=== PATIENT | male | born 1940 | race Caucasian/White ===

== ENCOUNTER → 2017-09-16 16:06 | Outpatient (CLI) | payer MEDICARE, OTHER, SELFPAY ==
[2017-09-16 18:11] LABS: PSA,Total- Diagnostic 0.43 ng/mL (0.0-4.0)
== END ==
PROVIDERS: Visit Provider Urology
DX: C61 Malignant neoplasm of prostate (principal)
CPT/HCPCS: 36415; 84153

== ENCOUNTER 2018-05-06 08:37 | Inpatient (IN) | payer MEDICARE, OTHER, SELFPAY ==
[2018-04-24 11:23] VITALS: BP 134/81; PULSE 70; RESP 18; TEMP 36.6; O2SAT 96; BMI 31.2
--- NOTE | 2018-04-24 14:43 | PCM.HP.BLA ---
History and Physical DATE OF SURGERY: 05/06/2018 SCHEDULED PROCEDURE: left total knee arthroplasty HISTORY OF PRESENT ILLNESS: This is a 77-year-old male whose been having ongoing pain in bilateral knees for approximately 1-2 years. Patient states the left knee is greater than the right. Pain can reach as high as a 10/10. Pain is intermittent, aching, and sore. It is increased going up and down stairs. He is having pain over the medial joint line bilaterally. Patient states this has been affecting his ability to golf due to the pain. He has difficult times daily living including shopping. Patient has tripped/stumbled secondary to his knee pain. He feels unsafe climbing ladders. Patient has tried conservative measures consisting of rest, heat, elevation with minimal relief. He has had previous corticosteroid injections every 3 months for proximally for years with Dr. Kong. His last injection only lasted 4-6 weeks. Patient has been using [id number] Tylenol and Aleve with minimal relief. He has been through home exercise plan with minimal relief. Patient has had a previous left knee arthroscopy in 2003. Patient currently denies any chest pain, shortness of breath, fevers chills, recent infections. Patient has medical history pertinent for hypertension, atrial fibrillation, previous stroke in 1997, and prostate cancer. We are obtaining surgical clearance from patient's primary care physician Dr. Godwin. Patient is currently taking our request and we will follow recommendations from prescribing physician with stopping prior to surgery. After failing conservative measures and discussing treatment options with Dr. John Echevarria, the patient does wish to proceed with a left total knee arthroplasty. REVIEW OF SYSTEMS: ROS: Const: Denies change in appetite, fever and weight change. CV: Reports irregular heartbeat, but denies chest pain and heart murmur. Resp: Denies cough, pneumonia, shortness of breath, tuberculosis and wheezing. GI: Denies constipation, diarrhea, heartburn, nausea, rectal itching, bloody stools and vomiting. : Denies incontinence. Musculo: Denies leg swelling, pain, trouble walking and weakness. Skin: Denies Raynaud's, history of shingles and tattoo. Neuro: Denies ambulatory dysfunction, dizziness, numbness/tingling and tremor. Psych: Denies anxiety, insomnia and stress. Alex/Lymph: Reports bleeding/bruising tendency, but denies anemia and past transfusion. Reviewed, no changes. PAST MEDICAL HISTORY: Advance Care Plan: Other Directive, POA Effective Date: 01/26/2018 PMH: Medical Problems: Arthritis, High Blood Pressure, Hypercholesterolemia, A-Fib Stroke - 1997 Prostate cancer - cleared thru [facility] Accidents: Sports Related Injury - (01/1958) BROKEN LEG AND ANKLE Surgical Hx: Knee Arthroscopy Lt - (2003) ELIZONDO Bleeding Ulcer Fixed Anesthesia Complications: None Assistive Devices: Dentures Reviewed and updated. SOCIAL HISTORY: SH: Marital: .Occupation: Retired.Work Status: Retired.Hand Dominance: Right-handed. Personal Habits: Cigarette Use: Never Smoked Cigarettes.Smokeless Tobacco: Never Used Smokeless Tobacco.Alcohol: Occasionally.Drug Use: Denies Use.Enjoy Exercising: Exercises 1-3 X/Week. Reviewed, no changes. VITALS: Ht: 68 Wt: 209lb Wt k.802 BMI: 31.8 BP: 110/70 Pulse: 68 Resp: 16 T: 96.6 T: 35.9C ALLERGIES: No Known Drug Allergy MEDICATIONS: Potassium Chloride 10 Meq/50ML daily, Digoxin 125 mcg 1po qday, Metoprolol Succinate ER 200 mg 1po qday, Eliquis 5 mg 1po bid, Vitamin D 2000 Unit 1 by mouth every day, Omeprazole 20 mg 1 by mouth every day, Simvastatin 20 mg 1 by mouth every day, Hydrochlorothiazide 25 mg 1 by mouth every day, Quinapril HCL 40 mg 1 by mouth every day, Amlodipine Besylate 10 mg 1 by mouth every day PRE-OP EXAM: General appearance:NORMAL Other: Eyes: Conjunctivae and lids: NORMAL Pupils: ERR Ears, Nose, Mouth, and Throat: NORMAL Other: Inspection of lips, teeth and gums: NORMAL Other: Neck: Examination of neck: no masses noted. Respiratory: Assessment of respiratory effort: NORMAL Other: Auscultation of lungs: clear to auscultation no wheezes, rhonchi or rales. Cardiovascular: Auscultation of heart: irregular rhythm consistent with Atrial fibrillation Exam of carotid arteries: NORMAL Other: Gastrointestinal: Exam of abdomen: soft, nontender, nondistended bowel sounds present. PHYSICAL EXAMINATION: On exam patient does walk with an antalgic gait. Left knee is cool to touch without erythema. Patient does have effusion. There is varus alignment. Range of motion bilateral knee 0 of extension to 130 flexion. Left knee is stable to varus and valgus stress test. He has tenderness to palpation along the medial joint line. Sensation intact to light touch. Neurovascularly intact. IMAGING STUDIES: X-rays were obtained at [facility] with the left knee showing varus alignment with medial joint space narrowing, subchondral sclerosis, and osteophyte formation consistent with severe osteoarthritis. IMPRESSION: 1. Severe left knee osteoarthritis 2. Severe right knee osteoarthritis 3. Atrial fibrillation currently on helical S 4. Hypertension 5. Stroke in 1997 6. Hypercholesterolemia 7. Prostate cancer PLAN: Dr. John Echevarria did discuss and review with the patient all treatment options including surgical versus nonsurgical options. Patient does wish to proceed with the above-stated procedure. Potential risks, benefits, and complications of the procedure were discussed in detail including but not limited to , infection, nerve and blood vessel damage, persistent pain, numbness, tingling, paresthesias, blood clot, pulmonary embolism, and requirement for possible further surgery. The patient expressed full understanding and has no further questions for the doctor. Patient does agree to proceed with the above-stated procedure and has signed the surgery consent form. This dictation was created using voice recognition software. Phonetic and/or grammatical errors may exist.. ___ I have re-examined the patient. There are no clinical changes since date of exam. ___ See progress notes for changes. ___ Dictated on admission Date: Time: Signature:
[2018-04-24 14:48] LABS: Absolute Lymphocyte Count 1.41 X10^3/ul (0.83-4.51); Absolute Neutrophil Count 4.3 X10^3/uL (2.0-7.7); Basophil# 0.04 X10^3/uL; Basophil% 0.6 % (0-1); Eosinophil# 0.21 X10^3/uL; Eosinophils% 3.2 % (0-5); Lymphocyte # 1.41 X10^3/ul (4.0); Lymphocyte % 21.4 % (19-41); Mean Corp Hgb Conc 32.6 g/gl (32-36); Mean Corpuscular Hgb 28.6 pg (27.0-32.0); Mean Corpuscular Volume 87.8 fL (80-94); Mean Platelet Vol. 12.4 fl (6.2-12.0); Monocyte# 0.62 X10^3/uL; Monocyte% 9.4 % (0-10); Neutrophil % 65.1 % (47-70); Platelet Count 170 K/mm3 (150-450); RBC Distribution Width CV 14.2 % (11.6-14.6); RBC Distribution Width SD 46.2 fl (35.1-43.9); Red Blood Count 5.24 M/mm3 (4.6-6.2); White Blood Count 6.6 K/mm3 (4.4-11.0)
[2018-04-24 14:57] LABS: POSITIVE COUNT NO; POSITIVE DIFFERENTIAL NO; POSITIVE MORPHOLOGY NO
[2018-04-24 15:09] LABS: Anion Gap 10 (5-15); BUN 22 mg/dL (7-18); BUN/Creat Ratio 14.9 RATIO (10-20); Calcium,Total 9.2 mg/dL (8.5-10.1); Chloride 104 mmol/L (98-107); Creatinine, Serum 1.48 mg/dL (0.70-1.30); EST Glomerular Filtration Rate 49 mL/min (>60); Est Glom Filt Rate - Afr Amer 59 mL/min (>60); Estimated Creatinine Clearance 42.46 ml/min; Glucose 80 mg/dL (74-106); Potassium 3.2 mmol/L (3.5-5.1); Sodium Level 143 mmol/L (136-145)
[2018-04-24 18:49] LABS: M R Staph aureus DNA By PCR Negative (Negative); Probe Check PASS; Specimen Processing Control PASS
[2018-05-04 13:40] LABS: Albumin, Serum 4.2 g/dL (3.2-5.0)
--- NOTE | 2018-05-04 14:01 | CASEMGMT ---
Attempted to contact patient on cell phone, no answer. Voicemail left. Carmita Navarrete LPN Clinical Support
--- NOTE | 2018-05-05 09:24 | CASEMGMT ---
Patient had returned phone call, called patient back and spoke with him regarding discharge needs after upcoming surgery. Patient plans to return home, son and daughter will assist at home. Patient originally planned for outpatient PT at [facility] but won't be able to drive and won't have assistance with transportation. Patient would prefer outpatient PT be set up at [facility] and would appreciate transportation assistance from [facility]. Patient has a wheeled walker, has a grabber, has high toilets, has a grab bar in the shower. Patient resides in a mobile home, bed/bath are on 1st level. There are 7 steps total to get into home. Informed patient that RN-CM will see patient after surgery. Carmita Navarrete LPN Clinical Support
[2018-05-06] VITALS (15 sets, daily range): BP systolic 89–142; BP diastolic 49–89; PULSE 68–95; RESP 14–18; TEMP 36.3–36.7; O2SAT 95–100; BMI 31.2; BMI 31.3
[2018-05-06] MEDS: Acetaminophen 500 MG Tablet 1000 MG PO ×3 (09:06→21:19)
[2018-05-06] MEDS: Cefazolin 2 GM in 0.9% Normal Saline 100 ML IV (10:11)
--- NOTE | 2018-05-06 11:23 | OP.PCM_ITS ---
Report of Operation Date of Procedure: 05/06/18 Pre-Operative Diagnosis: Left knee primary osteoarthritis Post-Operative Diagnosis: Left knee primary osteoarthritis Surgery/Procedure Performed:: Left total knee replacement Description of Surgical Findings:: Stable knee with good patella tracking board of directors: Nilsa Longoria board of directors: Tayler Boone Type of Anesthesia:: Spinal Anesthesiologist: Jignesh Coronado Special Medications: 2 g Ancef, 1 g TXA at incision, 1 g TXA closure, 10 mg Decadron, joint cocktail (5 mg Duramorph, 30 mL of 0.5% Ropivicaine, 1000 units of epinephrine, 30 mg of Toradol) Specimen's removed: Bony cuts Estimated Blood Loss (mL): 25 Fluids Replaced: 900 mL crystalloid Description of Procedure: Implants used: 1. Dipti size 6 press-fit triathlon cruciate retaining distal femoral comp onent 2. Simpson size 7 press-fit tibial baseplate 3. Dipti X3 9 mm CS polyethylene 4. Simpson X3 38 mm asymmetric patella Brief history operative indications: 77-year-old m with history of left knee osteoarthritis with radiographic findings with loss of joint space, osteophyte formation and subchondral sclerosis. Failed conservative measures as mentioned in the H&P. Discussion of total knee arthroplasty as well as risk and benefits were discussed the patient including but not limited to blood loss, DVTs, PEs, neurovascular damage, general risk of anesthesia including loss of life, and stiffness or instability were discussed with patient. Patient demonstrated understanding and was able to sign informed consent. Procedure: On the date of procedure patient's left lower extremity was marked in the preoperative area. The patient was then taken back to the operating room where the patient was placed on the table in the supine position. All bony prominences were identified a well-padded. Anesthesia assumed control of the C-spine and airway and remained controlled throughout the remainder of the procedure. A tourniquet was placed on the left upper thigh and the leg was prepped in a sterile fashion. The surgeon then scrubbed at this time .Upon reentering the room left lower extremity was draped in a standard orthopedic fashion. A timeout was then called and everyone agreed upon the side, the site, the procedure to be performed, patient's identity and antibiotics given. Esmarch bandage was used to exsanguinate the extremity and the tourniquet was placed up to 250 mmHg with the knee in flexion. A midline skin incision was made and sharp dissection was taken down through skin subcutaneous tissue and fat. The standard medial parapatellar incision was made and the patella was subluxed laterally. The standard deep MCL release was done and the fat pad was resected. Next our attention was directed to the femur. Navigation pins were placed, navigation was registered. The distal femoral cutting block was pinned into place and 9 mm of distal femur resection was completed. The distal femoral cut was verified with navigation. The knee was then placed in deep flexion in the standard [email or web address] sizing guide was used to place the femoral component in 3? external rotation based on the posterior condyles. A size 6 4-in-1 cutting block was selected and pinned into place. The anterior cut was then made and checked for notching. The subsequent anterior chamfer cuts, posterior condylar cuts and posterior chamfer cuts were made while ensuring the MCL and LCL were protected. Our attention was then turned to the tibia where the B[place]e tibial cutting guide was used to make the appropriate tibial cut 90 degrees from the mechanical axis. Navigation was then used to verify the cut. A size 7 tibial base plate was selected. the knee was flexed to 90 degrees and the soft tissues and posterior osteophytes were removed from the joint. 40 cc of the periarticular injection was injected into the posterior medial corner of the joint. The appropriate trials were then placed on the femur and tibia. A trial polyethylene was trialed to ensure proper balancing and stability of the knee. Patella tracking, was then verified and corrected appropriately as needed. The appropriate tibial internal rotation was then marked with a bovie. Our attention was then directed to the patella. The patella was everted and a flat resection was made. The lug holes were drilled and the patella trial was placed. Patellar tracking was checked and deemed appropriate. Once we were happy lug holes were drilled for the femur and trial components were removed. Cement was mixed at this time and the tourniquet was let down the tibia was subluxed and pinned into place and the keel was punched and the canal was reamed. Final components were verified and opened, and cement was mixed in a vacuum. Simpson Simplex cement was used. The wound was copiously irrigated with normal saline. When the cement was ready the press-fit components were impacted into place starting with the tibia, femur and finally the patella cemented into place. The trial poly component was placed and the knee was placed in full extension. All excess cement was removed in the process. Once the cement had cured the tracking, alignment and balance were verified and a size 9 mm polyethylene component was placed. Once the final components were placed the wound was copiously irrigated with normal saline solution and the periarticular injection was given. The wound was closed in a layer peck fashion using #1 vicryl interrupted sutures for the arthrotomy, 2-0 interrupted Vicryl suture for the subcuticular layer and baljinder for final skin closure. A sterile compressive dressing was then placed. The patient was then awakened from anesthesia, transferred to the [facility] and transferred to the PACU for recovery. Post op plan DVT ppx: Patient will restart his Eliquis tomorrow, thigh high compression stockings Follow up: in office in 2 weeks for wound check PT: to start POD #0 at hospital, outpatient PT should be arranged. Grafts/Implants Used: Dipti triathlon press-fit cruciate retaining total knee - Complications None - Admit VTE Documentation VTE Present on Admission: No VTE Mechan Device Prophylaxis: SCD's, Thigh High GREGORY Hose VTE Pharm Prophylaxis ordered?: Yes
[2018-05-06] MEDS: Scopolamine 1mg/72hr Patch 1 PATCH TD (12:02)
--- NOTE | 2018-05-06 12:10 | RAD_ITS ---
STUDY: X-RAY - LEFT KNEE REASON FOR EXAM: Male, 77 years old. Total knee replacement. TECHNIQUE: 2 view(s) of the knee. COMPARISON: Comparison is made with prior study dated May 21, 2017. FINDINGS: Normal visualized distal femur. Normal visualized proximal tibia and fibula. Normal proximal tibiofibular articulation. The patient is status post total knee replacement. There is good alignment. Postoperative soft tissue changes. RAD/Knee 1 or 2 Views IMPRESSION: Status post total knee replacement. There is good alignment. Postoperative soft tissue changes. Electronically Signed: Magdi Pham MD at 14:34 EST Tel [phone], Service support ,
--- NOTE | 2018-05-06 14:08 | PCM.CONS.GEN ---
Reason for Consult Date of Consultation: 05/06/18 Reason for Consultation: Consult requested by Dr. Echevarria for postoperative medical management History of Present Illness: The patient is a 77 year old M who underwent a left total knee replacement today by Dr. Echevarria. Postoperatively, patient had some nausea in the PACU but is otherwise feeling fine at this time. Denies any pain in his left leg at this time. [] Past Medical History Medical History: Medical History (Last Updated 05/06/18 @ 14:10 by Gerber Williamson DO) Afib I48.91 CVA (cerebral vascular accident) I63.9 Hyperlipidemia E78.5 PUD (peptic ulcer disease) K27.9 Prostate cancer C61 TIA (transient ischemic attack) G45.9 Hypertension I10 Allergies No Known Allergies Allergy (Verified 05/21/17 08:26) Home Medications: Ambulatory Orders Medication Instructions Recorded Amlodipine [Norvasc] 10 mg PO DAILY 11/21/16 Apixaban [Eliquis] 5 mg PO BID 11/21/16 Digoxin [Lanoxin] 125 mcg PO DAILY 11/21/16 Hydrochlorothiazide [Hctz] 25 mg PO DAILY 11/21/16 Metoprolol Tartrate [Lopressor] 200 mg PO DAILY 11/21/16 Omeprazole 20 mg PO DAILY 11/21/16 Quinapril HCl 40 mg PO DAILY 11/21/16 Simvastatin 20 mg PO DAILY 11/21/16 Cholecalciferol (Vitamin D3) 2,000 unit PO DAILY 04/24/18 [Vitamin D3] Potassium Chloride 10 meq PO DAILY 04/24/18 Surgical History: Surgical History (Last Reviewed 05/06/18 @ 14:10 by Gebrer Williamson DO) S/P left knee arthroscopy Z98.890 Smoking Status: Never smoker Tobacco Use: Non-smoker Alcohol: None Drugs: None - *Family History Maternal Family History: Family History (Last Updated 05/06/18 @ 14:11 by Gerber Williamson DO) Mother Brain aneurysm Other Angina of effort Review of Systems Constitutional: Denies: Anorexia, Chills, Fever, Night Sweats Eyes: Denies: Blurred vision, Double vision HEENT: Denies: Head Aches, Sinus Congestion, Sinus Drainage Cardiovascular: Denies: Chest Pain, Palpitations Respiratory: Denies: Cough, Shortness of breath at rest, Sputum production Gastrointestinal: Denies: Abdominal Pain, Nausea, Vomiting Genitourinary: Denies: Dysuria Musculoskeletal: Denies: Joint Pain, Joint Tenderness Skin: Denies: Rash, Wounds Neurological: Denies: Numbness, Tingling, Focal weakness Psychiatric: Denies: Anxiety, Depression Hematologic/ Lymphatic: Reports: Easy Bleeding - due to PUD (in 1985 and 2003). Denies: Hx of blood clot Comment: A 10 point review of systems were negative except as mentioned in the history of present illness and the other review of systems. - Physical Exam General: Alert, Cooperative, No apparent distress HEENT: Atraumatic, Normocephalic Oral: Moist Mucosa, No Gingival or Mucosal Lesions/ Ulcerations Neck: No Nodes, Thyroid Normal Size and Texture Lungs: Clear to auscultation, Normal air movement, No rhonchi, No wheeze Cardiovascular: Regular rate, Regular Rhythm, Normal S1, Normal S2, No murmurs Abdomen: Bowel Sounds Present, Soft, Non Tender, Non-Distended, No Hepato-splenomegaly Extremities: No edema, No Calf Tenderness Skin: No rashes, No breakdown Psych/Mental Status: Normal Affect Vital Signs Temp Pulse Resp BP Pulse Ox 36.5 C L 95 16 115/67 98 05/06/18 13:29 05/06/18 13:29 05/06/18 13:29 05/06/18 13:29 05/06/18 13:29 Oxygen Delivery Method Room Air Weight: 95.9 kg Body Mass Index (BMI) 31.3 Intake and Output for Last 24 Hours 05/04/18 05/05/18 05/06/18 23:59 23:59 23:59 Intake Total 1700 / 1700 Balance 1700 / 1700 Assessment/Plan 1. Atrial fibrillation Chronic To new anticoagulation with Eliquis, continue digoxin and metoprolol succinate Follow-up with cardiology outpatient 2. HTN Stable continue with amlodipine, HCTZ and lisinopril 3. Remote history of peptic ulcer disease Continue with PPI 4. Status post left knee replacement Management per orthopedics 5. DVT prophylaxis: Patient is already anticoagulated with Eliquis. Ink for the consult. The hospital service will continue to follow along during this patient's hospitalization. Code Visit Inpatient E&M: 46985 Init Hosp L2
[2018-05-06] MEDS: Lactated Ringers 1,000 ML 75 ML IV (14:22)
[2018-05-06] MEDS: Digoxin 125 MCG Tablet PO (14:31)
[2018-05-06] MEDS: Morphine 2 MG/ML Syringe IV (17:10)
[2018-05-06] MEDS: Cefazolin 1 GM/50 ML BAG IV (19:06)
[2018-05-06] MEDS: oxyCODONE 5 MG Tablet PO ×2 (19:06→23:14)
[2018-05-06] MEDS: Atorvastatin Calcium 10 MG Tablet PO (21:19)
[2018-05-06] MEDS: Senna/Docusate Sodium 1 Tablet 2 TABLET PO (21:19)
[2018-05-06] MEDS: Meloxicam 7.5 MG Tablet PO (21:19)
[2018-05-06] MEDS: Metoprolol(XL)Succ 200 MG Tablet PO (22:42)
[2018-05-07] MEDS: Cefazolin 1 GM/50 ML BAG IV (02:05)
[2018-05-07 02:07] VITALS: BP 128/59; PULSE 85; RESP 18; TEMP 36.9; O2SAT 96
[2018-05-07] MEDS: oxyCODONE 5 MG Tablet PO ×2 (03:35→15:54)
[2018-05-07 05:32] LABS: Hematocrit 39.1 % (40-54); Hemoglobin 12.4 g/dl (13.0-16.5); Mean Corp Hgb Conc 31.7 g/gl (32-36); Mean Corpuscular Hgb 28.6 pg (27.0-32.0); Mean Corpuscular Volume 90.3 fL (80-94); Mean Platelet Vol. 11.5 fl (6.2-12.0); Platelet Count 145 K/mm3 (150-450); RBC Distribution Width CV 14.2 % (11.6-14.6); Red Blood Count 4.33 M/mm3 (4.6-6.2); White Blood Count 9.4 K/mm3 (4.4-11.0)
[2018-05-07 05:53] LABS: Scan Indicated on CBC? Y/N NO
[2018-05-07 05:56] LABS: Anion Gap 9 (5-15); BUN 18 mg/dL (7-18); BUN/Creat Ratio 12.7 RATIO (10-20); Calcium,Total 8.2 mg/dL (8.5-10.1); Chloride 106 mmol/L (98-107); Creatinine, Serum 1.42 mg/dL (0.70-1.30); EST Glomerular Filtration Rate 51 mL/min (>60); Est Glom Filt Rate - Afr Amer 62 mL/min (>60); Estimated Creatinine Clearance 42.82 ml/min; Glucose 138 mg/dL (74-106); Potassium 3.8 mmol/L (3.5-5.1); Sodium Level 140 mmol/L (136-145)
[2018-05-07] MEDS: Acetaminophen 500 MG Tablet 1000 MG PO ×3 (06:14→21:42)
[2018-05-07 08:18] VITALS: BP 105/64; PULSE 83; RESP 18; TEMP 36.8; O2SAT 96
[2018-05-07] MEDS: Meloxicam 7.5 MG Tablet PO ×2 (08:26→21:43)
[2018-05-07] MEDS: Famotidine 20 MG Tablet PO (08:27)
[2018-05-07] MEDS: APIXABAN 5 MG TABLET PO ×2 (08:27→21:43)
[2018-05-07 08:28] VITALS: PULSE 83
[2018-05-07] MEDS: Digoxin 125 MCG Tablet PO (08:28)
[2018-05-07] MEDS: Pantoprazole Sodium 20 MG Tablet PO (08:28)
--- NOTE | 2018-05-07 09:30 | PN.ORTHO_ITS ---
Subjective: The patient was sitting in bedside chair upon examination. Patient denies any chest pain, shortness of breath, dizziness, lightheadedness, nausea or vomiting, or calf pain. Pain is controlled on medications. No adverse overnight events. Patient does report pain in his left knee primarily when he is up walking.. Objective: Vital signs stable and afebrile. Patient is able to plantarflex and dorsiflex actively. Sensation is intact to light touch to saphenous, sural, superficial and deep peroneal, and tibial distribution. Dressing is clean dry and intact. Negative Homans bilaterally, negative signs and symptoms of DVT. - Physical Exam General: Alert, Oriented x3, Cooperative, No apparent distress Vital Signs Temp Pulse Resp BP Pulse Ox 98.2 F 83 18 105/64 96 05/07/18 08:18 05/07/18 08:28 05/07/18 08:18 05/07/18 08:18 05/07/18 08:18 Oxygen Delivery Method Room Air Weight: 95.9 kg Body Mass Index (BMI) 31.3 Intake and Output for Last 24 Hours 05/05/18 05/06/18 05/07/18 23:59 23:59 23:59 Intake Total 2851 / 2851 1077 / 1077 Output Total 1025 / 1025 Balance 2851 / 2851 52 / 52 Laboratory Tests Past 24 Hrs 05/07/18 05/07/18 05:02 05:02 WBC 9.4 RBC 4.33 L Hgb 12.4 L Hct 39.1 L MCV 90.3 MCH 28.6 MCHC 31.7 L RDW 14.2 RDW Differential 47.0 H Plt Count 145 L MPV 11.5 Sodium 140 Potassium 3.8 Chloride 106 Carbon Dioxide 25.0 Anion Gap 9 BUN 18 Creatinine 1.42 H Estim Creat Clear Calc 42.82 Est GFR (MDRD) Af Amer 62 Est GFR (MDRD) Non-Af 51 L BUN/Creatinine Ratio 12.7 Glucose 138 H Calcium 8.2 L Medical Necessity - Tobacco Use Smoking Status: Never smoker Tobacco Use: Non-smoker Assessment/Plan 1. S/P left total knee arthroplasty POD #1 2. Continue Pain Medications: Tylenol and OxyIR 3. DVT Prophylaxis: Patient has been placed back on his Eliquis: Patient treate d for atrial fibrillation 4. PT/OT: Weightbearing as tolerated 5. H & H: 12.4/31.9, asymptomatic 6. Encouraged Incentive Spirometry 7. Continue postoperative medical management per medicine 8. Disposition: Plan will be for discharge home tomorrow if patient tolerates physical therapy and pain is controlled.
--- NOTE | 2018-05-07 10:45 | CASEMGMT ---
COURTNEY TUBBS Face to Face with patient for initial transition planning/care coordination assessment. COURTNEY TUBBS introduced self and role at [facility]. Patient lying in bed, alert and oriented. Patient willing to participate in assessment and is able to answer all questions appropriately. Care providers, pharmacy, and demographics verified. Patient wishes to discharge home and would like outpatient therapy changed from [facility] to [facility] to utilize the hospital van. COURTNEY TUBBS will call [facility] to schedule outpatient therapy. Patient states he has a walker, qualitative field project manager, and raised toilets at home. Patient's daughter to provide transportation to initial [place] appointment. Patient states he has no further needs or concerns at this time. CM to follow for discharge planning needs that may arise. Disposition Plan: Patient to discharge home with outpatient therapy, family support, and follow-up plans in place. Alethea SOTO, RN, CM
--- NOTE | 2018-05-07 11:09 | PN_ITS ---
Subjective: Chief complaint: Follow-up after consultation for postoperative medical management. Patient seen and examined. No acute events overnight. Left knee pain is 2 out of 10 severity at rest and goes up to 7 out of 10 severity with ambulation. Denies any other complaints. His vital signs are stable. - Physical Exam General: Alert, Oriented x3, Cooperative, No apparent distress HEENT: Atraumatic, PERRLA, EOMI, Normocephalic Oral: Moist Mucosa, No Gingival or Mucosal Lesions/ Ulcerations Neck: Supple, No JVD, Negative Carotid Bruits, Trachea Midline, Thyroid Normal Size and Texture Lungs: Clear to auscultation, No rhonchi, No wheeze, No rales, Diminished Cardiovascular: Normal S1, Normal S2, No murmurs, PMI Normal, Irregular Rate Abdomen: Bowel Sounds Present, Soft, Non Tender, Non-Distended, No Hepato- splenomegaly Extremities: No clubbing, No cyanosis, No edema Skin: No rashes, No breakdown Lymphatic: No Cervical, Supraclavicular, or Inguinal Adenopathy Neurological: Cranial nerves II-XII grossly intact, Motor Exam 5/5 strength throughout Psych/Mental Status: Normal Affect, Appropriate, Alert and oriented to time, place, person, mood and affect Vital Signs Temp Pulse Resp BP Pulse Ox 98.2 F 83 18 105/64 96 05/07/18 08:18 05/07/18 08:28 05/07/18 08:18 05/07/18 08:18 05/07/18 08:18 Oxygen Delivery Method Room Air Weight: 211 lb 6.773 oz Body Mass Index (BMI) 31.3 Intake and Output for Last 24 Hours 05/05/18 05/06/18 05/07/18 23:59 23:59 23:59 Intake Total 2851 / 2851 1437 / 1437 Output Total 1025 / 1025 Balance 2851 / 2851 412 / 412 Laboratory Tests Past 24 Hrs 05/07/18 05/07/18 05:02 05:02 WBC 9.4 RBC 4.33 L Hgb 12.4 L Hct 39.1 L MCV 90.3 MCH 28.6 MCHC 31.7 L RDW 14.2 RDW Differential 47.0 H Plt Count 145 L MPV 11.5 Sodium 140 Potassium 3.8 Chloride 106 Carbon Dioxide 25.0 Anion Gap 9 BUN 18 Creatinine 1.42 H Estim Creat Clear Calc 42.82 Est GFR (MDRD) Af Amer 62 Est GFR (MDRD) Non-Af 51 L BUN/Creatinine Ratio 12.7 Glucose 138 H Calcium 8.2 L Medical Necessity - Tobacco Use Smoking Status: Never smoker Tobacco Use: Non-smoker Assessment/Plan This is a 77 years old male patient admitted for elective left total knee replacement for left knee osteoarthritis and I am seeing this patient in consultation for postoperative medical management. #1 status post left total knee replacement: This was done for left knee osteoarthritis, postoperative day 1. Patient is on morphine and OxyIR as needed for pain. Pain is manageable at this time. His vital signs are stable. Routine blood work reviewed. Orthopedic surgery is managing. #2 chronic atrial fibrillation: Rate is controlled, blood pressure stable, continue digoxin and metoprolol for rate control, continue Eliquis for anticoagulation. #3 hypertension: Blood pressure stable, continue Norvasc, HCTZ and lisinopril. #4 hyperlipidemia: Continue statins. #5 stage III chronic kidney disease: Baseline creatinine is around 1.4-1.5 mg/dL. Today's creatinine is 1.42, stable. #6 history of peptic ulcer disease: Continue Protonix. #7 DVT prophylaxis: Continue Eliquis. This note was generated with [employer] dictation software. It may contain incorrect words, spelling, and punctuation that were not noted in checking the note before signing. Code Visit Inpatient E&M: 09544 Subs Hosp L2
[2018-05-07 14:05] VITALS: BP 110/78; PULSE 69; RESP 18; TEMP 36.8; O2SAT 97
--- NOTE | 2018-05-07 14:38 | CASEMGMT ---
COURTNEY TUBBS called [facility] to setup therapy. Therapy scheduled with Jamie at [facility] for Friday05/12/18 at 0900. COURTNEY TUBBS request therapy order from [facility] be sent to [facility]. COURTNEY TUBBS updated patient.
[2018-05-07 20:07] VITALS: BP 138/74; PULSE 71; RESP 18; TEMP 36.8; O2SAT 96
[2018-05-07 21:42] VITALS: BP 138/74; PULSE 71
[2018-05-07] MEDS: Atorvastatin Calcium 10 MG Tablet PO (21:42)
[2018-05-07] MEDS: Senna/Docusate Sodium 1 Tablet 2 TABLET PO (21:42)
[2018-05-07] MEDS: Metoprolol(XL)Succ 200 MG Tablet PO (21:42)
[2018-05-08] MEDS: oxyCODONE 5 MG Tablet PO ×2 (02:05→08:32)
[2018-05-08 02:09] VITALS: BP 126/68; PULSE 70; RESP 18; TEMP 36.9; O2SAT 95
[2018-05-08] MEDS: Acetaminophen 500 MG Tablet 1000 MG PO (05:27)
[2018-05-08 06:27] LABS: Hematocrit 37.8 % (40-54); Hemoglobin 12.3 g/dl (13.0-16.5); Mean Corp Hgb Conc 32.5 g/gl (32-36); Mean Corpuscular Hgb 29.3 pg (27.0-32.0); Platelet Count 131 K/mm3 (150-450); RBC Distribution Width CV 14.2 % (11.6-14.6); RBC Distribution Width SD 45.6 fl (35.1-43.9); White Blood Count 8.2 K/mm3 (4.4-11.0)
[2018-05-08 06:32] LABS: Scan Indicated on CBC? Y/N NO
--- NOTE | 2018-05-08 06:58 | PN.ORTHO_ITS ---
Subjective: The patient was sitting in bedside chair upon examination. Patient denies any chest pain, shortness of breath, dizziness, lightheadedness, nausea or vomiting, or calf pain. Pain is controlled on medications. No adverse overnight events. Patient does report pain in his left knee primarily when he is up and walking. Pain has been controlled on medications. Objective: Vital signs stable and afebrile. Patient is able to plantarflex and dorsiflex actively. Sensation is intact to light touch to saphenous, sural, superficial and deep peroneal, and tibial distribution. Dressing is clean dry and intact with one small drop of drainage middle one third Negative Homans bilaterally, negative signs and symptoms of DVT. - Physical Exam General: Alert, Oriented x3, Cooperative, No apparent distress Vital Signs Temp Pulse Resp BP Pulse Ox 98.4 F 70 18 126/68 H 95 05/08/18 02:09 05/08/18 02:09 05/08/18 02:09 05/08/18 02:09 05/08/18 02:09 Oxygen Delivery Method Room Air Weight: 95.9 kg Body Mass Index (BMI) 31.3 Intake and Output for Last 24 Hours 05/06/18 05/07/18 05/08/18 23:59 23:59 23:59 Intake Total 2851 / 2851 7 / 2036 Output Total 1025 / 1025 500 / 500 Balance 2851 / 2851 1012 / 1012 -500 / -500 Laboratory Tests Past 24 Hrs 05/08/18 05:30 WBC 8.2 RBC 4.20 L Hgb 12.3 L Hct 37.8 L MCV 90.0 MCH 29.3 MCHC 32.5 RDW 14.2 RDW Differential 45.6 H Plt Count 131 L MPV 12.0 Medical Necessity - Tobacco Use Smoking Status: Never smoker Tobacco Use: Non-smoker Assessment/Plan 1. S/P left total knee arthroplasty POD #2 2. Continue Pain Medications: Tylenol and OxyIR 3. DVT Prophylaxis: Patient has been placed back on his Eliquis: Patient treated for atrial fibrillation 4. PT/OT: Weightbearing as tolerated 5. H & H: 12.3/37.8, asymptomatic 6. Encouraged Incentive Spirometry 7. Continue postoperative medical management per medicine 8. Disposition: Orthopedically stable, plan will be for discharge home today after physical therapy. Patient will follow-up per postop instructions. Prescriptions will be E scribed to [facility].
--- NOTE | 2018-05-08 07:02 | PCM.DC.TKR ---
Discharge Diet: No Restrictions Discharge Activity: May Not Drive May shower in (days): 1 - Turned dressing away from water Ice area for (Minutes): 20 - every hour while awake. Weight Bearing Status: Weight bearing as tolerated Elevate: Operative Extremity Additional Activity Instructions:: Wear elastic stockings for 2 weeks after your surgery. Call your doctor if your incision/area has: Continuous Slow Oozing, Sudden Increased Bleeding, Increased Pain/ Swelling, Increased Redness, Foul Smelling Discharge Call your doctor if you observe: Fever of 101 or Higher, Coldness, Increased Pain, Numbness or Tingling, Change in Color, Calf discomfort, Uncontrolled pain Remove Dressing in (days):: 3 - Okay to remove dressing on May 11, 2018 Additional Instructions: Follow [facility] postop instructions Allergies/Adverse Reactions: Allergies No Known Allergies Allergy (Verified 05/21/17 08:26) Medications to take at Discharge Amlodipine [Norvasc] 10 mg PO DAILY 11/21/16 Apixaban [Eliquis] 5 mg PO BID 11/21/16 Digoxin [Lanoxin] 125 mcg PO DAILY 11/21/16 Hydrochlorothiazide [Hctz] 25 mg PO DAILY 11/21/16 Metoprolol Tartrate [Lopressor] 200 mg PO DAILY 11/21/16 Omeprazole 20 mg PO DAILY 11/21/16 Quinapril HCl 40 mg PO DAILY 11/21/16 Simvastatin 20 mg PO DAILY 11/21/16 Cholecalciferol (Vitamin D3) [Vitamin D3] 2,000 unit PO DAILY 04/24/18 Potassium Chloride 10 meq PO DAILY 04/24/18 Acetaminophen [Tylenol] 1,000 mg PO Q8 #90 tablet 05/08/18 Oxycodone [Oxyir] 5 - 10 mg PO Q4H PRN PRN 5 Days #60 tablet 05/08/18 Senna/Docusate Sodium [Senokot-S] 2 tablet PO BID #20 tablet 05/08/18 The following prescriptions were given: Oxycodone [Oxyir] 5 - 10 mg PO Q4H PRN PRN 5 Days #60 tablet PRN Reason: Mod-Severe Pain (4-10/10) Acetaminophen [Tylenol] 1,000 mg PO Q8 #90 tablet Senna/Docusate Sodium [Senokot-S] 2 tablet PO BID #20 tablet Primary Care Physician: [facility] Doctor,Out of [Primary Care Provider] - Test Results: Test results from this visit will be discussed in further detail at your follow-up appointment, if applicable. Please Follow Up With: [employer] [facility]- Jamie When: Friday Please Follow Up With: Corey Vega PA-C When: 05/20/18 @ 9:00 am
[2018-05-08 08:25] VITALS: BP 129/72; PULSE 87; RESP 18; TEMP 36.8; O2SAT 97
[2018-05-08] MEDS: Lisinopril 40 MG Tablet PO (08:26)
[2018-05-08 08:27] VITALS: PULSE 90
[2018-05-08] MEDS: Pantoprazole Sodium 20 MG Tablet PO (08:27)
[2018-05-08] MEDS: amLODIPine 10 MG Tablet PO (08:27)
[2018-05-08] MEDS: hydroCHLOROthiazide 25 MG Tablet PO (08:27)
[2018-05-08] MEDS: Famotidine 20 MG Tablet PO (08:27)
[2018-05-08] MEDS: Digoxin 125 MCG Tablet PO (08:27)
[2018-05-08] MEDS: Meloxicam 7.5 MG Tablet PO (08:27)
[2018-05-08] MEDS: APIXABAN 5 MG TABLET PO (08:28)
--- NOTE | 2018-05-08 08:59 | PCA ---
pt in therapy
--- NOTE | 2018-05-08 10:42 | PN_ITS ---
Subjective: Chief complaint: Follow-up after consultation for postoperative medical management. Patient seen and examined. No acute events overnight. Left knee pain is manageable. Denies any other complaints. His vital signs are stable. - Physical Exam General: Alert, Oriented x3, Cooperative, No apparent distress HEENT: Atraumatic, PERRLA, EOMI, Normocephalic Oral: Moist Mucosa, No Gingival or Mucosal Lesions/ Ulcerations Neck: Supple, No JVD, Negative Carotid Bruits, Trachea Midline, Thyroid Normal Size and Texture Lungs: Clear to auscultation, Normal air movement, No rhonchi, No wheeze, No rales Cardiovascular: Normal S1, Normal S2, No murmurs, PMI Normal, Irregular Rate Abdomen: Bowel Sounds Present, Soft, Non Tender, Non-Distended, No Hepato-splenomegaly Extremities: No clubbing, No cyanosis, No edema Skin: No rashes, No breakdown Lymphatic: No Cervical, Supraclavicular, or Inguinal Adenopathy Neurological: Cranial nerves II-XII grossly intact, Neuro grossly intact Psych/Mental Status: Normal Affect, Appropriate, Alert and oriented to time, place, person, mood and affect Vital Signs Temp Pulse Resp BP Pulse Ox 98.3 F 90 18 129/72 H 97 05/08/18 08:25 05/08/18 08:27 05/08/18 08:25 05/08/18 08:25 05/08/18 08:25 Oxygen Delivery Method Room Air Weight: 211 lb 6.773 oz Body Mass Index (BMI) 31.3 Intake and Output for Last 24 Hours 05/06/18 05/07/18 05/08/18 23:59 23:59 23:59 Intake Total 2851 / 2851 2036 / 2036 Output Total 1025 / 1025 500 / 500 Balance 2851 / 2851 1012 / 1012 -500 / -500 Laboratory Tests Past 24 Hrs 05/08/18 05:30 WBC 8.2 RBC 4.20 L Hgb 12.3 L Hct 37.8 L MCV 90.0 MCH 29.3 MCHC 32.5 RDW 14.2 RDW Differential 45.6 H Plt Count 131 L MPV 12.0 Medical Necessity - Tobacco Use Smoking Status: Never smoker Tobacco Use: Non-smoker Assessment/Plan This is a 77 years old male patient admitted for elective left total knee replacement for left knee osteoarthritis and I am seeing this patient in consultation for postoperative medical management. #1 status post left total knee replacement: This was done for left knee osteoarthritis, postoperative day 2. Left knee pain is manageable, patient has been doing well with physical therapy. Patient is on morphine and OxyIR as needed for pain. Pain is manageable at this time. Patient is medically stable to be discharged home, no changes to his home medications. #2 chronic atrial fibrillation: Rate is controlled, blood pressure stable, continue digoxin and metoprolol for rate control, continue Eliquis for anticoagulation. #3 hypertension: Blood pressure stable, continue Norvasc, HCTZ and lisinopril. #4 hyperlipidemia: Continue statins. #5 stage III chronic kidney disease: Baseline creatinine is around 1.4-1.5 mg/dL. Yesterday's creatinine is 1.42, stable. #6 history of peptic ulcer disease: Continue Protonix. #7 DVT prophylaxis: Continue Eliquis. This note was generated with [employer] dictation software. It may contain incorrect words, spelling, and punctuation that were not noted in checking the note before signing. Code Visit Inpatient E&M: 49733 Subs Hosp L2
== END 2018-05-08 10:33 | disposition home or self-care (01) | DRG 470 ==
PROVIDERS: Admitting Provider Specialist; Referring Provider Specialist; Visit Provider Specialist
PROC: 0SRD0JA Replacement of Left Knee Joint with Synthetic Substitute, Uncemented, Open Approach (ICD-10-PCS; CPT 27447; principal; 2018-05-06 10:00)
DX: M17.12 Unilateral primary osteoarthritis, left knee (principal); Z86.73 Personal history of transient ischemic attack (TIA), and cerebral infarction without residual deficits; E78.5 Hyperlipidemia, unspecified; I48.2 Chronic atrial fibrillation; Z87.11 Personal history of peptic ulcer disease; I12.9 Hypertensive chronic kidney disease with stage 1 through stage 4 chronic kidney disease, or unspecified chronic kidney disease; N18.3 Chronic kidney disease, stage 3 (moderate)
CPT/HCPCS: 36415; 73560; 80048; 80162; 82040; 85025; 85027; 87081; 87641; 93005; 97110; 97116; 97162; 97165; 97530; 99251; C1776; J7120; G0463

== ENCOUNTER 2018-06-29 14:30 | Outpatient (RCR) | payer MEDICARE, OTHER, SELFPAY ==
[2018-05-06 13:46] VITALS: BMI 31.3
--- NOTE | 2018-05-12 12:36 | HP.PTEVAL_ITS ---
Patient's Visit Information LEAH FOY is a 77 year old M referred to Physical Therapy by John Echevarria MD with a diagnosis of L TKA. Date of Evaluation: 05/12/18 Physical Therapist: Luis Fernando Perdomo DPT - Visit Plan Frequency: 2-3x /Week Duration: 4-6 Weeks Plan: Start with ROM of L knee, end range extension, progrressing flexion as toelrated. Add in progressive gait tolerance and away from AD as tolerated in the next few weeks. Add in functional quad/HS/glute med strengthening as able. May use ice and vaso for edema/pain control. - Subjective Findings: Pt. is here today for his initial evaluation with diagnosis of L TKR. DOS: 05/06/18. Pt. reports having pain for about 1 year and was recieving injections prior to surgery. He is also tenatively scheduled to have the R knee replaced in 6 weeks. Pt. reports increased pain with walking, bending his L knee and standing. He is walking with a walker, wearing GREGORY compression as indicated. Pt. denies N/T, no fever, no chilles, no SOB. Pt. is sleeping relatively okay, but typically has a hard time sleeping. Pt. is to follow up with PA in 10 days. Pt. is hopeful to reduce his symptoms in order to get back to playgin softball with - Pain L knee Pain Intensity (Out of 10): 4 Pain Intensity Range: 2, 6 - Objective POSTURE: Pt. has slight lateral R wt. shift. Pt. is able to stand without AD, but has slight L knee flexion. PALPATION: Pt. tenderness along his knee. Normal healing of incision, no signs of infection. Pt. does have some redness,but as expected. Pt. has negative homans sign. NEURO: all intact no issues with sensation of DTR of bilateral LEs. ROM: R knee 0-5-128deg. L knee 0-8-78deg. Pt. has tight HS bilaterally. MMT: RLE- 5/5 throughout. LLE- ankle 5/5 throughout; knee- ext 3/5, flexion 4/5; hip- flexion 3/5, abd 3/5, ext 3/5. Core- poor+. GAIT: Pt. ambulates with FWW with step through pattern, but not fully. Pt. has slight lack of TKE during L stance phase. STAIRS: step to pattern noted loading RLE only, BHR required. - Goals Goal 1:: Pt. to be I with HEP. Goal Time Frame: 4-6 Weeks Goal 2:: Pt. to have increased L knee ROM to 0-0-120deg AROM allowing for increased tolerance to all functional mobility. Goal Time Frame: 4-6 Weeks Goal 3:: Pt. to have increased strength of LLE by 1/1 grade of all effected musculature allowing for increased stability with all functional mobility. Goal Time Frame: 4-6 Weeks Goal 4:: Pt. to ambulate without AD with normallized gait pattern independently without increase in symptoms. Goal Time Frame: 4-6 Weeks Goal 5:: Pt. to negotiate steps with reciprocal pattern and use of 1 HR allowing for increased ease of entry in home and community. Goal Time Frame: 4-6 Weeks - Rehabilitation Potential Physical Therapy Diagnosis: Pt. has signs and symptoms consistent with L TKA. Pt. has subsequent hypombility., weakness, difficulty with gait and increased pain. Pt. would benefit from PT to address above limitations and progress back to all recreational and household activities without limitations. Rehabilitation Potential: Excellent - Anticipated Interventions Patient/Client Instruction: Educate patient on: Condition, Plan of Care, Risk Factors, Benefits of Fitness Program For the Purpose of:: To foster healthy habits, To improve decision making, To facilitate caregiver knowledge, To improve self management, To prevent re- injury, To improve ability to perform tasks related to life management, To improve tolerance to ADL's Therapeutic Exercise to Include: Strength training, Power training, Balance training, Postural training, Flexibilty training, Gait and locomotor training, Passive ROM, Active ROM, Dynamic Lumbar Stabilization For the Purpose of:: To decrease pain, To decrease swelling/inflammation, To increase ROM, To improve nutrient delivery to tissue, To increase oxygenation perfusion, To improve muscle performance and motor function, To improve ability to perform ADL's, To improve gait and locomotor functions, To improve health of tissue, To decrease soft tissue restriction, To increase flexibility/ROM, To improve endurance, To improve balance Manual Therapy Techniques to Include: Mobilization, Passive ROM, Soft tissue mobilization For the Purpose of:: To decrease pain, To decrease swelling/inflammation, To increase ROM IF ES: Yes Cryotherapy (ice pack, ice massage): Yes Vasopneumatic device: Yes For the Purpose of:: To decrease pain, To decrease swelling/inflammation, To increase ROM Thank you for the opportunity to evaluate your patient. For Medicare and Medicare HMO plans, please review the plan of care and approve it. It will need to be FAXED BACK to us at [phone] for Medicare purposes. For Medicare only, by signing this I certify the plan of care. Please let me know if there are questions or concerns regarding this plan of care. Physician Signature: Date:
--- NOTE | 2018-06-23 10:57 | HP.PTREVAL_ITS ---
John Echevarria MD, It has been my pleasure to treat LEAH FOY over the last 13 visits for L TKA. Please see the progress note below for an update on the physical therapy plan of care! Subjective: Pt. reports no new issues since last visit. Pt. pleased. Objective/Function: ROM 0-0-119deg. MMT- HS 4+/5, knee ext 4+/5, glute med 4/5, ext 4+/5. GAIT: Pt. ambulates without AD, but does have slight antalgic pattern during L stance phase. STAIRS: reciprocal with weakness with eccentric lowering. PT. needs to progress with strength and functional mobility. Plan Plan: Cont. with end range stretching and progress functional strengthening as tolerated. Pt. to be seen for 4 move visits to progress HEP and strength/ROM. Goals Goal 1:: Pt. to be I with HEP. Goal Time Frame: 4-6 Weeks Goal Progress: Progressing Goal 2:: Pt. to have increased L knee ROM to 0-0-120deg AROM allowing for increased tolerance to all functional mobility. Goal Time Frame: 4-6 Weeks Goal Progress: Progressing Goal 3:: Pt. to have increased strength of LLE by 1/2 grade of all effected musculature allowing for increased stability with all functional mobility. Goal Time Frame: 4-6 Weeks Goal Progress: Progressing Goal 4:: Pt. to ambulate without AD with normallized gait pattern independently without increase in symptoms. Goal Time Frame: 4-6 Weeks Goal Progress: Progressing Goal 5:: Pt. to negotiate steps with reciprocal pattern and use of 1 HR allowing for increased ease of entry in home and community. Goal Time Frame: 4-6 Weeks Goal Progress: Progressing Anticipated Interventions Patient/Client Instruction: Educate patient on: Condition, Plan of Care, Risk Factors, Benefits of Fitness Program For the Purpose of:: To foster healthy habits, To improve decision making, To facilitate caregiver knowledge, To improve self management, To prevent re- injury, To improve ability to perform tasks related to life management, To improve tolerance to ADL's Therapeutic Exercise to Include: Strength training, Power training, Balance training, Postural training, Flexibilty training, Gait and locomotor training, Passive ROM, Active ROM, Dynamic Lumbar Stabilization For the Purpose of:: To decrease pain, To decrease swelling/inflammation, To increase ROM, To improve nutrient delivery to tissue, To increase oxygenation perfusion, To improve muscle performance and motor function, To improve ability to perform ADL's, To improve gait and locomotor functions, To improve health of tissue, To decrease soft tissue restriction, To increase flexibility/ROM, To improve endurance, To improve balance Manual Therapy Techniques to Include: Mobilization, Passive ROM, Soft tissue mobilization For the Purpose of:: To decrease pain, To decrease swelling/inflammation, To increase ROM IF ES: Yes Cryotherapy (ice pack, ice massage): Yes Vasopneumatic device: Yes For the Purpose of:: To decrease pain, To decrease swelling/inflammation, To increase ROM Please do not hesitate to contact me at [phone] by phone or if you have questions or concerns regarding this new plan of care! Sincerely, LESLIE TobarT
--- NOTE | 2018-06-29 17:04 | HP.PTDCSUM ---
HP - PT D/C Summary It has been my pleasure to treat LEAH FOY under orders from John Echevarria MD, for the diagnosis of L TKA for a total of 17 visit(s). Discharge Date: 06/29/18 Please see the following information for a summary of their discharge status. - Subjective Subjective: Pt. reports I am doing pretty well. Pt. reports no pain pre treatment, but dose have the feeling of tightness. He reports beign HEP compliant. Pt. is working out a local gym. He reports being 85% better overall - Pain L knee Pain Intensity (Out of 10): 1 - Overall Improvement % Improvement: 85 - Objective Objective/Function: ROM- 0-0-121deg. MMT- 4+/5 throughout without increase in symptoms. Pt. ambulates without AD without increase in symptoms. Stairs with reciprocal pattern, but has slight functional weakness with eccentric lowering on LLE. - Goals Goal 1:: Pt. to be I with HEP. Goal Progress: Goal Met Goal 2:: Pt. to have increased L knee ROM to 0-0-120deg AROM allowing for increased tolerance to all functional mobility. Goal Progress: Goal Met Goal 3:: Pt. to have increased strength of LLE by 1/2 grade of all effected musculature allowing for increased stability with all functional mobility. Goal Progress: Goal Met Goal 4:: Pt. to ambulate without AD with normallized gait pattern independently without increase in symptoms. Goal Progress: Goal Met Goal 5:: Pt. to negotiate steps with reciprocal pattern and use of 1 HR allowing for increased ease of entry in home and community. Goal Progress: Goal Met - Plan Plan: Pt. to be DC from PT at this point in time. - D/C Information Discharge Comments: Pt. was treated for his L total knee arthroplasty with ROM, stretching, strengthening progressing to fuctional strengthening. Pt. is currently independent with his HEP and will be DC from PT at this point in time. If there are questions or concerns regarding this patient's physical therapy, please feel free to call me at [phone]. Thank you for the referral of this patient. Sincerely, Luis Fernando Perdomo DPT
== END 2018-06-29 19:00 | disposition home or self-care (01) ==
LOC: PT 14:30
PROVIDERS: Referring Provider Specialist; Visit Provider Specialist
DX: Z96.652 Presence of left artificial knee joint (principal); Z47.1 Aftercare following joint replacement surgery
CPT/HCPCS: 97016; 97110; 97161; 97530

== ENCOUNTER 2018-09-02 11:17 | Day surgery (SDC) | payer MEDICARE, OTHER, SELFPAY ==
[2018-08-21 14:33] VITALS: BMI 31.3
--- NOTE | 2018-08-24 08:01 | PCM.HP.BLA ---
Problem List (1) Right inguinal hernia Status: Acute History and Physical Date of Admission: 09/02/18 Intake Vital Signs 08/21/18 Body Mass Index (BMI) 31.3 08/21/18 Height 5 ft 9 in 08/21/18 Weight: 204 lb 9 oz 08/21/18 Body Mass Index (BMI) 30.2 08/21/18 Blood Pressure 106/68 08/21/18 Blood Pressure Location Rt brachial 08/21/18 Blood Pressure Position Sitting 08/21/18 Respiratory Rate 20 H 08/21/18 Pulse Rate 74 08/21/18 Pulse Ox 98 Intake Visit Reasons: RT INGUINAL HERNIA Chief Complaint: right groin pain [place] Required: No Is patient in pain?: Yes (right groin burning ) Pain scale (1-10): 3 Allergies No Known Allergies Allergy (Verified 08/21/18 14:32) Medications Amlodipine [Norvasc] 10 mg PO DAILY 11/21/16 [History Confirmed 08/21/18] Apixaban [Eliquis] 5 mg PO BID 11/21/16 [History Confirmed 08/21/18] Digoxin [Lanoxin] 125 mcg PO DAILY 11/21/16 [History Confirmed 08/21/18] Hydrochlorothiazide [Hctz] 25 mg PO DAILY 11/21/16 [History Confirmed 08/21/18] Metoprolol Tartrate [Lopressor] 200 mg PO DAILY 11/21/16 [History Confirmed 08/21/18] Omeprazole 20 mg PO DAILY 11/21/16 [History Confirmed 08/21/18] Quinapril HCl 40 mg PO DAILY 11/21/16 [History Confirmed 08/21/18] Simvastatin 20 mg PO DAILY 11/21/16 [History Confirmed 08/21/18] Cholecalciferol (Vitamin D3) [Vitamin D3] 2,000 unit PO DAILY 04/24/18 [History Confirmed 08/21/18] Potassium Chloride 10 meq PO DAILY 04/24/18 [History Confirmed 08/21/18] Acetaminophen [Tylenol] 1,000 mg PO Q8 #90 tab 05/08/18 [Rx Confirmed 08/21/18] Senna/Docusate Sodium [Senokot-S] 2 tab PO BID #20 tab 05/08/18 [Rx Confirmed 08/21/18] PFSH Medical History Afib (Acute) CVA (cerebral vascular accident) (Acute) Hyperlipidemia (Acute) PUD (peptic ulcer disease) (Acute) Prostate cancer (Acute) TIA (transient ischemic attack) (Acute) Hypertension (Chronic) Surgical History History of colonoscopy (Acute) History of prostate biopsy (Acute) History of total left knee replacement (Acute ~2014) S/P left knee arthroscopy (Inactive) Family History Mother Brain aneurysm Other Angina of effort Social History Smoking Status: Never smoker HPI HPI HPI: LEAH FOY, is a 77 M who presents to the office today for HPI HPI HPI: LEAH FOY, is a 77 M who presents to the office today for right inguinal hernia. The patient reports he is felt bulging and pain in the right groin for about 2 weeks. He says that it is causing him pain and with any activity he is having issues. Patient reports that the pain is only on the right side and he has no pain in the left side. He is not having any other symptoms at this time. He denies any fevers chills or abdominal pain. No nausea or vomiting. ROS General General: No weight change, appetite, fatigue, colon cancer or breast cancer Additional Details: hx CVA and TIA HEENT HEENT: No difficulty swallowing, eye injury, eye surgery, swollen glands or hoarseness Endo Endocrine: No thyroid disease, diabetes mellitus, thyroid cancer, Hair loss, heat intolerance or cold intolerance Cardio Cardiovascular: Yes atrial fibrillation and high blood pressure; no murmur, pacemaker, heart disease, heart attack, heart stent, palpitations, shortness of breat with exertion or chest pain Resp Respiratory: No shortness of breath, No sleep apnea, No cough, No COPD, No asthma, No emphysema, No wheezing Gastro Gastrointestinal: Yes abdominal pain, No nausea or vomiting, No diarrhea, No constipation, No blood in stool, No acid reflux, No hemorrhoids, Yes ulcers, No gallbladder problem, No black,tarry stools Exam Const General: cooperative Orientation: alert, oriented x3 HENMT Head: normal to inspection Ears: hearing grossly normal bilaterally Eyes General: appearance normal, both eyes and all related structures Visual Doherty: normal visual doherty by confrontation Neck Neck: normal visual inspection Chest Chest palpation & inspection: normal inspection of the chest Resp Effort & Inspection: normal respiratory effort Auscultation: clear to auscultation bilaterally Cardio Rate: regular rate Rhythm: regular rhythm Heart Sounds: no murmurs GI Inspection: non-distended Palpation: soft, nontender Other: Right inguinal hernia which is easily reducible. Musc Cervical Spine: normal cervical lordosis, cervical ROM normal Skin General: no rashes or lesions noted Neuro General: alert, oriented x3 Cranial Nerves: CN's II-XI intact bilaterally Cognition: normal cognition Extrem General: normal to inspection, full ROM Psych Appearance: grossly normal Affect: normal affect Assessment & Plan Problems 1. Right inguinal hernia K40.90 Plan The patient has a right inguinal hernia which is causing him pain. He has never had any abdominal surgery so I recommended robotic assisted laparoscopic inguinal hernia repair with mesh. I also discussed open hernia surgery with him as well. I discussed that with his age he would only need MAC anesthesia for an open repair but he would like to get back to activity as fast as possible and I advised him that a laparoscopic repair would get him back to activity quicker. At this point patient is leaning toward robotic assisted laparoscopic inguinal hernia repair. I discussed the risks including but not limited to bleeding, infection, spermatic cord injury, chronic groin pain, bowel injury, stroke and heart attack. Jean Almanzar MD Pager: [facility] [address] [place] [address], [address] [place] [address] Office: Coding Level of Care Code Off vis,new,level 4 Diagnoses Right inguinal hernia K40.90 Time Spent (min) 45 08/24/18 9215<Electronically signed by Jean Almanzar MD> Date Jean Almanzar MD
[2018-09-02] VITALS (7 sets, daily range): BP systolic 91–114; BP diastolic 52–71; PULSE 72–81; RESP 16–18; TEMP 36.2–36.7; O2SAT 91–97; BMI 32.2
--- NOTE | 2018-09-02 11:58 | EKG12_ITS ---
Test Reason : PREOP Blood Pressure : / mmHG Vent. Rate : 074 BPM Atrial Rate : 082 BPM P-R Int : 000 ms QRS Dur : 098 ms QT Int : 386 ms P-R-T Axes : 000 -15 014 degrees QTc Int : 428 ms Atrial fibrillation Septal infarct (cited on or before 24-APR-2018) Abnormal ECG When compared with ECG of 24-APR-2018 11:59, No significant change was found Confirmed by MILIND ALEXANDER ([id number]), magazine editor KRISTINA ALCANTARA ([id number]) on 09/07/2018 2:33:30 PM Referred By: Jean Almanzar Confirmed By:ANU ALEXANDER
[2018-09-02 12:27] LABS: Hematocrit 42.7 % (40-54); Hemoglobin 14.1 g/dl (13.0-16.5); Mean Corpuscular Hgb 27.7 pg (27.0-32.0); Mean Corpuscular Volume 83.9 fL (80-94); Platelet Count 195 K/mm3 (150-450); RBC Distribution Width CV 13.7 % (11.6-14.6); RBC Distribution Width SD 41.7 fl (35.1-43.9); Red Blood Count 5.09 M/mm3 (4.6-6.2)
[2018-09-02 12:30] LABS: Scan Indicated on CBC? Y/N NO
[2018-09-02 12:35] LABS: Anion Gap 4 (5-15); BUN 21 mg/dL (7-18); BUN/Creat Ratio 12.9 RATIO (10-20); Calcium,Total 8.7 mg/dL (8.5-10.1); Chloride 107 mmol/L (98-107); Creatinine, Serum 1.63 mg/dL (0.70-1.30); EST Glomerular Filtration Rate 44 mL/min (>60); Est Glom Filt Rate - Afr Amer 53 mL/min (>60); Estimated Creatinine Clearance 38.55 ml/min; Glucose 105 mg/dL (74-106); Potassium 3.5 mmol/L (3.5-5.1); Sodium Level 139 mmol/L (136-145)
[2018-09-02] MEDS: Cefazolin 2 GM in 0.9% Normal Saline 100 ML IV (12:50)
[2018-09-02] MEDS: Bupivacaine Mpf 0.5% 30 ML VIAL (14:13)
--- NOTE | 2018-09-02 14:39 | PCM.OPRPT ---
Problem List (1) Right inguinal hernia Status: Acute Report of Operation Date of Procedure: 09/02/18 Pre-Operative Diagnosis: Right inguinal hernia Post-Operative Diagnosis: Right inguinal hernia Surgery/Procedure Performed:: Robotic assisted laparoscopic right inguinal hernia repair with mesh Description of Procedure: The patient was brought back to the operating room and general anesthesia was induced. The abdomen was prepped and draped in the usual sterile fashion. An area just above the umbilicus was incised with scalpel and the Veress needle was placed into the abdomen and a drop test was performed. The abdomen was then insufflated to 15 mmHg. The Veress needle was removed and the port was placed into the abdomen. The camera was used to inspect the abdomen. It did appear that the mesentery to some of the small bowel was insufflated but there was no blood or bile staining. A port was placed in the right lateral abdominal sidewall as well as the left lateral abdominal sidewall under direct visualization. Graspers were used to inspect the small bowel and there did not appear to be any injury. Next the patient was placed in steep Trendelenburg and the robot was docked. The patient appeared to have a right indirect hernia with no left inguinal hernia. It also appeared that part of the bladder may be involved in the right inguinal hernia. Using cautery scissors an incision was made in the peritoneum the peritoneum was dissected down to the hernia sac. The hernia sac and contents were reduced into the abdomen and the dissection was carried posteriorly. Next once there was a large space a piece of pro-medication manager mesh was unfolded and placed into the inguinal region. There is good cover circumferentially of the hernia. The peritoneum was then reapproximated with running 3-0 V lock suture. This allowed for good peritoneal coverage of the mesh. The abdomen was inspected once more and there appeared to be no bile or blood spillage and no sign of bowel injury. The robot was undocked and the ports were removed under direct visualization the air was allowed to escape from the abdomen. The abdominal incisions were anesthetized with lidocaine and closed with interrupted 4-0 Monocryl sutures. Steri-Strips and bandages were then applied. Patient's testicles were checked at the end of the case were both present in the scrotum. Patient was taken to PACU in stable condition. Grafts/Implants Used: Pro-medication manager mesh - Admit VTE Documentation VTE Mechan Device Prophylaxis: SCD's
--- NOTE | 2018-09-02 14:43 | OP.PCM_ITS ---
Problem List (1) Right inguinal hernia Status: Acute Report of Operation Date of Procedure: 09/02/18 Pre-Operative Diagnosis: Right inguinal hernia Post-Operative Diagnosis: Right inguinal hernia Surgery/Procedure Performed:: Robotic assisted laparoscopic right inguinal hernia repair with mesh Description of Procedure: The patient was brought back to the operating room and general anesthesia was induced. The abdomen was prepped and draped in the usual sterile fashion. An area just above the umbilicus was incised with scalpel and the Veress needle was placed into the abdomen and a drop test was performed. The abdomen was then insufflated to 15 mmHg. The Veress needle was removed and the port was placed into the abdomen. The camera was used to inspect the abdomen. It did appear that the mesentery to some of the small bowel was insufflated but there was no blood or bile staining. A port was placed in the right lateral abdominal sidewall as well as the left lateral abdominal sidewall under direct visualization. Graspers were used to inspect the small bowel and there did not appear to be any injury. Next the patient was placed in steep Trendelenburg and the robot was docked. The patient appeared to have a right indirect hernia with no left inguinal hernia. It also appeared that part of the bladder may be involved in the right inguinal hernia. Using cautery scissors an incision was made in the peritoneum the peritoneum was dissected down to the hernia sac. The hernia sac and contents were reduced into the abdomen and the dissection was carried posteriorly. Next once there was a large space a piece of pro-client integration manager mesh was unfolded and placed into the inguinal region. There is good cover circumferentially of the hernia. The peritoneum was then reapproximated with running 3-0 V lock suture. This allowed for good peritoneal coverage of the mesh. The abdomen was inspected once more and there appeared to be no bile or blood spillage and no sign of bowel injury. The robot was undocked and the ports were removed under direct visualization the air was allowed to escape from the abdomen. The abdominal incisions were anesthetized with lidocaine and cl osed with interrupted 4-0 Monocryl sutures. Steri-Strips and bandages were then applied. Patient's testicles were checked at the end of the case were both present in the scrotum. Patient was taken to PACU in stable condition. Grafts/Implants Used: Pro-client integration manager mesh - Admit VTE Documentation VTE Mechan Device Prophylaxis: SCD's
--- NOTE | 2018-09-02 14:44 | DCINST_ITS ---
Discharge Diet: Light diet - advance as tolerated Discharge Activity: Return to Normal Activity, May Not Drive - for 2-3 days or while taking narcotic pain meds., May Shower - with the bandage in place 1-2 days after surgery. Lifting Restrictions: 20 pounds for 4 weeks. Additional Activity Instructions:: Climbing stairs is fine, walking is encouraged. Sitting in bed may be uncomfortable. Sitting up using your lateral muscles (sitting up sideways) is usually more comfortable. Do not drive, work heavy equipment of sign legal documents for 24 hours. If your hernia repair was an ingunial repair, you may have scrotal swelling, an ice pack and/or athletic support can provide more comfort. Pain medications may cause nausea, you should typically eat light foods as you take your pain medications. Pain medications may also cause constipation. If you have difficulty with this, discuss with your doctor. Call your doctor if your incision/area has: Continuous Slow Oozing, Sudden Increased Bleeding, Increased Pain/ Swelling, Increased Redness, Foul Smelling Discharge Call your doctor if you observe: Fever of 101 or Higher, Inability to urinate Suture Line Care: Avoid Pulling/Pushing, Avoid Pinching/Bending Change Dressing in (Days):: 3 - Leave steri-strips for 1 week. May protect with a guaze bandaid. Cleanse incision/area with: Keep Dressing Clean & Dry Additional Instructions: Resume eliquis Friday. Allergies/Adverse Reactions: Allergies No Known Allergies Allergy (Verified 08/27/18 13:26) Medications to take at Discharge Amlodipine [Norvasc] 10 mg PO DAILY 11/21/16 Apixaban [Eliquis] 5 mg PO BID 11/21/16 Digoxin [Lanoxin] 125 mcg PO DAILY 11/21/16 Hydrochlorothiazide [Hctz] 25 mg PO DAILY 11/21/16 Metoprolol Tartrate [Lopressor] 200 mg PO DAILY 11/21/16 Omeprazole 20 mg PO DAILY 11/21/16 Quinapril HCl 40 mg PO DAILY 11/21/16 Simvastatin 20 mg PO DAILY 11/21/16 Cholecalciferol (Vitamin D3) [Vitamin D3] 2,000 unit PO DAILY 04/24/18 Potassium Chloride 10 meq PO DAILY 04/24/18 Oxycodone HCl/Acetaminophen [Percocet 5/325] 1 - 2 tablet PO Q4H PRN PRN 7 Days #20 tablet 09/02/18 The following prescriptions were given: Oxycodone HCl/Acetaminophen [Percocet 5/325] 1 - 2 tablet PO Q4H PRN PRN 7 Days #20 tablet PRN Reason: Pain Primary Care Physician: Camila Godwin MD [Primary Care Provider] - Test Results: Test results from this visit will be discussed in further detail at your follow- up appointment, if applicable. Please Follow Up With: Jean Almanzar MD When: Please call to schedule 2 week follow up appointment. [phone]
[2018-09-02] MEDS: oxyCODONE 5 MG Tablet PO (15:38)
== END 2018-09-02 17:35 | disposition home or self-care (01) ==
LOC: SDC 11:18 → AC 11:20
PROVIDERS: Anesthesiology; Family Provider Internal Medicine Cardiovascular Disease; PCP Internal Medicine Cardiovascular Disease; Referring Provider Surgery; Visit Provider Surgery
PROC: (CPT 49650; principal; 2018-09-02 12:40)
DX: K40.90 Unilateral inguinal hernia, without obstruction or gangrene, not specified as recurrent (principal); I48.91 Unspecified atrial fibrillation; E78.5 Hyperlipidemia, unspecified; I12.9 Hypertensive chronic kidney disease with stage 1 through stage 4 chronic kidney disease, or unspecified chronic kidney disease; N18.9 Chronic kidney disease, unspecified; K21.9 Gastro-esophageal reflux disease without esophagitis; Z79.01 Long term (current) use of anticoagulants; Z79.899 Other long term (current) drug therapy; Z86.73 Personal history of transient ischemic attack (TIA), and cerebral infarction without residual deficits; Z87.11 Personal history of peptic ulcer disease; Z85.46 Personal history of malignant neoplasm of prostate
CPT/HCPCS: 00840; 49650; S2900; 80048; 85027; 93005; J7120; J2405

== ENCOUNTER → 2019-05-10 12:31 | Outpatient (CLI) | payer MEDICARE, OTHER, SELFPAY ==
[2018-09-02 11:34] VITALS: BMI 32.2
== END ==
LOC: LAB.FUTURE 12:33 → LAB 14:36 → LABSPEC 14:36
PROVIDERS: Family Provider Internal Medicine Cardiovascular Disease; PCP Internal Medicine Cardiovascular Disease
DX: K62.5 Hemorrhage of anus and rectum (principal)
CPT/HCPCS: 82274

== ENCOUNTER → 2019-05-11 10:39 | Outpatient (CLI) | payer MEDICARE, OTHER, SELFPAY ==
[2018-09-02 11:34] VITALS: BMI 32.2
[2019-05-11 11:22] LABS: PSA,Total- Diagnostic 0.69 ng/mL (0.0-4.0)
== END ==
PROVIDERS: Family Provider Internal Medicine Cardiovascular Disease; PCP Internal Medicine Cardiovascular Disease; Referring Provider Urology; Visit Provider Urology
DX: C61 Malignant neoplasm of prostate (principal)
CPT/HCPCS: 36415; 84153

== ENCOUNTER → 2019-08-16 10:21 | Outpatient (CLI) | payer MEDICARE, OTHER, SELFPAY ==
[2018-09-02 11:34] VITALS: BMI 32.2
[2019-08-16 12:00] LABS: Hematocrit 47.5 % (40-54); Hemoglobin 15.3 g/dL (13.0-16.5); Mean Corp Hgb Conc 32.2 g/dL (32-36); Mean Corpuscular Hgb 28.3 pg (27.0-32.0); Mean Platelet Vol. 11.7 fl (6.2-12.0); Platelet Count 180 K/mm3 (150-450); RBC Distribution Width CV 13.3 % (11.6-14.6); RBC Distribution Width SD 42.9 fl (35.1-43.9); White Blood Count 5.8 K/mm3 (4.4-11.0)
[2019-08-16 12:21] LABS: ALB/GLOB Ratio 1.2 RATIO (0.9-2.4); AST(SGOT) 19 U/L (15-37); Alanine Aminotransfer ALT/SGPT 23 U/L (16-61); Albumin, Serum 4.1 g/dL (3.2-5.0); Alkaline Phosphatase 88 U/L (45-117); Anion Gap 5 (5-15); BUN 23 mg/dL (7-18); BUN/Creat Ratio 15.5 RATIO (10-20); Calcium,Total 9.1 mg/dL (8.5-10.1); Chloride 104 mmol/L (98-107); Cholesterol 174 mg/dL (200); Creatinine, Serum 1.48 mg/dL (0.70-1.30); EST Glomerular Filtration Rate 49 mL/min (>60); Est Glom Filt Rate - Afr Amer 59 mL/min (>60); Globulin 3.4 g/dL (2.2-4.2); Glucose 104 mg/dL (74-106); High Density Lipoprotein 42 mg/dL; Potassium 3.3 mmol/L (3.5-5.1); Protein, Total 7.5 g/dL (6.4-8.2); Sodium Level 140 mmol/L (136-145); Triglycerides 127 mg/dL; Very Low Density Lipoprotein 25 mg/dL (5-40)
[2019-08-16 12:31] LABS: Microalbumin:Creatinine Ratio 71.8 mg/g CRE (<30 mg/g CRE)
[2019-08-16 12:35] LABS: Digoxin Level 0.61 ng/mL (0.80-2.00)
== END ==
PROVIDERS: PCP Family Medicine; Referring Provider Family Medicine; Visit Provider Family Medicine
DX: I48.91 Unspecified atrial fibrillation (principal); I10 Essential (primary) hypertension
CPT/HCPCS: 36415; 80053; 80061; 80162; 82043; 82570; 83735; 84443; 85027

== ENCOUNTER → 2019-09-14 14:57 | Outpatient (CLI) | payer MEDICARE, OTHER, SELFPAY ==
[2019-08-24 08:52] VITALS: BMI 31.7
--- NOTE | 2019-09-14 14:58 | ECHOD_ITS ---
Reason For Study: CHEST PAIN Procedure This was a 2D Doppler, Color Flow transthoracic echocardiogram. Exam performed in department. Left Ventricle Normal size and thickness. The estimated ejection fraction is 65 %. Unable to assess diastolic dysfunction due to arrhythmia. No regional wall motion abnormalities noted. Right Ventricle Mildly dilated right ventricle. Normal systolic function. Atria The left atrium is severely enlarged. The right atrium is severely enlarged. Normal atrial septum. Mitral Valve Mild diffuse mitral valve thickening. Mild (1+) eccentric mitral valve insufficiency. Tricuspid Valve Normal tricuspid valve. Mild (1+) tricuspid valve insufficiency. Right ventricular systolic pressure estimated to be 41 mmHg. Mild pulmonary hypertension. Aortic Valve Trisinus/trileaflet aortic valve. Pulmonic Valve The pulmonic valve is not well visualized. Great Vessels Normal aortic root. Normal arch. Normal inferior vena cava. Inferior vena cava collapse with sniff. Pericardium/Pleural No pericardial effusion. MMode/2D Measurements & Calculations LVIDd: 5.1 cm IVSd: 1.1 cm Ao root diam: 3.2 cm LVIDs: 3.3 cm LVPWd: 1.1 cm RVDd: 3.6 cm FS: 35.1 % LAV(MOD-bp): 133.3 ml LA A4 area: 35.7 cm2 LA dimension(2D): 4.7 cm LAV(MOD-bp) Indexed: 62.6 ml/m2 LAV(MOD-sp2): 127.4 ml LAV(MOD-sp4): 127.0 ml RA A4 area: 37.7 cm2 Doppler Measurements & Calculations MV E max giles: 109.0 cm/sec Ao V2 max: 89.1 cm/sec LV V1 max: 74.8 cm/sec Ao max P.2 mmHg LV V1 max P.2 mmHg MR max giles: 493.1 cm/sec PA V2 max: 70.2 cm/sec PI dec slope: 137.9 cm/sec2 MR max P.2 mmHg TR max giles: 248.7 cm/sec TR max P.8 mmHg Interpretation Summary The estimated ejection fraction is 65 %. Unable to assess diastolic dysfunction due to arrhythmia. The left atrium is severely enlarged. The right atrium is severely enlarged. Mild (1+) eccentric mitral valve insufficiency. Mild (1+) tricuspid valve insufficiency. Right ventricular systolic pressure estimated to be 41 mmHg. Mild pulmonary hypertension. Patient appears to be in atrial fibrillation. The study was technically difficult. There is no comparison study available. Ordering Physician: Lalo^Lamin^^^ Referring Physician: Guy Fernandes Performed By: Ammy Emerson, SHANTI, RVT
== END ==
PROVIDERS: PCP Family Medicine; Visit Provider Internal Medicine Cardiovascular Disease
DX: R07.9 Chest pain, unspecified (principal); Z86.73 Personal history of transient ischemic attack (TIA), and cerebral infarction without residual deficits
CPT/HCPCS: 93306

== ENCOUNTER → 2019-09-15 08:48 | Outpatient (CLI) | payer MEDICARE, OTHER, SELFPAY ==
[2019-08-24 08:52] VITALS: BMI 31.7
[2019-09-15 10:46] LABS: Anion Gap 8 (5-15); BUN 29 mg/dL (7-18); BUN/Creat Ratio 18.7 RATIO (10-20); Calcium,Total 9.2 mg/dL (8.5-10.1); Chloride 107 mmol/L (98-107); Creatinine, Serum 1.55 mg/dL (0.70-1.30); EST Glomerular Filtration Rate 46 mL/min (>60); Est Glom Filt Rate - Afr Amer 56 mL/min (>60); Glucose 132 mg/dL (74-106); Potassium 3.8 mmol/L (3.5-5.1); Sodium Level 140 mmol/L (136-145)
== END ==
PROVIDERS: PCP Family Medicine; Referring Provider Family Medicine; Visit Provider Family Medicine
DX: I10 Essential (primary) hypertension (principal)
CPT/HCPCS: 36415; 80048

== ENCOUNTER → 2019-09-21 13:52 | Outpatient (CLI) | payer MEDICARE, OTHER, SELFPAY ==
[2019-08-24 08:52] VITALS: BMI 31.7
== END ==
PROVIDERS: PCP Family Medicine; Referring Provider Internal Medicine Cardiovascular Disease; Visit Provider Internal Medicine Cardiovascular Disease
DX: I48.91 Unspecified atrial fibrillation (principal); R07.89 Other chest pain
CPT/HCPCS: 93017; 93350; Q9957; A4216; C8928

== ENCOUNTER → 2020-02-08 09:51 | Outpatient (CLI) | payer MEDICARE, OTHER, SELFPAY ==
[2019-12-14 09:37] VITALS: BMI 32.5
[2020-02-08 11:31] LABS: PSA,Total- Diagnostic 0.63 ng/mL (0.0-4.0)
== END ==
PROVIDERS: PCP Family Medicine; Referring Provider Urology; Visit Provider Urology
DX: C61 Malignant neoplasm of prostate (principal)
CPT/HCPCS: 36415; 84153

== ENCOUNTER → 2020-03-15 10:32 | Outpatient (CLI) | payer MEDICARE, OTHER, SELFPAY ==
[2019-12-14 09:37] VITALS: BMI 32.5
[2020-03-15 12:27] LABS: Hematocrit 45.9 % (40-54); Hemoglobin 15.1 g/dL (13.0-16.5); Mean Corp Hgb Conc 32.9 g/dL (32-36); Mean Corpuscular Hgb 29.7 pg (27.0-32.0); Mean Corpuscular Volume 90.2 fL (80-94); Mean Platelet Vol. 11.5 fl (6.2-12.0); Platelet Count 184 K/mm3 (150-450); RBC Distribution Width CV 12.7 % (11.6-14.6); RBC Distribution Width SD 41.6 fl (35.1-43.9); Red Blood Count 5.09 M/mm3 (4.6-6.2); White Blood Count 5.6 K/mm3 (4.4-11.0)
[2020-03-15 12:58] LABS: Anion Gap 5 (5-15); BUN 22 mg/dL (7-18); BUN/Creat Ratio 15.1 RATIO (10-20); Calcium,Total 9.5 mg/dL (8.5-10.1); Chloride 107 mmol/L (98-107); Cholesterol 138 mg/dL (200); Creatinine, Serum 1.46 mg/dL (0.70-1.30); EST Glomerular Filtration Rate 50 mL/min (>60); Est Glom Filt Rate - Afr Amer 60 mL/min (>60); Glucose 102 mg/dL (74-106); High Density Lipoprotein 46 mg/dL; Potassium 3.6 mmol/L (3.5-5.1); Sodium Level 140 mmol/L (136-145); Thyroid Stim Hormone (TSH) 3.32 uIU/mL (0.358-3.74); Triglycerides 102 mg/dL; Very Low Density Lipoprotein 20 mg/dL (5-40)
== END ==
PROVIDERS: PCP Family Medicine; Visit Provider Family Medicine
DX: I48.91 Unspecified atrial fibrillation (principal); I10 Essential (primary) hypertension
CPT/HCPCS: 36415; 80048; 80061; 84443; 85027

== ENCOUNTER → 2020-08-10 14:14 | Outpatient (CLI) | payer MEDICARE, OTHER, SELFPAY ==
[2020-06-12 08:44] VITALS: BMI 33.2
--- NOTE | 2020-08-10 14:16 | CT_ITS ---
STUDY: CT ABDOMEN AND PELVIS WITHOUT CONTRAST REASON FOR EXAM: Male, 79 years old. GROSS HEMATURIA. History of prostate cancer and radiation. RADIATION DOSAGE (If Supplied By Facility): CTDIvol = ( 18.57 ) mGy, DLP = ( 872.28 ) mGycm TECHNIQUE: Transaxial images were obtained from the dome of the diaphragm to the symphysis pubis without oral contrast, and without intravenous contrast. Sagittal and coronal images were reconstructed. Individualized dose optimization techniques were used for this CT. COMPARISON: None. FINDINGS: The visualized lung bases are unremarkable. The visualized portions of the heart are within normal limits. Normal liver. Normal gallbladder and extrahepatic biliary system. Normal spleen. Normal pancreas. Normal bilateral adrenal glands. Multiple right renal cysts. The largest is in the lower pole and measures 4.6 cm. There is a 1.9 cm cyst in the anterior superior pole of the left kidney. Small cysts are also seen in the mid and lower pole of the left kidney the larger measuring 2.8 cm cyst. Normal visualized stomach. Normal small intestine. Normal colon. There is a calcified appendicolith. There is scattered atherosclerotic calcification of the abdominal aorta, without a demonstrated aneurysm. Normal inferior vena cava. Normal retroperitoneum. Diffuse bladder wall thickening. There is enlargement of the prostate gland. It measures 5.6 times by 6.4 cm. Metallic radiation seeds are seen within it. There is a right-sided inguinal hernia containing adipose tissue. There are diffuse degenerative changes of the visualized lumbar spine. Stable small bone island in the right sacral bone. CT/Abdomen/Pelvis without Cont IMPRESSION: Enlarged prostate with indentation of the bladder base. Metallic radiation seeds are seen within. Diffuse thickening of the urinary bladder wall. Multiple bilateral renal cysts. Appendicolith is seen within the appendix. Electronically Signed: Magdi Pham MD at 14:59 EDT , Service support ,
== END ==
PROVIDERS: PCP Family Medicine; Visit Provider Urology
DX: R31.0 Gross hematuria (principal)
CPT/HCPCS: 74176

== ENCOUNTER 2020-09-15 13:49 | Day surgery (SDC) | payer MEDICARE, OTHER, SELFPAY ==
[2020-06-12 08:44] VITALS: BMI 33.2
[2020-09-15] VITALS (7 sets, daily range): BP systolic 117–135; BP diastolic 66–79; PULSE 73–89; RESP 16; TEMP 36.3–37.1; O2SAT 96–99; BMI 33.9
[2020-09-15] MEDS: Lactated Ringers 1,000 ML 100 ML IV (14:21)
[2020-09-15] MEDS: Cefazolin 2 GM in 0.9% Normal Saline 100 ML IV (16:08)
--- NOTE | 2020-09-15 16:22 | HP.PCM_ITS ---
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 [facility] Medical History (Updated 09/15/20 @ 16:[address] Tez Wall MD) Afib Arthritis Blankenship's esophagus with esophagitis Cancer CVA (cerebral vascular accident) (~02/1998) Essential hypertension Gastric reflux GERD (gastroesophageal reflux disease) History of atrial fibrillation History of bleeding ulcers History of edema History of GI bleed History of pain when walking History of TIA (transient ischemic attack) (1997) Hyperlipidemia Hypertension Normal echocardiogram (~09/14/19) Normal stress echocardiogram (~09/21/19) Prostate cancer PUD (peptic ulcer disease) TIA (transient ischemic attack) Wears glasses Home Medications amlodipine 10 mg PO DAILY 11/21/16 [History Last Taken 09/15/20 06:00] apixaban 5 mg PO BID 11/21/16 [History Last Taken 09/12/20] omeprazole 20 mg PO DAILY 11/21/16 [History Last Taken 09/15/20 06:00] quinapril 40 mg PO DAILY 11/21/16 [History Last Taken 09/15/20 06:00] simvastatin 20 mg PO QHS 11/21/16 [History Last Taken Unknown] cholecalciferol (vitamin D3) 2,000 unit PO DAILY 04/24/18 [History Last Taken Unknown] potassium chloride 10 meq PO QHS 04/24/18 [History Last Taken Unknown] hydrochlorothiazide 25 mg tablet 12.5 mg PO DAILY tab 08/24/19 [History Last Taken Unknown] digoxin 125 mcg PO QHS 09/14/20 [History Last Taken Unknown] metoprolol succinate 200 mg PO QHS 09/14/20 [History Last Taken Unknown] ciprofloxacin HCl [Cipro] 500 mg PO BID #6 tab 09/15/20 [Rx Last Taken Unknown] Allergy/AdvReac Type Severity Reaction Status Date / Time No Known Allergies Allergy Verified 09/15/20 14:22 Family History Mother Brain aneurysm Other Angina of effort Surgical History (Updated 09/14/20 @ 09:20 by Mckenna Edwards) History of colonoscopy History of esophagogastroduodenoscopy (EGD) (~2020) History of prostate biopsy History of total left knee replacement (~2015) Hx of inguinal hernia repair (~09/02/18) S/P left knee arthroscopy Social History (Updated 06/12/20 @ 09:12 by Jered Taylor TOWEL DISTRIBUTOR, TOWEL DISTRIBUTOR-C) Smoking Status: Never smoker Vital Signs Vital Signs Vital Signs: 09/15/20 14:14 Temperature 97.4 F L Temperature Source Temporal Pulse Rate 73 Respiratory Rate 16 Respiratory Pattern Normal Blood Pressure 135/66 H Blood Pressure Mean 89 Blood Pressure Source Monitor Blood Pressure Position Sitting Blood Pressure Location Right Arm Pulse Ox 97 Oxygen Delivery Method Room Air Physical Exam Const alert and oriented x3 General Appearance: cooperative HEENT normocephalic, head/scalp atraumatic, EAC's normal and TM's normal bilaterally Eyes PERRL and EOMs intact bilaterally Pupil: sluggish Neck no lymphadenopathy, supple and no JVD General: trachea midline Lymph Lymphatic: no lymphadenopathy noted, lymphedema and lymphadenopathy Resp normal respiratory effort, normal air movement and clear to auscultation bilaterally Cardio regular rate, regular rhythm and peripheral pulses 2+ throughout GI soft to palpation, non-tender and non-distended Extremity normal capillary refill and no clubbing, cyanosis or edema General Extremity: no tenderness to palpation of joints or extremities Skin no rashes or lesions noted General Skin Exam: turgor normal Lesions: no lesions Rashes: no rashes Neuro CN's II-XII intact bilaterally Speech: speech normal Motor Exam: strength 5/5 throughout; Negative for general weakness Psych thought process normal, cooperative and affect normal Appearance: appropriate Assessment & Plan Assessment/Plan (1) Acute radiation cystitis: PLAN: Plan to proceed with cystoscopy evacuation of blood clots in the bladder cauterization of any bleeding and bilateral retrogrades.
[2020-09-15] MEDS: Lidocaine Jelly 2% 20 ML Syringe (URO-JET) 20 APPLIC (16:28)
--- NOTE | 2020-09-15 16:45 | PCM.DC ---
Discharge Instructions Diet Discharge Diet: No restrictions Activity Discharge Activity: May not drive while taking narcotic pain medications. (for 3 days.) May shower in (days): 1 Dressing / Incision Call your doctor if your incision/area has: Continuous Slow Oozing, Increased Pain/ Swelling, Increased Redness and Foul Smelling Discharge Call your doctor if you observe: Fever of 101 or Higher, Numbness or Tingling, Shortness of breath, Dizziness, Calf discomfort and Uncontrolled pain Cleanse incision/area with: Keep Dressing Clean & Dry Follow Up Care Please Follow Up With: Tez Wall MD When: Call [phone] for an appointment Test Results: Test results from this visit will be discussed in further detail at your follow-up appointment, if applicable. Discharge Plan Admission Primary Reason for Your Visit: BLADDER RADIATION CYSTITIS Attending Provider: Tez Wall Primary Care Provider: Steve Fernandes Discharge Orders/Prescriptions Prescriptions: New ciprofloxacin HCl [Cipro] 500 mg tablet 500 mg PO BID Qty: 6 RF: 0 Continued quinapril 40 MG tablet 40 mg PO DAILY RF: 0 amlodipine 10 MG tablet 10 mg PO DAILY RF: 0 simvastatin 20 MG tablet 20 mg PO QHS RF: 0 omeprazole 20 MG capsule,delayed release(DR/EC) 20 mg PO DAILY RF: 0 hydrochlorothiazide 25 mg tablet 12.5 mg PO DAILY RF: 0 potassium chloride 10 MEQ capsule, extended release 10 meq PO QHS RF: 0 cholecalciferol (vitamin D3) 2,000 UNIT capsule 2,000 unit PO DAILY RF: 0 metoprolol succinate 200 mg tablet extended release 24 hr 200 mg PO QHS RF: 0 digoxin 125 mcg (0.125 mg) tablet 125 mcg PO QHS RF: 0 Held apixaban 5 MG tablet 5 mg PO BID RF: 0 Hold Instructions: Resume on 09/21/20. Referrals / Follow Up: Steve Fernandes MD [Primary Care Provider] - Tez Wall MD [STAFF PHYSICIAN] - Disposition Discharge Orders: Discharge Patient (Routine); Ordered 09/15/20 Ordered By: Dr. Tez Wall
--- NOTE | 2020-09-15 16:45 | PCM.OPRPT ---
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 He was taken back to the operating room he underwent general anesthesia once he was asleep we put numbing gel into the urethra I went in with the cystoscope entire length the urethra was free of strictures or abnormalities the sphincter was intact verumontanum was identified he did have bilateral hypertrophy he did have a lot of very thin blood vessels within the prostatic channel just going in with the scope caused significant about bleeding from the prostate. Looked around inside the bladder I did not see any tumor tumors or stones some area of radiation cystitis within the bladder as well I then pulled back into the prostate and cauterized the prostate bladder neck area extensively with the very thin bleeders were and then I put a catheter into the bladder he will need to go home with a catheter let this heal and then will get the catheter out for voiding trial. If the bleeding continues I think you may have to have a TURP very careful once as he had prior radiation therapy in the past will talk to him next week to get the catheter out. Type of Anesthesia: General Admit VTE Documentation VTE Present on Admission: No VTE Mechan Device Prophylaxis: SCD's
== END 2020-09-15 18:16 ==
LOC: SDC 13:52 → AC 13:54
PROVIDERS: PCP Family Medicine; Referring Provider Urology; Visit Provider Urology
PROC: (CPT 52214; principal; 2020-09-15 15:50)
DX: N30.41 Irradiation cystitis with hematuria (principal); Y84.2 Radiological procedure and radiotherapy as the cause of abnormal reaction of the patient, or of later complication, without mention of misadventure at the time of the procedure; C61 Malignant neoplasm of prostate; I10 Essential (primary) hypertension; E78.5 Hyperlipidemia, unspecified; I48.91 Unspecified atrial fibrillation; M19.90 Unspecified osteoarthritis, unspecified site; K21.9 Gastro-esophageal reflux disease without esophagitis; Z87.19 Personal history of other diseases of the digestive system; Z87.11 Personal history of peptic ulcer disease; Z86.73 Personal history of transient ischemic attack (TIA), and cerebral infarction without residual deficits; Z79.01 Long term (current) use of anticoagulants; Z79.899 Other long term (current) drug therapy
CPT/HCPCS: 52001; J7120

== ENCOUNTER → 2020-09-18 15:01 | Outpatient (CLI) | payer MEDICARE, OTHER, SELFPAY ==
[2020-09-15 14:14] VITALS: BMI 33.9
[2020-09-18 18:30] LABS: Anion Gap 6 (5-15); BUN 28 mg/dL (7-18); BUN/Creat Ratio 12.6 RATIO (10-20); Calcium,Total 9.3 mg/dL (8.5-10.1); Chloride 106 mmol/L (98-107); Creatinine, Serum 2.22 mg/dL (0.70-1.30); EST Glomerular Filtration Rate 31 mL/min (>60); Est Glom Filt Rate - Afr Amer 37 mL/min (>60); Glucose 110 mg/dL (74-106); Potassium 3.7 mmol/L (3.5-5.1); Sodium Level 138 mmol/L (136-145)
== END ==
PROVIDERS: PCP Family Medicine; Visit Provider Family Medicine
DX: I10 Essential (primary) hypertension (principal)
CPT/HCPCS: 36415; 80048

== ENCOUNTER → 2020-09-27 14:26 | Outpatient (CLI) | payer MEDICARE, OTHER, SELFPAY ==
[2020-09-15 14:14] VITALS: BMI 33.9
[2020-09-27 18:10] LABS: Anion Gap 7 (5-15); BUN 25 mg/dL (7-18); BUN/Creat Ratio 17.7 RATIO (10-20); Calcium,Total 8.9 mg/dL (8.5-10.1); Chloride 109 mmol/L (98-107); Creatinine, Serum 1.41 mg/dL (0.70-1.30); EST Glomerular Filtration Rate 52 mL/min (>60); Est Glom Filt Rate - Afr Amer 62 mL/min (>60); Glucose 86 mg/dL (74-106); Sodium Level 141 mmol/L (136-145)
== END ==
PROVIDERS: PCP Family Medicine; Referring Provider Family Medicine; Visit Provider Family Medicine
DX: I10 Essential (primary) hypertension (principal)
CPT/HCPCS: 36415; 80048

== ENCOUNTER 2020-10-06 09:17 | Day surgery (SDC) | payer MEDICARE, OTHER, SELFPAY ==
[2020-09-15 14:14] VITALS: BMI 33.9
--- NOTE | 2020-10-02 10:29 | EKG12_ITS ---
Test Reason : PRE OP Blood Pressure : / mmHG Vent. Rate : 076 BPM Atrial Rate : 394 BPM P-R Int : 000 ms QRS Dur : 100 ms QT Int : 372 ms P-R-T Axes : 000 019 063 degrees QTc Int : 418 ms Atrial fibrillation Septal infarct , age undetermined Abnormal ECG Confirmed by LUI SHELTON, NATALY ([id number]), makeup editor KRISTINA ALCANTARA ([id number]) on 10/03/2020 10:25:39 AM Referred By: Tez Wall Confirmed By:NATALY POE MD
[2020-10-02 11:42] LABS: Hemoglobin 12.5 g/dL (13.0-16.5); Mean Corp Hgb Conc 32.1 g/dL (32-36); Mean Corpuscular Hgb 28.8 pg (27.0-32.0); Mean Corpuscular Volume 89.9 fL (80-94); Platelet Count 211 K/mm3 (150-450); RBC Distribution Width SD 42.5 fl (35.1-43.9); Red Blood Count 4.34 M/mm3 (4.6-6.2)
[2020-10-06] VITALS (13 sets, daily range): BP systolic 96–122; BP diastolic 56–85; PULSE 61–100; RESP 16–18; TEMP 35.9–36.6; O2SAT 93–99; BMI 34.0
--- NOTE | 2020-10-06 | PROS_PTH ---
PATIENT: LEAH FOY [place] [facility] [place][id number] AGE/SX: 80/M ROOM: RE10/06/[address]: Dr. Tez Wall MD : 1940 BED: DIS: 10/07/2020 SPEC #: [id number] RECD: 10/06/20 13:35 STATUS: EMERSON REMerlyn #: [id number] KIMMY: 10/06/20 00:[address]: Tez Wall DEPT: SURGICAL PATHOLOGY RECD BY: Son Haro ENTERED: 10/09/20 09:53 SP TYPE: TURP OTHR DR: Dr. Guy Fernandes MD Tissues: Prostate, NOS Procedures: Surgery Specimen Level IV HEADER OPERATION: Cysto, TUR prostate, Olympus PRE-OP DIAGNOSIS: BPH with obstruction/lower urinary tract symptoms TISSUE SUBMITTED: Prostate tissue MICROSCOPIC DIAGNOSIS Prostate tissue, TUR: Benign prostatic hyperplasia, stromal type. Acute and chronic inflammation. SJ:damon 10/10/2020 MICROSCOPIC DESCRIPTION Slides are reviewed. GROSS DESCRIPTION Received is one container labeled with the patient's name and designated prostate tissue. The specimen consists of multiple irregular fragments of pink-kim, rubbery, soft tissue that in aggregate weigh 14.7 gm and measure in aggregate 5 x 6 x 2 cm. Rotor Pilot tissue is submitted in ten cassettes. / NICOLASA:damon 10/09/20 TC:5 CPT: 84530
[2020-10-06] MEDS: Lactated Ringers 1,000 ML 100 ML IV ×2 (09:45→12:45)
--- NOTE | 2020-10-06 10:07 | HP.PCM_ITS ---
HPI - General HPI Narrative LEAH FOY, is a 80 M who presents who presents for a transurethral resection of the prostate has been having difficulty urination and has been having bleeding off-and-on on cystoscopy found to have obstructive prostate with hypertrophy and blockage. We plan to proceed with a TURP today. [facility] [place] Medical History (Updated 10/06/20 @ 10:[address] Tez Wall MD) Afib Arthritis Blankenship's esophagus with esophagitis Cancer CVA (cerebral vascular accident) (~02/1998) Essential hypertension Gastric reflux GERD (gastroesophageal reflux disease) History of atrial fibrillation History of bleeding ulcers History of edema History of GI bleed History of pain when walking History of TIA (transient ischemic attack) (1997) Hyperlipidemia Hypertension Normal echocardiogram (~09/14/19) Normal stress echocardiogram (~09/21/19) Prostate cancer PUD (peptic ulcer disease) TIA (transient ischemic attack) Wears glasses Home Medications amlodipine 10 mg PO DAILY 11/21/16 [History Last Taken 10/06/20 07:40 10 MG] apixaban 5 mg PO BID 11/21/16 [History Last Taken 09/28/20] omeprazole 20 mg PO DAILY 11/21/16 [History Last Taken 10/06/20 07:40 20 MG] quinapril 40 mg PO DAILY 11/21/16 [History Last Taken 09/15/20 06:00] simvastatin 20 mg PO QHS 11/21/16 [History Last Taken Unknown] cholecalciferol (vitamin D3) 2,000 unit PO DAILY 04/24/18 [History Last Taken Unknown] potassium chloride 10 meq PO QHS 04/24/18 [History Last Taken Unknown] digoxin 125 mcg PO QHS 09/14/20 [History Last Taken Unknown] metoprolol succinate 200 mg PO QHS 09/14/20 [History Last Taken 10/05/20 23:00 200 MG] ciprofloxacin HCl [Cipro] 500 mg PO BID #14 tab 10/06/20 [Rx Last Taken Unknown] Allergy/AdvReac Type Severity Reaction Status Date / Time No Known Allergies Allergy Verified 10/02/20 09:11 Family History Mother Brain aneurysm Other Angina of effort Surgical History (Updated 10/02/20 @ 09:18 by Mckenna Edwards) History of colonoscopy History of esophagogastroduodenoscopy (EGD) (~2020) History of prostate biopsy History of total left knee replacement (~2015) Hx of cystoscopy (~09/15/20) Hx of inguinal hernia repair (~09/02/18) S/P left knee arthroscopy Social History (Updated 06/12/20 @ 09:12 by Jered Taylor YOUTH AGENT, YOUTH AGENT-C) Smoking Status: Never smoker Vital Signs Vital Signs Vital Signs: 10/06/20 09:50 Temperature 97.5 F L Temperature Source Temporal Pulse Rate 61 Respiratory Rate 16 Respiratory Pattern Normal Blood Pressure 122/84 H Blood Pressure Mean 96 Blood Pressure Source Monitor Blood Pressure Position Sitting Blood Pressure Location Right Arm Pulse Ox 99 Oxygen Delivery Method Room Air Weight Weight: 104.6 kg Body Mass Index (BMI) 34.0 Physical Exam Const alert and oriented x3 General Appearance: cooperative HEENT normocephalic, head/scalp atraumatic, EAC's normal and TM's normal bilaterally Eyes PERRL and EOMs intact bilaterally Pupil: sluggish Neck no lymphadenopathy, supple and no JVD General: trachea midline Lymph Lymphatic: no lymphadenopathy noted, lymphedema and lymphadenopathy Resp normal respiratory effort, normal air movement and clear to auscultation bilaterally Cardio regular rate, regular rhythm and peripheral pulses 2+ throughout GI soft to palpation, non-tender and non-distended Extremity normal capillary refill and no clubbing, cyanosis or edema General Extremity: no tenderness to palpation of joints or extremities Skin no rashes or lesions noted General Skin Exam: turgor normal Lesions: no lesions Rashes: no rashes Neuro CN's II-XII intact bilaterally Speech: speech normal Motor Exam: strength 5/5 throughout; Negative for general weakness Psych thought process normal, cooperative and affect normal Appearance: appropriate Results Lab / Micro Data Result Diagrams: 10/02/20 10:59 Assessment & Plan Assessment/Plan (1) BPH with obstruction/lower urinary tract symptoms: PLAN: Plan to proceed with a transurethral section of the prostate for dif ficulty with voiding and recurrent gross hematuria and bleeding. (2) Gross hematuria:
--- NOTE | 2020-10-06 10:08 | PCM.DC ---
Discharge Instructions Diet Discharge Diet: No restrictions Activity Discharge Activity: Return to Normal Activity and May Not Drive (while taking narcotic pain medications.) Dressing / Incision Call your doctor if you observe: Fever of 101 or Higher Follow Up Care Please Follow Up With: Tez Wall MD When: Call [phone] for an appointment Test Results: Test results from this visit will be discussed in further detail at your follow-up appointment, if applicable. Discharge Plan Admission Primary Reason for Your Visit: TURP Attending Provider: Tez Wall Primary Care Provider: Steve Fernandes Instructions Patient Instructions: Transurethral Resection of the Prostate (TURP): Home Recovery Discharge Orders/Prescriptions Prescriptions: New ciprofloxacin HCl [Cipro] 500 mg tablet 500 mg PO BID Qty: 14 RF: 0 Continued quinapril 40 MG tablet 40 mg PO DAILY RF: 0 amlodipine 10 MG tablet 10 mg PO DAILY RF: 0 simvastatin 20 MG tablet 20 mg PO QHS RF: 0 omeprazole 20 MG capsule,delayed release(DR/EC) 20 mg PO DAILY RF: 0 potassium chloride 10 MEQ capsule, extended release 10 meq PO QHS RF: 0 cholecalciferol (vitamin D3) 2,000 UNIT capsule 2,000 unit PO DAILY RF: 0 metoprolol succinate 200 mg tablet extended release 24 hr 200 mg PO QHS RF: 0 digoxin 125 mcg (0.125 mg) tablet 125 mcg PO QHS RF: 0 Held apixaban 5 MG tablet 5 mg PO BID RF: 0 Hold Instructions: Resume on 10/20/20. Discontinued tamsulosin 0.4 mg Capsule 0.4 mg PO DAILY RF: 0 dutasteride 0.5 mg Capsule 0.5 mg PO DAILY RF: 0 Referrals / Follow Up: Steve Fernandes MD [Primary Care Provider] - Tez Wall MD [STAFF PHYSICIAN] -
[2020-10-06] MEDS: Cefazolin 2 GM in 0.9% Normal Saline 100 ML IV (11:33)
--- NOTE | 2020-10-06 12:45 | PCM.OPRPT ---
Report of Operation Date of Procedure: 10/06/20 Pre-Operative Diagnosis: BPH with obstruction recurrent hematuria history of prostate cancer Post-Operative Diagnosis: Same Surgery/Procedure Performed:: Transurethral section of the prostate Description of Surgical Findings:: In the preoperative setting I discussed with the patient how the surgery would be done with expect afterwards. We discussed how a prostate resection is done and we discussed the risk of the surgery including, bleeding, infection, retrograde ejaculation, changes with ejaculation or intercourse,. We discussed the possibility that the resection of the prostate may not alleviate his urinary symptoms. We discussed the small risk of developing scar tissue along the urethral channel and strictures. We also discussed the chance of the prostate could grow back and he may need further surgery or treatment in the future for prostate problems. Patient was taken back to the operating room, timeout procedure was performed, he was identified and marked and placed on the operating room table. He underwent general anesthesia. He was placed in dorsolithotomy position. Penis and testicles were prepped and draped in usual sterile fashion. Went into the bladder using the visual obturator with a resectoscope. Once inside the bladder identified the right and left ureteral orifice. I then identified the prostate and the anatomy of the prostate. I marked out the area of the sphincter and the verumontanum was identified. I then proceeded with the prostate resection first resected the median lobe. And then resected the right lobe of the prostate. Then to resect the left lobe of the prostate. I then resected the apical tissue of the prostate. Made sure that there was no injury to the sphincter or the verumontanum was still intact. At the end of the resection all the chips were Ellik out of the bladder. I then identified the left and right ureteral orifice and these were confirmed to be in good position and effluxing and not injured. The resectoscope was removed, a 22 Montenegrin catheter was placed into the bladder on continuous irrigation. And the urine was fairly light pink color and draining normally. He was taken back to the PACU in good condition. Surgeon: Tez Wall Type of Anesthesia: General Drains: 22 Montenegrin three-way catheter Admit VTE Documentation VTE Present on Admission: No VTE Mechan Device Prophylaxis: SCD's
[2020-10-06] MEDS: 0.9% Normal Saline 1,000 ML 125 ML IV ×2 (15:17→23:37)
[2020-10-06] MEDS: Ciprofloxacin 400 MG/200 ML BAG 200 MG IV (20:08)
[2020-10-06] MEDS: Digoxin 125 MCG Tablet PO (22:01)
[2020-10-06] MEDS: Atorvastatin Calcium 10 MG Tablet PO (22:01)
[2020-10-06] MEDS: Potassium Chloride Oral Tablet 10 MEQ PO (22:01)
[2020-10-06] MEDS: Metoprolol(XL)Succ 200 MG Tablet PO (22:01)
[2020-10-07 02:35] VITALS: BP 106/43; PULSE 78; RESP 16; TEMP 37.2; O2SAT 95
[2020-10-07 06:35] VITALS: BP 98/51; PULSE 72; RESP 18; TEMP 37.8; O2SAT 96
[2020-10-07] MEDS: 0.9% Normal Saline 1,000 ML 125 ML IV (07:07)
[2020-10-07 07:09] VITALS: TEMP 37.7
[2020-10-07] MEDS: amLODIPine 10 MG Tablet PO (07:44)
[2020-10-07] MEDS: Pantoprazole Sodium 20 MG Tablet PO (07:44)
[2020-10-07] MEDS: Cholecalciferol (VIT D3) 25 MCG TABLET (1,000 UNITS) 50 MCG PO (07:44)
--- NOTE | 2020-10-07 07:44 | PCM.PN.BLA ---
Progress Note Urine looks clear on some slight irrigation we can DC Armando today he can go home after he is able to urinate.
[2020-10-07] MEDS: Lisinopril 40 MG Tablet PO (07:45)
[2020-10-07] MEDS: Ciprofloxacin 400 MG/200 ML BAG 200 MG IV (07:47)
[2020-10-07 07:53] VITALS: BP 107/58; PULSE 73; RESP 16; TEMP 37.4; O2SAT 98
== END 2020-10-07 10:40 | disposition home or self-care (01) ==
LOC: SDC 09:17 → AC 10:39 → MS3 12:29
PROVIDERS: Anesthesiology; PCP Family Medicine; Referring Provider Urology; Visit Provider Urology
PROC: (CPT 52601; principal; 2020-10-06 11:20)
DX: N40.1 Benign prostatic hyperplasia with lower urinary tract symptoms (principal); N13.8 Other obstructive and reflux uropathy; I48.91 Unspecified atrial fibrillation; R31.0 Gross hematuria; I10 Essential (primary) hypertension; K21.9 Gastro-esophageal reflux disease without esophagitis; M19.90 Unspecified osteoarthritis, unspecified site; E78.5 Hyperlipidemia, unspecified; Z79.899 Other long term (current) drug therapy; Z85.46 Personal history of malignant neoplasm of prostate; Z79.01 Long term (current) use of anticoagulants
CPT/HCPCS: 00914; 52601; 36415; 85027; 88305; 93005; 99251; J7030; J7120; G0463; J0744; J2405

== ENCOUNTER → 2020-12-29 | Outpatient (CLI) | payer MEDICARE, OTHER, SELFPAY | END | disposition home or self-care (01) | PROVIDERS: PCP Family Medicine; Referring Provider Family Medicine; Visit Provider Family Medicine | DX: Z20.822 Contact with and (suspected) exposure to COVID-19 (principal) | CPT/HCPCS: 87635; U0005; U0003 ==

== ENCOUNTER 2021-01-02 17:28 | Outpatient (CLI) | payer MEDICARE, OTHER, SELFPAY ==
[2021-01-02] MEDS: 0.9% Saline Lock 10 ML Syringe IV (17:48)
[2021-01-02 17:53] VITALS: BP 122/61; PULSE 87; RESP 16; TEMP 37; O2SAT 99; BMI 31.6
[2021-01-02 18:24] VITALS: BP 132/70; PULSE 77; RESP 16; TEMP 37; O2SAT 100
[2021-01-02 19:20] VITALS: BP 145/90; PULSE 68; RESP 16; TEMP 36.7; O2SAT 99
== END 2021-01-02 19:25 | disposition home or self-care (01) ==
LOC: ICUOUT 17:28 → MS2 17:29
PROVIDERS: PCP Family Medicine; Referring Provider Nurse Practitioner Acute Care; Visit Provider Nurse Practitioner Acute Care
DX: Z23 Encounter for immunization (principal); U07.1 COVID-19
CPT/HCPCS: J7050; M0243; A4216; Q0244

== ENCOUNTER → 2021-02-22 10:02 | Outpatient (CLI) | payer MEDICARE, OTHER, SELFPAY ==
[2021-02-22 10:58] LABS: PSA,Total- Diagnostic 0.44 ng/mL (0.0-4.0)
== END ==
PROVIDERS: PCP Family Medicine; Referring Provider Urology; Visit Provider Urology
DX: N40.1 Benign prostatic hyperplasia with lower urinary tract symptoms (principal)
CPT/HCPCS: 36415; 84153

== ENCOUNTER 2021-05-17 08:58 | Outpatient (CLI) | payer MEDICARE, OTHER, SELFPAY ==
[2021-05-17 10:01] LABS: Absolute Neutrophil Count 3.5 X10^3/uL (2.0-7.7); Basophil# 0.05 X10^3/uL; Basophil% 0.9 % (0-1); Eosinophil# 0.17 X10^3/uL; Eosinophils% 3.2 % (0-5); Hematocrit 41.7 % (40-54); Hemoglobin 13.2 g/dL (13.0-16.5); Lymphocyte % 20.6 % (19-41); Mean Corp Hgb Conc 31.7 g/dL (32-36); Mean Corpuscular Hgb 26.2 pg (27.0-32.0); Mean Corpuscular Volume 82.7 fL (80-94); Mean Platelet Vol. 11.1 fl (6.2-12.0); Monocyte# 0.52 X10^3/uL; Monocyte% 9.7 % (0-10); NRBC Flagged by Analyzer 0 % (0-5); Neutrophil # 3.48 X10^3/uL (2.7-7.7); Neutrophil % 65.2 % (47-70); Platelet Count 186 K/mm3 (150-450); RBC Distribution Width CV 14.9 % (11.6-14.6); RBC Distribution Width SD 45.3 fl (35.1-43.9); Red Blood Count 5.04 M/mm3 (4.6-6.2); White Blood Count 5.3 K/mm3 (4.4-11.0)
[2021-05-17 10:09] LABS: International Normalized Ratio 1.1; Prothrombin Time (Protime)PT. 13.9 SECONDS (11.7-14.9)
[2021-05-17 10:10] LABS: Partial Thromboplast Time 32.6 Seconds (24.1-36.2)
[2021-05-17 10:42] LABS: Digoxin Level 0.73 ng/mL (0.80-2.00)
[2021-05-17 10:51] LABS: ALB/GLOB Ratio 1.2 RATIO (0.9-2.4); AST(SGOT) 17 U/L (15-37); Alanine Aminotransfer ALT/SGPT 21 U/L (16-61); Albumin, Serum 3.9 g/dL (3.2-5.0); Alkaline Phosphatase 100 U/L (45-117); Anion Gap 4 (5-15); BUN 16 mg/dL (7-18); BUN/Creat Ratio 10.7 RATIO (10-20); Calcium,Total 9.1 mg/dL (8.5-10.1); Chloride 112 mmol/L (98-107); Cholesterol 148 mg/dL (200); Creatinine, Serum 1.49 mg/dL (0.70-1.30); EST Glomerular Filtration Rate 48 mL/min (>60); Est Glom Filt Rate - Afr Amer 58 mL/min (>60); Globulin 3.3 g/dL (2.2-4.2); Glucose 111 mg/dL (74-106); High Density Lipoprotein 45 mg/dL; Potassium 3.9 mmol/L (3.5-5.1); Protein, Total 7.2 g/dL (6.4-8.2); Sodium Level 142 mmol/L (136-145); Triglycerides 83 mg/dL; Very Low Density Lipoprotein 17 mg/dL (5-40)
== END 2021-05-17 23:59 | disposition short-term general hospital (02) ==
PROVIDERS: PCP Family Medicine; Referring Provider Family Medicine; Visit Provider Family Medicine
DX: Z01.812 Encounter for preprocedural laboratory examination (principal); I48.91 Unspecified atrial fibrillation; I10 Essential (primary) hypertension; E78.00 Pure hypercholesterolemia, unspecified
CPT/HCPCS: 36415; 80053; 80061; 80162; 85025; 85610; 85730

== ENCOUNTER 2021-08-03 14:30 | Outpatient (RCR) | payer MEDICARE, OTHER, SELFPAY ==
--- NOTE | 2021-06-25 09:11 | HP.PTEVAL_ITS ---
Patient's Visit Information LEAH FOY is a 80 year old M referred to Physical Therapy by Corey Vega PA-C with a diagnosis of R TKA. Date of Evaluation: 06/22/21 Physical Therapist: Luis Fernando Perdomo DPT - Visit Plan Frequency: 3x /Week Duration: 6 Weeks Plan: Start with ROM, add in quad activation. Work on edema control as well. Progress to functional mobility and functional strengthening. - Subjective Pt. is here today for his initial evaluation with diagnosis of of R TKA. DOS: 06/19/21. Pt. arrives with FWW with good tolerance. He reports increased pain today, but still doing okay. He reports no N/T, no calf pain, no dizziness, no chest pain. He has been taking pain medication as prescribed. He is having trouble with sleeping, walking, and standing. He is wearing TEDs as recommended. Icing and elevating frequently. He does live by him self, but has son here currently to help out as needed. Leah is planning to get back to all recreational activities as previously including golfing and hiking. He has been able to do his HEP, but is having trouble lifting his leg. - Pain R knee Pain Intensity (Out of 10): 6 Pain Intensity Range: 4, 8 - Objective POSTURE: Pt. has equal wt. bearing in stance, slight loss of TKE of RLE in stance. Uses FWW for stability. PALPATION: Pt. has has expected edema 5cm incr ease at mid patella, equal 4 in superior. Pt. has non pitting edema noted. Pt. has negative homans sign. NEURO: Pt. has normal sensation in BLEs. Pt. has normal Achilles DTR. Pt. is able to rise on on heels and toes with external assistance. ROM: R knee: 0-8-89deg, normal HS length noted. . MMT: LLE: 5/5 throughout. RLE: ankle 5/5 throughout; knee: ext 3/5, flexion 4-/5; hip- flexion 3-/5, abd 3-/5, ext 3-/5. GAIT: Pt. ambulates with FWW, (walker is slightly too small, but is all he has). Decreased step length with decreased TKE during R stance phase. Pt. does fatigue rapidly as well. STAIRS: Step to pattern with use of BHR, loading LLE only. - Balance/Special Test Scores Lower Extremity Functional Score: 7 TUG Test Time Seconds: 43 WOMAC Total Score: 90 WOMAC Percentatge: 6.2500 - Goals Goal 1:: LTG: Pt. to be I with HEP for ROM and strength. Goal Time Frame: 4-6 Weeks Goal 2:: STG: Pt. to have increased R knee ROM to 0-0-120deg allowing for increased stair negotiation. Goal Time Frame: 2 Weeks Goal 3:: LTG: Pt. to have AROM his R knee to 0-0-120deg allowing for full functional mobility. Goal Time Frame: 4-6 Weeks Goal 4:: STG: Pt. to have equal edema between B LEs. Goal Time Frame: 2 Weeks Goal 5:: LTG: Pt. to ambulate 500+ with normal gait pattern without AD without increase in symptoms. Goal Time Frame: 4-6 Weeks Goal 6:: LTG: pt. to complete TUG without AD in less than 8 seconds. Goal Time Frame: 4-6 Weeks - Rehabilitation Potential Physical Therapy Diagnosis: Pt. has signs and symptoms consistent with R TKA. Pt. has subsequent hypomobility, weakness, difficulty walking and increased pain. Pt. would benefit from PT to address the above limitations progressing back to all functional and recreational activities with minimal to no pain. Rehabilitation Potential: Excellent - Anticipated Interventions Patient/Client Instruction: Educate patient on: Condition, Plan of Care, Risk Factors, Benefits of Fitness Program For the Purpose of:: To improve health and function, To foster healthy habits, To improve decision making, To facilitate caregiver knowledge, To improve self management, To prevent re-injury, To improve ability to perform tasks related to life management Therapeutic Exercise to Include: Strength training, Power training, Coordination, Postural training, Flexibilty training, Gait and locomotor training For the Purpose of:: To decrease pain, To increase ROM, To improve nutrient delivery to tissue, To increase oxygenation perfusion, To improve muscle performance and motor function, To improve ability to perform ADL's, To increase tolerance to activity/condition/position, To improve gait and locomotor functions, To improve health of tissue, To decrease soft tissue restriction, To increase flexibility/ROM Manual Therapy Techniques to Include: Mobilization, Passive ROM, Soft tissue mobilization For the Purpose of:: To decrease pain, To decrease swelling/inflammation, To increase ROM, To improve nutrient delivery to tissue, To increase oxygenation perfusion Cryotherapy (ice pack, ice massage): Yes For the Purpose of:: To decrease pain, To decrease swelling/inflammation, To increase ROM, To improve nutrient delivery to tissue, To increase oxygenation perfusion, To improve muscle performance and motor function Thank you for the opportunity to evaluate your patient. For Medicare and Medicare HMO plans, please review the plan of care and approve it. It will need to be FAXED BACK to us at [phone] for Medicare purposes. For Medicare only, by signing this I certify the plan of care. Please let me know if there are questions or concerns regarding this plan of care. Physician Signature:__ Date:
--- NOTE | 2021-07-20 12:51 | HP.PTREVAL ---
Corey Vega PA-C, It has been my pleasure to treat LEAH FOY over the last 11 visits for R TKA. Please see the progress note below for an update on the physical therapy plan of care! Subjective: Pt. arrives without AD today. He reports overall doing better everyday. Pt. reports 3/10 pain in knee and thigh today. He was a little sore after last visit, but not bad. Objective/Function: ROM: 0-2-115deg. MMT: 4/5 throughout. GAIT: Pt. is able to ambulate without AD, but does tend to lack TKE on R side during stance phase. He does need VCing to increase swing phase flexion as well. Descent on stairs. TU.3sec without AD. overall Leah is doing well. I want him to continue to work on TKE during gait and ROM. Progress ROM and functional strength as tolerated. Plan Plan: Cont. to work on end range of motion both extension and flexion. Progress gait pattern and functional strengthening, Balance/Gait/Functional tests - Balance/Special Test Scores Lower Extremity Functional Score: 42 TUG Test Time Seconds: 43 Tug Test: >30sec.=impaired mobility WOMAC Total Score: 90 WOMAC Percentage: 6.2500 Goals Goal 1:: LTG: Pt. to be I with HEP for ROM and strength. Goal Time Frame: 4-6 Weeks Goal Progress: Progressing Goal 2:: STG: Pt. to have increased R knee ROM to 0-0-120deg allowing for increased stair negotiation. Goal Time Frame: 2 Weeks Goal Progress: Progressing Goal 3:: LTG: Pt. to have AROM his R knee to 0-0-120deg allowing for full functional mobility. Goal Time Frame: 4-6 Weeks Goal Progress: Progressing Goal 4:: STG: Pt. to have equal edema between B LEs. Goal Time Frame: 2 Weeks Goal Progress: Progressing Goal 5:: LTG: Pt. to ambulate 500+ with normal gait pattern without AD without increase in symptoms. Goal Time Frame: 4-6 Weeks Goal Progress: Progressing Goal 6:: LTG: pt. to complete TUG without AD in less than 8 seconds. Goal Time Frame: 4-6 Weeks Goal Progress: Progressing Anticipated Interventions Patient/Client Instruction: Educate patient on: Condition, Plan of Care, Risk Factors, Benefits of Fitness Program For the Purpose of:: To improve health and function, To foster healthy habits, To improve decision making, To facilitate caregiver knowledge, To improve self management, To prevent re-injury, To improve ability to perform tasks related to life management Therapeutic Exercise to Include: Strength training, Power training, Coordination, Postural training, Flexibilty training, Gait and locomotor training For the Purpose of:: To decrease pain, To increase ROM, To improve nutrient delivery to tissue, To increase oxygenation perfusion, To improve muscle performance and motor function, To improve ability to perform ADL's, To increase tolerance to activity/condition/position, To improve gait and locomotor functions, To improve health of tissue, To decrease soft tissue restriction, To increase flexibility/ROM Manual Therapy Techniques to Include: Mobilization, Passive ROM, Soft tissue mobilization For the Purpose of:: To decrease pain, To decrease swelling/inflammation, To increase ROM, To improve nutrient delivery to tissue, To increase oxygenation perfusion Cryotherapy (ice pack, ice massage): Yes For the Purpose of:: To decrease pain, To decrease swelling/inflammation, To increase ROM, To improve nutrient delivery to tissue, To increase oxygenation perfusion, To improve muscle performance and motor function Please do not hesitate to contact me at [phone] by phone or if you have questions or concerns regarding this new plan of care! Sincerely, Luis Fernando Perdomo DPT
== END 2021-08-03 19:00 | disposition home or self-care (01) ==
LOC: PT 14:30
PROVIDERS: PCP Family Medicine; Referring Provider Physician Assistant Surgical; Visit Provider Physician Assistant Surgical
DX: M17.11 Unilateral primary osteoarthritis, right knee (principal); M21.161 Varus deformity, not elsewhere classified, right knee; R35.0 Frequency of micturition
CPT/HCPCS: 87086; 97016; 97110; 97140; 97161

== ENCOUNTER 2021-10-09 16:12 | Emergency (ER) | payer MEDICARE, OTHER, SELFPAY ==
[2021-10-09 16:13] VITALS: BP 147/90; PULSE 67; RESP 14; TEMP 36.8; O2SAT 98; BMI 32.8
--- NOTE | 2021-10-09 16:23 | EX.ED.UPPERE ---
HPI History of Present Illness HPI Narrative: Patient presents with injury to his right wrist and hand that occurred today. Patient states he was painting when his hand was hit by the ceiling fan. Patient states the pain is over the base of the metacarpals and right wrist area. Patient states the pain is worse with movement. Patient describes it as dull and aching. Patient states nothing seems to help with the pain. Patient denies any paresthesias or weakness. Patient denies any other injuries. 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 Cancer COVID-19 virus detected (12/29/20) Essential hypertension Gastric reflux GERD (gastroesophageal reflux disease) History of atrial fibrillation History of bleeding ulcers History of edema History of GI bleed History of pain when walking History of TIA (transient ischemic attack) (1997) Hyperlipidemia Longstanding persistent atrial fibrillation Prostate cancer PUD (peptic ulcer disease) Right inguinal hernia TIA (transient ischemic attack) Wears glasses Home Medications amlodipine 10 mg PO DAILY 11/21/16 [History Last Taken 10/06/20 07:40 10 MG] apixaban 5 mg PO BID 11/21/16 [History Last Taken 09/28/20] omeprazole 20 mg PO DAILY 11/21/16 [History Last Taken 10/06/20 07:40 20 MG] quinapril 40 mg PO DAILY 11/21/16 [History Last Taken 09/15/20 06:00] simvastatin 20 mg PO QHS 11/21/16 [History Last Taken Unknown] cholecalciferol (vitamin D3) 2,000 unit PO DAILY 04/24/18 [History Last Taken Unknown] potassium chloride 10 meq PO QHS 04/24/18 [History Last Taken Unknown] digoxin 125 mcg PO QHS 09/14/20 [History Last Taken Unknown] metoprolol succinate 200 mg PO QHS 09/14/20 [History Last Taken 10/05/20 23:00 200 MG] Allergy/AdvReac Type Severity Reaction Status Date / Time No Known Allergies Allergy Verified 01/26/21 09:18 Family History Mother Brain aneurysm Other Angina of effort Surgical History H/O arthroscopic knee surgery History of colonoscopy History of esophagogastroduodenoscopy (EGD) (2020) History of prostate biopsy History of total left knee replacement (2015) History of transurethral resection of prostate (10/06/20) Hx of cystoscopy (09/15/20) Hx of inguinal hernia repair (09/02/18) Social History Smoking Status: Never smoker alcohol intake: current alcohol intake frequency: a few times a month Alcohol type: beer and wine substance use type: does not use caffeine: Yes Type: coffee Number of servings: 1 and tea Number of servings: 2 ROS ROS ED Constitutional Constitutional ED: Denies chills or fever(s) Eyes Eyes: Denies blurry vision or change in vision ENT ENT ED: Denies rhinorrhea or sore throat Cardiovascular Cardiovascular: Denies chest pain or palpitations Respiratory/Chest Respiratory/Chest: Denies cough or dyspnea Gastrointestinal Gastrointestinal: Denies nausea or vomiting Genitourinary Genitourinary ED: Denies dysuria or hematuria Musculoskeletal Musculoskeletal: Denies back pain or neck pain Integumentary Denies abscess or rash Neurologic Neurologic: Denies headache(s) or weakness Allergic/Immunologic Allergic/Immunologic ED: Denies mouth swelling or urticaria EXAM Physical Exam Const Vital Signs: 10/09/21 16:13 Temperature 98.2 F Temperature Source Temporal Pulse Rate 67 Respiratory Rate 14 Blood Pressure 147/90 H Blood Pressure Mean 109 Pulse Ox 98 Oxygen Delivery Method Room Air Positive well nourished and well developed General Appearance ED: well developed and NAD HEENT Reports moist mucous membranes Neck full ROM and supple Extremity Extremity Narrative: There is tenderness with mild edema over the dorsum of the right wrist and proximal metacarpal area. There is no obvious deformity. Range of motion was limited in all motions of the right wrist secondary to pain. Sensation was intact to light touch in the radial, median, and ulnar areas. Strength is 5/5 in the radial, median, and ulnar areas. Radial pulses are equal bilaterally. Neuro oriented x3, CN's II-XII intact bilaterally, moves all extremities, no focal motor deficits and no sensory deficits noted Sensorium / Orientation: alert Psych mental status grossly normal MDM MDM MDM Narrative Medical decision making narrative: X-rays of the right wrist were obtained. There are 3 views. On my interpretation, there is no acute fracture. There is no dislocation. There is some mild soft tissue swelling. Radiologist also interpreted the x-rays and agrees. Patient was advised of his findings. Patient was given a Velcro wrist splint. Patient was instructed to ice and elevate the right wrist. Patient was instructed to take Tylenol or ibuprofen as needed for pain. Patient was instructed to follow-up with his primary care physician in 5 to 7 days. Patient understood and was agreeable with the plan. All questions were answered. Discharge Plan Triage Chief Complaint: Upper Extremity Injury ED Provider: Gerber Lema Dx/Rx/DC Orders Clinical Impression: Contusion of right wrist, initial encounter Instructions: ED Contusion, Upper Extremity Prescriptions: No Action quinapril 40 MG tablet 40 mg PO DAILY RF: 0 amlodipine 10 MG tablet 10 mg PO DAILY RF: 0 simvastatin 20 MG tablet 20 mg PO QHS RF: 0 omeprazole 20 MG capsule,delayed release(DR/EC) 20 mg PO DAILY RF: 0 apixaban 5 MG tablet 5 mg PO BID RF: 0 Hold Instructions: Resume on 10/20/20. potassium chloride 10 MEQ capsule, extended release 10 meq PO QHS RF: 0 cholecalciferol (vitamin D3) 2,000 UNIT capsule 2,000 unit PO DAILY RF: 0 metoprolol succinate 200 mg tablet extended release 24 hr 200 mg PO QHS RF: 0 digoxin 125 mcg (0.125 mg) tablet 125 mcg PO QHS RF: 0 Primary Care Provider: Steve Fernandes Referrals: Steve Fernandes MD [Primary Care Provider] - 5-7 Days Disposition Disposition: Home, Self Care
--- NOTE | 2021-10-09 16:28 | RAD_ITS ---
EXAM: XR RIGHT WRIST COMPLETE, 3 OR MORE VIEWS CLINICAL INDICATION: Injury/Pain TECHNIQUE: Frontal, lateral and oblique views of the right wrist. This report was created using [employer] report generation technology. COMPARISON: None. FINDINGS: BONES/JOINTS: Unremarkable. No acute fracture. No subluxation. Normal alignment. Preservation of the joint space. No sclerotic or destructive changes observed. SOFT TISSUES: Unremarkable. No soft tissue swelling or gas. No radiopaque foreign body. RAD/Wrist min 3 Views IMPRESSION: Negative right wrist x-rays. Electronically Signed: Sergio Norman MD at 16:45 EDT ,
[2021-10-09 18:04] VITALS: BP 147/87; PULSE 82; RESP 18
== END 2021-10-09 18:05 | disposition home or self-care (01) ==
PROVIDERS: Emergency Provider Emergency Medicine; PCP Family Medicine; Visit Provider Emergency Medicine
DX: S60.211A Contusion of right wrist, initial encounter (principal); I48.11 Longstanding persistent atrial fibrillation; I10 Essential (primary) hypertension; E78.5 Hyperlipidemia, unspecified; W22.8XXA Striking against or struck by other objects, initial encounter; N40.0 Benign prostatic hyperplasia without lower urinary tract symptoms; Z86.16 Personal history of COVID-19; K21.9 Gastro-esophageal reflux disease without esophagitis; Z87.19 Personal history of other diseases of the digestive system; Z86.73 Personal history of transient ischemic attack (TIA), and cerebral infarction without residual deficits; Z85.46 Personal history of malignant neoplasm of prostate; Z87.11 Personal history of peptic ulcer disease; Z79.899 Other long term (current) drug therapy; Z79.01 Long term (current) use of anticoagulants; M19.90 Unspecified osteoarthritis, unspecified site
CPT/HCPCS: 73110; 99283

== ENCOUNTER → 2022-02-28 | Outpatient (CLI) | payer MEDICARE, OTHER, SELFPAY ==
[2022-02-28 11:43] LABS: PSA,Total- Diagnostic 0.58 ng/mL (0.0-4.0)
== END | disposition home or self-care (01) ==
LOC: LAB 09:51
PROVIDERS: PCP Family Medicine; Referring Provider Urology; Visit Provider Urology
DX: C61 Malignant neoplasm of prostate (principal)
CPT/HCPCS: 36415; 84153

== ENCOUNTER → 2022-03-04 | Outpatient (CLI) | payer MEDICARE, OTHER, SELFPAY ==
--- NOTE | 2022-03-04 18:34 | STRESSREP ---
Stress Test Report Pharmacologic myocardial perfusion stress test. 81-year-old man with a history of chest pressure. Stress protocol: Resting EKG demonstrates atrial fibrillation with a rate of 66 bpm premature ventricular complexes are noted. Resting blood pressure is 128/88 mmHg. 0.4 mg of regadenoson was infused per usual protocol followed by rapid intravenous saline flush injection continuous EKG monitoring was performed. The maximum heart rate attained was noted to be 108 bpm which was 77% of max impacted heart rate the maximum workload was 1 metabolic equivalent. At rest there were no ST or T wave changes noted to suggest abnormal flow reserve and at peak infusion nonspecific ST changes were noted with did not meet the criteria for ischemia. Myocardial perfusion protocol. 11.5 mCi of technetium 99m sestamibi was injected at rest. 0.4 mg of regadenoson was infused per usual protocol. At peak infusion 35.0 mCi of technetium 99m sestamibi was injected. Stress images were obtained. Stress and rest images were reconstructed and compared in the short axis vertical long and horizontal long axis. Gated images were also obtained. Perfusion SPECT analysis: Review of the stress images demonstrate normal uptake of tracer noted in all areas of the myocardium. The resting images similar demonstrate normal uptake of tracer noted in all areas of the myocardium. No areas of reversibility are noted to suggest ischemia and no previous infarct is noted. Gated SPECT analysis: The gated ejection fraction is noted to be 62%. Conclusion: Normal pharmacologic myocardial perfusion stress test. Preserved ejection fraction.
== END | disposition home or self-care (01) ==
LOC: CVS 06:56
PROVIDERS: PCP Family Medicine; Visit Provider Nurse Practitioner Gerontology
DX: R07.89 Other chest pain (principal)
CPT/HCPCS: 78452; 93017; A9500; A4216; J2785

== ENCOUNTER 2022-03-25 09:10 | Outpatient (CLI) | payer MEDICARE, OTHER, SELFPAY ==
[2022-03-25 12:17] LABS: Hematocrit 42.7 % (40-54); Hemoglobin 12.9 g/dL (13.0-16.5); Mean Corp Hgb Conc 30.2 g/dL (32-36); Mean Corpuscular Hgb 25.9 pg (27.0-32.0); Mean Corpuscular Volume 85.6 fL (80-94); Platelet Count 185 K/mm3 (150-450); RBC Distribution Width CV 15.3 % (11.6-14.6); RBC Distribution Width SD 47.8 fl (35.1-43.9); Red Blood Count 4.99 M/mm3 (4.6-6.2); White Blood Count 4.5 K/mm3 (4.4-11.0)
[2022-03-25 12:49] LABS: Vitamin D,25 Hydroxy 49.8 ng/mL
[2022-03-25 13:05] LABS: ALB/GLOB Ratio 1.3 RATIO (0.9-2.4); AST(SGOT) 16 U/L (15-37); Alanine Aminotransfer ALT/SGPT 23 U/L (16-61); Albumin, Serum 3.9 g/dL (3.2-5.0); Alkaline Phosphatase 92 U/L (45-117); BUN 26 mg/dL (7-18); BUN/Creat Ratio 16.5 RATIO (10-20); Calcium,Total 8.8 mg/dL (8.5-10.1); Cholesterol 120 mg/dL (200); Creatinine, Serum 1.58 mg/dL (0.70-1.30); EST Glomerular Filtration Rate 45 mL/min (>60); Est Glom Filt Rate - Afr Amer 55 mL/min (>60); Globulin 3.1 g/dL (2.2-4.2); Glucose 117 mg/dL (74-106); Triglycerides 80 mg/dL
[2022-03-25 13:06] LABS: Anion Gap 6 (5-15); Chloride 108 mmol/L (98-107); High Density Lipoprotein 41 mg/dL; Iron 39 ug/dL (65-175); Potassium 4.3 mmol/L (3.5-5.1); Sodium Level 141 mmol/L (136-145); Very Low Density Lipoprotein 16 mg/dL (5-40)
== END 2022-03-25 23:59 | disposition home or self-care (01) ==
LOC: MFPLAB 09:11
PROVIDERS: PCP Family Medicine; Visit Provider Family Medicine
DX: E78.00 Pure hypercholesterolemia, unspecified (principal); I48.91 Unspecified atrial fibrillation; N18.30 Chronic kidney disease, stage 3 unspecified
CPT/HCPCS: 36415; 80053; 80061; 82306; 83540; 85027

== ENCOUNTER → 2022-09-16 | Outpatient (CLI) | payer MEDICARE, OTHER, SELFPAY ==
[2022-09-16 12:55] LABS: AST(SGOT) 23 U/L (15-37); Alanine Aminotransfer ALT/SGPT 24 U/L (16-61); Albumin, Serum 3.6 g/dL (3.2-5.0); Alkaline Phosphatase 91 U/L (45-117); Anion Gap 8 (5-15); BUN 23 mg/dL (7-18); BUN/Creat Ratio 14.2 RATIO (10-20); Calcium,Total 8.9 mg/dL (8.5-10.1); Chloride 112 mmol/L (98-107); Creatinine, Serum 1.62 mg/dL (0.70-1.30); EST Glomerular Filtration Rate 44 mL/min (>60); Est Glom Filt Rate - Afr Amer 53 mL/min (>60); Globulin 3.5 g/dL (2.2-4.2); Glucose 115 mg/dL (74-106); Potassium 4.1 mmol/L (3.5-5.1); Protein, Total 7.1 g/dL (6.4-8.2); Sodium Level 142 mmol/L (136-145); Thyroid Stim Hormone (TSH) 2.79 uIU/mL (0.358-3.74)
[2022-09-16 12:56] LABS: BNP,B-Type NATRIURETIC PEPTIDE 354.1 pg/mL (0-100)
== END | disposition home or self-care (01) ==
LOC: MFPLAB 09:34
PROVIDERS: PCP Family Medicine; Visit Provider Family Medicine
DX: I48.91 Unspecified atrial fibrillation (principal); M79.89 Other specified soft tissue disorders; I10 Essential (primary) hypertension
CPT/HCPCS: 36415; 80053; 83880; 84443

== ENCOUNTER → 2022-09-30 | Outpatient (CLI) | payer MEDICARE, OTHER, SELFPAY ==
[2022-09-30 17:46] LABS: Anion Gap 8 (5-15); BUN 25 mg/dL (7-18); BUN/Creat Ratio 14.5 RATIO (10-20); Calcium,Total 9.1 mg/dL (8.5-10.1); Chloride 110 mmol/L (98-107); Creatinine, Serum 1.72 mg/dL (0.70-1.30); EST Glomerular Filtration Rate 41 mL/min (>60); Est Glom Filt Rate - Afr Amer 49 mL/min (>60); Glucose 159 mg/dL (74-106); Potassium 3.7 mmol/L (3.5-5.1); Sodium Level 141 mmol/L (136-145)
== END | disposition home or self-care (01) ==
LOC: MFPLAB 12:09
PROVIDERS: PCP Family Medicine; Visit Provider Family Medicine
DX: M79.89 Other specified soft tissue disorders (principal)
CPT/HCPCS: 36415; 80048

== ENCOUNTER → 2022-12-24 | Outpatient (CLI) | payer MEDICARE, OTHER, SELFPAY ==
[2022-12-24 12:20] LABS: Hematocrit 43.7 % (40-54); Hemoglobin 13.2 g/dL (13.0-16.5); Mean Corp Hgb Conc 30.2 g/dL (32-36); Mean Corpuscular Hgb 27.2 pg (27.0-32.0); Mean Corpuscular Volume 90.1 fL (80-94); Mean Platelet Vol. 12.4 fl (6.2-12.0); Platelet Count 147 K/mm3 (150-450); RBC Distribution Width CV 14.8 % (11.6-14.6); Red Blood Count 4.85 M/mm3 (4.6-6.2)
[2022-12-24 12:39] LABS: PTHIN 111.5 pg/mL (18.4-80.1)
[2022-12-24 12:40] LABS: Vitamin D,25 Hydroxy 54.7 ng/mL
[2022-12-24 12:51] LABS: Anion Gap 4 (5-15); BUN 20 mg/dL (7-18); BUN/Creat Ratio 12.1 RATIO (10-20); Calcium,Total 8.9 mg/dL (8.5-10.1); Chloride 112 mmol/L (98-107); Cholesterol 109 mg/dL (200); Creatinine, Serum 1.65 mg/dL (0.70-1.30); EST Glomerular Filtration Rate 43 mL/min (>60); Est Glom Filt Rate - Afr Amer 52 mL/min (>60); Glucose 110 mg/dL (74-106); High Density Lipoprotein 40 mg/dL; Potassium 4.5 mmol/L (3.5-5.1); Sodium Level 141 mmol/L (136-145); Triglycerides 78 mg/dL; Very Low Density Lipoprotein 16 mg/dL (5-40)
== END | disposition home or self-care (01) ==
LOC: MFPLAB 10:33
PROVIDERS: PCP Family Medicine; Visit Provider Family Medicine
DX: I12.9 Hypertensive chronic kidney disease with stage 1 through stage 4 chronic kidney disease, or unspecified chronic kidney disease (principal); N18.30 Chronic kidney disease, stage 3 unspecified
CPT/HCPCS: 36415; 80048; 80061; 82306; 83970; 85027

== ENCOUNTER → 2023-02-07 | Outpatient (CLI) | payer MEDICARE, OTHER, SELFPAY ==
--- NOTE | 2023-02-07 11:38 | RAD_ITS ---
STUDY: X-RAY - PARANASAL SINUSES REASON FOR EXAM: Male, 82 years old. headache, summer. TECHNIQUE: 3 view(s) of the paranasal sinuses were obtained. COMPARISON: None. FINDINGS: Normal visualized frontal, maxillary, ethmoidal and sphenoid sinuses. Normal visualized facial bones. The soft tissue structures are unremarkable. There are lower bifrontal dental implants. RAD/Sinuses min 3 Views IMPRESSION: Normal x-rays of the paranasal sinuses with no air-fluid level to suggest acute sinusitis. Electronically Signed: Anna Asif MD at 17:11 EDT ,
== END | disposition home or self-care (01) ==
LOC: MTRAD 11:37
PROVIDERS: PCP Family Medicine; Referring Provider Family Medicine; Visit Provider Family Medicine
DX: R51.9 Headache, unspecified (principal)
CPT/HCPCS: 70220

== ENCOUNTER → 2023-03-03 | Outpatient (CLI) | payer MEDICARE, OTHER, SELFPAY | END | disposition home or self-care (01) | LOC: LAB 11:08 | PROVIDERS: PCP Family Medicine; Referring Provider Nurse Practitioner; Visit Provider Nurse Practitioner | DX: C61 Malignant neoplasm of prostate (principal) | CPT/HCPCS: 36415; 84153 ==

== ENCOUNTER → 2023-03-05 | Outpatient (CLI) | payer MEDICARE, OTHER, SELFPAY ==
--- NOTE | 2023-03-05 07:24 | MRI_ITS ---
HISTORY: INCREASED FREQUENCY IN HEADACHES. TECHNIQUE: Multiplanar and multisequence MR images of the brain were obtained before and after the intravenous administration of 20 cc Clariscan. 337 images. COMPARISON: None. FINDINGS: BRAIN PARENCHYMA: Punctate focus of mild restricted diffusion in the left occipital cortex. Mild periventricular white matter changes. No enhancing lesion in the brain parenchyma. No acute intracranial hemorrhage identified. CSF SPACES: Mild generalized volume loss. No significant midline shift or other mass effect.No extra-axial fluid collection. VASCULAR SYSTEM: Major intracranial flow voids are maintained. PARANASAL SINUSES AND MASTOID AIR CELLS: No significant air fluid levels. ORBITS: Symmetric contents. MRI/Brain W/WO Contrast IMPRESSION: Mild focus of restricted diffusion in the left occipital cortex, likely subacute lacunar infarct. Mild chronic involutional and white matter changes. No evidence for enhancing intracranial mass. Electronically Signed: Marla Santiago MD at 14:40 EST ,
[2023-03-05 07:59] LABS: CREATININE FINGERSTICK 1.3 mg/dL (0.70-1.30)
== END | disposition home or self-care (01) ==
LOC: MRI 07:19
PROVIDERS: PCP Family Medicine; Referring Provider Family Medicine; Visit Provider Family Medicine
DX: R51.9 Headache, unspecified (principal)
CPT/HCPCS: 70553; A9575

== ENCOUNTER → 2023-04-03 | Outpatient (CLI) | payer MEDICARE, OTHER, SELFPAY ==
[2023-04-03 12:48] LABS: PTHIN 78.3 pg/mL (18.4-80.1)
[2023-04-03 13:00] LABS: Anion Gap 5 (5-15); BUN 27 mg/dL (7-18); BUN/Creat Ratio 16.2 RATIO (10-20); Calcium,Total 9.1 mg/dL (8.5-10.1); Chloride 110 mmol/L (98-107); Creatinine, Serum 1.67 mg/dL (0.70-1.30); EST Glomerular Filtration Rate 42 mL/min (>60); Est Glom Filt Rate - Afr Amer 51 mL/min (>60); Glucose 105 mg/dL (74-106); Phosphorus 2.9 mg/dL (2.5-4.9); Potassium 3.9 mmol/L (3.5-5.1); Sodium Level 141 mmol/L (136-145)
[2023-04-03 13:38] LABS: Hemoglobin A1c 5.9 % (3.8-5.6)
== END | disposition home or self-care (01) ==
LOC: MFPLAB 10:07
PROVIDERS: PCP Family Medicine; Visit Provider Family Medicine
DX: N18.30 Chronic kidney disease, stage 3 unspecified (principal); I67.9 Cerebrovascular disease, unspecified; M79.89 Other specified soft tissue disorders; R73.01 Impaired fasting glucose
CPT/HCPCS: 36415; 80048; 83036; 83970; 84100

== ENCOUNTER → 2023-06-30 | Outpatient (CLI) | payer MEDICARE, OTHER, SELFPAY ==
[2023-06-30 13:32] LABS: Anion Gap 5 (5-15); BUN 18 mg/dL (7-18); BUN/Creat Ratio 10.9 RATIO (10-20); Calcium,Total 9.3 mg/dL (8.5-10.1); Chloride 110 mmol/L (98-107); Creatinine, Serum 1.65 mg/dL (0.70-1.30); EST Glomerular Filtration Rate 43 mL/min (>60); Est Glom Filt Rate - Afr Amer 52 mL/min (>60); Glucose 127 mg/dL (74-106); Potassium 3.7 mmol/L (3.5-5.1); Sodium Level 141 mmol/L (136-145)
== END | disposition home or self-care (01) ==
LOC: MFPLAB 10:31
PROVIDERS: PCP Family Medicine; Visit Provider Family Medicine
DX: N18.30 Chronic kidney disease, stage 3 unspecified (principal)
CPT/HCPCS: 36415; 80048

== ENCOUNTER → 2023-09-15 | Outpatient (CLI) | payer MEDICARE, OTHER, SELFPAY ==
[2023-09-15 12:42] LABS: Absolute Neutrophil Count 3.3 X10^3/uL (2.0-7.7); Basophil# 0.04 X10^3/uL; Basophil% 0.7 % (0-1); Eosinophil# 0.18 X10^3/uL; Eosinophils% 3.3 % (0-5); Hematocrit 45.3 % (40-54); Hemoglobin 14.9 g/dL (13.0-16.5); Lymphocyte % 25.6 % (19-41); Mean Corp Hgb Conc 32.9 g/dL (32-36); Mean Corpuscular Hgb 30.2 pg (27.0-32.0); Mean Corpuscular Volume 91.9 fL (80-94); Mean Platelet Vol. 11.2 fl (6.2-12.0); Monocyte# 0.53 X10^3/uL; Monocyte% 9.7 % (0-10); NRBC Flagged by Analyzer 0 % (0-5); Neutrophil # 3.28 X10^3/uL (2.7-7.7); Neutrophil % 60.2 % (47-70); Platelet Count 153 K/mm3 (150-450); RBC Distribution Width CV 13.1 % (11.6-14.6); RBC Distribution Width SD 44.1 fl (35.1-43.9); Red Blood Count 4.93 M/mm3 (4.6-6.2); White Blood Count 5.5 K/mm3 (4.4-11.0)
[2023-09-15 13:08] LABS: Vitamin B12 442 pg/mL (211-911); Vitamin D,25 Hydroxy 56.8 ng/mL
[2023-09-15 13:09] LABS: Anion Gap 3 (5-15); BUN 18 mg/dL (7-18); BUN/Creat Ratio 10.8 RATIO (10-20); Calcium,Total 8.9 mg/dL (8.5-10.1); Chloride 110 mmol/L (98-107); Creatinine, Serum 1.67 mg/dL (0.70-1.30); EST Glomerular Filtration Rate 42 mL/min (>60); Est Glom Filt Rate - Afr Amer 51 mL/min (>60); Glucose 98 mg/dL (74-106); Potassium 3.6 mmol/L (3.5-5.1); Sodium Level 140 mmol/L (136-145); Thyroid Stim Hormone (TSH) 1.57 uIU/mL (0.358-3.74)
== END | disposition home or self-care (01) ==
PROVIDERS: PCP Family Medicine; Visit Provider Nurse Practitioner Gerontology
DX: R53.83 Other fatigue (principal); E55.9 Vitamin D deficiency, unspecified
CPT/HCPCS: 36415; 80048; 82306; 82607; 84443; 85025

== ENCOUNTER 2023-10-29 07:39 | Emergency (ER) | payer MEDICARE, OTHER, SELFPAY ==
[2023-10-29 07:40] VITALS: BP 166/88; PULSE 65; RESP 18; TEMP 36.3; O2SAT 96; BMI 33.9
--- NOTE | 2023-10-29 07:55 | CT_ITS ---
INDICATION: hematuria EXAMINATION: CT ABDOMEN AND PELVIS WITH AND WITHOUT CONTRAST - CT Urogram (Abd / Pelvis) WO/W Contrast Injection TECHNIQUE: Helically acquired images were obtained of the abdomen and pelvis both before and after IV contrast. The protocol utilizes one or more of the following dose reduction techniques: automated exposure control, adjustment of mA and/or kV according to patient size,and/or use of iterative reconstruction technique. IV Contrast dosage and agent: 1 cc of Isovue-370 Oral contrast: None. RADIATION DOSAGE (If Supplied By Facility): CTDIvol = ( 27.81 ) mGy, DLP = ( 4669.74 ) mGycm COMPARISON: Prior study dated: 08/10/2020 FINDINGS: LOWER CHEST: Lung bases are clear. Mild cardiomegaly. LIVER: Homogeneous. No focal mass. GALLBLADDER AND BILIARY TREE: No calcified gallstones. No gallbladder distension or wall edema. No intra- or extrahepatic biliary ductal dilation. PANCREAS: No focal cystic or solid mass. SPLEEN: Normal size without focal cystic or solid mass. ADRENAL GLANDS: No nodules. KIDNEYS AND URETERS: Multiple bilateral simple renal cysts essentially unchanged for which no further follow-up exam is needed. No hydronephrosis. PERITONEUM: No ascites or free air. No other fluid collection. BOWEL: Appendicolith within the appendix unchanged. No evidence of acute appendicitis. No stomach or bowel distension. No focal inflammatory change. LYMPH NODES: No enlarged mesenteric or retroperitoneal lymph nodes. VESSELS: Aorta is non-dilated. URINARY BLADDER: Indentation on the bladder base by enlarged prostate. Densities within the bladder likely representing urine mixed with contrast or blood clots. Mass in the base of the bladder cannot be excluded. REPRODUCTIVE ORGANS: Markedly enlarged prostate measuring about 6.8 x 6 cm in radiation seeds are again seen within the prostate. ABDOMINAL WALL: Possible small inguinal hernias containing fat. BONES: No lytic or blastic abnormality. CT/CT Abd/Pelvis W/WO Contrast IMPRESSION: 1. Markedly enlarged prostate indenting the bladder base with a radiation seeds within essentially unchanged. Correlation with PSA level is recommended. 2. Densities in the bladder could represent urine mixed with contrast or blood clots. Mass within the bladder cannot be excluded. 3. Otherwise no focal acute inflammatory process. Electronically Signed: Goyo Parra MD at 9:29 EDT ,
--- NOTE | 2023-10-29 07:56 | EDS_ITS ---
HPI History of Present Illness Chief Complaint: Abd Pain Informant: patient Onset/Context/Timing Onset: Today Narrative Narrative: Patient presents secondary to urinary retention. He states that he has had dribbling of urine with blood in his urine for a while. He was seen by Dr. Wall 2 days ago. He was scheduled to undergo a CT scan in a couple weeks. Patient states since 330 this morning he has had increased pain and more difficulty passing any urine. [facility] Medical History (Updated 10/29/23 @ 12:[address] Paula Francis MD) BPH with obstruction/lower urinary tract symptoms COVID-19 virus detected (12/29/20) Longstanding persistent atrial fibrillation Acute radiation cystitis Wears glasses Cancer Arthritis History of GI bleed Gastric reflux History of pain when walking History of edema History of atrial fibrillation History of bleeding ulcers GERD (gastroesophageal reflux disease) Blankenship's esophagus with esophagitis History of TIA (transient ischemic attack) (1997) Essential hypertension Right inguinal hernia Prostate cancer Hyperlipidemia PUD (peptic ulcer disease) TIA (transient ischemic attack) Home Medications ?Medication ?Instructions ?Recorded ?Last Taken ?Type amlodipine 10 mg tablet 10 mg PO DAILY HTN 11/21/16 10/29/23 History simvastatin 20 mg tablet 20 mg PO QHS CHOL 11/21/16 10/28/23 History cholecalciferol (vitamin D3) 50 2,000 unit PO DAILY SUPPLEMENT 04/24/18 10/28/23 History mcg (2,000 unit) capsule potassium chloride 10 mEq 10 meq PO QHS SUPPLEMENT 04/24/18 10/28/23 History capsule,extended release metoprolol succinate 200 mg 200 mg PO QHS 09/14/20 10/28/23 History tablet,extended release 24 hr digoxin 125 mcg (0.125 mg) tablet 125 mcg PO QHS HEART #90 tabs 02/14/23 10/28/23 Rx furosemide 20 mg tablet (Lasix) 20 mg PO BID 03/26/23 10/28/23 History quinapril 40 mg tablet 40 mg PO DAILY HTN #90 tabs 03/26/23 10/28/23 Rx hydralazine 25 mg tablet 25 mg PO BID 09/15/23 10/28/23 History apixaban 5 mg tablet 5 mg PO BID #180 tabs 09/26/23 Unknown Rx cephalexin 500 mg capsule 500 mg PO Q12 #14 CAPSULES 10/29/23 Unknown Rx mirtazapine 15 mg tablet 15 mg PO QHS 10/29/23 10/28/23 History Allergy/AdvReac Type Severity Reaction Status Date / Time No Known Allergies Allergy Verified 10/29/23 07:40 Family History Mother Brain aneurysm Other Angina of effort Surgical History History of arthroplasty of right knee H/O arthroscopic knee surgery History of transurethral resection of prostate (10/06/20) Hx of cystoscopy (09/15/20) History of esophagogastroduodenoscopy (EGD) (2020) Hx of inguinal hernia repair (09/02/18) History of colonoscopy History of total left knee replacement (2015) History of prostate biopsy Social History Smoking Status: Never smoker alcohol intake: current alcohol intake frequency: a few times a month Alcohol type: beer and wine substance use type: does not use caffeine: Yes Type: coffee Number of servings: 1 and tea Number of servings: 2 ROS ROS ED Constitutional Constitutional ED: Denies chills or fever(s) Eyes Eyes: Denies discharge from eye(s) ENT ENT ED: Denies discharge from eye(s), rhinorrhea or sore throat Cardiovascular Cardiovascular: Denies chest pain or palpitations Respiratory/Chest Respiratory/Chest: Denies cough or dyspnea Gastrointestinal Gastrointestinal: Reports abdominal pain; Denies nausea or vomiting Genitourinary Genitourinary ED: Reports difficulty urinating, dysuria and hematuria Musculoskeletal Musculoskeletal: Denies back pain or extremity pain Integumentary Denies Abrasions or rash Neurologic Neurologic: Denies headache(s) or weakness Psychiatric Psychiatric: Denies anxiety or depression Allergic/Immunologic Allergic/Immunologic ED: Denies lip swelling or urticaria EXAM Physical Exam Const Vital Signs: 10/29/23 07:40 10/29/23 07:40 10/29/23 08:40 Temperature 97.3 F L 97.3 F L 97.4 F L Temperature Source Temporal Temporal Temporal Pulse Rate 65 65 69 Respiratory Rate 18 18 18 Blood Pressure 166/88 H 166/88 H 140/89 H Blood Pressure Mean 114 114 106 Pulse Ox 96 96 95 Oxygen Delivery Method Room Air Room Air Room Air Positive well nourished and well developed General Appearance ED: well developed HEENT Reports moist mucous membranes Eyes EOMs intact bilaterally Chest Wall inspection of chest normal and palpation of chest normal Resp normal respiratory effort and clear to auscultation bilaterally Cardio regular rate and regular rhythm GI GI Narrative: Abdomen soft with suprapubic tenderness. Distended bladder palpated. Extremity normal to inspection Neuro oriented x3 and no sensory deficits noted Motor Exam: strength 5/5 throughout Psych Mood & Affect: anxious Skin no rashes or lesions noted MDM MDM MDM Narrative Medical decision making narrative: IV line established. Labwork obtained to evaluate for leukocytosis, anemia, and electrolyte derangement. Urinalysis obtained to evaluate for infection/hematuria. Bedside bladder scan reveals greater than 600 cc of urine. Armando catheter ordered. Patient is scheduled to undergo a CT scan of the abdomen pelvis with and without IV contrast within the next week and a half. I will obtain this today to evaluate for any acute abnormalities causing his current symptoms. History & Record Review Discussion w/independent historian: Patient Lab Data Labs: Laboratory Results - last 24 hr 10/29/23 10/29/23 07:50 08:40 WBC 7.3 RBC 5.08 Hgb 15.3 Hct 46.5 MCV 91.5 MCH 30.1 MCHC 32.9 RDW Std Deviation 45.4 H RDW Coeff of [place] 13.3 Plt Count 188 MPV 11.1 Immature Gran % (Auto) 0.400 Neut % (Auto) 54.9 Lymph % (Auto) 31.8 [place] % (Auto) 9.5 Eos % (Auto) 2.7 Baso % (Auto) 0.7 Absolute Neuts (auto) 4.0 Absolute Lymphs (auto) 2.32 Nucleated RBC % 0 Sodium 141 Potassium 3.6 Chloride 110 H Carbon Dioxide 24.0 Anion Gap 7 BUN 27 H Creatinine 1.97 H Estim Creat Clear Calc 34.39 Est GFR (MDRD) Af Amer 42 L Est GFR (MDRD) Non-Af 35 L BUN/Creatinine Ratio 13.7 Glucose 140 H Calcium 9.2 Urine Color Red Urine Clarity Turbid Urine pH 6.5 Ur Specific [place] 1.015 Urine Protein 500 H Urine Glucose (UA) Normal Urine Ketones 5 H Urine Occult Blood 250 H Urine Nitrite Negative Urine Bilirubin Negative Urine Urobilinogen Normal Ur Leukocyte Esterase 25 H Urine RBC > 100 SEEN Urine WBC 5-10 SEEN Ur Squamous Epith Cells 0 SEEN Urine Bacteria 0 SEEN Urine Mucus 0 SEEN Radiography Diagnostic Testing: Clinical Impression(s) from Imaging Studies Abdomen/Pelvis CT 10/29/23 07:55 IMPRESSION: 1. Markedly enlarged prostate indenting the bladder base with a radiation seeds within essentially unchanged. Correlation with PSA level is recommended. 2. Densities in the bladder could represent urine mixed with contrast or blood clots. Mass within the bladder cannot be excluded. 3. Otherwise no focal acute inflammatory process. Electronically Signed: Goyo Parra MD at 9:29 EDT , Treatment and Re-Evaluation :: Nursing staff was only able to get a 14 coud? catheter into the prostate enough to drain about 200 cc of urine but could not advance it into the bladder. This was pulled and we requested a three-way catheter. Patient in the meantime was sent for CT imaging. CT reveals a markedly large prostate and denting the bladder base with radiation seeds that are unchanged. Densities in the bladder may represent urine mixed with contrast or blood clots. Mass cannot be excluded. CBC reveals normal white count 7.3 with a hemoglobin of 15.3. Chemistry studies reveal a BUN of 27 and a creatinine 1.97. Appears his baseline creatinine is around 1.6. Urinalysis reveals evidence of blood but no bacteria at this time. Multiple nurses attempted to place a three-way catheter. Again, we were able to advance the catheter into the prostate enough to drain the bladder, but could not advance into the bladder to blow up the balloon. Dr. Wall presented to the emergency room and was able to place a catheter at bedside. He would like the patient to be discharged on an antibiotic and he will bring the patient back in 2 days for cystoscopy and TURP. Patient knows to hold his Eliquis. Prescription was sent to the pharmacy for him. Discharge Plan Triage Chief Complaint: Abd Pain ED Provider: Paula Francis Dx/Rx/DC Orders Clinical Impression: Urinary retention Instructions: ED Armando Catheter, Care, ED Urinary Retention, Male Prescriptions: New cephalexin 500 mg capsule 500 mg PO Q12 Qty: 14 0RF No Action furosemide [Lasix] 20 mg tablet 20 mg PO BID quinapril 40 mg tablet 40 mg PO DAILY Qty: 90 3RF hydralazine 25 mg tablet 25 mg PO BID apixaban 5 mg tablet 5 mg PO BID Qty: 180 3RF amlodipine 10 MG tablet 10 mg PO DAILY simvastatin 20 MG tablet 20 mg PO QHS potassium chloride 10 MEQ capsule, extended release 10 meq PO QHS cholecalciferol (vitamin D3) 2,000 UNIT capsule 2,000 unit PO DAILY metoprolol succinate 200 mg tablet extended release 24 hr 200 mg PO QHS mirtazapine 15 mg tablet 15 mg PO QHS digoxin 125 mcg (0.125 mg) tablet 125 mcg PO QHS Qty: 90 3RF Primary Care Provider: Guy Fernandes Referrals: Guy Fernandes MD [Primary Care Provider] - Activity Restrictions/Additional Instructions: Please hold your Eliquis. Dr. Wall is arranging for you to come back for surgery on Friday. Please take the antibiotic as written. Print Language: [place] Disposition Disposition: Home, Self Care
[2023-10-29] MEDS: Lidocaine Jelly 2% 20 ML Syringe (URO-JET) 1 APPLIC TOPICAL ×2 (08:00→10:30)
[2023-10-29 08:06] LABS: Absolute Lymphocyte Count 2.32 X10^3/uL (0.83-4.51); Basophil# 0.05 X10^3/uL; Basophil% 0.7 % (0-1); Eosinophils% 2.7 % (0-5); Hematocrit 46.5 % (40-54); Hemoglobin 15.3 g/dL (13.0-16.5); Lymphocyte # 2.32 X10^3/ul (0.83-4.51); Lymphocyte % 31.8 % (19-41); Mean Corp Hgb Conc 32.9 g/dL (32-36); Mean Corpuscular Hgb 30.1 pg (27.0-32.0); Mean Corpuscular Volume 91.5 fL (80-94); Mean Platelet Vol. 11.1 fl (6.2-12.0); Monocyte# 0.69 X10^3/uL; Monocyte% 9.5 % (0-10); NRBC Flagged by Analyzer 0 % (0-5); Neutrophil # 4.01 X10^3/uL (2.7-7.7); Neutrophil % 54.9 % (47-70); Platelet Count 188 K/mm3 (150-450); RBC Distribution Width CV 13.3 % (11.6-14.6); RBC Distribution Width SD 45.4 fl (35.1-43.9); Red Blood Count 5.08 M/mm3 (4.6-6.2); White Blood Count 7.3 K/mm3 (4.4-11.0)
[2023-10-29 08:23] LABS: Anion Gap 7 (5-15); BUN 27 mg/dL (7-18); BUN/Creat Ratio 13.7 RATIO (10-20); Calcium,Total 9.2 mg/dL (8.5-10.1); Chloride 110 mmol/L (98-107); Creatinine, Serum 1.97 mg/dL (0.70-1.30); EST Glomerular Filtration Rate 35 mL/min (>60); Est Glom Filt Rate - Afr Amer 42 mL/min (>60); Estimated Creatinine Clearance 34.39 ml/min; Glucose 140 mg/dL (74-106); Potassium 3.6 mmol/L (3.5-5.1); Sodium Level 141 mmol/L (136-145)
[2023-10-29 08:40] VITALS: BP 140/89; PULSE 69; RESP 18; TEMP 36.3; O2SAT 95
[2023-10-29 08:45] LABS: Bacteria 0 SEEN /hpf (None Seen); Mucous, Urine 0 SEEN /hpf (<or=2+); Squamous Epithelial Cells - UA 0 SEEN /hpf (0-5)
[2023-10-29 08:48] LABS: Color, Urine Red (Yellow); Glucose, Dipstick Normal (Normal); Ketone-Dipstick 5 mg/dl (Negative); Leukocyte Esterase-Dipstick 25 /ul (Negative); Nitrite-Dipstick Negative (Negative); Occult Blood-Urine 250 /ul (Negative); Protein-Dipstick 500 mg/dl (Negative); Specific Gravity, Urine 1.015 (1.002-1.030); Urine Bilirubin Dipstick Negative (Negative); Urine Clarity Turbid (Clear); Urine Urobilinogen Normal (Normal); Urine pH 6.5 (5.0 - 8.0)
[2023-10-29 08:56] LABS: Red Blood Cells-Urine > 100 SEEN /hpf (0-5); White Blood Cells 5-10 SEEN /hpf (0-5)
[2023-10-29 09:40] VITALS: BP 155/87; PULSE 81; RESP 18; O2SAT 97
[2023-10-29 11:40] VITALS: BP 145/90; PULSE 75; RESP 16; O2SAT 96
--- NOTE | 2023-10-29 12:05 | CON.PCM.UR_ITS ---
Assessment & Plan Assessment/Plan (1) Right renal mass: PLAN: Will have to consider a biopsy this later on (2) BPH with obstruction/lower urinary tract symptoms: PLAN: Plan to proceed with a transurethral resection of the prostate he will go home today with a catheter and antibiotics he was given structured to hold his Eliquis and is given instructions for surgery for this Friday HPI Consult Data Date of Consult: 10/29/23 HPI Narrative Reason for Consultation: Retention of urine and hematuria HPI Narrative: LEAH FOY, is a 83 M who presents to the emergency room with retention of urine and is not able to urinate, the nurses attempted to place the catheter they were able to get the catheter partly through the prostate was able to drain the bladder some but could not get the balloon inflated because he could not get the catheter although and so I came and saw the patient and I used a 18 Telugu coud? catheter and I was able to get into the bladder put 10 cc in the balloon and then irrigated the bladder till clear and use an ultrasound at the bedside to check in the catheter is in the bladder draining well I reviewed his CAT scan that he had done and he has a large obstructive prostate that is because of retention of urine he does have a history of a prior TURP but it looks like it is significant regrowth of scar tissue is as happened set him up for surgery this coming Friday for a TURP on the prostate again, also I told the patient he has a new mass in the right kidney concerning for malignancy we may have to do a biopsy to look at this mass. This to be done at a separate setting patient was just made aware of the finding [facility] Medical History (Updated 10/29/23 @ 12:[address] Tez Wall MD) BPH with obstruction/lower urinary tract symptoms COVID-19 virus detected (12/29/20) Longstanding persistent atrial fibrillation Acute radiation cystitis Wears glasses Cancer Arthritis History of GI bleed Gastric reflux History of pain when walking History of edema History of atrial fibrillation History of bleeding ulcers GERD (gastroesophageal reflux disease) Blankenship's esophagus with esophagitis History of TIA (transient ischemic attack) (1997) Essential hypertension Right inguinal hernia Prostate cancer Hyperlipidemia PUD (peptic ulcer disease) TIA (transient ischemic attack) Home Medications ?Medication ?Instructions ?Recorded ?Last Taken ?Type amlodipine 10 mg tablet 10 mg PO DAILY HTN 11/21/16 10/29/23 History simvastatin 20 mg tablet 20 mg PO QHS CHOL 11/21/16 10/28/23 History cholecalciferol (vitamin D3) 50 2,000 unit PO DAILY SUPPLEMENT 04/24/18 10/28/23 History mcg (2,000 unit) capsule potassium chloride 10 mEq 10 meq PO QHS SUPPLEMENT 04/24/18 10/28/23 History capsule,extended release metoprolol succinate 200 mg 200 mg PO QHS 09/14/20 10/28/23 History tablet,extended release 24 hr digoxin 125 mcg (0.125 mg) tablet 125 mcg PO QHS HEART #90 tabs 02/14/23 10/28/23 Rx furosemide 20 mg tablet (Lasix) 20 mg PO BID 03/26/23 10/28/23 History quinapril 40 mg tablet 40 mg PO DAILY HTN #90 tabs 03/26/23 10/28/23 Rx hydralazine 25 mg tablet 25 mg PO BID 09/15/23 10/28/23 History apixaban 5 mg tablet 5 mg PO BID #180 tabs 09/26/23 Unknown Rx mirtazapine 15 mg tablet 15 mg PO QHS 10/29/23 10/28/23 History Allergy/AdvReac Type Severity Reaction Status Date / Time No Known Allergies Allergy Verified 10/29/23 07:40 Family History Mother Brain aneurysm Other Angina of effort Surgical History History of arthroplasty of right knee H/O arthroscopic knee surgery History of transurethral resection of prostate (10/06/20) Hx of cystoscopy (09/15/20) History of esophagogastroduodenoscopy (EGD) (2020) Hx of inguinal hernia repair (09/02/18) History of colonoscopy History of total left knee replacement (2015) History of prostate biopsy Social History Smoking Status: Never smoker alcohol intake: current alcohol intake frequency: a few times a month Alcohol type: beer and wine substance use type: does not use caffeine: Yes Type: coffee Number of servings: 1 and tea Number of servings: 2 ROS Constitutional Constitutional: Denies chills, fever(s) or malaise Eyes Eyes: Denies blurry vision or change in vision ENT HEENT: Reports none Cardiovascular Cardiovascular: Denies chest pain or palpitations Respiratory/Chest Respiratory/Chest: Denies cough or shortness of breath with exertion Gastrointestinal Gastrointestinal: Denies abdominal pain, constipation or diarrhea Musculoskeletal Musculoskeletal: Denies back pain, joint stiffness or joint swelling Integumentary Integumentary: Denies dry skin, jaundice, lesions or rash Neurologic Neurologic: Denies confusion, syncope or weakness Psychiatric Psychiatric: Reports none; Denies anxiety or depression Endocrine Endocrinology: Denies excessive sweating, fatigue or flushing Hematologic/Lymphatic Hematologic/Lymphatic: Denies anemia, easy bleeding or easy bruising Physical Exam Const alert and oriented x3 General Appearance: cooperative HEENT normocephalic and head/scalp atraumatic Eyes PERRL and EOMs intact bilaterally Neck supple, no JVD and no carotid bruits Resp normal respiratory effort, normal air movement and clear to auscultation bilaterally Cardio regular rate and no murmurs GI normal to inspection, nondistended, normoactive bowel sounds and soft to palpation Extremity normal capillary refill General Extremity: no tenderness to palpation of joints or extremities; Negative for edema Skin no rashes or lesions noted and no wounds General Skin Exam: no breakdown Neuro CN's II-XII intact bilaterally Psych affect normal Appearance: appropriate Medical Records Data Attestation: I reviewed the patient's medical records Lab / Micro Data Attestation: I reviewed the patient's lab results. 10/29/23 07:50 10/29/23 07:50 Labs: Laboratory Results - last 24 hr 10/29/23 07:50: WBC 7.3, RBC 5.08, Hgb 15.3, Hct 46.5, MCV 91.5, MCH 30.1, MCHC 32.9, RDW Std Deviation 45.4 H, RDW Coeff of Renuka 13.3, Plt Count 188, MPV 11.1, Immature Gran % (Auto) 0.400, Neut % (Auto) 54.9, Lymph % (Auto) 31.8, Nolan % (Auto) 9.5, Eos % (Auto) 2.7, Baso % (Auto) 0.7, Absolute Neuts (auto) 4.0, Absolute Lymphs (auto) 2.32, Nucleated RBC % 0, Sodium 141, Potassium 3.6, C hloride 110 H, Carbon Dioxide 24.0, Anion Gap 7, BUN 27 H, Creatinine 1.97 H, Estim Creat Clear Calc 34.39, Est GFR (MDRD) Af Amer 42 L, Est GFR (MDRD) Non-Af 35 L, BUN/Creatinine Ratio 13.7, Glucose 140 H, Calcium 9.2 10/29/23 08:40: Urine Color Red, Urine Clarity Turbid, Urine pH 6.5, Ur Specific [place] 1.015, Urine Protein 500 H, Urine Glucose (UA) Normal, Urine Ketones 5 H , Urine Occult Blood 250 H, Urine Nitrite Negative, Urine Bilirubin Negative, Urine Urobilinogen Normal, Ur Leukocyte Esterase 25 H, Urine RBC > 100 SEEN, Urine WBC 5-10 SEEN, Ur Squamous Epith Cells 0 SEEN, Urine Bacteria 0 SEEN, Urine Mucus 0 SEEN Imaging Radiology Impression Abdomen/Pelvis CT 10/29/23 07:55 IMPRESSION: 1. Markedly enlarged prostate indenting the bladder base with a radiation seeds within essentially unchanged. Correlation with PSA level is recommended. 2. Densities in the bladder could represent urine mixed with contrast or blood clots. Mass within the bladder cannot be excluded. 3. Otherwise no focal acute inflammatory process. Electronically Signed: Goyo Parra MD at 9:29 EDT ,
--- NOTE | 2023-10-29 12:21 | NURSING ---
10/29/23@1145- dr. sweeney called to bedside per dr. mackay in ED for failed montgomery catheter insertions. montgomery catheter was able to be successfully placed in ED by dr. sweeney. pt able to have water and discharge home per dr. sweeney with montgomery catheter in place. pt will have TURP next . pt aware.
[2023-10-29] MEDS: Cephalexin 250 MG Capsule 500 MG PO (12:44)
[2023-10-29 12:45] VITALS: BP 123/95; PULSE 78; RESP 16; TEMP 36.9; O2SAT 97
== END 2023-10-29 13:18 | disposition home or self-care (01) ==
PROVIDERS: Emergency Provider Emergency Medicine; PCP Family Medicine; Visit Provider Emergency Medicine
DX: R10.9 Unspecified abdominal pain (principal); I48.11 Longstanding persistent atrial fibrillation; E78.5 Hyperlipidemia, unspecified; R33.9 Retention of urine, unspecified; Z86.73 Personal history of transient ischemic attack (TIA), and cerebral infarction without residual deficits; Z79.899 Other long term (current) drug therapy; Z79.01 Long term (current) use of anticoagulants; Z96.653 Presence of artificial knee joint, bilateral; I10 Essential (primary) hypertension
CPT/HCPCS: 51702; 74178; 80048; 81001; 85025; 99285; Q9967; A4216

== ENCOUNTER 2023-10-31 10:23 | Observation (INO) | payer MEDICARE, OTHER, SELFPAY ==
[2023-10-31] VITALS (18 sets, daily range): BP systolic 119–150; BP diastolic 62–97; PULSE 58–92; RESP 15–18; TEMP 36.2–36.8; O2SAT 91–98; BMI 33.0
--- NOTE | 2023-10-31 09:20 | EKG12_ITS ---
Test Reason : PRE OP Blood Pressure : / mmHG Vent. Rate : 084 BPM Atrial Rate : 000 BPM P-R Int : 000 ms QRS Dur : 094 ms QT Int : 368 ms P-R-T Axes : 000 -03 065 degrees QTc Int : 434 ms Atrial fibrillation Septal infarct (cited on or before 24-APR-2018) Abnormal ECG When compared with ECG of 02-OCT-2020 10:51, No significant change was found Confirmed by Sameer Patel ([id number]), assignment desk editor KRISTINA ALCANTARA ([id number]) on 11/04/2023 8:07:17 AM Referred By: Tez Wall Confirmed By:Sameer Patel
--- NOTE | 2023-10-31 09:36 | PCM.HP.STD ---
HPI - General General Date of Service: 10/31/23 Chief Complaint: Retention of urine HPI Narrative LEAH FOY, is a 83 M who presents for a transurethral resection of the prostate for retention of urine he has a Armando catheter in place. COUNTS INCLUDE 234 BEDS AT THE [facility] Medical History BPH with obstruction/lower urinary tract symptoms COVID-19 virus detected (12/29/20) Longstanding persistent atrial fibrillation Acute radiation cystitis Wears glasses Cancer Arthritis History of GI bleed Gastric reflux History of pain when walking History of edema History of atrial fibrillation History of bleeding ulcers GERD (gastroesophageal reflux disease) Blankenship's esophagus with esophagitis History of TIA (transient ischemic attack) (1997) Essential hypertension Right inguinal hernia Prostate cancer Hyperlipidemia PUD (peptic ulcer disease) TIA (transient ischemic attack) Home Medications ?Medication ?Instructions ?Recorded ?Last Taken ?Type amlodipine 10 mg tablet 10 mg PO DAILY HTN 11/21/16 10/29/23 History simvastatin 20 mg tablet 20 mg PO QHS CHOL 11/21/16 10/28/23 History cholecalciferol (vitamin D3) 50 2,000 unit PO DAILY SUPPLEMENT 04/24/18 10/28/23 History mcg (2,000 unit) capsule potassium chloride 10 mEq 10 meq PO QHS SUPPLEMENT 04/24/18 10/28/23 History capsule,extended release metoprolol succinate 200 mg 200 mg PO QHS 09/14/20 10/28/23 History tablet,extended release 24 hr digoxin 125 mcg (0.125 mg) tablet 125 mcg PO QHS HEART #90 tabs 02/14/23 10/28/23 Rx furosemide 20 mg tablet (Lasix) 20 mg PO BID 03/26/23 10/28/23 History quinapril 40 mg tablet 40 mg PO DAILY HTN #90 tabs 03/26/23 10/28/23 Rx hydralazine 25 mg tablet 25 mg PO BID 09/15/23 10/28/23 History apixaban 5 mg tablet 5 mg PO BID #180 tabs 09/26/23 Unknown Rx cephalexin 500 mg capsule 500 mg PO Q12 #14 CAPSULES 10/29/23 Unknown Rx mirtazapine 15 mg tablet 15 mg PO QHS 10/29/23 10/28/23 History Allergy/AdvReac Type Severity Reaction Status Date / Time No Known Allergies Allergy Verified 10/29/23 07:40 Family History Mother Brain aneurysm Other Angina of effort Surgical History History of arthroplasty of right knee H/O arthroscopic knee surgery History of transurethral resection of prostate (10/06/20) Hx of cystoscopy (09/15/20) History of esophagogastroduodenoscopy (EGD) (2020) Hx of inguinal hernia repair (09/02/18) History of colonoscopy History of total left knee replacement (2015) History of prostate biopsy Social History Smoking Status: Never smoker alcohol intake: current alcohol intake frequency: a few times a month Alcohol type: beer and wine substance use type: does not use caffeine: Yes Type: coffee Number of servings: 1 and tea Number of servings: 2
[2023-10-31] MEDS: Lactated Ringers 1,000 ML 15 ML IV (09:55)
--- NOTE | 2023-10-31 09:56 | PCM.PRE.AN2 ---
ASA Classification* ASA Classification ASA Classification: 3 Assessment & Plan Anesthesia* Anesthesia Assessment Anesthesia Assessment: Discussed sedation and/or anesthesia options, risks, benefits, and alternatives with patient/parents/legal guardian/POA. Questions invited. The patient/parents/legal guardian/POA seems to understand and agrees to proceed with anesthesia plan. Reviewed the physical assessment, medical history, allergy history and patient home medications list prior to surgery/procedure/anesthetic and documented any changes. Performed airway and anesthesia risk assessments. Anesthesia Type Anesthesia Type: General History Source History Obtained from:: Patient and Chart Anesthesia Focused Assessment* Temperature: 98.1 F Pulse Rate: 58 Blood Pressure: 119/69 Respiratory Rate: 16 Pulse Ox: 97 Oxygen Delivery Method: Room Air Airway Assessment Mouth opens: >3 cm Mallampati Score: III Teeth Condition: Dentures, Lower (Several missing teeth. The rest are tight.) and Upper (Full plate) Neck Range of motion (ROM): Full ROM Pertinent Findings EKG Pertinent Findings:: October 31, 2023. Atrial fibrillation. Septal infarct age undetermined. Focused Labs Anesthesia Preop lab: CBC WBC 7.3 K/mm3 (4.4-11.0) 10/29/23 07:50 RBC 5.08 M/mm3 (4.6-6.2) 10/29/23 07:50 Hgb 15.3 g/dL (13.0-16.5) 10/29/23 07:50 Hct 46.5 % (40-54) 10/29/23 07:50 Plt Count 188 K/mm3 (150-450) 10/29/23 07:50 CHEMISTRY Potassium 3.6 mmol/L (3.5-5.1) 10/29/23 07:50 Sodium 141 mmol/L (136-145) 10/29/23 07:50 Magnesium 2.0 mg/dL (1.6-2.6) 08/16/19 10:27 Phosphorus 2.9 mg/dL (2.5-4.9) 04/03/23 10:07 BUN 27 mg/dL (7-18) H 10/29/23 07:50 Creatinine 1.97 mg/dL (0.70-1.30) H 10/29/23 07:50 Glucose 140 mg/dL (74-106) H 10/29/23 07:50 TSH 1.57 uIU/mL (0.358-3.74) 09/15/23 11:44 COAG PT 13.9 SECONDS (11.7-14.9) 05/17/21 09:06 Pre-Assessment Diagnosis/Proposed Procedure Planned Operative Procedure(s): transurethral resection of the prostate Anesthesia History 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 When Was Last Pacemaker Check QUESTION #4 FULL TEXT: You/Your Family Experience fever (hyperthermia) with Anesthesia Last Oral Intake Last Oral intake: Last Oral Intake NPO since 20:00 10/31/23 09:48 Meds taken in AM with sips of water? Meds patient instructed to take am of surgery PONV PONV - wheel and pinion inspector: PONV - wheel and pinion inspector Female No 10/31/23 09:29 HX of Motion Sickness No 10/31/23 09:29 HX of N/V After Surgery No 10/31/23 09:29 Non-Smoker Yes 10/31/23 09:29 Duration of Surgery greater No 10/31/23 09:29 than 60 minutes Number of Risk Factors 1 10/31/23 09:29 PONV Score Low Risk 10/31/23 09:29 Height & Weight Height & Weight: Anesthesia: Height & Weight Height 5 ft 9 in 10/31/23 09:48 Weight: 101.6 kg 10/31/23 09:48 Body Mass Index (BMI) 33.0 10/31/23 09:48 Respiratory Assessment Respiratory Assessment - wheel and pinion inspector: Respiratory Tract Infection Hx - wheel and pinion inspector Hx Respiratory Tract Infection No 10/31/23 09:29 STOP Sleep Apnea STOP Sleep Apnea - wheel and pinion inspector: STOP Sleep Apnea - wheel and pinion inspector Hx Hypertension Yes 10/31/23 09:29 Hx Sleep Apnea No 10/31/23 09:29 CPAP No 10/31/23 09:29 BIPAP Do you snore loudly (louder Yes 10/31/23 09:29 than talking or can be heard Do you often feel tired/ No 10/31/23 09:29 fatigued/ sleepy during daytime? Has anyone observed you stop No 10/31/23 09:29 breathing during sleep? STOP Results Positive 10/31/23 09:29 QUESTION #5 FULL TEXT : Do you snore loudly (louder than talking or can be heard through closed doors)? 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 Specify any problems Hx of Preganancy in last 3 N/A 10/31/23 09:29 Months Nurse Filling Out Transfusion CPARSONS 10/31/23 09:29 & Questions: Date: 10/31/23 10/31/23 09:29 Time: 09:43 10/31/23 09:29 Patient unable to answer at this time (ie. 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 Wears glasses Cancer Arthritis History of GI bleed Gastric reflux History of pain when walking History of edema History of atrial fibrillation History of bleeding ulcers GERD (gastroesophageal reflux disease) Blankenship's esophagus with esophagitis History of TIA (transient ischemic attack) (1997) Essential hypertension Right inguinal hernia Prostate cancer Hyperlipidemia PUD (peptic ulcer disease) TIA (transient ischemic attack) Home Medications ?Medication ?Instructions ?Recorded ?Last Taken ?Type amlodipine 10 mg tablet 10 mg PO DAILY HTN 11/21/16 10/30/23 History simvastatin 20 mg tablet 20 mg PO QHS CHOL 11/21/16 10/29/23 History cholecalciferol (vitamin D3) 50 2,000 unit PO DAILY SUPPLEMENT 04/24/18 10/28/23 History mcg (2,000 unit) capsule potassium chloride 10 mEq 10 meq PO QHS SUPPLEMENT 04/24/18 10/29/23 History capsule,extended release metoprolol succinate 200 mg 200 mg PO QHS 09/14/20 10/31/23 10:13 History tablet,extended release 24 hr digoxin 125 mcg (0.125 mg) tablet 125 mcg PO QHS HEART #90 tabs 02/14/23 10/31/23 10:12 Rx furosemide 20 mg tablet (Lasix) 20 mg PO BID 03/26/23 10/30/23 History quinapril 40 mg tablet 40 mg PO DAILY HTN #90 tabs 03/26/23 10/30/23 Rx hydralazine 25 mg tablet 25 mg PO BID 09/15/23 10/30/23 History apixaban 5 mg tablet 5 mg PO BID #180 tabs 09/26/23 10/28/23 Rx cephalexin 500 mg capsule 500 mg PO Q12 #14 CAPSULES 10/29/23 Unknown Rx mirtazapine 15 mg tablet 15 mg PO QHS 10/29/23 10/28/23 History Allergy/AdvReac Type Severity Reaction Status Date / Time No Known Allergies Allergy Verified 10/31/23 10:14 Family History Mother Brain aneurysm Other Angina of effort Surgical History History of arthroplasty of both knees History of arthroplasty of right knee H/O arthroscopic knee surgery History of transurethral resection of prostate (10/06/20) Hx of cystoscopy (09/15/20) History of esophagogastroduodenoscopy (EGD) (2020) Hx of inguinal hernia repair (09/02/18) History of colonoscopy History of total left knee replacement (2015) History of prostate biopsy Social History Smoking Status: Never smoker alcohol intake: current alcohol intake frequency: a few times a month Alcohol type: beer and wine substance use type: does not use caffeine: Yes Type: coffee Number of servings: 1 and tea Number of servings: 2 Review of Systems (Anesthesia) ROS Narrative System reviewed and no additional complaints, except as documented.
--- NOTE | 2023-10-31 10:22 | DCINST_ITS ---
Discharge Instructions Diet Discharge Diet: No restrictions and Light diet - advance as tolerated Activity Discharge Activity: Return to Normal Activity Follow Up Care Please Follow Up With: Tez Wall MD When: 2 weeks Test Results: Test results from this visit will be discussed in further detail at your follow- up appointment, if applicable. Discharge Plan Admission Primary Reason for Your Visit: turp Attending Provider: Tez Wall Primary Care Provider: Guy Fernandes Instructions Print Language: Salvadorean Discharge Orders/Prescriptions Prescriptions: Continued furosemide [Lasix] 20 mg tablet 20 mg PO BID quinapril 40 mg tablet 40 mg PO DAILY Qty: 90 3RF hydralazine 25 mg tablet 25 mg PO BID amlodipine 10 MG tablet 10 mg PO DAILY simvastatin 20 MG tablet 20 mg PO QHS potassium chloride 10 MEQ capsule, extended release 10 meq PO QHS cholecalciferol (vitamin D3) 2,000 UNIT capsule 2,000 unit PO DAILY metoprolol succinate 200 mg tablet extended release 24 hr 200 mg PO QHS mirtazapine 15 mg tablet 15 mg PO QHS cephalexin 500 mg capsule 500 mg PO Q12 Qty: 14 0RF digoxin 125 mcg (0.125 mg) tablet 125 mcg PO QHS Qty: 90 3RF Held apixaban 5 mg tablet 5 mg PO BID Qty: 180 3RF Hold Instructions: Resume on 11/14/23. Patient Comments: do not resume until after post op appt on 11/17/23 Referrals / Follow Up: Guy Fernandes MD [Primary Care Provider] - Tez Wall MD [Med Staff - Active Staff] - Disposition Disposition (needs filled in before D/C Order can be placed): Home, Self Care
--- NOTE | 2023-10-31 11:05 | PROS_PTH ---
PATIENT: LEAH FOY LOC: [facility] U#:[id number] AGE/SX: 83/M ROOM: [facility]311 RE10/31/[address]: Dr. Tez Wall MD : 1940 BED: 1 DIS: 11/01/2023 SPEC #: [id number] RECD: 10/31/23 13:39 STATUS: EMERSON JUNG #: [id number] KIMMY: 10/31/23 11:[address]: Tez Wall DEPT: SURGICAL PATHOLOGY RECD BY: Brijesh Díaz ENTERED: 11/03/23 07:19 SP TYPE: TURP OTHR DR: Dr. Guy Fernandes MD Tissues: Prostate, NOS Procedures: Surgery Specimen Level IV HEADER OPERATION: Cysto, transurethral resection, prostate, [employer] PRE-OP DIAGNOSIS: Retention of urine TISSUE SUBMITTED: Prostate tissue MICROSCOPIC DIAGNOSIS Prostate tissue, transurethral resection: Benign prostatic tissue predominantly consistent of stromal tissue. Acute and chronic inflammation. Fragments of stones (gross only). / 11/04/2023 MICROSCOPIC DESCRIPTION Slides are reviewed. GROSS DESCRIPTION Received is one container labeled with the patient's name and designated prostate tissue. The specimen consists of multiple irregular fragments of kim-brown, rubbery, soft tissue mixed with fragments of stones that in aggregate weigh <1.0 gm and measure in aggregate 2.0 x 0.5 x 0.1 cm. The largest fragment of stone consists of kim-brown stone measuring 0.3cm in greatest dimension. The entire soft tissue is submitted in one cassette. The stone are for gross identification only. / 11/03/2023 TC:3 CPT: 94661
[2023-10-31] MEDS: Cefazolin 2 GM in 0.9% Normal Saline (100mL Bag) 100 ML IV (11:08)
--- NOTE | 2023-10-31 12:39 | OP.PCM_ITS ---
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 Post-Operative Diagnosis: The same Surgery/Procedure Performed:: Transurethral resection of the prostate, removal of bladder stones small Description of Surgical Findings:: Indication is an 83-year-old male he does have a history of a very large prostate he did have a TURP several years ago but he has such a large prostate he is got significant regrowth and obstruction and he presented to the emergency room with retention very difficult catheter placement was put at the time I think he has significant regrowth so organ to do reresection of the prostate for reresection regrowth of the prostate. Patient was taken back to the operating room after smooth induction of anesthesia a Armando catheter was removed the penis and testicles were prepped and draped you sterile fashion I used sounds to dilate the urethra I then went in with a 26 Citizen Of [place] continuous-flow resectoscope was able to get into the prostate once inside the prostate is very tight a lot of obstructive tissue high bladder neck I then switched over to the button and started to smoothing out the resection he can tell he had a prior resection but he had significant regrowth coming from the right and left and mostly from the anterior part of the tissue anterior part of the prostate and then took about a good hour and a half to smooth this open and and use the button vaporization to smooth out the tissue and resected tissue. At the end he had a good open channel from the verumontanum all the way to the bladder neck inside the bladder I did not see any tumors or stones within the bladder there were a few tiny stones that came out that were in the base of the bladder as a result of the wrist obstruction these little tiny stones were removed. After resection was completed then I cauterized extensively had good control bleeding and then we placed a 22 Citizen [place] Citizen Of [place] catheter into the bladder for continuous irrigation and we will take it out tomorrow morning for voiding trial patient was taken back to the PACU in stable condition after successfully doing a transurethral resection of the prostate with the button Olympus. Surgeon: Tez Wall Type of Anesthesia: General Drains: 22fr folety Admit VTE Documentation VTE Present on Admission: No VTE Mechan Device Prophylaxis: SCD's VTE Pharm Prophylaxis ordered?: No
--- NOTE | 2023-10-31 13:03 | PCM.POST.ANE ---
Anesthesia: Postop Eval I Current Vital Signs Temperature: 97.2 F Pulse Rate: 67 Blood Pressure: 140/94 Respiratory Rate: 16 Pulse Ox: 94 Oxygen Delivery Method: Room Air Assessment Airway patent: Yes Spontaneous unlabored respirations: Yes Mental status: Awake nausea: No Vomiting: No Anesthesia Complication: No Fluid Hydration Crystalloid volume administer (ml): 1,100 Total IV fluid infused: 1,100 Progress Note Anesthesia document: Postop Eval 1 completed: Yes
[2023-10-31] MEDS: 0.9% Normal Saline (1000mL) 1,000 ML 125 ML IV ×2 (14:53→23:24)
[2023-10-31] MEDS: 0.9% Saline Lock 10 ML Syringe IV (14:53)
[2023-10-31] MEDS: Ketorolac 15 MG/ML Vial IV (14:53)
--- NOTE | 2023-10-31 15:53 | CASEMGMT ---
COURTNEY TUBBS Assessment Face to Face with patient for initial transition planning/care coordination assessment. COURTNEY TUBBS introduced self and role at [facility], pt voices understanding. Pt is A&Ox4 and is resting comfortably in bed and is calm. Care providers, pharmacy, and demographics verified. PCP: Dom Specialists: Matilde Wall Preferred [facility]acy: [facility] Insurance: [facility] A/B, AARP Prescription Benefit: Yes LNOK: Nicolasa Lindsey (Daughter), Jarred Delgadillo (Son) Living Arrangements: Pt lives with his son in a mobile home with 8 steps to enter ADLs/IADLs: Ind Transportation: Self, Son DME: Pt denies all DME uses or needs HHC/SNF: Denies history or needs Pt?s goal: Home Plan: Home no needs. Pt states that he plans to return home tomorrow once he is medically ready and denies further needs. Pt denies the need for HHC or OP therapy. Pt denies further questions or concerns. Harmeet Vegas RN, CM
[2023-10-31] MEDS: Furosemide 20 MG Tablet PO (18:40)
[2023-10-31] MEDS: Cefazolin 1 GM/50 ML BAG IV (18:40)
[2023-10-31] MEDS: Digoxin 125 MCG Tablet PO (21:35)
[2023-10-31] MEDS: Metoprolol(XL)Succ 200 MG Tablet PO (21:36)
[2023-10-31] MEDS: hydrALAZINE 25 MG Tablet PO (21:36)
[2023-10-31] MEDS: Docusate Sodium 100 MG Capsule 200 MG PO (21:37)
[2023-10-31] MEDS: Atorvastatin Calcium 10 MG Tablet PO (21:37)
[2023-10-31] MEDS: Potassium Chloride Oral Tablet 10 MEQ PO (21:37)
[2023-10-31] MEDS: Mirtazapine 15 MG Tablet PO (21:37)
[2023-11-01 02:00] VITALS: RESP 15
[2023-11-01] MEDS: Cefazolin 1 GM/50 ML BAG IV (02:40)
[2023-11-01 02:43] VITALS: BP 133/71; PULSE 69; RESP 15; TEMP 36.7; O2SAT 96
--- NOTE | 2023-11-01 06:02 | NURSING ---
0600: CBI stopped at this time per order. clear light yellow urine noted in montgomery.
[2023-11-01 07:31] VITALS: PULSE 60
[2023-11-01] MEDS: Docusate Sodium 100 MG Capsule 200 MG PO (07:31)
[2023-11-01] MEDS: hydrALAZINE 25 MG Tablet PO (07:31)
[2023-11-01] MEDS: Cephalexin 500 MG Capsule PO (07:32)
[2023-11-01] MEDS: amLODIPine 10 MG Tablet PO (07:32)
[2023-11-01] MEDS: Lisinopril 40 MG Tablet PO (07:32)
[2023-11-01] MEDS: Furosemide 20 MG Tablet PO (07:33)
--- NOTE | 2023-11-01 08:01 | PCM.PN.GU ---
Subjective Subjective urine clear montgomery removed home after is able to void. Objective Data Objective Data Vital Signs: Vital Signs Temp Pulse Resp BP Pulse Ox O2 Del Method O2 Flow Rate 98.1 F 60 15 133/71 H 96 Room Air 2 11/01/23 02:43 11/01/23 07:31 11/01/23 02:43 11/01/23 02:43 11/01/23 02:43 11/01/23 02:43 10/31/23 14:35 Oxygen Flow Rate (L/min) 2 Oxygen Delivery Method Room Air Weight: 101.6 kg Body Mass Index (BMI) 33.0 Intake & Output: Intake and Output for Last 24 Hours 10/30/23 10/31/23 11/01/23 23:59 23:59 23:59 Intake Total 2460 / 2460 1050 / 1050 Output Total 700 / 700 300 / 300 Balance 1760 / 1760 750 / 750
[2023-11-01 08:24] VITALS: BP 135/79; PULSE 64; RESP 16; TEMP 36.4; O2SAT 99
[2023-11-01 10:55] VITALS: O2SAT 95
--- NOTE | 2023-11-01 11:31 | POSTOPAN2_ITS ---
Anesthesia Postop Eval I Sum Postop Eval Completion status Anesthesia document: Postop Eval 1 completed: Yes Anesthesia Postop Eval I Summary Anesthesia Postop Eval I Summary: Anesthesia Postop Eval I: Assessment Summary Airway patent Yes 10/31/23 13:03 NUT PROCESSING SUPERVISOR.MDOT Spontaneous unlabored Yes 10/31/23 13:03 NUT PROCESSING SUPERVISOR.MDOT respirations Mental status Awake 10/31/23 13:03 NUT PROCESSING SUPERVISOR.MDOT nausea No 10/31/23 13:03 NUT PROCESSING SUPERVISOR.MDOT Vomiting No 10/31/23 13:03 NUT PROCESSING SUPERVISOR.MDOT Anesthesia Postop Eval I: Fluid Summary Crystalloid volume administer 1,100 10/31/23 13:03 NUT PROCESSING SUPERVISOR.MDOT (ml) Colloids volume administered ( ml) Blood Product volume administered (ml) Total IV fluid infused 1,100 10/31/23 13:03 NUT PROCESSING SUPERVISOR.MDOT Anesthesia Postop Eval I: Summary Notes Anesthesia Complication No 10/31/23 13:03 NUT PROCESSING SUPERVISOR.MDOT Anesthesia Complication Comment: Post-operative progress note Anesthesia: Postop Eval II Evaluation Mental status: Awake and Calm Pain Level: 1 nausea: No Vomiting: No Complications Anesthesia Complication: No
--- NOTE | 2023-11-01 11:31 | PCM.POSTANE2 ---
Anesthesia Postop Eval I Sum Postop Eval Completion status Anesthesia document: Postop Eval 1 completed: Yes Anesthesia Postop Eval I Summary Anesthesia Postop Eval I Summary: Anesthesia Postop Eval I: Assessment Summary Airway patent Yes 10/31/23 13:03 UMBRELLA TIPPER MACHINE.MDOT Spontaneous unlabored Yes 10/31/23 13:03 UMBRELLA TIPPER MACHINE.MDOT respirations Mental status Awake 10/31/23 13:03 UMBRELLA TIPPER MACHINE.MDOT nausea No 10/31/23 13:03 UMBRELLA TIPPER MACHINE.MDOT Vomiting No 10/31/23 13:03 UMBRELLA TIPPER MACHINE.MDOT Anesthesia Postop Eval I: Fluid Summary Crystalloid volume administer 1,100 10/31/23 13:03 UMBRELLA TIPPER MACHINE.MDOT (ml) Colloids volume administered ( ml) Blood Product volume administered (ml) Total IV fluid infused 1,100 10/31/23 13:03 UMBRELLA TIPPER MACHINE.MDOT Anesthesia Postop Eval I: Summary Notes Anesthesia Complication No 10/31/23 13:03 UMBRELLA TIPPER MACHINE.MDOT Anesthesia Complication Comment: Post-operative progress note Anesthesia: Postop Eval II Evaluation Mental status: Awake and Calm Pain Level: 1 nausea: No Vomiting: No Complications Anesthesia Complication: No
== END 2023-11-01 11:01 | disposition home or self-care (01) ==
LOC: SDC 12:53 → MS3 12:53
PROVIDERS: Admitting Provider Urology; PCP Family Medicine; Referring Provider Urology; Visit Provider Urology
PROC: (CPT 52601; principal; 2023-10-31 10:55)
DX: N40.1 Benign prostatic hyperplasia with lower urinary tract symptoms (principal); I48.11 Longstanding persistent atrial fibrillation; N13.8 Other obstructive and reflux uropathy; R33.8 Other retention of urine; N21.0 Calculus in bladder; K21.9 Gastro-esophageal reflux disease without esophagitis; I10 Essential (primary) hypertension; E78.5 Hyperlipidemia, unspecified; Z79.899 Other long term (current) drug therapy; Z79.01 Long term (current) use of anticoagulants
CPT/HCPCS: 52601; 00914; 88305; 93005; 96361; 96365; 96366; 96375; 99221; J7030; J7120; A4216; G0378; J2405

== ENCOUNTER → 2024-01-06 | Outpatient (CLI) | payer MEDICARE, OTHER, SELFPAY ==
[2024-01-06 15:49] LABS: Hematocrit 44.9 % (40-54); Hemoglobin 14.4 g/dL (13.0-16.5); Mean Corp Hgb Conc 32.1 g/dL (32-36); Mean Corpuscular Hgb 29.7 pg (27.0-32.0); Mean Corpuscular Volume 92.6 fL (80-94); Mean Platelet Vol. 11.8 fl (6.2-12.0); Platelet Count 156 K/mm3 (150-450); RBC Distribution Width SD 44.3 fl (35.1-43.9); Red Blood Count 4.85 M/mm3 (4.6-6.2); White Blood Count 6.5 K/mm3 (4.4-11.0)
[2024-01-06 16:05] LABS: Vitamin D,25 Hydroxy 49.5 ng/mL
[2024-01-06 16:25] LABS: AST(SGOT) 13 U/L (15-37); Alanine Aminotransfer ALT/SGPT 16 U/L (16-61); Albumin, Serum 3.8 g/dL (3.2-5.0); Alkaline Phosphatase 68 U/L (45-117); Anion Gap 5 (5-15); BUN 24 mg/dL (7-18); BUN/Creat Ratio 13.6 RATIO (10-20); Bilirubin, Direct 0.27 mg/dL (0.00-0.30); Calcium,Total 9.5 mg/dL (8.5-10.1); Chloride 109 mmol/L (98-107); Cholesterol 105 mg/dL (200); Creatinine, Serum 1.77 mg/dL (0.70-1.30); EST Glomerular Filtration Rate 39 mL/min (>60); Est Glom Filt Rate - Afr Amer 48 mL/min (>60); Globulin 3.4 g/dL (2.2-4.2); Glucose 107 mg/dL (74-106); High Density Lipoprotein 40 mg/dL; Potassium 4.3 mmol/L (3.5-5.1); Protein, Total 7.2 g/dL (6.4-8.2); Sodium Level 140 mmol/L (136-145); Triglycerides 82 mg/dL; Very Low Density Lipoprotein 16 mg/dL (5-40)
== END | disposition home or self-care (01) ==
LOC: MFPLAB 11:39
PROVIDERS: PCP Family Medicine; Visit Provider Family Medicine
DX: E78.00 Pure hypercholesterolemia, unspecified (principal); N18.30 Chronic kidney disease, stage 3 unspecified
CPT/HCPCS: 36415; 80048; 80061; 80076; 82306; 85027

== ENCOUNTER → 2024-01-23 | Outpatient (CLI) | payer MEDICARE, OTHER, SELFPAY ==
--- NOTE | 2024-01-23 07:07 | ECHOD_ITS ---
Reason For Study: DYSPNEA/SOB, AFIB Procedure This was a 2D Doppler, Color Flow transthoracic echocardiogram. Exam performed in department. Left Ventricle Normal LV size. Mild concentric left ventricular hypertrophy. The left ventricular ejection fraction is 55 %. No regional wall motion abnormalities noted. Right Ventricle Mildly dilated right ventricle. Mild to moderate global right ventricular systolic dysfunction. Atria The left atrium is severely enlarged. The right atrium is severely enlarged. Mitral Valve Normal mitral valve. Mild (1+) eccentric mitral valve insufficiency. Tricuspid Valve Normal tricuspid valve. Moderate (2+) tricuspid valve insufficiency. Pulmonary artery systolic pressure is 40 mmHg. Aortic Valve Trisinus/trileaflet aortic valve. Pulmonic Valve Normal pulmonic valve. Great Vessels Normal aortic root. The pulmonary artery is normal size. The inferior vena cava is dilated. Pericardium/Pleural No pericardial effusion. MMode/2D Measurements & Calculations LVIDd: 5.7 cm IVSd: 1.3 cm Ao root diam: 3.4 cm LVIDs: 4.1 cm LVPWd: 1.3 cm RVDd: 3.5 cm FS: 27.6 % LAV(MOD-bp): 165.4 ml LVAd ap4: 28.4 cm2 LVAd ap2: 28.7 cm2 LAV(MOD-bp) Indexed: 77.0 ml/m2 LVLd ap4: 7.4 cm LVLd ap2: 7.9 cm LAV(MOD-sp2): 142.2 ml EDV(MOD-sp4): 89.3 ml EDV(MOD-sp2): 87.0 ml LAV(MOD-sp4): 184.6 ml EDV(sp4-el): 92.9 ml EDV(sp2-el): 88.3 ml LVAs ap4: 17.6 cm2 LVAs ap2: 16.0 cm2 LVLs ap4: 6.2 cm LVLs ap2: 6.7 cm ESV(MOD-sp4): 41.6 ml ESV(MOD-sp2): 34.1 ml ESV(sp4-el): 42.0 ml ESV(sp2-el): 32.7 ml EF(MOD-sp4): 53.4 % EF(MOD-sp2): 60.9 % EF(sp4-el): 54.7 % SV(MOD-sp4): 47.7 ml SV(MOD-sp2): 53.0 ml SV(sp4-el): 50.8 ml LA dimension(2D): 6.1 cm LA A4 area: 42.0 cm2 RA A4 area: 38.0 cm2 Doppler Measurements & Calculations MV E max cristhian: 110.3 cm/sec Lat Peak E' Cristhian: 4.2 cm/sec Med Peak E' Cristhian: 4.5 cm/sec E/E' lat: 26.3 E/E' med: 24.8 Ao V2 max: 83.4 cm/sec LV V1 max: 49.1 cm/sec PA V2 max: 70.4 cm/sec Ao max P.8 mmHg LV V1 max P.97 mmHg PA V2 mean: 42.6 cm/sec Ao V2 mean: 52.1 cm/sec LV V1 mean P.47 mmHg PA V2 VTI: 10.7 cm Ao mean P.2 mmHg LV V1 mean: 32.5 cm/sec Ao V2 VTI: 14.3 cm LV V1 VTI: 9.3 cm AV (velocity ratio): 0.65 PI end-d cristhian: 135.6 cm/sec TR max cristhian: 291.7 cm/sec TR max P.0 mmHg ECHO/Echo Complete Interpretation Summary Normal LV size. Mild concentric left ventricular hypertrophy. The left atrium is severely enlarged. The right atrium is severely enlarged. Mild (1+) eccentric mitral valve insufficiency. The left ventricular ejection fraction is 55 %. Pulmonary artery systolic pressure is 40 mmHg. Moderate (2+) tricuspid valve insufficiency. Ordering Physician: Nicolasa Centeno Referring Physician: Guy Fernandes Performed By: Ammy Emerson, SAHNTI, RVT
== END | disposition home or self-care (01) ==
LOC: CVS 07:05
PROVIDERS: PCP Family Medicine; Referring Provider Nurse Practitioner Gerontology; Visit Provider Nurse Practitioner Gerontology
DX: R06.09 Other forms of dyspnea (principal); I48.11 Longstanding persistent atrial fibrillation
CPT/HCPCS: 93306

== ENCOUNTER → 2024-02-03 | Outpatient (CLI) | payer MEDICARE, OTHER, SELFPAY ==
[2024-02-03 13:41] LABS: PSA,Total- Diagnostic 0.54 ng/mL (0.0-4.0)
== END | disposition home or self-care (01) ==
LOC: LAB 12:04
PROVIDERS: PCP Family Medicine; Referring Provider Nurse Practitioner; Visit Provider Nurse Practitioner
DX: C61 Malignant neoplasm of prostate (principal)
CPT/HCPCS: 36415; 84153

== ENCOUNTER → 2024-02-05 | Outpatient (CLI) | payer MEDICARE, OTHER, SELFPAY ==
--- NOTE | 2024-02-05 14:35 | CT_ITS ---
EXAM: CT ABDOMEN AND PELVIS WITHOUT AND WITH INTRAVENOUS CONTRAST CLINICAL INDICATION: GROSS HEMATURIA TECHNIQUE: Helically acquired images were obtained of the abdomen and pelvis without and with intravenous contrast. This CT exam was performed using one or more of the following dose reduction techniques: automated exposure control, adjustment of the mA and/or kV according to patient size, and/or use of iterative reconstruction technique. CONTRAST: IV 100mL Isovue-370 RADIATION DOSE: CTDIvol = 25.99 mGy, DLP = 3733.62 mGy-cm COMPARISON: CT abdomen and pelvis with and without contrast 10/29/2023. FINDINGS: LOWER THORAX: Unremarkable. Lung bases are clear. Cardiomegaly. No significant pericardial effusion. ABDOMEN: LIVER: See below. GALLBLADDER AND BILE DUCTS: Tiny nonobstructing calculus inside the nondistended gallbladder. No intrahepatic or extrahepatic biliary ductal dilatation. PANCREAS: Unremarkable. No focal cystic or solid mass. SPLEEN: Unremarkable. Normal size without focal cystic or solid mass. ADRENALS: Unremarkable. No nodules. KIDNEYS AND URETERS: Multiple nonenhancing bilateral renal cysts are simple cysts. No stones or hydronephrosis in both kidneys. Normal renal size and position. STOMACH AND BOWEL: Unremarkable. No stomach or bowel distention. No focal inflammatory change. PELVIS: APPENDIX: Normal. BLADDER: Irregular thickening of the urinary bladder wall. REPRODUCTIVE: Enlarged prostate gland containing radiopaque implants. ABDOMEN and PELVIS: INTRAPERITONEAL SPACE: Unremarkable. No ascites or other fluid collection. No free air. BONES/JOINTS: Pronounced disc space height narrowing at L1-L2 and L3-L4 disc space levels. Moderate L4-L5 disc space height narrowing. No suspicious acute or remote fractures. No lytic or blastic lesions. SOFT TISSUES: Unremarkable. No discrete abdominal or pelvic wall hernia. VASCULATURE: Unremarkable. Abdominal aorta is non-dilated. LYMPH NODES: Unremarkable. No enlarged lymph nodes. CT/CT Abd/Pelvis W/WO Contrast IMPRESSION: 1. Innumerable bilateral renal cysts without suspicious renal parenchymal mass, stones or hydronephrosis. 2. Irregular thickening of the urinary bladder wall is at least due to enlarged prostate gland containing radiopaque implants. 3. Tiny nonobstructing stone inside the nondistended gallbladder. This was present previously. 4. No significant interval change. Electronically Signed: Russel Jones MD at 15:47 EDT ,
== END | disposition home or self-care (01) ==
LOC: CT 14:33
PROVIDERS: PCP Family Medicine; Referring Provider Urology; Visit Provider Urology
DX: R31.0 Gross hematuria (principal)
CPT/HCPCS: 74178; Q9967

== ENCOUNTER 2024-02-19 08:56 | Outpatient (RCR) | payer MEDICARE, OTHER, SELFPAY ==
[2024-02-19 09:36] VITALS: BP 142/86; PULSE 74; RESP 18; TEMP 35.7; BMI 31.5
--- NOTE | 2024-02-19 11:26 | RAD_ITS ---
STUDY: X-RAY CHEST REASON FOR EXAM: Male, 83 years old. Atypical chest pain TECHNIQUE: PA and lateral views of the chest. COMPARISON: None. FINDINGS: The lungs are clear and expanded. There is no demonstrated pleural abnormality. Normal size heart. Normal mediastinum and joanie. Normal visualized pulmonary arteries. Normal visualized aortic arch and descending thoracic aorta. There are diffuse degenerative changes of the visualized thoracic spine. Normal visualized ribs, clavicles, and shoulders. There is no demonstrated abnormality of the visualized soft tissue structures of the upper abdomen. RAD/Chest PA and Lateral IMPRESSION: No acute pulmonary process Electronically Signed: Jhon Grubbs MD at 11:38 EDT ,
--- NOTE | 2024-02-19 12:52 | PCM.CONHBO ---
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 Chronic. Has had TURP x 2 with only minimal improvement. Longstanding current use of anticoagulation, currently on Eliquis for atrial fibrillation. Also reports significant incontinence, has to utilize an adult underwear throughout the day. Due to chronicity of symptoms and persistence despite other conservative and nonconservative measures, I believe that he will be a good candidate for hyperbaric oxygen therapy for radiation cystitis. No significant history for congestive heart failure, lung disease or diabetes. No tobacco abuse or history of severe claustrophobia/seizure disorder. EKG and 2D echo within the last 6 months. Chest x-ray ordered, will review. Recommend 30 sessions of hyperbaric oxygen treatment. 100% oxygen at 2 RAVINDER for 90 minutes without air breaks. He believes he can commit to coming in 5 days a week for at least the next 6 weeks with the possibility for more sessions if improving or less if symptoms resolve. He had the opportunity to ask questions which were answered and he was advised to let us know if he has any further questions or concerns, he voiced understanding. This note was generated with [employer] dictation software. It may contain incorrect words, spelling, and punctuation that were not noted in checking the note before signing. History of Present Illness Date of Service: 02/19/24 Chief Complaint: HBO consult for radiation cystitis History of Wound: Mr. Delgadillo is an 83-year-old referred by his urologist due to symptomatic radiation cystitis. History of prostatic cancer status post radiation and surgery. Radiation was about 9 years ago. Has had 2 TURP procedures with most recent being a few months ago. History of incontinence and hematuria which improved somewhat following his second TURP. Other conservative measures so far have not been helpful. History of atrial fibrillation on Eliquis. Otherwise, he feels well. No history of diabetes, heart failure, chronic lung disease or tobacco use. He also denies any seizure history. [facility] Medical History (Updated 02/19/24 @ 13:[address] Geni Ellis MD) Current use of adjunct faculty for medical terminology anticoagulation Chronic radiation cystitis COVID-19 virus detected (12/29/20) Longstanding persistent atrial fibrillation BPH with obstruction/lower urinary tract symptoms Acute radiation cystitis Wears glasses Cancer Arthritis History of GI bleed Gastric reflux History of pain when walking History of edema History of atrial fibrillation History of bleeding ulcers GERD (gastroesophageal reflux disease) Blankenship's esophagus with esophagitis History of TIA (transient ischemic attack) (1997) Essential hypertension Right inguinal hernia Prostate cancer Hyperlipidemia PUD (peptic ulcer disease) TIA (transient ischemic attack) Home Medications ?Medication ?Instructions ?Recorded ?Last Taken ?Type amlodipine 10 mg tablet 10 mg PO DAILY HTN 11/21/16 10/30/23 History simvastatin 20 mg tablet 20 mg PO QHS CHOL 11/21/16 10/29/23 History cholecalciferol (vitamin D3) 50 2,000 unit PO DAILY SUPPLEMENT 04/24/18 10/28/23 History mcg (2,000 unit) capsule potassium chloride 10 mEq 10 meq PO QHS SUPPLEMENT 04/24/18 10/29/23 History capsule,extended release metoprolol succinate 200 mg 200 mg PO QHS 09/14/20 10/31/23 10:13 History tablet,extended release 24 hr furosemide 20 mg tablet (Lasix) 20 mg PO BID 03/26/23 10/30/23 History quinapril 40 mg tablet 40 mg PO DAILY HTN #90 tabs 03/26/23 10/30/23 Rx apixaban 5 mg tablet 5 mg PO BID #180 tabs 09/26/23 10/28/23 Rx digoxin 125 mcg (0.125 mg) tablet 125 mcg PO QDAY 01/16/24 Unknown History omeprazole 20 mg capsule,delayed 20 mg PO QDAY 01/16/24 Unknown History release oxybutynin chloride 10 mg 10 mg PO QDAY 01/16/24 Unknown History tablet,extended release 24 hr Allergy/AdvReac Type Severity Reaction Status Date / Time No Known Allergies Allergy Verified 02/19/24 09:27 Family History Mother Brain aneurysm Other Angina of effort Surgical History History of arthroplasty of both knees History of arthroplasty of right knee H/O arthroscopic knee surgery History of transurethral resection of prostate (10/06/20) Hx of cystoscopy (09/15/20) History of esophagogastroduodenoscopy (EGD) (2020) Hx of inguinal hernia repair (09/02/18) History of colonoscopy History of total left knee replacement (2015) History of prostate biopsy Social History (Reviewed 01/16/24 @ 15:47 by Nicolasa Centeno BOILER HOUSE OPERATOR, BOILER HOUSE OPERATOR-C) Smoking Status: Never smoker alcohol intake: current alcohol intake frequency: a few times a month Alcohol type: beer and wine substance use type: does not use caffeine: Yes Type: coffee Number of servings: 1 and tea Number of servings: 2 ROS Constitutional Constitutional: Denies body ache(s), change in weight, daytime sleepiness, fatigue, fever(s), frequent falls or headache(s) Eyes Eyes: Denies bloody eye, blurry vision, change in eye color, discharge from eye(s), discongugate gaze or double vision ENT HEENT: Denies epistaxis, facial pain, foreign body in nose, halitosis, headache(s), hearing loss or mouth pain Cardiovascular Cardiovascular: Denies chest pain with activity, claudication, clubbing, cold extremities, dyspnea at rest, fatigue or flutter in chest Respiratory/Chest Respiratory/Chest: Denies chest congestion, difficulty clearing secretions, dry cough, excessive phlegm production, hemoptysis, hoarseness or inability to speak Gastrointestinal Gastrointestinal: Denies bloating, chewing difficulty, dyspepsia, dysphagia, early satiety or fecal incontinence Genitourinary Genitourinary: Reports hematuria, urinary frequency and urinary incontinence; Denies abdominal discomfort, burning urination or flank pain Musculoskeletal Musculoskeletal: Denies loss of height, muscle weakness, radiating pain into limb, tingling or tremors Integumentary Integumentary: Denies changing lesions, hirsutism, jaundice, non-healing lesions or skin ulcer Neurologic Neurologic: Denies abnormal speech, behavior changes, burning sensations, convulsions or headache(s) Psychiatric Psychiatric: Denies auditory hallucinations, behavioral changes, irritability, memory loss, mood swings, tactile hallucinations or visual hallucinations Endocrine Endocrinology: Denies change in body appearance, deepening of the voice, excessive sweating, heat intolerance or increase in ring/shoe/hat size Allergic/Immunologic Allergic/Immunologic: Denies lip swelling, rhinitis, throat swelling, tongue swelling, eczemia or wheezing Physical Exam Physical Exam Const alert, oriented x3 and no apparent distress General Appearance: cooperative, comfortable and well kempt HEENT normocephalic, head/scalp atraumatic and hearing grossly normal bilaterally Eyes EOMs intact bilaterally General Eye: normal appearance of both eyes Neck full ROM, no lymphadenopathy and supple General: normal visual inspection Resp normal respiratory effort and normal air movement Effort and Inspection: able to speak in complete sentences Cardio regular rate, S1 normal heart sound and S2 normal heart sound Rhythm: abnormal rhythm GI soft to palpation, non-tender and non-distended Extremity no pedal edema Skin no wounds Neuro oriented x3, CN's II-XII intact bilaterally, moves all extremities and no focal motor deficits Psych mental status grossly normal, thought process normal and cooperative Nursing Assessment and Debridement Post-Debridement Measurements and Additional Note: Post-Debridement Measurements/Treatment - Nurse 1 - General Ulcer Assessment Start: 02/19/24 09:22 Freq: Status: Active Protocol: MATTEO Activity Type Activity Date Activity User E-sign Co-sign Detail Recorded Client Recorded Date Recorded By Document 02/19/24 09:36 [id number] 02/19/24 09:38 DS 02/19/24 09:36 - Today's Visit Information Type of service Initial Visit Arrival Mode Ambulatory Patient Identification Verified (Name & Yes ) Patient Requires Transmission-Based No Precautions Safety Precautions NA Height and Weight Height 5 ft 10 in Weight 220 lb Weight in Pounds 220.0 lbs Weight Measurement Method Estimated by Patient Body Mass Index (BMI) 31.5 BMI Classification Obese BSA - [place] 2.17 Vital Signs Temperature (97.8 F-99.1 F) 96.3 F L Temperature Source Temporal Pulse Rate (60-100 beats/min) 74 Pulse Location Monitor Respiratory Rate (12-18 breaths/min) 18 Respiratory rate source Observation Oxygen Delivery Method Room Air Blood Pressure (90/60-120/80 mm Hg) 142/86 H Blood Pressure Mean (mm Hg) 104 Source Monitor Position Sitting Blood Pressure Location Right Arm History Since Last Visit- (Skip if this is Patient's initial visit) Left Footwear Regular Shoe Right Footwear Regular Shoe Pain Scale: 0-10 Numeric Is Patient Pain Free? Yes Communication Assessment Preferred language Occ[place] Security Services Manager Required No Able to Read Yes Able to Write Yes Communication Tools None Caregiver Communication Skills No Impairment Impairment Right Hearing Abillity Normal Left Hearing Abillity Normal Visual Assistive Devices Glasses Teaching Assessment Preferences Verbal,Written, Demonstration Barriers to Learning None Readiness To Learn Excellent Willingness to Engage in Self Management High Activies Readiness to Engage in Self Management High Activities Anxiety Level Calm Cooperation Cooperative Perception Coherent Interest in Health Problem Asks Questions Education Importance Acknowledges Need Does Patient Smoke tobacco or other No substances Smoking Status Never smoker Is Patient Diabetic No Functional Assessment Recent Decline in Ability to Perform Denies Any Declines Assistive Device With Patient N/A Culture/Methodist/Splitting Machine Feeder Cultural/Methodist Needs that may affect No Treatment Plan Teaching: Wound Center *Welcome to the Wound Center -Person Taught Patient -Teaching Method Discussion -Response to teaching Verbalize Understanding WC - Nurse 2 - General Ulcer CM Notes Start: 02/19/24 09:22 Freq: Status: Active Protocol: Activity Type Activity Date Activity User E-sign Co-sign Detail Recorded Client Recorded Date Recorded By Document 02/19/24 10:13 GM [id number] 02/19/24 10:26 GM 02/19/24 10:13 Pain Scale: 0-10 Numeric Is Patient Pain Free? Yes Imaging Radiology Impression Chest X-Ray 02/19/24 11:26 IMPRESSION: No acute pulmonary process Electronically Signed: Jhon Grubbs MD at 11:38 EDT , Charges/Coding Visit Charges Office Visits / Consults: [id number] OV L3 New 30min
== END 2024-02-26 23:59 | disposition home or self-care (01) ==
LOC: WC 08:56
PROVIDERS: PCP Family Medicine; Referring Provider Urology; Visit Provider Internal Medicine
DX: N30.41 Irradiation cystitis with hematuria (principal); I48.11 Longstanding persistent atrial fibrillation; Y84.2 Radiological procedure and radiotherapy as the cause of abnormal reaction of the patient, or of later complication, without mention of misadventure at the time of the procedure; R32 Unspecified urinary incontinence; I10 Essential (primary) hypertension; E78.5 Hyperlipidemia, unspecified; K21.00 Gastro-esophageal reflux disease with esophagitis, without bleeding; Z79.01 Long term (current) use of anticoagulants; Z79.899 Other long term (current) drug therapy; Z90.79 Acquired absence of other genital organ(s); Z92.3 Personal history of irradiation
CPT/HCPCS: 71046; 99213; G0463

== ENCOUNTER 2024-02-26 16:29 | Emergency (ER) | payer MEDICARE, OTHER, SELFPAY ==
[2024-02-26 16:29] VITALS: BP 125/80; PULSE 80; RESP 16; TEMP 36; O2SAT 98; BMI 31.5
--- NOTE | 2024-02-26 16:47 | EX.ED.GUMALE ---
HPI History of Present Illness Chief Complaint: Complaint Informant: patient Pain Onset: Yesterday Context: Gradual Onset Timing: Continuous Worsened by: Nothing Relieved by: Nothing Urinary Symptoms Genitourinary Symptoms: Retention and Hematuria Narrative Narrative: Patient presents with urinary retention and passing clots for the past couple days. Patient states that he was able to urinate yesterday but has been having difficulty urinating today. Patient states he has similar episode in October and Dr. Wall placed a catheter and then did a TURP 2 days later. Patient denies any fevers or chills. Patient denies any nausea or vomiting. Patient states he has been feeling lightheaded. Patient denies any chest pain or shortness of breath. Patient states he contacted Dr. Wall who told him to come to the emergency department and he would see him in the emergency department and place a catheter. [facility] Medical History (Updated 02/26/24 @ 18:[address] 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 Acute radiation cystitis Wears glasses Cancer Arthritis History of GI bleed Gastric reflux History of pain when walking History of edema History of atrial fibrillation History of bleeding ulcers GERD (gastroesophageal reflux disease) Blankenship's esophagus with esophagitis History of TIA (transient ischemic attack) (1997) Essential hypertension Right inguinal hernia Prostate cancer Hyperlipidemia PUD (peptic ulcer disease) TIA (transient ischemic attack) Home Medications ?Medication ?Instructions ?Recorded ?Last Taken ?Type amlodipine 10 mg tablet 10 mg PO DAILY HTN 11/21/16 10/30/23 History simvastatin 20 mg tablet 20 mg PO QHS CHOL 11/21/16 10/29/23 History cholecalciferol (vitamin D3) 50 2,000 unit PO DAILY SUPPLEMENT 04/24/18 10/28/23 History mcg (2,000 unit) capsule potassium chloride 10 mEq 10 meq PO QHS SUPPLEMENT 04/24/18 10/29/23 History capsule,extended release metoprolol succinate 200 mg 200 mg PO QHS 09/14/20 10/31/23 10:13 History tablet,extended release 24 hr furosemide 20 mg tablet (Lasix) 20 mg PO BID 03/26/23 10/30/23 History quinapril 40 mg tablet 40 mg PO DAILY HTN #90 tabs 03/26/23 10/30/23 Rx apixaban 5 mg tablet 5 mg PO BID #180 tabs 09/26/23 10/28/23 Rx digoxin 125 mcg (0.125 mg) tablet 125 mcg PO QDAY 01/16/24 Unknown History omeprazole 20 mg capsule,delayed 20 mg PO QDAY 01/16/24 Unknown History release oxybutynin chloride 10 mg 10 mg PO QDAY 01/16/24 Unknown History tablet,extended release 24 hr Allergy/AdvReac Type Severity Reaction Status Date / Time No Known Allergies Allergy Verified 02/26/24 16:29 Family History (Reviewed 01/16/24 @ 15:47 by Nicolasa Centeno INTEGRATION ARCHITECT, INTEGRATION ARCHITECT-C) Mother Brain aneurysm Other Angina of effort Surgical History (Reviewed 01/16/24 @ 15:47 by Nicolasa Centeno INTEGRATION ARCHITECT, INTEGRATION ARCHITECT-C) History of arthroplasty of both knees History of arthroplasty of right knee H/O arthroscopic knee surgery History of transurethral resection of prostate (10/06/20) Hx of cystoscopy (09/15/20) History of esophagogastroduodenoscopy (EGD) (2020) Hx of inguinal hernia repair (09/02/18) History of colonoscopy History of total left knee replacement (2015) History of prostate biopsy Social History (Reviewed 01/16/24 @ 15:47 by Nicolasa Centeno INTEGRATION ARCHITECT, INTEGRATION ARCHITECT-C) Smoking Status: Never smoker alcohol intake: current alcohol intake frequency: a few times a month Alcohol type: beer and wine substance use type: does not use caffeine: Yes Type: coffee Number of servings: 1 and tea Number of servings: 2 ROS ROS ED Constitutional Constitutional ED: Denies chills or fever(s) Eyes Eyes: Denies blurry vision or change in vision ENT ENT ED: Denies rhinorrhea or sore throat Cardiovascular Cardiovascular: Denies chest pain or palpitations Respiratory/Chest Respiratory/Chest: Denies cough or dyspnea Gastrointestinal Gastrointestinal: Denies nausea or vomiting Genitourinary Genitourinary ED: Reports decreased urination, hematuria and urinary urgency; Denies dysuria Musculoskeletal Musculoskeletal: Denies back pain or neck pain Integumentary Denies abscess or rash Neurologic Neurologic: Denies headache(s) or weakness Allergic/Immunologic Allergic/Immunologic ED: Denies mouth swelling or urticaria EXAM Physical Exam Const Vital Signs: 02/26/24 16:29 Temperature 96.8 F L Temperature Source Temporal Pulse Rate 80 Respiratory Rate 16 Blood Pressure 125/80 H Blood Pressure Mean 95 Pulse Ox 98 Oxygen Delivery Method Room Air Positive well nourished and well developed General Appearance ED: well developed and NAD HEENT Reports moist mucous membranes normocephalic and atraumatic Neck supple and no JVD Cardio regular rate Rhythm: abnormal rhythm irregularly irregular GI non-distended Palpation: soft and tender suprapubic; Negative for guarding Neuro oriented x3, CN's II-XII intact bilaterally, moves all extremities, no focal motor deficits and no sensory deficits noted Sensorium / Orientation: alert Motor Exam: strength 5/5 throughout Psych mental status grossly normal MDM MDM MDM Narrative Medical decision making narrative: Differential diagnosis includes urinary retention, BPH, urinary tract infection, coagulopathy, acute kidney injury, and anemia. Dr. Wall is here to place a catheter to the patient. Urine will be sent for urinalysis to assess for urinary tract infection and hematuria. CBC will be obtained to assess for leukocytosis and anemia. Basic metabolic profile will be obtained to assess for electrolyte abnormality and renal function. Lab Data Attestation: I reviewed the patient's lab results. Lab results narrative: CBC was reviewed and was within normal limits. Basic metabolic profile was reviewed. BUN was 24 creatinine was 1.58. These are consistent with previous results. Urinalysis showed turbid red urine with a specific gravity of 1.015. Leukocyte esterase was 100. Occult blood was 250. There are greater than 100 red blood cells and 10-25 white blood cells. There is rare bacteria. Labs: Laboratory Results - last 24 hr 02/26/24 02/26/24 17:00 17:17 WBC 9.1 RBC 5.16 Hgb 15.0 Hct 45.8 MCV 88.8 MCH 29.1 MCHC 32.8 RDW Std Deviation 43.5 RDW Coeff of [place] 13.5 Plt Count 191 MPV 11.1 Immature Gran % (Auto) 0.400 Neut % (Auto) 78.6 H Lymph % (Auto) 13.4 L [place] % (Auto) 5.6 Eos % (Auto) 1.3 Baso % (Auto) 0.7 Absolute Neuts (auto) 7.1 Absolute Lymphs (auto) 1.21 Nucleated RBC % 0 Sodium 141 Potassium 3.8 Chloride 111 H Carbon Dioxide 24.0 Anion Gap 6 BUN 24 H Creatinine 1.58 H Estim Creat Clear Calc 42.68 Est GFR (MDRD) Af Amer 54 L Est GFR (MDRD) Non-Af 45 L BUN/Creatinine Ratio 15.2 Glucose 133 H Calcium 9.7 Urine Color Red Urine Clarity Turbid Urine pH 6.5 Ur Specific [place] 1.015 Urine Protein 500 H Urine Glucose (UA) Normal Urine Ketones Negative Urine Occult Blood 250 H Urine Nitrite Negative Urine Bilirubin Negative Urine Urobilinogen Normal Ur Leukocyte Esterase 100 H Urine RBC > 100 SEEN Urine WBC 10-25 SEEN Ur Squamous Epith Cells 0-5 SEEN Urine Bacteria RARE Urine Mucus 0 SEEN Management Discussion w/another healthcare provider: Senior Investigator Treatment and Re-Evaluation Narrative: Dr. Wall came to the emergency department and inserted a Armando catheter. Patient felt better after this. Patient was given a leg bag. Patient was instructed to follow-up with Dr. Wall in 3 to 5 days. Patient was instructed return if worse in any way. Patient understood and was agreeable with the plan. All questions were answered. Discharge Plan Triage Chief Complaint: Complaint ED Provider: Gerber Lema Dx/Rx/DC Orders Clinical Impression: Urinary retention, Hematuria Instructions: ED Armando Catheter, Care, ED Hematuria Prescriptions: No Action furosemide [Lasix] 20 mg tablet 20 mg PO BID quinapril 40 mg tablet 40 mg PO DAILY Qty: 90 3RF apixaban 5 mg tablet 5 mg PO BID Qty: 180 3RF Patient Comments: do not resume until after post op appt on 11/17/23 omeprazole 20 mg capsule,delayed release(DR/EC) 20 mg PO QDAY digoxin 125 mcg (0.125 mg) tablet 125 mcg PO QDAY oxybutynin chloride 10 mg tablet extended release 24hr 10 mg PO QDAY amlodipine 10 MG tablet 10 mg PO DAILY simvastatin 20 MG tablet 20 mg PO QHS potassium chloride 10 MEQ capsule, extended release 10 meq PO QHS cholecalciferol (vitamin D3) 2,000 UNIT capsule 2,000 unit PO DAILY metoprolol succinate 200 mg tablet extended release 24 hr 200 mg PO QHS Primary Care Provider: Guy Fernandes Referrals: Guy Fernandes MD [Primary Care Provider] - Tez Wall MD [Med Staff - Active Staff] - 3-5 Days Activity Restrictions/Additional Instructions: Hold your Eliquis until rechecked by Dr. Wall Print Language: Turkmen Disposition Disposition: Home, Self Care
[2024-02-26 17:17] LABS: Absolute Lymphocyte Count 1.21 X10^3/uL (0.83-4.51); Absolute Neutrophil Count 7.1 X10^3/uL (2.0-7.7); Basophil# 0.06 X10^3/uL; Basophil% 0.7 % (0-1); Eosinophil# 0.12 X10^3/uL; Eosinophils% 1.3 % (0-5); Hematocrit 45.8 % (40-54); Lymphocyte # 1.21 X10^3/ul (0.83-4.51); Lymphocyte % 13.4 % (19-41); Mean Corp Hgb Conc 32.8 g/dL (32-36); Mean Corpuscular Hgb 29.1 pg (27.0-32.0); Mean Corpuscular Volume 88.8 fL (80-94); Mean Platelet Vol. 11.1 fl (6.2-12.0); Monocyte# 0.51 X10^3/uL; Monocyte% 5.6 % (0-10); NRBC Flagged by Analyzer 0 % (0-5); Neutrophil # 7.11 X10^3/uL (2.7-7.7); Neutrophil % 78.6 % (47-70); Platelet Count 191 K/mm3 (150-450); RBC Distribution Width CV 13.5 % (11.6-14.6); RBC Distribution Width SD 43.5 fl (35.1-43.9); Red Blood Count 5.16 M/mm3 (4.6-6.2); White Blood Count 9.1 K/mm3 (4.4-11.0)
[2024-02-26 17:22] LABS: Mucous, Urine 0 SEEN /hpf (<or=2+)
[2024-02-26 17:26] LABS: Anion Gap 6 (5-15); BUN 24 mg/dL (7-18); BUN/Creat Ratio 15.2 RATIO (10-20); Calcium,Total 9.7 mg/dL (8.5-10.1); Chloride 111 mmol/L (98-107); Creatinine, Serum 1.58 mg/dL (0.70-1.30); EST Glomerular Filtration Rate 45 mL/min (>60); Est Glom Filt Rate - Afr Amer 54 mL/min (>60); Estimated Creatinine Clearance 42.68 ml/min; Glucose 133 mg/dL (74-106); Potassium 3.8 mmol/L (3.5-5.1); Sodium Level 141 mmol/L (136-145)
[2024-02-26 17:27] LABS: Color, Urine Red (Yellow); Glucose, Dipstick Normal (Normal); Ketone-Dipstick Negative (Negative); Leukocyte Esterase-Dipstick 100 /ul (Negative); Nitrite-Dipstick Negative (Negative); Occult Blood-Urine 250 /ul (Negative); Protein-Dipstick 500 mg/dl (Negative); Specific Gravity, Urine 1.015 (1.002-1.030); Urine Bilirubin Dipstick Negative (Negative); Urine Clarity Turbid (Clear); Urine Urobilinogen Normal (Normal); Urine pH 6.5 (5.0 - 8.0)
[2024-02-26 17:44] LABS: Red Blood Cells-Urine > 100 SEEN /hpf (0-5)
[2024-02-26 17:45] LABS: White Blood Cells 10-25 SEEN /hpf (0-5)
[2024-02-26 17:47] LABS: Bacteria RARE /hpf (None Seen); Squamous Epithelial Cells - UA 0-5 SEEN /hpf (0-5)
[2024-02-26 18:29] VITALS: BP 125/80; PULSE 80; RESP 16; TEMP 36; O2SAT 98
== END 2024-02-26 18:29 | disposition home or self-care (01) ==
PROVIDERS: Emergency Provider Emergency Medicine; PCP Family Medicine; Visit Provider Emergency Medicine
DX: R33.9 Retention of urine, unspecified (principal); I48.11 Longstanding persistent atrial fibrillation; E78.5 Hyperlipidemia, unspecified; I10 Essential (primary) hypertension; R31.9 Hematuria, unspecified; Z85.46 Personal history of malignant neoplasm of prostate; Z86.73 Personal history of transient ischemic attack (TIA), and cerebral infarction without residual deficits; Z79.899 Other long term (current) drug therapy; Z79.01 Long term (current) use of anticoagulants; K21.9 Gastro-esophageal reflux disease without esophagitis; Z96.653 Presence of artificial knee joint, bilateral
CPT/HCPCS: 80048; 81001; 85025; 87086; 99282

== ENCOUNTER 2024-03-26 12:29 | Observation (INO) | payer MEDICARE, OTHER, SELFPAY ==
[2024-03-26] VITALS (15 sets, daily range): BP systolic 98–144; BP diastolic 51–95; PULSE 70–94; RESP 14–18; TEMP 36–37.4; O2SAT 90–98; BMI 31.6
--- NOTE | 2024-03-26 06:46 | PCM.PRE.AN2 ---
ASA Classification* ASA Classification ASA Classification: 3 Assessment & Plan Anesthesia* Anesthesia Assessment Anesthesia Assessment: Discussed sedation and/or anesthesia options, risks, benefits, and alternatives with patient/parents/legal guardian/POA. Questions invited. The patient/parents/legal guardian/POA seems to understand and agrees to proceed with anesthesia plan. Reviewed the physical assessment, medical history, allergy history and patient home medications list prior to surgery/procedure/anesthetic and documented any changes. Performed airway and anesthesia risk assessments. Anesthesia Type Anesthesia Type: General Anesthesia Focused Assessment* Airway Assessment Mouth opens: >3 cm Mallampati Score: II Focused Labs Anesthesia Preop lab: CBC WBC 9.1 K/mm3 (4.4-11.0) 02/26/24 17:00 RBC 5.16 M/mm3 (4.6-6.2) 02/26/24 17:00 Hgb 15.0 g/dL (13.0-16.5) 02/26/24 17:00 Hct 45.8 % (40-54) 02/26/24 17:00 Plt Count 191 K/mm3 (150-450) 02/26/24 17:00 CHEMISTRY Potassium 3.8 mmol/L (3.5-5.1) 02/26/24 17:00 Sodium 141 mmol/L (136-145) 02/26/24 17:00 Magnesium 2.0 mg/dL (1.6-2.6) 08/16/19 10:27 Phosphorus 2.9 mg/dL (2.5-4.9) 04/03/23 10:07 BUN 24 mg/dL (7-18) H 02/26/24 17:00 Creatinine 1.58 mg/dL (0.70-1.30) H 02/26/24 17:00 Glucose 133 mg/dL (74-106) H 02/26/24 17:00 TSH 1.57 uIU/mL (0.358-3.74) 09/15/23 11:44 COAG PT 13.9 SECONDS (11.7-14.9) 05/17/21 09:06 Pre-Assessment Diagnosis/Proposed Procedure Planned Operative Procedure(s): LAP ROBOTIC SIMPLE PROSTATECTOMY Anesthesia History Anesthesia History - cashier ticket selling: Anesthesia History - cashier ticket selling Hx Hospitalization No 03/12/24 10:02 Any Problems With Anesthesia No 03/12/24 10:02 Cholinesterase deficiency No 03/12/24 10:02 You/Your Family Experience No 03/12/24 10:02 fever (hyperthermia) with Relationship Recent Exposure to Contagious No 10/31/23 09:48 Disease Does patient have nerve No 03/12/24 10:02 stimulator Patient instructed to have device shut off --Does patient have Pacemaker or ICD? When Was Last Pacemaker Check QUESTION #4 FULL TEXT: You/Your Family Experience fever (hyperthermia) with Anesthesia Last Oral Intake Last Oral intake: Last Oral Intake NPO since Meds taken in AM with sips of water? Meds patient instructed to take am of surgery PONV PONV - cashier ticket selling: PONV - cashier ticket selling Female No 03/12/24 10:02 HX of Motion Sickness No 03/12/24 10:02 HX of N/V After Surgery No 03/12/24 10:02 Non-Smoker Yes 03/12/24 10:02 Duration of Surgery greater Yes 03/12/24 10:02 than 60 minutes Number of Risk Factors 2 03/12/24 10:02 PONV Score Moderate Risk 03/12/24 10:02 Height & Weight Height & Weight: Anesthesia: Height & Weight Height 5 ft 10 in 02/26/24 16:29 Respiratory Assessment Respiratory Assessment - cashier ticket selling: Respiratory Tract Infection Hx - cashier ticket selling Hx Respiratory Tract Infection No 03/12/24 10:02 STOP Sleep Apnea STOP Sleep Apnea - cashier ticket selling: STOP Sleep Apnea - cashier ticket selling Hx Hypertension Yes: CONTROLLED WITH MED 03/12/24 10:02 Hx Sleep Apnea No 03/12/24 10:02 CPAP No 03/12/24 10:02 BIPAP Do you snore loudly (louder Yes 03/12/24 10:02 than talking or can be heard Do you often feel tired/ No 03/12/24 10:02 fatigued/ sleepy during daytime? Has anyone observed you stop No 03/12/24 10:02 breathing during sleep? STOP Results Positive 03/12/24 10:02 QUESTION #5 FULL TEXT : Do you snore loudly (louder than talking or can be heard through closed doors)? Tobacco Use History Tobacco Use History - cashier ticket selling: Tobacco Use History - cashier ticket selling Tobacco Use Non-smoker 09/14/20 09:20 Smoking Status Never smoker 03/12/24 10:02 Hx Tobacco Use No 03/12/24 10:02 Years Smoking Packs Smoked per Day Smoking Cessation Date was within the last 15 years Hx Smoking Cessation Date Hx Smoking Cessation Counseling Hematologic Medial History Hematologic Hx - cashier ticket selling: Hematologic Medical Hx - instructor substitute cosmetology Hx of Blood Transfusion Yes 03/12/24 10:02 Hx of Transfusion in last 3 No 03/12/24 10:02 Months Date of Last Transfusion (if within last 3 months) Ever experience any problems No 03/12/24 10:02 with transfusion(s)? Specify any problems Hx of Preganancy in last 3 N/A 03/12/24 10:02 Months Nurse Filling Out Transfusion DSCHRIBER 03/12/24 10:02 & Questions: Date: 03/12/24 03/12/24 10:02 Time: 10:04 03/12/24 10:02 Patient unable to answer at this time (ie. confused, unrespo /Reproduction History /Reproductive History - cashier ticket selling: /Reproductive Hx- cashier ticket selling Hx Now No 03/12/24 10:02 Gestational Age (in weeks): EDC: Hx Hx Para Hx Section SAB No 03/12/24 10:02 Active Medications Active Medications: Current Medications Generic Name Dose Route Start Last Admin Trade Name Freq PRN Reason Stop Dose Admin Cefazolin Sodium 2 gm/ N/A 20 mls @ 400 mls/hr 03/26/24 07:30 IV 03/26/24 07:32 PREOP ONE Lactated Ringer's 1,000 mls @ 15 mls/hr 03/26/24 06:30 IV 03/31/24 19:49 .Q48H [facility] Protocol PFSH Medical History Wears partial dentures Indwelling urethral catheter present Prostate disease History of renal disease High cholesterol Non-smoker History of echocardiogram History of stress test Cardiology follow-up encounter Current use of alf anticoagulation Chronic radiation cystitis COVID-19 virus detected (12/29/20) Longstanding persistent atrial fibrillation BPH with obstruction/lower urinary tract symptoms Acute radiation cystitis Wears glasses Cancer Arthritis History of GI bleed Gastric reflux History of pain when walking History of edema History of atrial fibrillation History of bleeding ulcers Blankenship's esophagus with esophagitis History of TIA (transient ischemic attack) (1997) Essential hypertension Right inguinal hernia Prostate cancer PUD (peptic ulcer disease) Home Medications ?Medication ?Instructions ?Recorded ?Last Taken ?Type amlodipine 10 mg tablet 10 mg PO DAILY HTN 11/21/16 03/25/24 22:00 History simvastatin 20 mg tablet 20 mg PO QHS CHOL 11/21/16 03/24/24 History cholecalciferol (vitamin D3) 50 2,000 unit PO DAILY SUPPLEMENT 04/24/18 03/25/24 History mcg (2,000 unit) capsule potassium chloride 10 mEq 10 meq PO QHS SUPPLEMENT 04/24/18 03/24/24 History capsule,extended release metoprolol succinate 200 mg 200 mg PO QHS 09/14/20 03/23/24 History tablet,extended release 24 hr furosemide 20 mg tablet (Lasix) 20 mg PO BID 03/26/23 03/25/24 History quinapril 40 mg tablet 40 mg PO DAILY HTN #90 tabs 03/26/23 03/25/24 Rx apixaban 5 mg tablet 5 mg PO BID #180 tabs 09/26/23 03/02/24 Rx digoxin 125 mcg (0.125 mg) tablet 125 mcg PO QHS 01/16/24 03/24/24 History oxybutynin chloride 10 mg 10 mg PO QDAY 01/16/24 03/25/24 History tablet,extended release 24 hr Allergy/AdvReac Type Severity Reaction Status Date / Time No Known Allergies Allergy Verified 03/26/24 06:32 Family History Mother Brain aneurysm Other Angina of effort Surgical History History of arthroplasty of right knee H/O arthroscopic knee surgery History of transurethral resection of prostate (10/06/20) Hx of cystoscopy (09/15/20) History of esophagogastroduodenoscopy (EGD) (2020) Hx of inguinal hernia repair (09/02/18) History of colonoscopy History of total left knee replacement (2015) History of prostate biopsy Social History Smoking Status: Never smoker alcohol intake: current alcohol intake frequency: a few times a month Alcohol type: beer and wine substance use type: does not use caffeine: Yes Type: coffee Number of servings: 1 and tea Number of servings: 2 Review of Systems (Anesthesia) ROS Narrative System reviewed and no additional complaints, except as documented.
[2024-03-26] MEDS: Lactated Ringers 1,000 ML 15 ML IV (07:00)
[2024-03-26] MEDS: Digoxin 125 MCG Tablet PO ×2 (07:13→20:06)
--- NOTE | 2024-03-26 07:30 | PROST_PTH ---
PATIENT: LEAH FOY LOC: [facility] U#:[id number] AGE/SX: 83/M ROOM: IN317 RE03/26/[address]: Dr. Tez Wall MD : 1940 BED: 1 DIS: 03/28/2024 SPEC #: [id number] RECD: 03/26/24 14:06 STATUS: EMERSON JUNG #: [id number] KIMMY: 03/26/24 07:[address]: Tez Wall DEPT: SURGICAL PATHOLOGY RECD BY: Judith Villatoro ENTERED: 03/29/24 07:00 SP TYPE: PROSTATE OTHR DR: Dr. Guy Fernandes MD Tissues: Prostate, NOS Procedures: Surgery Specimen Level HEADER OPERATION: Laparoscopic robotic simple prostatectomy PRE-OP DIAGNOSIS: Breakdown (mechanical) of indwelling urethral catheter TISSUE SUBMITTED: Prostate tissue MICROSCOPIC DIAGNOSIS Prostate, simple prostatectomy: Ulceration with associated acute and chronic inflammation, fibrinoid material and early granulation consistent with previous therapeutic procedure. Chronic inflammation. Benign nodular hyperplasia, primarily stromal type. No evidence of malignancy. AM. 03/30/2024 MICROSCOPIC DESCRIPTION Slides are reviewed. GROSS DESCRIPTION Received in fixative is one container labeled with the patient's name and designated Prostate tissue. The specimen consists of an unoriented, lobulated fragment of kim-white rubbery tissue measuring 7.0 x 6.0 x 5.0cm and weighing 69.5gm. No orientation is provided. The external surface is inked and serially sectioned to reveal rubbery white cut surfaces. No distinct mass lesions are identified. Solder Technician sections are submitted in ten cassettes. . 03/29/2024 TC:2 CPT:16616
[2024-03-26] MEDS: Cefazolin 2 GM in Syringe IV (10:25)
[2024-03-26] MEDS: Bupivacaine Mpf 0.5% 30 ML VIAL (12:18)
--- NOTE | 2024-03-26 12:33 | HP.PCM_ITS ---
HPI - General General Date of Service: 03/26/24 Chief Complaint: Urinary retention HPI Narrative LEAH FOY, is a 83 M who presents for a simple robotic prostatectomy history of prostate cancer treated with radiation therapy we tried a TURP but it did not work he is still in retention of urine so we had to go with a simple robotic prostatectomy is a lot of obstructive tissues as well and is also poorly healing so I think is poorly vascularized tissue poorly healing some open with a robotic simple prostatectomy will be able to remove the obstructing tissue and restore normal voiding understands is no guarantees with surgery will work to also possibly may still have problems with leakage control and bladder control problems afterwards. 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 Acute radiation cystitis Wears glasses Cancer Arthritis History of GI bleed Gastric reflux History of pain when walking History of edema History of atrial fibrillation History of bleeding ulcers Blankenship's esophagus with esophagitis History of TIA (transient ischemic attack) (1997) Essential hypertension Right inguinal hernia Prostate cancer PUD (peptic ulcer disease) Home Medications ?Medication ?Instructions ?Recorded ?Last Taken ?Type amlodipine 10 mg tablet 10 mg PO DAILY HTN 11/21/16 03/25/24 22:00 History simvastatin 20 mg tablet 20 mg PO QHS CHOL 11/21/16 03/24/24 History cholecalciferol (vitamin D3) 50 2,000 unit PO DAILY SUPPLEMENT 04/24/18 03/25/24 History mcg (2,000 unit) capsule potassium chloride 10 mEq 10 meq PO QHS SUPPLEMENT 04/24/18 03/24/24 History capsule,extended release metoprolol succinate 200 mg 200 mg PO QHS 09/14/20 03/23/24 History tablet,extended release 24 hr furosemide 20 mg tablet (Lasix) 20 mg PO BID 03/26/23 03/25/24 History quinapril 40 mg tablet 40 mg PO DAILY HTN #90 tabs 03/26/23 03/25/24 Rx apixaban 5 mg tablet 5 mg PO BID #180 tabs 09/26/23 03/02/24 Rx digoxin 125 mcg (0.125 mg) tablet 125 mcg PO QHS 01/16/24 03/24/24 History ciprofloxacin HCl 500 mg tablet 500 mg PO BID #14 tabs 03/26/24 Unknown Rx (Cipro) docusate sodium 100 mg capsule 100 mg PO BID #20 caps 03/26/24 Unknown Rx (Colace) oxycodone 5 mg tablet 5 mg PO Q6H PRN pain 3 days #14 03/26/24 Unknown Rx tabs Allergy/AdvReac Type Severity Reaction Status Date / Time No Known Allergies Allergy Verified 03/26/24 06:32 Family History Mother Brain aneurysm Other Angina of effort Surgical History History of arthroplasty of right knee H/O arthroscopic knee surgery History of transurethral resection of prostate (10/06/20) Hx of cystoscopy (09/15/20) History of esophagogastroduodenoscopy (EGD) (2020) Hx of inguinal hernia repair (09/02/18) History of colonoscopy History of total left knee replacement (2015) History of prostate biopsy Social History Smoking Status: Never smoker alcohol intake: current alcohol intake frequency: a few times a month Alcohol type: beer and wine substance use type: does not use caffeine: Yes Type: coffee Number of servings: 1 and tea Number of servings: 2 Vital Signs Vital Signs Vital Signs: 03/26/24 06:44 03/26/24 06:44 03/26/24 07:13 Temperature 96.9 F L Temperature Source Temporal Pulse Rate 89 82 Respiratory Rate 16 Respiratory Pattern Normal Blood Pressure 136/95 H Blood Pressure Mean 108 Blood Pressure Source Monitor Blood Pressure Position Semi-Fowlers Blood Pressure Location Right Arm Pulse Ox 98 Oxygen Delivery Method Room Air Weight Weight: 100 kg Body Mass Index (BMI) 31.6
--- NOTE | 2024-03-26 12:34 | OP.PCM_ITS ---
Operative Report (Standard) Operative Information Surgery/Procedure Performed: robotic simple prostatectomy Surgeon: Tez Wall Date of Procedure: 03/26/24 Procedure Start Time: 12:35 Procedure Stop Time: 12:35 Pre-Operative Diagnosis: bph w obstruction, retention of urine Post-Operative Diagnosis: same Select all DRAINS/GRAFTS/IMPLANTS that apply: Drains Drain details: 20 fr montgomery Type of Anesthesia: General Estimated Blood Loss: 50cc Specimen collected: Yes Description of specimen(s) removed: prostate Description of surgery: Patient presents for a simple robotic prostatectomy. He understands that organ to do enucleation of the obstructing adenoma and then after his surgery he will need a catheter to allow this to heal. He understands is no guarantees that after the surgery he will be able to urinate spontaneously and may need to learn how to do self intermittent catheterization. We also talked about the risk of surgery which involves risk of bleeding and infection scar tissue formation bladder neck contracture. Patient was taken back to the operating room at this induction of anesthesia he underwent and intubation and was placed supine on the table. The abdomen was shaved prepped and draped in usual sterile fashion. A Montgomery catheter was placed into the penis. I then infiltrated the skin above the umbilicus with lidocaine and made a small 5 mm incision in the skin. I then advanced a Veress needle into the peritoneal cavity and inflated the peritoneal cavity with CO2 gas. Once the pressure was at 15 mm and a nice distention of the abdomen then the camera trocar was put into the abdomen. We then looked in with the 0 degree lens and we placed a right arm trocar and left arm trocar and then an air seal suction port high up in the abdomen to allow the contract assistant to use this for suction. The robot was then docked and then we proceeded with the dissection. The colon was mobilized from the flexure of the colon on the patient's left side once this was freed up then the bladder was distended with 300 cc of sterile normal saline. I then made an incision in the bladder in the midline once we got inside the bladder that drained out all the saline we then used 2 Miguel needles to retract the bladder laterally. Once the bladder was retracted in a clamshell fashion laterally then we got inside the bladder inspected the bladder deflated the balloon left the catheter in place. We then started with scoring the mucosa circumferentially all the way around very large protruding adenomatous prostate. I then dissected between the adenoma and the bladder inferiorly working my way in the avascular enucleation plane between the adenoma and the prostate capsule, pseudocapsule all the way inferiorly I then started working my way laterally up on the right side of the prostate until I got to the anterior part freeing up the adenomatous tissue from the prostate and the anterior tissue and cutting through the bladder muscle and mucosa. We then worked our way laterally on the left side of the adenomatous tissue freeing up the adenoma from the prostate and the bladder muscle and mucosa I then came on top of the adenoma and was able to retract the adenoma out and then split the adenoma in half and identified the catheter and then identified the urethral strip the urethral strip was then carefully transected and then the right adenomatous tissue was removed and then the left adenomatous tissue was removed all intact and all this was placed in Endo Catch bag. Then we cauterized the prostate fossa extensively to control hemostasis Floseal was placed in the prostatic fossa. I then used a 3 oh V-Loc stitch to bring down the mucosa and advance it down towards the urethra circumferentially to advance the mucosa down to the urethral stump. We then placed a Montgomery catheter, 20 Amharic into the blad bob with no continuous irrigation. Irrigate out the bladder irrigate all the clots out we then closed the bladder with 2 layers using 2 oh V-Loc stitch and then a 4-0 Vicryl stitch. Both the Miguel needles were removed that were retracting the bladder. We then undocked the robot we extracted the prostate adenoma through the umbilicus port we closed the air seal port with 1012 stitch and then we closed all the other ports with subcuticular stitches once the prostate was extracted to the camera port and we reapproximated the fascia and the camera port with a 0 Vicryl [id number] fashion stitch. Minimal blood loss during the case catheter was irrigated and draining well patient anesthetic was reversed and he was taken back to the PACU in good condition. The role of the correspondence section supervisor LORIN, assisted with myself during the entire procedure, the OPERATIONS OFFICER [employer] DEPARTMENT assisted by passing instruments through the air seal port, passing suture, needles, sponges during the surgery. The RFA also assisted with providing some suction using the suction irrigation and some irrigation during the surgery. Also the contract assistant provided some traction minorly during the dissection of the prostate and the seminal vesicles. The RFA also helped me extract the prostate at the end of the case and helped close the fascia, and the contract assistant also helped close the skin incisions with subcuticular stitches. The contract assistant was monitored closely and under my direct supervision the entire case. Surgical Findings: He had necrotic tissue in the prostatic fossa the entire prostate was enucleated and removed he also had some necrotic tissue around the sphincter area at the reapproximate the bladder mucosa to the sphincter left [address] to heal[address] Probably would do some good to have postop hyperbaric oxygenation treatments. To allow for better healing Permastone Installer building construction superintendent: Yes Policeman: Evelia Townsend Tasks completed by contract assistant: Opening, Closing, Opening & closing, Harvesting grafts, Dissecting tissue, Removing tissue, Implanting device, Altering tissue, Insert Trochanter, Hemostasis: Clamp, Hemostasis: Tie, Hemostasis: Electrocautery, Trocar, Retracting and Other Complications Complications: No Admit VTE Documentation VTE Present on Admission: No VTE Mechan Device Prophylaxis: SCD's VTE Pharm Prophylaxis ordered?: No
--- NOTE | 2024-03-26 12:34 | DCINST_ITS ---
Discharge Instructions Diet Discharge Diet: No restrictions, Light diet - advance as tolerated and Soft diet DC O2, CPAP, BIPAP needs Additional Home O2 Discharge instructions: No Dressing / Incision Discharge Activity: May Not Drive and May Shower May shower in (days): 1 Weight Bearing Status: Weight bearing as tolerated Dressing / Incision Call your doctor if your incision/area has: Sudden Increased Bleeding Call your doctor if you observe: Fever of 101 or Higher and Uncontrolled pain Suture Line Care: Avoid Pulling/Pushing and Avoid Pinching/Bending Catheter: Armando to leg bag and Armando to large bag Drain: [place] Follow Up Care Please Follow Up With: Tez Wall MD When: call for appt 2 weeks Test Results: Test results from this visit will be discussed in further detail at your follow- up appointment, if applicable. Discharge Plan Admission Primary Reason for Your Visit: Simple prostatectomy Attending Provider: Tez Wall Primary Care Provider: Guy Fernandes Instructions Patient Instructions: Radical Prostatectomy, Radical Prostatectomy Dc Print Language: New Zealander Discharge Orders/Prescriptions Prescriptions: New ciprofloxacin HCl [Cipro] 500 mg tablet 500 mg PO BID Qty: 14 0RF oxycodone 5 mg tablet 5 mg PO Q6H PRN (Reason: pain) 3 Days Qty: 14 0RF docusate sodium [Colace] 100 mg capsule 100 mg PO BID Qty: 20 0RF Continued furosemide [Lasix] 20 mg tablet 20 mg PO BID quinapril 40 mg tablet 40 mg PO DAILY Qty: 90 3RF digoxin 125 mcg (0.125 mg) tablet 125 mcg PO QHS amlodipine 10 MG tablet 10 mg PO DAILY simvastatin 20 MG tablet 20 mg PO QHS potassium chloride 10 MEQ capsule, extended release 10 meq PO QHS metoprolol succinate 200 mg tablet extended release 24 hr 200 mg PO QHS Held apixaban 5 mg tablet 5 mg PO BID Qty: 180 3RF Hold Instructions: Resume on 04/09/24. Patient Comments: do not resume until after post op appt on 11/17/23 cholecalciferol (vitamin D3) 2,000 UNIT capsule 2,000 unit PO DAILY Hold Instructions: Resume on 04/02/24. Discontinued oxybutynin chloride 10 mg tablet extended release 24hr 10 mg PO QDAY Referrals / Follow Up: Guy Fernandes MD [Primary Care Provider] - Tez Wall MD [Med Staff - Active Staff] - Disposition Disposition (needs filled in before D/C Order can be placed): Home, Self Care
--- NOTE | 2024-03-26 12:38 | PCM.POST.ANE ---
Anesthesia: Postop Eval I Current Vital Signs Temperature: 99.3 F Pulse Rate: 76 Blood Pressure: 114/69 Respiratory Rate: 18 Pulse Ox: 92 Oxygen Delivery Method: Room Air Assessment Airway patent: Yes Spontaneous unlabored respirations: Yes Mental status: Awake and Calm nausea: No Vomiting: No Anesthesia Complication: No Fluid Hydration Crystalloid volume administer (ml): 1,800 Total IV fluid infused: 1,800 Progress Note Anesthesia document: Postop Eval 1 completed: Yes
[2024-03-26] MEDS: Metoclopramide 10 MG/2 ML Vial IV (14:14)
[2024-03-26] MEDS: Ketorolac 15 MG/ML Vial IV (14:14)
[2024-03-26] MEDS: 0.9% Normal Saline (1000mL) 1,000 ML 75 ML IV (14:16)
[2024-03-26] MEDS: Acetaminophen 325 MG Tablet 650 MG PO ×2 (14:42→21:21)
[2024-03-26] MEDS: oxyCODONE 5 MG Tablet PO ×2 (14:43→21:18)
[2024-03-26] MEDS: Furosemide 20 MG Tablet PO (16:10)
[2024-03-26] MEDS: 0.9% Normal Saline (1000mL) 1,000 ML 500 ML IV (16:27)
[2024-03-26] MEDS: Morphine 2 MG/ML Syringe IV (17:53)
[2024-03-26] MEDS: 0.9% Saline Lock 10 ML Syringe IV (17:53)
[2024-03-26] MEDS: Ciprofloxacin 500 MG Tablet PO (20:06)
[2024-03-26] MEDS: Metoprolol(XL)Succ 200 MG Tablet PO (20:06)
[2024-03-26] MEDS: Potassium Chloride Oral Tablet 10 MEQ PO (20:06)
[2024-03-26] MEDS: Docusate Sodium 100 MG Capsule 200 MG PO (20:06)
[2024-03-26] MEDS: Atorvastatin Calcium 10 MG Tablet PO (20:07)
[2024-03-27] VITALS (9 sets, daily range): BP systolic 122–132; BP diastolic 69–84; PULSE 65–85; RESP 14–18; TEMP 36.3–36.9; O2SAT 94–97
[2024-03-27] MEDS: Acetaminophen 325 MG Tablet 650 MG PO ×3 (04:18→20:34)
[2024-03-27] MEDS: oxyCODONE 5 MG Tablet PO ×2 (04:18→10:31)
[2024-03-27] MEDS: 0.9% Normal Saline (1000mL) 1,000 ML 75 ML IV (04:19)
[2024-03-27 06:11] LABS: Hematocrit 41.5 % (40-54); Hemoglobin 13.5 g/dL (13.0-16.5); Mean Corp Hgb Conc 32.5 g/dL (32-36); Mean Corpuscular Hgb 29.1 pg (27.0-32.0); Mean Corpuscular Volume 89.4 fL (80-94); Platelet Count 152 K/mm3 (150-450); RBC Distribution Width CV 13.6 % (11.6-14.6); RBC Distribution Width SD 44.7 fl (35.1-43.9); Red Blood Count 4.64 M/mm3 (4.6-6.2); White Blood Count 15.8 K/mm3 (4.4-11.0)
[2024-03-27 06:41] LABS: Anion Gap 5 (5-15); BUN 28 mg/dL (7-18); BUN/Creat Ratio 15.5 RATIO (10-20); Calcium,Total 8.8 mg/dL (8.5-10.1); Chloride 112 mmol/L (98-107); Creatinine, Serum 1.81 mg/dL (0.70-1.30); EST Glomerular Filtration Rate 38 mL/min (>60); Est Glom Filt Rate - Afr Amer 46 mL/min (>60); Glucose 157 mg/dL (74-106); Potassium 4.3 mmol/L (3.5-5.1); Sodium Level 140 mmol/L (136-145)
--- NOTE | 2024-03-27 08:31 | PCM.PN.GU ---
Subjective Subjective s/p simple prostatectomy doing well urine still slighly bloody probably home tomorrow once urine clear Objective Data Objective Data Vital Signs: Vital Signs Temp Pulse Resp BP Pulse Ox O2 Del Method O2 Flow Rate 97.3 F L 85 14 122/80 H 94 Room Air 2 03/27/24 05:06 03/27/24 07:50 03/27/24 05:06 03/27/24 05:06 03/27/24 08:08 03/27/24 08:08 03/27/24 01:00 Oxygen Flow Rate (L/min) 2 Oxygen Delivery Method Room Air Weight: 100 kg Body Mass Index (BMI) 31.6 Intake & Output: Intake and Output for Last 24 Hours 03/25/24 03/26/24 03/27/24 23:59 23:59 23:59 Intake Total 1534 / 1534 1236.25 / 1236.25 Output Total 420 / 420 450 / 450 Balance 1114 / 1114 786.25 / 786.25 Lab / Micro Data 03/27/24 05:35 03/27/24 05:35 Labs: Laboratory Results - last 24 hr 03/27/24 05:35: WBC 15.8 H, RBC 4.64, Hgb 13.5, Hct 41.5, MCV 89.4, MCH 29.1, MCHC 32.5, RDW Std Deviation 44.7 H, RDW Coeff of Renuka 13.6, Plt Count 152, MPV 11.0, Sodium 140, Potassium 4.3, Chloride 112 H, Carbon Dioxide 23.0, Anion Gap 5, BUN 28 H, Creatinine 1.81 H, Estim Creat Clear Calc 37.30, Est GFR (MDRD) Af Amer 46 L, Est GFR (MDRD) Non-Af 38 L, BUN/Creatinine Ratio 15.5, Glucose 157 H, Calcium 8.8
--- NOTE | 2024-03-27 10:01 | CASEMGMT ---
COURTNEY CM to pt room at this time to discuss DC planning. Pt states that he now lives at home with his son and that his other son and daughter both live within 5 minutes of their mobile home. Pt states that he is independent and denies needs such as HH or OP Tx. Pt states that he plans to DC home with his Armando and f/u with urology in one week. Pt states that he has already been given the education on how to care for this. Pt states that he feels safe returning home with his son and denies further questions or concerns at this time.
[2024-03-27] MEDS: Docusate Sodium 100 MG Capsule 200 MG PO ×2 (10:32→22:40)
[2024-03-27] MEDS: Ciprofloxacin 500 MG Tablet PO ×2 (10:32→22:40)
[2024-03-27] MEDS: Lisinopril 40 MG Tablet PO (10:33)
[2024-03-27] MEDS: amLODIPine 10 MG Tablet PO (10:33)
--- NOTE | 2024-03-27 11:55 | CASEMGMT ---
Met with pt to complete BATRES form. BATRES form explained to pt at this time who voiced understanding and signed form. Original form placed in pt?s chart and copy provided to the pt. Harmeet Vegas RN CM
[2024-03-27] MEDS: Digoxin 125 MCG Tablet PO (22:36)
[2024-03-27] MEDS: Metoprolol(XL)Succ 200 MG Tablet PO (22:40)
[2024-03-27] MEDS: Atorvastatin Calcium 10 MG Tablet PO (22:40)
[2024-03-27] MEDS: Potassium Chloride Oral Tablet 10 MEQ PO (22:41)
[2024-03-28 02:27] VITALS: BP 124/91; PULSE 82; RESP 18; TEMP 36.6; O2SAT 96
[2024-03-28] MEDS: oxyCODONE 5 MG Tablet PO (02:33)
[2024-03-28 07:30] VITALS: O2SAT 93
[2024-03-28] MEDS: Ciprofloxacin 500 MG Tablet PO (08:21)
[2024-03-28] MEDS: Docusate Sodium 100 MG Capsule 200 MG PO (08:21)
[2024-03-28] MEDS: amLODIPine 10 MG Tablet PO (08:21)
[2024-03-28] MEDS: Lisinopril 40 MG Tablet PO (08:22)
[2024-03-28 09:20] VITALS: BP 131/65; PULSE 102; RESP 16; TEMP 36.2; O2SAT 96
--- NOTE | 2024-03-28 09:38 | PCM.PN.GU ---
Subjective Subjective Status post simple robotic prostatectomy doing well go home today with a Armando catheter, passing gas tolerating regular diet minimal pain to go home antibiotics stool softeners restrictions follow-up in 2 weeks at the catheter removed Objective Data Objective Data Vital Signs: Vital Signs Temp Pulse Resp BP Pulse Ox O2 Del Method O2 Flow Rate 97.2 F L 102 H 16 131/65 H 96 Room Air 2 03/28/24 09:20 03/28/24 09:20 03/28/24 09:20 03/28/24 09:20 03/28/24 09:20 03/28/24 09:20 03/27/24 01:00 Oxygen Flow Rate (L/min) 2 Oxygen Delivery Method Room Air Weight: 100 kg Body Mass Index (BMI) 31.6 Intake & Output: Intake and Output for Last 24 Hours 03/26/24 03/27/24 03/28/24 23:59 23:59 23:59 Intake Total 1534 / 1534 4036.25 / 4036.25 700 / 700 Output Total 420 / 420 1050 / 1050 450 / 450 Balance 1114 / 1114 2986.25 / 2986.25 250 / 250 Lab / Micro Data 03/27/24 05:35 03/27/24 05:35
== END 2024-03-28 10:42 | disposition home or self-care (01) ==
LOC: MS3 15:53 → SDC 15:53 → MS3 15:54
PROVIDERS: Admitting Provider Urology; PCP Family Medicine; Referring Provider Urology; Visit Provider Urology
PROC: 0VT04ZZ Resection of Prostate, Percutaneous Endoscopic Approach (ICD-10-PCS; CPT 55867; principal; 2024-03-26 07:15)
DX: N40.1 Benign prostatic hyperplasia with lower urinary tract symptoms (principal); E78.00 Pure hypercholesterolemia, unspecified; N13.8 Other obstructive and reflux uropathy; R33.8 Other retention of urine; Z79.899 Other long term (current) drug therapy; Z79.01 Long term (current) use of anticoagulants; I10 Essential (primary) hypertension; K21.9 Gastro-esophageal reflux disease without esophagitis; E78.5 Hyperlipidemia, unspecified; N28.89 Other specified disorders of kidney and ureter; D29.1 Benign neoplasm of prostate
CPT/HCPCS: 55867; 00840; 36415; 80048; 85027; 88309; 96361; 96374; 96375; 99221; A4216; G0378; J2405

== ENCOUNTER 2024-04-27 08:00 | Outpatient (RCR) | payer MEDICARE, OTHER, SELFPAY ==
[2024-02-27 00:53] VITALS: BP 142/86; PULSE 74; RESP 18; TEMP 35.7; BMI 31.5
--- NOTE | 2024-03-22 10:37 | WC ---
Spoke with 's office concerning the starting of HBO treatments. They said he will decide on when the patient will start them at a later date.
[2024-04-07 09:26] VITALS: BP 128/75; PULSE 94; RESP 14; TEMP 35.7
--- NOTE | 2024-04-07 13:33 | PCM.HBO.PN ---
History of Present Illness Date of Service: 04/07/24 Chief Complaint: [facility] consult for radiation cystitis History of Wound: Mr. Delgadillo is an 83-year-old referred by his urologist due to symptomatic radiation cystitis. History of prostatic cancer status post radiation and surgery. Radiation was about 9 years ago. Has had 2 TURP procedures with most recent being a few months ago. History of incontinence and hematuria which improved somewhat following his second TURP. Other conservative measures so far have not been helpful. History of atrial fibrillation on Eliquis. Otherwise, he feels well. No history of diabetes, heart failure, chronic lung disease or tobacco use. He also denies any seizure history. Progress of Wound: Patient was excited to start his first visit with the [facility] and he has a cold and he was seen by his regular doctor but he said it was nothing it was just a cold and not an infection so I told him well we will see how it goes so we checked his ears everything looked okay except his left ear had earwax right ear looked clear and we will try diving. Subjective Subjective Septic did not even get down to the depth and had to be brought back up because of severe right ear pain upon exam the right ear was completely red and the TM was red and looks like it might be perforated. Objective Data Objective Data Patient will be sent to ENT for tubes and then he can return in start over on his [facility] adventure. Vital Signs: Vital Signs Temp Pulse Resp BP 96.3 F L 94 14 128/75 H 04/07/24 09:26 04/07/24 09:26 04/07/24 09:26 04/07/24 09:26 Weight: 220 lb Body Mass Index (BMI) 31.5 Exam Physical Exam Const alert, oriented x3 and no apparent distress General Appearance: cooperative, comfortable and well kempt HEENT normocephalic, head/scalp atraumatic and hearing grossly normal bilaterally Tympanic Membrane: TM abnormal left (Earwax) Eyes EOMs intact bilaterally General Eye: normal appearance of both eyes Neck full ROM, no lymphadenopathy and supple General: normal visual inspection Resp normal respiratory effort and normal air movement Effort and Inspection: able to speak in complete sentences Cardio regular rate, S1 normal heart sound and S2 normal heart sound Rhythm: abnormal rhythm GI soft to palpation, non-tender and non-distended Extremity no pedal edema Skin no wounds Neuro oriented x3, CN's II-XII intact bilaterally, moves all extremities and no focal motor deficits Psych mental status grossly normal, thought process normal and cooperative Assessment/Plan Assessment/Plan (1) Irradiation cystitis with hematuria: CODE(S): N30.41 - Irradiation cystitis with hematuria (2) Perforated right tympanic membrane on examination: CODE(S): H72.91 - Unspecified perforation of tympanic membrane, right ear PLAN: Plan Referred to ENT for tubes and possible antibiotics and he can follow-up with back with HBO treatments. Patient did not receive any HBO treatment today.
[2024-04-09 11:52] VITALS: BP 125/76; BP 138/87; PULSE 102; PULSE 77; RESP 14; RESP 15; TEMP 35.6
--- NOTE | 2024-04-09 13:04 | PCM.HBO.PN ---
History of Present Illness Date of Service: 04/09/24 Chief Complaint: [facility] consult for radiation cystitis History of Wound: Mr. Delgadillo is an 83-year-old referred by his urologist due to symptomatic radiation cystitis. History of prostatic cancer status post radiation and surgery. Radiation was about 9 years ago. Has had 2 TURP procedures with most recent being a few months ago. History of incontinence and hematuria which improved somewhat following his second TURP. Other conservative measures so far have not been helpful. History of atrial fibrillation on Eliquis. Otherwise, he feels well. No history of diabetes, heart failure, chronic lung disease or tobacco use. He also denies any seizure history. Progress of Wound: Progress: Today is the 1st treatment of hyperbaric oxygen therapy. The patient is scheduled for 30 treatments total for treatment of radiation cystitis s/p prostate cancer and radiation treatment. Tolerance of hyperbaric oxygen therapy: Hyperbaric oxygen treatment was provided as per the facility's protocol at 2.0 RAVINDER in 100% oxygen for 90 minutes without air breaks. The patient tolerated hyperbaric oxygen well, without complications or complaints. Upon emergence of the hyperbaric chamber, the patient's vital signs remained stable. Objective Data Objective Data Vital Signs: Vital Signs Temp Pulse Resp BP 96.1 F L 102 H 15 138/87 H 04/09/24 11:52 04/09/24 11:52 04/09/24 11:52 04/09/24 11:52 Weight: 99.79 kg Body Mass Index (BMI) 31.5 Exam Physical Exam Const alert, oriented x3 and no apparent distress HEENT HEENT Narrative: tympanostomy tubes present and open b/l, right with moderate dried blood in EAC but opening to tube visualized Psych mental status grossly normal, thought process normal, cooperative, affect normal and speech normal Assessment/Plan Assessment/Plan (1) Irradiation cystitis with hematuria: CODE(S): N30.41 - Irradiation cystitis with hematuria (2) History of prostate cancer: CODE(S): Z85.46 - Personal history of malignant neoplasm of prostate PLAN: Plan The patient appears to be tolerating hyperbaric oxygen therapy well, which will be continued as per their medical treatment plan.
[2024-04-12 09:15] VITALS: BP 121/71; BP 136/76; PULSE 85; PULSE 92; RESP 16; RESP 18; TEMP 35.5; TEMP 36
--- NOTE | 2024-04-12 10:25 | PCM.HBO.PN ---
History of Present Illness Date of Service: 04/12/24 Chief Complaint: [facility] consult for radiation cystitis History of Wound: Mr. Delgadillo is an 83-year-old referred by his urologist due to symptomatic radiation cystitis. History of prostatic cancer status post radiation and surgery. Radiation was about 9 years ago. Has had 2 TURP procedures with most recent being a few months ago. History of incontinence and hematuria which improved somewhat following his second TURP. Other conservative measures so far have not been helpful. History of atrial fibrillation on Eliquis. Otherwise, he feels well. No history of diabetes, heart failure, chronic lung disease or tobacco use. He also denies any seizure history. Progress of Wound: Progress: Today is the 2nd treatment of hyperbaric oxygen therapy. The patient is scheduled for 30 treatments total for treatment of radiation cystitis s/p prostate cancer and radiation treatment. Tolerance of hyperbaric oxygen therapy: Hyperbaric oxygen treatment was provided as per the facility's protocol at 2.0 RAVINDER in 100% oxygen for 90 minutes without air breaks. The patient tolerated hyperbaric oxygen well, without complications or complaints. Upon emergence of the hyperbaric chamber, the patient's vital signs remained stable. Objective Data Objective Data Vital Signs: Vital Signs Temp Pulse Resp BP 96.8 F L 85 18 121/71 H 04/12/24 09:15 04/12/24 09:15 04/12/24 09:15 04/12/24 09:15 Weight: 220 lb Body Mass Index (BMI) 31.5 Exam Physical Exam Const alert, oriented x3 and no apparent distress HEENT HEENT Narrative: Tympanostomy tubes present and patent bilaterally. Resp normal respiratory effort and clear to auscultation bilaterally Effort and Inspection: able to speak in complete sentences Cardio regular rate and regular rhythm Psych mental status grossly normal, thought process normal, cooperative, affect normal and speech normal Charges/Coding Wound Center [facility] Procedures HBO Supervision: [id number] Hyperbaric Oxygen; supervision Assessment/Plan Assessment/Plan (1) Irradiation cystitis with hematuria: CODE(S): N30.41 - Irradiation cystitis with hematuria (2) History of prostate cancer: CODE(S): Z85.46 - Personal history of malignant neoplasm of prostate PLAN: Plan The patient appears to be tolerating hyperbaric oxygen therapy well, which will be continued as per their medical treatment plan.
--- NOTE | 2024-04-13 09:16 | PCM.HBO.PN ---
History of Present Illness Date of Service: 04/13/24 Chief Complaint: [facility] consult for radiation cystitis History of Wound: Mr. Delgadillo is an 83-year-old referred by his urologist due to symptomatic radiation cystitis. History of prostatic cancer status post radiation and surgery. Radiation was about 9 years ago. Has had 2 TURP procedures with most recent being a few months ago. History of incontinence and hematuria which improved somewhat following his second TURP. Other conservative measures so far have not been helpful. History of atrial fibrillation on Eliquis. Otherwise, he feels well. No history of diabetes, heart failure, chronic lung disease or tobacco use. He also denies any seizure history. Progress of Wound: Progress: Today is the 3rd treatment of hyperbaric oxygen therapy. The patient is scheduled for 30 treatments total for treatment of radiation cystitis s/p prostate cancer and radiation treatment. Tolerance of hyperbaric oxygen therapy: Hyperbaric oxygen treatment was provided as per the facility's protocol at 2.0 RAVINDER in 100% oxygen for 90 minutes without air breaks. The patient tolerated hyperbaric oxygen well, without complications or complaints. Upon emergence of the hyperbaric chamber, the patient's vital signs remained stable. Objective Data Objective Data Vital Signs: Vital Signs Temp Pulse Resp BP 96.8 F L 85 18 121/71 H 04/12/24 09:15 04/12/24 09:15 04/12/24 09:15 04/12/24 09:15 Weight: 220 lb Body Mass Index (BMI) 31.5 Exam Physical Exam Const alert, oriented x3 and no apparent distress HEENT normocephalic HEENT Narrative: Tympanostomy tubes present and patent bilaterally. Eyes General Eye: normal appearance of both eyes Resp normal respiratory effort and clear to auscultation bilaterally Effort and Inspection: able to speak in complete sentences Cardio regular rate Cardio Narrative: Patient is in Afib (this is typical for him) Psych mental status grossly normal, thought process normal, cooperative, affect normal and speech normal Charges/Coding Wound [facility] Procedures HBO Supervision: [id number] Hyperbaric Oxygen; supervision Assessment/Plan Assessment/Plan (1) Irradiation cystitis with hematuria: CODE(S): N30.41 - Irradiation cystitis with hematuria (2) History of prostate cancer: CODE(S): Z85.46 - Personal history of malignant neoplasm of prostate PLAN: Plan The patient appears to be tolerating hyperbaric oxygen therapy well, which will be continued as per their medical treatment plan.
[2024-04-13 10:55] VITALS: BP 125/68; BP 142/87; PULSE 78; PULSE 94; RESP 15; RESP 17; TEMP 35.5; TEMP 35.6
[2024-04-14 12:06] VITALS: BP 129/60; BP 144/71; PULSE 83; PULSE 86; RESP 16; TEMP 35.7; TEMP 36.2
--- NOTE | 2024-04-14 12:47 | PCM.HBO.PN ---
History of Present Illness Date of Service: 04/14/24 Chief Complaint: HBO consult for radiation cystitis History of Wound: Mr. Delgadillo is an 83-year-old referred by his urologist due to symptomatic radiation cystitis. History of prostatic cancer status post radiation and surgery. Radiation was about 9 years ago. Has had 2 TURP procedures with most recent being a few months ago. History of incontinence and hematuria which improved somewhat following his second TURP. Other conservative measures so far have not been helpful. History of atrial fibrillation on Eliquis. Otherwise, he feels well. No history of diabetes, heart failure, chronic lung disease or tobacco use. He also denies any seizure history. Progress of Wound: Progress: Today is the 4th treatment of hyperbaric oxygen therapy. The patient is scheduled for 30 treatments total for treatment of radiation cystitis s/p prostate cancer and radiation treatment. Tolerance of hyperbaric oxygen therapy: Hyperbaric oxygen treatment was provided as per the facility's protocol at 2.0 RAVINDER in 100% oxygen for 90 minutes without air breaks. The patient tolerated hyperbaric oxygen well, without complications or complaints. Upon emergence of the hyperbaric chamber, the patient's vital signs remained stable. Subjective Subjective Patient has no concerns vital signs are stable feeling good tolerated treatment well. Will repeat HBO tomorrow Objective Data Objective Data Continue HBO treatments Vital Signs: Vital Signs Temp Pulse Resp BP 97.2 F L 86 16 129/60 H 04/14/24 12:06 04/14/24 12:06 04/14/24 12:06 04/14/24 12:06 Weight: 220 lb Body Mass Index (BMI) 31.5 Exam Physical Exam Const alert, oriented x3 and no apparent distress HEENT normocephalic HEENT Narrative: Tympanostomy tubes present and patent bilaterally. Eyes General Eye: normal appearance of both eyes Resp normal respiratory effort and clear to auscultation bilaterally Effort and Inspection: able to speak in complete sentences Cardio regular rate Cardio Narrative: Patient is in Afib (this is typical for him) Psych mental status grossly normal, thought process normal, cooperative, affect normal and speech normal Assessment/Plan Assessment/Plan (1) Irradiation cystitis with hematuria: CODE(S): N30.41 - Irradiation cystitis with hematuria (2) History of prostate cancer: CODE(S): Z85.46 - Personal history of malignant neoplasm of prostate PLAN: Plan The patient appears to be tolerating hyperbaric oxygen therapy well, which will be continued as per their medical treatment plan.
--- NOTE | 2024-04-15 08:54 | PCM.HBO.PN ---
History of Present Illness Date of Service: 04/15/24 Chief Complaint: HBO consult for radiation cystitis History of Wound: Mr. Delgadillo is an 83-year-old referred by his urologist due to symptomatic radiation cystitis. History of prostatic cancer status post radiation and surgery. Radiation was about 9 years ago. Has had 2 TURP procedures with most recent being a few months ago. History of incontinence and hematuria which improved somewhat following his second TURP. Other conservative measures so far have not been helpful. History of atrial fibrillation on Eliquis. Otherwise, he feels well. No history of diabetes, heart failure, chronic lung disease or tobacco use. He also denies any seizure history. Progress of Wound: Progress: Today is the 5 th treatment of hyperbaric oxygen therapy. The patient is scheduled for 30 treatments total for treatment of radiation cystitis s/p prostate cancer and radiation treatment. Tolerance of hyperbaric oxygen therapy: Hyperbaric oxygen treatment was provided as per the facility's protocol at 2.0 RAVINDER in 100% oxygen for 90 minutes without air breaks. The patient tolerated hyperbaric oxygen well, without complications or complaints. Upon emergence of the hyperbaric chamber, the patient's vital signs remained stable. Objective Data Objective Data Vital Signs: Vital Signs Temp Pulse Resp BP 97.2 F L 86 16 129/60 H 04/14/24 12:06 04/14/24 12:06 04/14/24 12:06 04/14/24 12:06 Weight: 220 lb Body Mass Index (BMI) 31.5 Exam Physical Exam Const alert, oriented x3 and no apparent distress HEENT normocephalic HEENT Narrative: Tympanostomy tubes present and patent bilaterally. Eyes General Eye: normal appearance of both eyes Resp normal respiratory effort and clear to auscultation bilaterally Effort and Inspection: able to speak in complete sentences Cardio regular rate Cardio Narrative: Patient is in Afib (this is typical for him) Psych mental status grossly normal, thought process normal, cooperative, affect normal and speech normal Assessment/Plan Assessment/Plan (1) Irradiation cystitis with hematuria: CODE(S): N30.41 - Irradiation cystitis with hematuria (2) History of prostate cancer: CODE(S): Z85.46 - Personal history of malignant neoplasm of prostate PLAN: Plan The patient appears to be tolerating hyperbaric oxygen therapy well, which will be continued as per their medical treatment plan.
[2024-04-15 09:51] VITALS: BP 126/81; BP 130/66; PULSE 100; PULSE 81; RESP 15; RESP 17; TEMP 35.6
[2024-04-16 10:24] VITALS: BP 130/71; BP 130/73; PULSE 83; PULSE 94; RESP 16; TEMP 35.9; TEMP 36.4
--- NOTE | 2024-04-16 13:16 | PCM.HBO.PN ---
History of Present Illness Date of Service: 04/16/24 Chief Complaint: HBO consult for radiation cystitis History of Wound: Mr. Delgadillo is an 83-year-old referred by his urologist due to symptomatic radiation cystitis. History of prostatic cancer status post radiation and surgery. Radiation was about 9 years ago. Has had 2 TURP procedures with most recent being a few months ago. History of incontinence and hematuria which improved somewhat following his second TURP. Other conservative measures so far have not been helpful. History of atrial fibrillation on Eliquis. Otherwise, he feels well. No history of diabetes, heart failure, chronic lung disease or tobacco use. He also denies any seizure history. Progress of Wound: Progress: Today is the 6 th treatment of hyperbaric oxygen therapy. The patient is scheduled for 30 treatments total for treatment of radiation cystitis s/p prostate cancer and radiation treatment. Tolerance of hyperbaric oxygen therapy: Hyperbaric oxygen treatment was provided as per the facility's protocol at 2.0 RAVINDER in 100% oxygen for 90 minutes without air breaks. The patient tolerated hyperbaric oxygen well, without complications or complaints. Upon emergence of the hyperbaric chamber, the patient's vital signs remained stable. Objective Data Objective Data Vital Signs: Vital Signs Temp Pulse Resp BP 96.6 F L 94 16 130/71 H 04/16/24 10:24 04/16/24 10:24 04/16/24 10:24 04/16/24 10:24 Weight: 99.79 kg Body Mass Index (BMI) 31.5 Exam Physical Exam Const alert, oriented x3 and no apparent distress HEENT HEENT Narrative: tympanostomy tubes present bilaterally and patent Psych mental status grossly normal, thought process normal, cooperative, affect normal and speech normal Assessment/Plan Assessment/Plan (1) Irradiation cystitis with hematuria: CODE(S): N30.41 - Irradiation cystitis with hematuria (2) History of prostate cancer: CODE(S): Z85.46 - Personal history of malignant neoplasm of prostate PLAN: Plan The patient appears to be tolerating hyperbaric oxygen therapy well, which will be continued as per their medical treatment plan.
--- NOTE | 2024-04-19 09:27 | PCM.HBO.PN ---
History of Present Illness Date of Service: 04/19/24 Chief Complaint: HBO consult for radiation cystitis History of Wound: Mr. Delgadillo is an 83-year-old referred by his urologist due to symptomatic radiation cystitis. History of prostatic cancer status post radiation and surgery. Radiation was about 9 years ago. Has had 2 TURP procedures with most recent being a few months ago. History of incontinence and hematuria which improved somewhat following his second TURP. Other conservative measures so far have not been helpful. History of atrial fibrillation on Eliquis. Otherwise, he feels well. No history of diabetes, heart failure, chronic lung disease or tobacco use. He also denies any seizure history. Progress of Wound: Progress: Today is the 7 th treatment of hyperbaric oxygen therapy. The patient is scheduled for 30 treatments total for treatment of radiation cystitis s/p prostate cancer and radiation treatment. Tolerance of hyperbaric oxygen therapy: Hyperbaric oxygen treatment was provided as per the facility's protocol at 2.0 RAVINDER in 100% oxygen for 90 minutes without air breaks. The patient tolerated hyperbaric oxygen well, without complications or complaints. Upon emergence of the hyperbaric chamber, the patient's vital signs remained stable. Objective Data Objective Data Vital Signs: Vital Signs Temp Pulse Resp BP 96.6 F L 94 16 130/71 H 04/16/24 10:24 04/16/24 10:24 04/16/24 10:24 04/16/24 10:24 Weight: 220 lb Body Mass Index (BMI) 31.5 Exam Physical Exam Const alert, oriented x3 and no apparent distress HEENT normocephalic HEENT Narrative: Tympanostomy tubes present and patent bilaterally. Eyes General Eye: normal appearance of both eyes Resp normal respiratory effort and clear to auscultation bilaterally Effort and Inspection: able to speak in complete sentences Cardio regular rate Cardio Narrative: Patient is in Afib (this is typical for him) Psych mental status grossly normal, thought process normal, cooperative, affect normal and speech normal Charges/Coding [facility] Procedures HBO Supervision: [id number] Hyperbaric Oxygen; supervision Assessment/Plan Assessment/Plan (1) Irradiation cystitis with hematuria: CODE(S): N30.41 - Irradiation cystitis with hematuria (2) History of prostate cancer: CODE(S): Z85.46 - Personal history of malignant neoplasm of prostate PLAN: Plan The patient appears to be tolerating hyperbaric oxygen therapy well, which will be continued as per their medical treatment plan.
[2024-04-19 09:59] VITALS: BP 130/80; BP 150/90; PULSE 108; PULSE 99; RESP 16; RESP 17; TEMP 35.5; TEMP 35.6
--- NOTE | 2024-04-22 09:22 | HBO.PN.PCM_ITS ---
History of Present Illness Date of Service: 04/22/24 Chief Complaint: HBO consult for radiation cystitis History of Wound: Mr. Delgadillo is an 83-year-old referred by his urologist due to symptomatic radiation cystitis. History of prostatic cancer status post radiation and surgery. Radiation was about 9 years ago. Has had 2 TURP procedures with most recent being a few months ago. History of incontinence and hematuria which improved somewhat following his second TURP. Other conservative measures so far have not been helpful. History of atrial fibrillation on Eliquis. Otherwise, he feels well. No history of diabetes, heart failure, chronic lung disease or tobacco use. He also denies any seizure history. Progress of Wound: Progress: Today is the 8th treatment of hyperbaric oxygen therapy. He is scheduled for 30 treatments for treatment of radiation cystitis s/p prostate cancer and radiation treatment. Tolerance of hyperbaric oxygen therapy: Hyperbaric oxygen treatment was provided as per the facility's protocol at 2.0 RAVINDER in 100% oxygen for 90 minutes without air breaks. The patient tolerated hyperbaric oxygen well, without complications or complaints. Upon emergence from the hyperbaric chamber, his vitals remained stable, he was discharged in stable condition. Objective Data Objective Data Vital Signs: Vital Signs Temp Pulse Resp BP 96 F L 108 H 17 130/80 H 04/19/24 09:59 04/19/24 09:59 04/19/24 09:59 04/19/24 09:59 Weight: 220 lb Body Mass Index (BMI) 31.5 Exam Physical Exam Const alert, oriented x3 and no apparent distress General Appearance: cooperative, comfortable and well kempt HEENT normocephalic, head/scalp atraumatic and hearing grossly normal bilaterally Tympanic Membrane: TM's normal bilaterally and other Other Details: Bilateral tympanostomy tubes noted. Eyes EOMs intact bilaterally General Eye: normal appearance of both eyes Resp normal respiratory effort Effort and Inspection: able to speak in complete sentences Neuro oriented x3, CN's II-XII intact bilaterally, moves all extremities and no focal motor deficits Psych mental status grossly normal, thought process normal and cooperative Charges/Coding [facility] Procedures HBO Supervision: [id number] Hyperbaric Oxygen; supervision Assessment/Plan Assessment/Plan (1) Irradiation cystitis with hematuria: CODE(S): N30.41 - Irradiation cystitis with hematuria (2) History of prostate cancer: CODE(S): Z85.46 - Personal history of malignant neoplasm of prostate PLAN: Plan The patient appears to be tolerating hyperbaric oxygen therapy well, which will be continued as per his medical treatment plan. This note was generated with [employer] dictation software. It may contain incorrect words, spelling, and punctuation that were not noted in checking the note before signing.
[2024-04-22 10:14] VITALS: BP 131/68; BP 161/98; PULSE 78; PULSE 84; RESP 15; RESP 16; TEMP 35.6
[2024-04-23 10:25] VITALS: BP 136/95; BP 137/69; PULSE 81; PULSE 93; RESP 16; RESP 17; TEMP 35.6; TEMP 35.8
--- NOTE | 2024-04-23 14:11 | PCM.HBO.PN ---
History of Present Illness Date of Service: 04/23/24 Chief Complaint: HBO consult for radiation cystitis History of Wound: Mr. Delgadillo is an 83-year-old referred by his urologist due to symptomatic radiation cystitis. History of prostatic cancer status post radiation and surgery. Radiation was about 9 years ago. Has had 2 TURP procedures with most recent being a few months ago. History of incontinence and hematuria which improved somewhat following his second TURP. Other conservative measures so far have not been helpful. History of atrial fibrillation on Eliquis. Otherwise, he feels well. No history of diabetes, heart failure, chronic lung disease or tobacco use. He also denies any seizure history. Progress of Wound: Progress: Today is the 9th treatment of hyperbaric oxygen therapy. He is scheduled for 30 treatments for treatment of radiation cystitis s/p prostate cancer and radiation treatment. Tolerance of hyperbaric oxygen therapy: Hyperbaric oxygen treatment was provided as per the facility's protocol at 2.0 RAVINDER in 100% oxygen for 90 minutes without air breaks. The patient tolerated hyperbaric oxygen well, without complications or complaints. Upon emergence from the hyperbaric chamber, his vitals remained stable, he was discharged in stable condition. Objective Data Objective Data Vital Signs: Vital Signs Temp Pulse Resp BP 96.5 F L 93 17 136/95 H 04/23/24 10:25 04/23/24 10:25 04/23/24 10:25 04/23/24 10:25 Weight: 99.79 kg Body Mass Index (BMI) 31.5 Exam Physical Exam Const alert, oriented x3 and no apparent distress Psych mental status grossly normal, thought process normal, cooperative, affect normal and speech normal Assessment/Plan Assessment/Plan (1) Irradiation cystitis with hematuria: CODE(S): N30.41 - Irradiation cystitis with hematuria (2) History of prostate cancer: CODE(S): Z85.46 - Personal history of malignant neoplasm of prostate PLAN: Plan The patient appears to be tolerating hyperbaric oxygen therapy well, which will be continued as per their medical treatment plan.
--- NOTE | 2024-04-26 10:41 | PCM.HBO.PN ---
History of Present Illness Date of Service: 04/26/24 Chief Complaint: HBO consult for radiation cystitis History of Wound: Mr. Delgadillo is an 83-year-old referred by his urologist due to symptomatic radiation cystitis. History of prostatic cancer status post radiation and surgery. Radiation was about 9 years ago. Has had 2 TURP procedures with most recent being a few months ago. History of incontinence and hematuria which improved somewhat following his second TURP. Other conservative measures so far have not been helpful. History of atrial fibrillation on Eliquis. Otherwise, he feels well. No history of diabetes, heart failure, chronic lung disease or tobacco use. He also denies any seizure history. Progress of Wound: Progress: Today is the 9th treatment of hyperbaric oxygen therapy. He is scheduled for 30 treatments for treatment of radiation cystitis s/p prostate cancer and radiation treatment. Tolerance of hyperbaric oxygen therapy: Hyperbaric oxygen treatment was provided as per the facility's protocol at 2.0 RAVINDER in 100% oxygen for 90 minutes without air breaks. The patient tolerated hyperbaric oxygen well, without complications or complaints. Upon emergence from the hyperbaric chamber, his vitals remained stable, he was discharged in stable condition. Objective Data Objective Data Vital Signs: Vital Signs Temp Pulse Resp BP 96.5 F L 93 17 136/95 H 04/23/24 10:25 04/23/24 10:25 04/23/24 10:25 04/23/24 10:25 Weight: 220 lb Body Mass Index (BMI) 31.5
[2024-04-26 11:04] VITALS: BP 137/75; BP 139/95; PULSE 77; PULSE 84; RESP 16; RESP 18; TEMP 35.3; TEMP 35.8
[2024-04-27 08:26] VITALS: BP 138/67; BP 142/94; PULSE 77; PULSE 83; RESP 16; RESP 18; TEMP 35.5; TEMP 35.8
== END 2024-04-27 23:59 | disposition home or self-care (01) ==
LOC: WC 08:00
PROVIDERS: PCP Family Medicine; Referring Provider Urology; Visit Provider Internal Medicine
DX: N30.41 Irradiation cystitis with hematuria (principal); I48.91 Unspecified atrial fibrillation; H72.91 Unspecified perforation of tympanic membrane, right ear; Z85.46 Personal history of malignant neoplasm of prostate; Z92.3 Personal history of irradiation; Z79.01 Long term (current) use of anticoagulants; Z79.899 Other long term (current) drug therapy
CPT/HCPCS: 99183; 99213; G0277; G0463

== ENCOUNTER 2024-05-28 08:00 | Outpatient (RCR) | payer MEDICARE, OTHER, SELFPAY ==
[2024-04-28 00:34] VITALS: BP 138/67; BP 142/86; BP 142/94; PULSE 74; PULSE 77; PULSE 83; RESP 16; RESP 18; TEMP 35.5; TEMP 35.7; TEMP 35.8; BMI 31.5
--- NOTE | 2024-04-29 09:05 | PCM.HBO.PN ---
History of Present Illness Date of Service: 04/26/24 Chief Complaint: HBO consult for radiation cystitis History of Wound: Mr. Delgadillo is an 83-year-old referred by his urologist due to symptomatic radiation cystitis. History of prostatic cancer status post radiation and surgery. Radiation was about 9 years ago. Has had 2 TURP procedures with most recent being a few months ago. History of incontinence and hematuria which improved somewhat following his second TURP. Other conservative measures so far have not been helpful. History of atrial fibrillation on Eliquis. Otherwise, he feels well. No history of diabetes, heart failure, chronic lung disease or tobacco use. He also denies any seizure history. Progress of Wound: Progress: Today is the 10th treatment of hyperbaric oxygen therapy. He is scheduled for 30 treatments for treatment of radiation cystitis s/p prostate cancer and radiation treatment. Tolerance of hyperbaric oxygen therapy: Hyperbaric oxygen treatment was provided as per the facility's protocol at 2.0 RAVINDER in 100% oxygen for 90 minutes without air breaks. The patient tolerated hyperbaric oxygen well, without complications or complaints. Upon emergence from the hyperbaric chamber, his vitals remained stable, he was discharged in stable condition. Current encounter, 29 Apr 2023: Doing well. No complaints with ears of with breathing. Tolerating HBO well. Objective Data Objective Data Vital Signs: Vital Signs Temp Pulse Resp BP 96.5 F L 77 18 138/67 H 04/28/24 00:34 04/28/24 00:34 04/28/24 00:34 04/28/24 00:34 Weight: 220 lb Body Mass Index (BMI) 31.5 Exam Physical Exam Const alert, oriented x3 and no apparent distress Resp normal respiratory effort Auscultation: clear to auscultation bilaterally Cardio regular rate Cardio Narrative: Atrial fibrillation Psych mental status grossly normal, thought process normal, cooperative, affect normal and speech normal Charges/[facility] Procedures HBO Supervision: [id number] Hyperbaric Oxygen; supervision Assessment/Plan Assessment/Plan (1) Irradiation cystitis with hematuria: CODE(S): N30.41 - Irradiation cystitis with hematuria (2) History of prostate cancer: CODE(S): Z85.46 - Personal history of malignant neoplasm of prostate PLAN: Plan The patient appears to be tolerating hyperbaric oxygen therapy well, which will be continued as per their medical treatment plan.
[2024-04-29 10:57] VITALS: BP 130/71; BP 132/64; PULSE 73; PULSE 79; RESP 15; RESP 16; TEMP 35.8; TEMP 36.1
[2024-04-30 10:23] VITALS: BP 117/85; BP 134/79; PULSE 82; PULSE 85; RESP 16; RESP 17; TEMP 36; TEMP 36.1
--- NOTE | 2024-04-30 14:06 | PCM.HBO.PN ---
History of Present Illness Date of Service: 04/30/24 Chief Complaint: HBO consult for radiation cystitis History of Wound: Mr. Delgadillo is an 83-year-old referred by his urologist due to symptomatic radiation cystitis. History of prostatic cancer status post radiation and surgery. Radiation was about 9 years ago. Has had 2 TURP procedures with most recent being a few months ago. History of incontinence and hematuria which improved somewhat following his second TURP. Other conservative measures so far have not been helpful. History of atrial fibrillation on Eliquis. Otherwise, he feels well. No history of diabetes, heart failure, chronic lung disease or tobacco use. He also denies any seizure history. Progress of Wound: Progress: Today is the 13th treatment of hyperbaric oxygen therapy. He is scheduled for 30 treatments for treatment of radiation cystitis s/p prostate cancer and radiation treatment. Tolerance of hyperbaric oxygen therapy: Hyperbaric oxygen treatment was provided as per the facility's protocol at 2.0 RAVINDER in 100% oxygen for 90 minutes without air breaks. The patient tolerated hyperbaric oxygen well, without complications or complaints. Upon emergence from the hyperbaric chamber, his vitals remained stable, he was discharged in stable condition. Current encounter, 30 Apr 2023: Doing well. No complaints with ears or with breathing. Tolerating HBO well. Objective Data Objective Data Vital Signs: Vital Signs Temp Pulse Resp BP 96.8 F L 85 17 117/85 H 04/30/24 10:23 04/30/24 10:23 04/30/24 10:23 04/30/24 10:23 Weight: 99.79 kg Body Mass Index (BMI) 31.5 Exam Physical Exam Const alert, oriented x3 and no apparent distress HEENT HEENT Narrative: blue tympanostomy tubes present in TM's bilaterally and patent Psych mental status grossly normal, thought process normal, cooperative, affect normal and speech normal Assessment/Plan Assessment/Plan (1) Irradiation cystitis with hematuria: CODE(S): N30.41 - Irradiation cystitis with hematuria (2) History of prostate cancer: CODE(S): Z85.46 - Personal history of malignant neoplasm of prostate PLAN: Plan The patient appears to be tolerating hyperbaric oxygen therapy well, which will be continued as per their medical treatment plan.
--- NOTE | 2024-05-01 16:10 | PCM.HBO.PN ---
History of Present Illness Date of Service: 04/27/24 Chief Complaint: Radiation cystitis History of Wound: Mr. Delgadillo is an 83-year-old referred by his urologist due to symptomatic radiation cystitis. He has a history of prostatic cancer, and is status-post radiation and surgery. Radiation was about 9 years ago. Has had 2 TURP procedures with the most recent being a few months ago. He has a history of incontinence and hematuria which improved somewhat following his second TURP. Other conservative measures so far have not been helpful. He has a history of atrial fibrillation and is on Eliquis. Otherwise, he feels well. No history of diabetes, heart failure, chronic lung disease or tobacco use. He also denies any seizure history. Progress of Wound: Progress: Today is the 11th treatment of hyperbaric oxygen therapy. He is scheduled for 30 treatments for treatment of radiation cystitis s/p prostate cancer and radiation treatment. Tolerance of hyperbaric oxygen therapy: Hyperbaric oxygen treatment was provided as per the facility's protocol at 2.0 RAVINDER in 100% oxygen for 90 minutes without air breaks. The patient tolerated hyperbaric oxygen well, without complications or complaints. Upon emergence from the hyperbaric chamber, his vitals remained stable, and he was discharged in stable condition. Current encounter: Doing well. No complaints with ears or with breathing. Tolerating HBO well. Objective Data Objective Data Vital Signs: Vital Signs Temp Pulse Resp BP 96.8 F L 85 17 117/85 H 04/30/24 10:23 04/30/24 10:23 04/30/24 10:23 04/30/24 10:23 Weight: 220 lb Body Mass Index (BMI) 31.5 Exam Physical Exam Const alert, oriented x3, no apparent distress and well nourished General Appearance: cooperative and well developed HEENT normocephalic HEENT Narrative: blue tympanostomy tubes present in TM's bilaterally and patent Head and Scalp: atraumatic Eyes EOMs intact bilaterally Resp normal respiratory effort, no use of accessory muscles and clear to auscultation bilaterally Effort and Inspection: able to speak in complete sentences Psych mental status grossly normal, thought process normal, cooperative, affect normal and speech normal Appearance: grossly normal Speech: normal speech Charges/Coding [facility] Procedures HBO Supervision: [id number] Hyperbaric Oxygen; supervision Assessment/Plan Assessment/Plan (1) Irradiation cystitis with hematuria: CODE(S): N30.41 - Irradiation cystitis with hematuria (2) History of prostate cancer: CODE(S): Z85.46 - Personal history of malignant neoplasm of prostate PLAN: Plan The patient appears to be tolerating hyperbaric oxygen therapy well, which will be continued as per his medical treatment plan.
--- NOTE | 2024-05-03 09:59 | PCM.HBO.PN ---
History of Present Illness Date of Service: 05/03/24 Chief Complaint: Radiation cystitis History of Wound: Mr. Delgadillo is an 83-year-old referred by his urologist due to symptomatic radiation cystitis. He has a history of prostatic cancer, and is status-post radiation and surgery. Radiation was about 9 years ago. Has had 2 TURP procedures with the most recent being a few months ago. He has a history of incontinence and hematuria which improved somewhat following his second TURP. Other conservative measures so far have not been helpful. He has a history of atrial fibrillation and is on Eliquis. Otherwise, he feels well. No history of diabetes, heart failure, chronic lung disease or tobacco use. He also denies any seizure history. Progress of Wound: Progress: Today is the 14th treatment of hyperbaric oxygen therapy. He is scheduled for 30 treatments for treatment of radiation cystitis s/p prostate cancer and radiation treatment. Tolerance of hyperbaric oxygen therapy: Hyperbaric oxygen treatment was provided as per the facility's protocol at 2.0 RAVINDER in 100% oxygen for 90 minutes without air breaks. The patient tolerated hyperbaric oxygen well, without complications or complaints. Upon emergence from the hyperbaric chamber, his vitals remained stable, and he was discharged in stable condition. Current encounter: Lost his on last week to a heart attack. Seems to be coping as well as he possibly could. No complaints with ears or with breathing. Tolerating HBO well. Objective Data Objective Data Vital Signs: Vital Signs Temp Pulse Resp BP 96.8 F L 85 17 117/85 H 04/30/24 10:23 04/30/24 10:23 04/30/24 10:23 04/30/24 10:23 Weight: 220 lb Body Mass Index (BMI) 31.5 Exam Physical Exam Const alert, oriented x3 and no apparent distress HEENT External Ear: external ears normal and other External Auditory Canal: other Other Details: Tympanostomy tubes in the ears bilaterally . Seem to be in place Resp normal respiratory effort Auscultation: clear to auscultation bilaterally Cardio regular rate Cardio Narrative: Atrial fibrillation Psych mental status grossly normal, thought process normal, cooperative, affect normal and speech normal Charges/Coding Multi Select Codes Wound Center [facility] Procedures Wound Center HBO: [id number] Hyperbaric Oxygen; supervision Assessment/Plan Assessment/Plan (1) Irradiation cystitis with hematuria: CODE(S): N30.41 - Irradiation cystitis with hematuria (2) History of prostate cancer: CODE(S): Z85.46 - Personal history of malignant neoplasm of prostate PLAN: Plan The patient appears to be tolerating hyperbaric oxygen therapy well, which will be continued as per his medical treatment plan.
[2024-05-03 10:53] VITALS: BP 124/73; BP 125/68; PULSE 69; PULSE 97; RESP 14; RESP 15; TEMP 35.6
--- NOTE | 2024-05-04 09:58 | PCM.HBO.PN ---
History of Present Illness Date of Service: 05/04/24 Chief Complaint: Radiation cystitis History of Wound: Mr. Delgadillo is an 83-year-old referred by his urologist due to symptomatic radiation cystitis. He has a history of prostatic cancer, and is status-post radiation and surgery. Radiation was about 9 years ago. Has had 2 TURP procedures with the most recent being a few months ago. He has a history of incontinence and hematuria which improved somewhat following his second TURP. Other conservative measures so far have not been helpful. He has a history of atrial fibrillation and is on Eliquis. Otherwise, he feels well. No history of diabetes, heart failure, chronic lung disease or tobacco use. He also denies any seizure history. Progress of Wound: Progress: Today is the 15th treatment of hyperbaric oxygen therapy. He is scheduled for 30 treatments for treatment of radiation cystitis s/p prostate cancer and radiation treatment. Tolerance of hyperbaric oxygen therapy: Hyperbaric oxygen treatment was provided as per the facility's protocol at 2.0 RAVINDER in 100% oxygen for 90 minutes without air breaks. The patient tolerated hyperbaric oxygen well, without complications or complaints. Upon emergence from the hyperbaric chamber, his vitals remained stable, and he was discharged in stable condition. Objective Data Objective Data Vital Signs: Vital Signs Temp Pulse Resp BP 96.0 F L 97 15 125/68 H 05/03/24 10:53 05/03/24 10:53 05/03/24 10:53 05/03/24 10:53 Weight: 220 lb Body Mass Index (BMI) 31.5 Exam Physical Exam Const alert, oriented x3 and no apparent distress HEENT normocephalic HEENT Narrative: Tympanostomy tubes present. Right ear with increased drainage and the white inner canula of the tube has come out. Eyes General Eye: normal appearance of both eyes Resp normal respiratory effort and clear to auscultation bilaterally Effort and Inspection: able to speak in complete sentences Cardio regular rate Cardio Narrative: Patient is in Afib (this is typical for him) Psych mental status grossly normal, thought process normal, cooperative, affect normal and speech normal Charges/Coding Wound Center CF Procedures HBO Supervision: [id number] Hyperbaric Oxygen; supervision Assessment/Plan Assessment/Plan (1) Irradiation cystitis with hematuria: CODE(S): N30.41 - Irradiation cystitis with hematuria (2) History of prostate cancer: CODE(S): Z85.46 - Personal history of malignant neoplasm of prostate PLAN: Plan The patient appears to be tolerating hyperbaric oxygen therapy well, which will be continued as per his medical treatment plan.
[2024-05-04 10:29] VITALS: BP 136/88; BP 150/84; PULSE 90; PULSE 94; RESP 14; RESP 15; TEMP 35.4; TEMP 35.5
[2024-05-05 09:24] VITALS: BP 135/74; BP 144/84; PULSE 92; PULSE 96; RESP 16; TEMP 35.8; TEMP 36.1
--- NOTE | 2024-05-05 13:12 | PCM.HBO.PN ---
History of Present Illness Date of Service: 05/05/24 Chief Complaint: Radiation cystitis History of Wound: Mr. Delgadillo is an 83-year-old referred by his urologist due to symptomatic radiation cystitis. He has a history of prostatic cancer, and is status-post radiation and surgery. Radiation was about 9 years ago. Has had 2 TURP procedures with the most recent being a few months ago. He has a history of incontinence and hematuria which improved somewhat following his second TURP. Other conservative measures so far have not been helpful. He has a history of atrial fibrillation and is on Eliquis. Otherwise, he feels well. No history of diabetes, heart failure, chronic lung disease or tobacco use. He also denies any seizure history. Progress of Wound: Progress: Today is the 16th treatment of hyperbaric oxygen therapy. He is scheduled for 30 treatments for treatment of radiation cystitis s/p prostate cancer and radiation treatment. Tolerance of hyperbaric oxygen therapy: Hyperbaric oxygen treatment was provided as per the facility's protocol at 2.0 RAVINDER in 100% oxygen for 90 minutes without air breaks. The patient tolerated hyperbaric oxygen well, without complications or complaints. Upon emergence from the hyperbaric chamber, his vitals remained stable, and he was discharged in stable condition. Subjective Subjective Patient tolerated treatments well vital signs have been stable he is in good spirits Objective Data Objective Data Vital signs stable tolerated treatments well discharged without any occurrences Vital Signs: Vital Signs Temp Pulse Resp BP 96.4 F L 92 16 135/74 H 05/05/24 09:24 05/05/24 09:24 05/05/24 09:24 05/05/24 09:24 Weight: 220 lb Body Mass Index (BMI) 31.5 Exam Physical Exam Const alert, oriented x3 and no apparent distress HEENT normocephalic HEENT Narrative: Tympanostomy tubes present. Right ear with increased drainage and the white inner canula of the tube has come out. Eyes General Eye: normal appearance of both eyes Resp normal respiratory effort and clear to auscultation bilaterally Effort and Inspection: able to speak in complete sentences Cardio regular rate Cardio Narrative: Patient is in Afib (this is typical for him) Psych mental status grossly normal, thought process normal, cooperative, affect normal and speech normal Assessment/Plan Assessment/Plan (1) Irradiation cystitis with hematuria: CODE(S): N30.41 - Irradiation cystitis with hematuria (2) History of prostate cancer: CODE(S): Z85.46 - Personal history of malignant neoplasm of prostate PLAN: Plan The patient appears to be tolerating hyperbaric oxygen therapy well, which will be continued as per his medical treatment plan.
--- NOTE | 2024-05-06 10:21 | PCM.HBO.PN ---
History of Present Illness Date of Service: 05/06/24 Chief Complaint: Radiation cystitis History of Wound: Mr. Delgadillo is an 83-year-old referred by his urologist due to symptomatic radiation cystitis. He has a history of prostatic cancer, and is status-post radiation and surgery. Radiation was about 9 years ago. Has had 2 TURP procedures with the most recent being a few months ago. He has a history of incontinence and hematuria which improved somewhat following his second TURP. Other conservative measures so far have not been helpful. He has a history of atrial fibrillation and is on Eliquis. Otherwise, he feels well. No history of diabetes, heart failure, chronic lung disease or tobacco use. He also denies any seizure history. Progress of Wound: Progress: Today represents the 17th of 30 planned sessions of hyperbaric oxygen treatments. Tolerance of hyperbaric oxygen therapy: Hyperbaric oxygen treatment was provided as per the facility's protocol at 2.0 RAVINDER in 100% oxygen for 90 minutes without air breaks. The patient tolerated hyperbaric oxygen well, without complications or complaints. Upon emergence from the hyperbaric chamber, his vitals remained stable, and he was discharged in stable condition. Objective Data Objective Data Vital Signs: Vital Signs Temp Pulse Resp BP 96.4 F L 92 16 135/74 H 05/05/24 09:24 05/05/24 09:24 05/05/24 09:24 05/05/24 09:24 Weight: 220 lb Body Mass Index (BMI) 31.5 Exam Physical Exam Const alert, oriented x3 and no apparent distress General Appearance: cooperative, comfortable and well kempt HEENT normocephalic, head/scalp atraumatic and hearing grossly normal bilaterally Eyes EOMs intact bilaterally General Eye: normal appearance of both eyes Resp normal respiratory effort Effort and Inspection: able to speak in complete sentences Neuro oriented x3, CN's II-XII intact bilaterally, moves all extremities and no focal motor deficits Psych mental status grossly normal, thought process normal and cooperative Charges/Coding Wound Center CF Procedures HBO Supervision: [id number] Hyperbaric Oxygen; supervision Assessment/Plan Assessment/Plan (1) Irradiation cystitis with hematuria: CODE(S): N30.41 - Irradiation cystitis with hematuria (2) History of prostate cancer: CODE(S): Z85.46 - Personal history of malignant neoplasm of prostate PLAN: Plan The patient appears to be tolerating hyperbaric oxygen therapy well, which will be continued as per his medical treatment plan. This note was generated with [employer] dictation software. It may contain incorrect words, spelling, and punctuation that were not noted in checking the note before signing.
[2024-05-06 11:15] VITALS: BP 137/84; BP 151/72; PULSE 102; PULSE 122; RESP 14; RESP 17; TEMP 35.8; TEMP 36.2
[2024-05-07 10:48] VITALS: BP 129/92; BP 137/60; PULSE 79; PULSE 90; RESP 15; RESP 16; TEMP 35.1; TEMP 35.6
--- NOTE | 2024-05-07 12:04 | PCM.HBO.PN ---
History of Present Illness Date of Service: 05/07/24 Chief Complaint: Radiation cystitis History of Wound: Mr. Delgadillo is an 83-year-old referred by his urologist due to symptomatic radiation cystitis. He has a history of prostatic cancer, and is status-post radiation and surgery. Radiation was about 9 years ago. Has had 2 TURP procedures with the most recent being a few months ago. He has a history of incontinence and hematuria which improved somewhat following his second TURP. Other conservative measures so far have not been helpful. He has a history of atrial fibrillation and is on Eliquis. Otherwise, he feels well. No history of diabetes, heart failure, chronic lung disease or tobacco use. He also denies any seizure history. Progress of Wound: Progress: Today represents the 18th of 30 planned sessions of hyperbaric oxygen treatments. Tolerance of hyperbaric oxygen therapy: Hyperbaric oxygen treatment was provided as per the facility's protocol at 2.0 RAVINDER in 100% oxygen for 90 minutes without air breaks. The patient tolerated hyperbaric oxygen well, without complications or complaints. Upon emergence from the hyperbaric chamber, his vitals remained stable, and he was discharged in stable condition. Objective Data Objective Data Vital Signs: Vital Signs Temp Pulse Resp BP 95.2 F L 79 16 137/60 H 05/07/24 10:48 05/07/24 10:48 05/07/24 10:48 05/07/24 10:48 Weight: 99.79 kg Body Mass Index (BMI) 31.5 Exam Physical Exam Const alert, oriented x3 and no apparent distress HEENT HEENT Narrative: blue tympanostomy tubes present in TM's bilaterally and patent Psych mental status grossly normal, thought process normal, cooperative, affect normal and speech normal Assessment/Plan Assessment/Plan (1) Irradiation cystitis with hematuria: CODE(S): N30.41 - Irradiation cystitis with hematuria (2) History of prostate cancer: CODE(S): Z85.46 - Personal history of malignant neoplasm of prostate PLAN: Plan The patient appears to be tolerating hyperbaric oxygen therapy well, which will be continued as per their medical treatment plan.
[2024-05-10 08:36] VITALS: BP 135/87; BP 154/90; PULSE 83; PULSE 87; RESP 16; TEMP 35.8
--- NOTE | 2024-05-10 10:11 | PCM.HBO.PN ---
History of Present Illness Date of Service: 05/10/24 Chief Complaint: Radiation cystitis History of Wound: Mr. Delgadillo is an 83-year-old referred by his urologist due to symptomatic radiation cystitis. He has a history of prostatic cancer, and is status-post radiation and surgery. Radiation was about 9 years ago. Has had 2 TURP procedures with the most recent being a few months ago. He has a history of incontinence and hematuria which improved somewhat following his second TURP. Other conservative measures so far have not been helpful. He has a history of atrial fibrillation and is on Eliquis. Otherwise, he feels well. No history of diabetes, heart failure, chronic lung disease or tobacco use. He also denies any seizure history. Progress of Wound: Progress: Today represents the of 30 planned sessions of hyperbaric oxygen treatments. Tolerance of hyperbaric oxygen therapy: Hyperbaric oxygen treatment was provided as per the facility's protocol at 2.0 RAVINDER in 100% oxygen for 90 minutes without air breaks. The patient tolerated hyperbaric oxygen well, without complications or complaints. Upon emergence from the hyperbaric chamber, his vitals remained stable, and he was discharged in stable condition. Objective Data Objective Data Vital Signs: Vital Signs Temp Pulse Resp BP 96.5 F L 87 16 135/87 H 05/10/24 08:36 05/10/24 08:36 05/10/24 08:36 05/10/24 08:36 Weight: 220 lb Body Mass Index (BMI) 31.5 Exam Physical Exam Const alert, oriented x3 and no apparent distress HEENT normocephalic HEENT Narrative: Tympanostomy tubes present bilaterally. Right ear tube has the white inner canula that has come out. Eyes General Eye: normal appearance of both eyes Resp normal respiratory effort and clear to auscultation bilaterally Effort and Inspection: able to speak in complete sentences Cardio regular rate Cardio Narrative: Patient is in Afib (this is typical for him) Psych mental status grossly normal, thought process normal, cooperative, affect normal and speech normal Charges/Coding Wound Center CF Procedures HBO Supervision: [id number] Hyperbaric Oxygen; supervision Assessment/Plan Assessment/Plan (1) Irradiation cystitis with hematuria: CODE(S): N30.41 - Irradiation cystitis with hematuria (2) History of prostate cancer: CODE(S): Z85.46 - Personal history of malignant neoplasm of prostate PLAN: Plan The patient appears to be tolerating hyperbaric oxygen therapy well, which will be continued as per his medical treatment plan.
[2024-05-11 11:10] VITALS: BP 137/68; BP 139/72; PULSE 81; PULSE 96; RESP 15; TEMP 35.4; TEMP 35.9
--- NOTE | 2024-05-11 11:57 | PCM.HBO.PN ---
History of Present Illness Date of Service: 05/11/24 Chief Complaint: Radiation cystitis History of Wound: Mr. Delgadillo is an 83-year-old referred by his urologist due to symptomatic radiation cystitis. He has a history of prostatic cancer, and is status-post radiation and surgery. Radiation was about 9 years ago. Has had 2 TURP procedures with the most recent being a few months ago. He has a history of incontinence and hematuria which improved somewhat following his second TURP. Other conservative measures so far have not been helpful. He has a history of atrial fibrillation and is on Eliquis. Otherwise, he feels well. No history of diabetes, heart failure, chronic lung disease or tobacco use. He also denies any seizure history. Progress of Wound: Progress: Today represents the of 30 planned sessions of hyperbaric oxygen treatments. Tolerance of hyperbaric oxygen therapy: Hyperbaric oxygen treatment was provided as per the facility's protocol at 2.0 RAVINDER in 100% oxygen for 90 minutes without air breaks. The patient tolerated hyperbaric oxygen well, without complications or complaints. Upon emergence from the hyperbaric chamber, his vitals remained stable, and he was discharged in stable condition. Objective Data Objective Data Vital Signs: Vital Signs Temp Pulse Resp BP 96.7 F L 96 15 139/72 H 05/11/24 11:10 05/11/24 11:10 05/11/24 11:10 05/11/24 11:10 Weight: 220 lb Body Mass Index (BMI) 31.5 Exam Physical Exam Const alert, oriented x3 and no apparent distress HEENT normocephalic HEENT Narrative: Tympanostomy tubes present bilaterally. Right ear tube has the white inner canula that has come out. Eyes General Eye: normal appearance of both eyes Resp normal respiratory effort and clear to auscultation bilaterally Effort and Inspection: able to speak in complete sentences Cardio regular rate Cardio Narrative: Patient is in Afib (this is typical for him) Psych mental status grossly normal, thought process normal, cooperative, affect normal and speech normal Charges/Coding Wound Center CF Procedures HBO Supervision: [id number] Hyperbaric Oxygen; supervision Assessment/Plan Assessment/Plan (1) Irradiation cystitis with hematuria: CODE(S): N30.41 - Irradiation cystitis with hematuria (2) History of prostate cancer: CODE(S): Z85.46 - Personal history of malignant neoplasm of prostate PLAN: Plan The patient appears to be tolerating hyperbaric oxygen therapy well, which will be continued as per his medical treatment plan.
--- NOTE | 2024-05-12 10:41 | PCM.HBO.PN ---
History of Present Illness Date of Service: 05/12/24 Chief Complaint: Radiation cystitis History of Wound: Mr. Delgadillo is an 83-year-old referred by his urologist due to symptomatic radiation cystitis. He has a history of prostatic cancer, and is status-post radiation and surgery. Radiation was about 9 years ago. Has had 2 TURP procedures with the most recent being a few months ago. He has a history of incontinence and hematuria which improved somewhat following his second TURP. Other conservative measures so far have not been helpful. He has a history of atrial fibrillation and is on Eliquis. Otherwise, he feels well. No history of diabetes, heart failure, chronic lung disease or tobacco use. He also denies any seizure history. Progress of Wound: Progress: Today represents the th of 30 planned sessions of hyperbaric oxygen treatments. Tolerance of hyperbaric oxygen therapy: Hyperbaric oxygen treatment was provided as per the facility's protocol at 2.0 RAVINDER in 100% oxygen for 90 minutes without air breaks. The patient tolerated hyperbaric oxygen well, without complications or complaints. Upon emergence from the hyperbaric chamber, his vitals remained stable, and he was discharged in stable condition. Subjective Subjective Patient agreeable to plan has no concerns Objective Data Objective Data Vital signs were stable on admission and discharge no issues during his dive. Vital Signs: Vital Signs Temp Pulse Resp BP 96.7 F L 96 15 139/72 H 05/11/24 11:10 05/11/24 11:10 05/11/24 11:10 05/11/24 11:10 Weight: 220 lb Body Mass Index (BMI) 31.5 Exam Physical Exam Const alert, oriented x3 and no apparent distress HEENT normocephalic HEENT Narrative: Tympanostomy tubes present. Right ear with increased drainage and the white inner canula of the tube has come out. Eyes General Eye: normal appearance of both eyes Resp normal respiratory effort and clear to auscultation bilaterally Effort and Inspection: able to speak in complete sentences Cardio regular rate Cardio Narrative: Patient is in Afib (this is typical for him) Psych mental status grossly normal, thought process normal, cooperative, affect normal and speech normal Assessment/Plan Assessment/Plan (1) Irradiation cystitis with hematuria: CODE(S): N30.41 - Irradiation cystitis with hematuria (2) History of prostate cancer: CODE(S): Z85.46 - Personal history of malignant neoplasm of prostate PLAN: Plan The patient appears to be tolerating hyperbaric oxygen therapy well, which will be continued as per his medical treatment plan.
[2024-05-12 10:45] VITALS: BP 122/66; BP 136/69; PULSE 73; PULSE 80; RESP 14; TEMP 35.4; TEMP 35.7
--- NOTE | 2024-05-13 10:39 | PCM.HBO.PN ---
History of Present Illness Date of Service: 05/13/24 Chief Complaint: Radiation cystitis History of Wound: Mr. Delgadillo is an 83-year-old referred by his urologist due to symptomatic radiation cystitis. He has a history of prostatic cancer, and is status-post radiation and surgery. Radiation was about 9 years ago. Has had 2 TURP procedures with the most recent being a few months ago. He has a history of incontinence and hematuria which improved somewhat following his second TURP. Other conservative measures so far have not been helpful. He has a history of atrial fibrillation and is on Eliquis. Otherwise, he feels well. No history of diabetes, heart failure, chronic lung disease or tobacco use. He also denies any seizure history. 05/13/24: Recertification visit done today. Has had a total of 22 sessions which he has tolerated. Has Bilateral tympanostomy tubes. Progress of Wound: Progress: Today represents the 22nd of 30 planned sessions of hyperbaric oxygen treatments. Recertification Visit: This also constitutes a recertification visit. He has tolerated hyperbaric oxygen well so far and has noted some symptom improvement. He states that over the last 7 days, consistently he has had the urge to urinate and has actually been able to micturate as opposed to prior episodes of complete incontinence previously. Tolerance of hyperbaric oxygen therapy: Hyperbaric oxygen treatment was provided as per the facility's protocol at 2.0 RAVINDER in 100% oxygen for 90 minutes without air breaks. The patient tolerated hyperbaric oxygen well, without complications or complaints. Upon emergence from the hyperbaric chamber, his vitals remained stable, and he was discharged in stable condition. Objective Data Objective Data Vital Signs: Vital Signs Temp Pulse Resp BP 95.7 F L 80 14 136/69 H 05/12/24 10:45 05/12/24 10:45 05/12/24 10:45 05/12/24 10:45 Weight: 220 lb Body Mass Index (BMI) 31.5 Exam Physical Exam Const alert, oriented x3 and no apparent distress General Appearance: cooperative, comfortable and well kempt HEENT normocephalic, head/scalp atraumatic and hearing grossly normal bilaterally Tympanic Membrane: other Other Details: Bilateral tympanostomy tubes noted. Eyes EOMs intact bilaterally General Eye: normal appearance of both eyes Neck full ROM, nuchal rigidity, no lymphadenopathy and supple General: normal visual inspection Resp normal respiratory effort and normal air movement Effort and Inspection: able to speak in complete sentences Cardio regular rate Rhythm: abnormal rhythm irregularly irregular GI soft to palpation and non-tender no CVA tenderness Skin no rashes or lesions noted Neuro oriented x3, CN's II-XII intact bilaterally, moves all extremities and no focal motor deficits Psych mental status grossly normal, thought process normal and cooperative Charges/Coding Visit Charges Office Visits / Consults: 20202 OV L3 Est 20min [facility] Procedures HBO Supervision: [id number] Hyperbaric Oxygen; supervision Assessment/Plan Assessment/Plan (1) Irradiation cystitis with hematuria: CODE(S): N30.41 - Irradiation cystitis with hematuria (2) History of prostate cancer: CODE(S): Z85.46 - Personal history of malignant neoplasm of prostate PLAN: Plan The patient appears to be tolerating hyperbaric oxygen therapy well, which will be continued as per his medical treatment plan. Additional 30 treatments is recommended for continued symptom improvement and management of radiation cystitis. As above, has tolerated hyperbaric oxygen treatment without any significant complication or concerns and over the last 7 days, has not had some significant improvement in his symptoms as detailed above. Form signed. This note was generated with [employer] dictation software. It may contain incorrect words, spelling, and punctuation that were not noted in checking the note before signing.
[2024-05-13 11:39] VITALS: BP 122/61; BP 138/92; PULSE 89; PULSE 95; RESP 14; RESP 15; TEMP 35.5; TEMP 35.7
[2024-05-14 10:37] VITALS: BP 124/82; BP 145/95; PULSE 86; PULSE 98; RESP 14; RESP 15; TEMP 35.5; TEMP 36.1
--- NOTE | 2024-05-14 13:55 | PCM.HBO.PN ---
History of Present Illness Date of Service: 05/14/24 Chief Complaint: Radiation cystitis History of Wound: Mr. Delgadillo is an 83-year-old referred by his urologist due to symptomatic radiation cystitis. He has a history of prostatic cancer, and is status-post radiation and surgery. Radiation was about 9 years ago. Has had 2 TURP procedures with the most recent being a few months ago. He has a history of incontinence and hematuria which improved somewhat following his second TURP. Other conservative measures so far have not been helpful. He has a history of atrial fibrillation and is on Eliquis. Otherwise, he feels well. No history of diabetes, heart failure, chronic lung disease or tobacco use. He also denies any seizure history. Progress of Wound: Progress: Today represents the of 30 planned sessions of hyperbaric oxygen treatments. He has tolerated hyperbaric oxygen well so far and has noted some symptom improvement. He states that consistently he has had the urge to urinate and has actually been able to micturate as opposed to prior episodes of complete incontinence previously. Tolerance of hyperbaric oxygen therapy: Hyperbaric oxygen treatment was provided as per the facility's protocol at 2.0 RAVINDER in 100% oxygen for 90 minutes without air breaks. The patient tolerated hyperbaric oxygen well, without complications or complaints. Upon emergence from the hyperbaric chamber, his vitals remained stable, and he was discharged in stable condition. Objective Data Objective Data Vital Signs: Vital Signs Temp Pulse Resp BP 96 F L 98 15 124/82 H 05/14/24 10:37 05/14/24 10:37 05/14/24 10:37 05/14/24 10:37 Weight: 99.79 kg Body Mass Index (BMI) 31.5 Exam Physical Exam Const alert, oriented x3 and no apparent distress HEENT HEENT Narrative: blue tympanostomy tubes present in TM's bilaterally and patent Psych mental status grossly normal, thought process normal, cooperative, affect normal and speech normal Assessment/Plan Assessment/Plan (1) Irradiation cystitis with hematuria: CODE(S): N30.41 - Irradiation cystitis with hematuria (2) History of prostate cancer: CODE(S): Z85.46 - Personal history of malignant neoplasm of prostate PLAN: Plan The patient appears to be tolerating hyperbaric oxygen therapy well, which will be continued as per their medical treatment plan.
[2024-05-17 08:40] VITALS: BP 141/95; BP 145/78; PULSE 87; PULSE 88; RESP 16; TEMP 35.4; TEMP 36.3
--- NOTE | 2024-05-17 09:08 | PCM.HBO.PN ---
History of Present Illness Date of Service: 05/17/24 Chief Complaint: Radiation cystitis History of Wound: Mr. Delgadillo is an 83-year-old referred by his urologist due to symptomatic radiation cystitis. He has a history of prostatic cancer, and is status-post radiation and surgery. Radiation was about 9 years ago. Has had 2 TURP procedures with the most recent being a few months ago. He has a history of incontinence and hematuria which improved somewhat following his second TURP. Other conservative measures so far have not been helpful. He has a history of atrial fibrillation and is on Eliquis. Otherwise, he feels well. No history of diabetes, heart failure, chronic lung disease or tobacco use. He also denies any seizure history. Progress of Wound: Progress: Today represents the 24th of 30 planned sessions of hyperbaric oxygen treatments. He has tolerated hyperbaric oxygen well so far and has noted some symptom improvement. He states that consistently he has had the urge to urinate and has actually been able to micturate as opposed to prior episodes of complete incontinence previously. Tolerance of hyperbaric oxygen therapy: Hyperbaric oxygen treatment was provided as per the facility's protocol at 2.0 RAVINDER in 100% oxygen for 90 minutes without air breaks. The patient tolerated hyperbaric oxygen well, without complications or complaints. Upon emergence from the hyperbaric chamber, his vitals remained stable, and he was discharged in stable condition. Objective Data Objective Data Vital Signs: Vital Signs Temp Pulse Resp BP 96 F L 98 15 124/82 H 05/14/24 10:37 05/14/24 10:37 05/14/24 10:37 05/14/24 10:37 Weight: 220 lb Body Mass Index (BMI) 31.5 Exam Physical Exam Const alert, oriented x3 and no apparent distress HEENT External Ear: external ears normal and other External Auditory Canal: other Other Details: Tympanostomy tubes in the ears bilaterally . Seem to be in place Resp normal respiratory effort Auscultation: clear to auscultation bilaterally Cardio regular rate Cardio Narrative: Atrial fibrillation Psych mental status grossly normal, thought process normal, cooperative, affect normal and speech normal Charges/Coding Wound Center [facility] Procedures HBO Supervision: [id number] Hyperbaric Oxygen; supervision Assessment/Plan Assessment/Plan (1) Irradiation cystitis with hematuria: CODE(S): N30.41 - Irradiation cystitis with hematuria (2) History of prostate cancer: CODE(S): Z85.46 - Personal history of malignant neoplasm of prostate PLAN: Plan The patient appears to be tolerating hyperbaric oxygen therapy well, which will be continued as per their medical treatment plan.
--- NOTE | 2024-05-18 10:49 | PCM.HBO.PN ---
History of Present Illness Date of Service: 05/18/24 Chief Complaint: Radiation cystitis History of Wound: Mr. Delgadillo is an 83-year-old referred by his urologist due to symptomatic radiation cystitis. He has a history of prostatic cancer, and is status-post radiation and surgery. Radiation was about 9 years ago. Has had 2 TURP procedures with the most recent being a few months ago. He has a history of incontinence and hematuria which improved somewhat following his second TURP. Other conservative measures so far have not been helpful. He has a history of atrial fibrillation and is on Eliquis. Otherwise, he feels well. No history of diabetes, heart failure, chronic lung disease or tobacco use. He also denies any seizure history. Progress of Wound: Progress: Today represents the 25th of 30 planned sessions of hyperbaric oxygen treatments. He has tolerated hyperbaric oxygen well so far and has noted some symptom improvement. He states that consistently he has had the urge to urinate and has actually been able to micturate as opposed to prior episodes of complete incontinence previously. Tolerance of hyperbaric oxygen therapy: Hyperbaric oxygen treatment was provided as per the facility's protocol at 2.0 RAVINDER in 100% oxygen for 90 minutes without air breaks. The patient tolerated hyperbaric oxygen well, without complications or complaints. Upon emergence from the hyperbaric chamber, his vitals remained stable, and he was discharged in stable condition. Objective Data Objective Data Vital Signs: Vital Signs Temp Pulse Resp BP 95.8 F L 88 16 145/78 H 05/17/24 08:40 05/17/24 08:40 05/17/24 08:40 05/17/24 08:40 Weight: 220 lb Body Mass Index (BMI) 31.5 Exam Physical Exam Const alert, oriented x3 and no apparent distress HEENT normocephalic HEENT Narrative: Tympanostomy tubes present bilaterally. Right ear tube has the white inner canula that has come out. Eyes General Eye: normal appearance of both eyes Resp normal respiratory effort and clear to auscultation bilaterally Effort and Inspection: able to speak in complete sentences Cardio regular rate Cardio Narrative: Patient is in Afib (this is typical for him) Psych mental status grossly normal, thought process normal, cooperative, affect normal and speech normal Charges/Coding Wound Center [facility] Procedures HBO Supervision: [id number] Hyperbaric Oxygen; supervision Assessment/Plan Assessment/Plan (1) Irradiation cystitis with hematuria: CODE(S): N30.41 - Irradiation cystitis with hematuria (2) History of prostate cancer: CODE(S): Z85.46 - Personal history of malignant neoplasm of prostate PLAN: Plan The patient appears to be tolerating hyperbaric oxygen therapy well, which will be continued as per their medical treatment plan.
[2024-05-18 11:19] VITALS: BP 132/98; BP 134/88; PULSE 81; PULSE 95; RESP 15; TEMP 35.6; TEMP 35.8
[2024-05-19 10:21] VITALS: BP 131/78; BP 140/82; PULSE 79; PULSE 81; RESP 14; TEMP 35.5; TEMP 36.4
--- NOTE | 2024-05-19 12:07 | PCM.HBO.PN ---
History of Present Illness Date of Service: 05/19/24 Chief Complaint: Radiation cystitis History of Wound: Mr. Delgadillo is an 83-year-old referred by his urologist due to symptomatic radiation cystitis. He has a history of prostatic cancer, and is status-post radiation and surgery. Radiation was about 9 years ago. Has had 2 TURP procedures with the most recent being a few months ago. He has a history of incontinence and hematuria which improved somewhat following his second TURP. Other conservative measures so far have not been helpful. He has a history of atrial fibrillation and is on Eliquis. Otherwise, he feels well. No history of diabetes, heart failure, chronic lung disease or tobacco use. He also denies any seizure history. Progress of Wound: Progress: Today represents the 26th of 30 planned sessions of hyperbaric oxygen treatments. He has tolerated hyperbaric oxygen well so far and has noted some symptom improvement. He states that consistently he has had the urge to urinate and has actually been able to micturate as opposed to prior episodes of complete incontinence previously. Tolerance of hyperbaric oxygen therapy: Hyperbaric oxygen treatment was provided as per the facility's protocol at 2.0 RAVINDER in 100% oxygen for 90 minutes without air breaks. The patient tolerated hyperbaric oxygen well, without complications or complaints. Upon emergence from the hyperbaric chamber, his vitals remained stable, and he was discharged in stable condition. Subjective Subjective He has no concerns and is pleased with outcomes. Objective Data Objective Data Vital signs are stable on admission and discharge Doing well has no concerns and tolerating treatments well Vital Signs: Vital Signs Temp Pulse Resp BP 95.9 F L 79 14 131/78 H 05/19/24 10:21 05/19/24 10:21 05/19/24 10:21 05/19/24 10:21 Weight: 220 lb Body Mass Index (BMI) 31.5 Exam Physical Exam Const alert, oriented x3 and no apparent distress HEENT normocephalic HEENT Narrative: Tympanostomy tubes present. Right ear with increased drainage and the white inner canula of the tube has come out. Eyes General Eye: normal appearance of both eyes Resp normal respiratory effort and clear to auscultation bilaterally Effort and Inspection: able to speak in complete sentences Cardio regular rate Cardio Narrative: Patient is in Afib (this is typical for him) Psych mental status grossly normal, thought process normal, cooperative, affect normal and speech normal Assessment/Plan Assessment/Plan (1) Irradiation cystitis with hematuria: CODE(S): N30.41 - Irradiation cystitis with hematuria (2) History of prostate cancer: CODE(S): Z85.46 - Personal history of malignant neoplasm of prostate PLAN: Plan The patient appears to be tolerating hyperbaric oxygen therapy well, which will be continued as per their medical treatment plan.
--- NOTE | 2024-05-20 09:54 | HBO.PN.PCM_ITS ---
History of Present Illness Date of Service: 05/20/24 Chief Complaint: Radiation cystitis History of Wound: Mr. Delgadillo is an 83-year-old referred by his urologist due to symptomatic radiation cystitis. He has a history of prostatic cancer, and is status-post radiation and surgery. Radiation was about 9 years ago. Has had 2 TURP procedures with the most recent being a few months ago. He has a history of incontinence and hematuria which improved somewhat following his second TURP. Other conservative measures so far have not been helpful. He has a history of atrial fibrillation and is on Eliquis. Otherwise, he feels well. No history of diabetes, heart failure, chronic lung disease or tobacco use. He also denies any seizure history. Progress of Wound: Progress: Today represents the 27th of 30 planned sessions of hyperbaric oxygen treatments. Tolerance of hyperbaric oxygen therapy: Hyperbaric oxygen treatment was provided as per the facility's protocol at 2.0 RAVINDER in 100% oxygen for 90 minutes without air breaks. The patient tolerated hyperbaric oxygen well, without complications or complaints. Upon emergence from the hyperbaric chamber, his vitals remained stable, and he was discharged in stable condition. Objective Data Objective Data Vital Signs: Vital Signs Temp Pulse Resp BP 95.9 F L 79 14 131/78 H 05/19/24 10:21 05/19/24 10:21 05/19/24 10:21 05/19/24 10:21 Weight: 220 lb Body Mass Index (BMI) 31.5 Exam Physical Exam Const alert, oriented x3 and no apparent distress General Appearance: cooperative, comfortable and well kempt HEENT normocephalic, head/scalp atraumatic and hearing grossly normal bilaterally Tympanic Membrane: other Other Details: Bilateral tympanostomy tubes noted. Eyes EOMs intact bilaterally General Eye: normal appearance of both eyes Neck full ROM General: normal visual inspection Resp normal respiratory effort Effort and Inspection: able to speak in complete sentences Neuro oriented x3, CN's II-XII intact bilaterally, moves all extremities and no focal motor deficits Psych mental status grossly normal, thought process normal and cooperative Charges/Coding Wound Center [facility] Procedures HBO Supervision: [id number] Hyperbaric Oxygen; supervision Assessment/Plan Assessment/Plan (1) Irradiation cystitis with hematuria: CODE(S): N30.41 - Irradiation cystitis with hematuria (2) History of prostate cancer: CODE(S): Z85.46 - Personal history of malignant neoplasm of prostate PLAN: Plan The patient appears to be tolerating hyperbaric oxygen therapy well, which will be continued as per his medical treatment plan. This note was generated with [employer] software. It may contain incorrect words, spelling, and punctuation that were not noted in checking the note before signing.
[2024-05-20 10:49] VITALS: BP 128/67; BP 144/80; PULSE 71; PULSE 80; RESP 15; TEMP 35.6; TEMP 35.7
[2024-05-21 08:43] VITALS: BP 127/71; BP 147/89; PULSE 77; PULSE 81; RESP 14; TEMP 35.7; TEMP 35.8
--- NOTE | 2024-05-21 14:05 | PCM.HBO.PN ---
History of Present Illness Date of Service: 05/21/24 Chief Complaint: Radiation cystitis History of Wound: Mr. Delgadillo is an 83-year-old referred by his urologist due to symptomatic radiation cystitis. He has a history of prostatic cancer, and is status-post radiation and surgery. Radiation was about 9 years ago. Has had 2 TURP procedures with the most recent being a few months ago. He has a history of incontinence and hematuria which improved somewhat following his second TURP. Other conservative measures so far have not been helpful. He has a history of atrial fibrillation and is on Eliquis. Otherwise, he feels well. No history of diabetes, heart failure, chronic lung disease or tobacco use. He also denies any seizure history. Progress of Wound: Progress: Today represents the 28thth of 61 planned sessions of hyperbaric oxygen treatments. Tolerance of hyperbaric oxygen therapy: Hyperbaric oxygen treatment was provided as per the facility's protocol at 2.0 RAVINDER in 100% oxygen for 90 minutes without air breaks. The patient tolerated hyperbaric oxygen well, without complications or complaints. Upon emergence from the hyperbaric chamber, his vitals remained stable, and he was discharged in stable condition. Objective Data Objective Data Vital Signs: Vital Signs Temp Pulse Resp BP 96.4 F L 81 14 127/71 H 05/21/24 08:43 05/21/24 08:43 05/21/24 08:43 05/21/24 08:43 Weight: 99.79 kg Body Mass Index (BMI) 31.5 Exam Physical Exam Const alert, oriented x3 and no apparent distress HEENT HEENT Narrative: blue tympanostomy tubes present in TM's bilaterally and patent Psych mental status grossly normal, thought process normal, cooperative, affect normal and speech normal Assessment/Plan Assessment/Plan (1) Irradiation cystitis with hematuria: CODE(S): N30.41 - Irradiation cystitis with hematuria (2) History of prostate cancer: CODE(S): Z85.46 - Personal history of malignant neoplasm of prostate PLAN: Plan The patient appears to be tolerating hyperbaric oxygen therapy well, which will be continued as per their medical treatment plan.
[2024-05-24 09:12] VITALS: BP 144/83; BP 147/89; PULSE 77; PULSE 93; RESP 15; RESP 16; TEMP 35.5; TEMP 36.1
--- NOTE | 2024-05-24 12:12 | PCM.HBO.PN ---
History of Present Illness Date of Service: 05/24/24 Chief Complaint: Radiation cystitis History of Wound: Mr. Delgadillo is an 83-year-old referred by his urologist due to symptomatic radiation cystitis. He has a history of prostatic cancer, and is status-post radiation and surgery. Radiation was about 9 years ago. Has had 2 TURP procedures with the most recent being a few months ago. He has a history of incontinence and hematuria which improved somewhat following his second TURP. Other conservative measures so far have not been helpful. He has a history of atrial fibrillation and is on Eliquis. Otherwise, he feels well. No history of diabetes, heart failure, chronic lung disease or tobacco use. He also denies any seizure history. Progress of Wound: Progress: Today represents the 29th of 61 planned sessions of hyperbaric oxygen treatments. Tolerance of hyperbaric oxygen therapy: Hyperbaric oxygen treatment was provided as per the facility's protocol at 2.0 RAVINDER in 100% oxygen for 90 minutes without air breaks. The patient tolerated hyperbaric oxygen well, without complications or complaints. Upon emergence from the hyperbaric chamber, his vitals remained stable, and he was discharged in stable condition. Objective Data Objective Data Vital Signs: Vital Signs Temp Pulse Resp BP 95.9 F L 93 15 147/89 H 05/24/24 09:12 05/24/24 09:12 05/24/24 09:12 05/24/24 09:12 Weight: 220 lb Body Mass Index (BMI) 31.5 Exam Physical Exam Const alert, oriented x3 and no apparent distress HEENT normocephalic HEENT Narrative: Tympanostomy tubes present bilaterally. Right ear tube has the white inner canula that has come out. Bilateral ear canals are erythematous but he denies pain. Eyes General Eye: normal appearance of both eyes Resp normal respiratory effort and clear to auscultation bilaterally Effort and Inspection: able to speak in complete sentences Cardio regular rate Cardio Narrative: Patient is in Afib (this is typical for him) Psych mental status grossly normal, thought process normal, cooperative, affect normal and speech normal Charges/Coding Wound Center [facility] Procedures HBO Supervision: [id number] Hyperbaric Oxygen; supervision Assessment/Plan Assessment/Plan (1) Irradiation cystitis with hematuria: CODE(S): N30.41 - Irradiation cystitis with hematuria (2) History of prostate cancer: CODE(S): Z85.46 - Personal history of malignant neoplasm of prostate PLAN: Plan The patient appears to be tolerating hyperbaric oxygen therapy well, which will be continued as per their medical treatment plan.
[2024-05-25 09:08] VITALS: BP 128/97; BP 133/59; PULSE 68; PULSE 81; RESP 14; RESP 15; TEMP 35.7; TEMP 36.1
--- NOTE | 2024-05-25 13:30 | PCM.HBO.PN ---
History of Present Illness Date of Service: 05/25/24 Chief Complaint: Radiation cystitis History of Wound: Mr. Delgadillo is an 83-year-old referred by his urologist due to symptomatic radiation cystitis. He has a history of prostatic cancer, and is status-post radiation and surgery. Radiation was about 9 years ago. Has had 2 TURP procedures with the most recent being a few months ago. He has a history of incontinence and hematuria which improved somewhat following his second TURP. Other conservative measures so far have not been helpful. He has a history of atrial fibrillation and is on Eliquis. Otherwise, he feels well. No history of diabetes, heart failure, chronic lung disease or tobacco use. He also denies any seizure history. Progress of Wound: Progress: Today represents the 30th of 61 planned sessions of hyperbaric oxygen treatments. Tolerance of hyperbaric oxygen therapy: Hyperbaric oxygen treatment was provided as per the facility's protocol at 2.0 RAVINDER in 100% oxygen for 90 minutes without air breaks. The patient tolerated hyperbaric oxygen well, without complications or complaints. Upon emergence from the hyperbaric chamber, his vitals remained stable, and he was discharged in stable condition. Objective Data Objective Data Vital Signs: Vital Signs Temp Pulse Resp BP 96.2 F L 81 14 133/59 H 05/25/24 09:08 05/25/24 09:08 05/25/24 09:08 05/25/24 09:08 Weight: 220 lb Body Mass Index (BMI) 31.5 Exam Physical Exam Const alert, oriented x3 and no apparent distress HEENT normocephalic HEENT Narrative: Tympanostomy tubes present bilaterally. Right ear tube has the white inner canula that has come out. Bilateral ear canals are erythematous but he denies pain. Eyes General Eye: normal appearance of both eyes Resp normal respiratory effort and clear to auscultation bilaterally Effort and Inspection: able to speak in complete sentences Cardio regular rate Cardio Narrative: Patient is in Afib (this is typical for him) Psych mental status grossly normal, thought process normal, cooperative, affect normal and speech normal Charges/[facility] Procedures HBO Supervision: [id number] Hyperbaric Oxygen; supervision Assessment/Plan Assessment/Plan (1) Irradiation cystitis with hematuria: CODE(S): N30.41 - Irradiation cystitis with hematuria (2) History of prostate cancer: CODE(S): Z85.46 - Personal history of malignant neoplasm of prostate PLAN: Plan The patient appears to be tolerating hyperbaric oxygen therapy well, which will be continued as per their medical treatment plan.
[2024-05-26 08:26] VITALS: BP 132/79; BP 142/79; PULSE 83; PULSE 90; RESP 14; RESP 15; TEMP 35.3; TEMP 35.7
--- NOTE | 2024-05-26 11:17 | PCM.HBO.PN ---
History of Present Illness Date of Service: 05/26/24 Chief Complaint: Radiation cystitis History of Wound: Mr. Delgadillo is an 83-year-old referred by his urologist due to symptomatic radiation cystitis. He has a history of prostatic cancer, and is status-post radiation and surgery. Radiation was about 9 years ago. Has had 2 TURP procedures with the most recent being a few months ago. He has a history of incontinence and hematuria which improved somewhat following his second TURP. Other conservative measures so far have not been helpful. He has a history of atrial fibrillation and is on Eliquis. Otherwise, he feels well. No history of diabetes, heart failure, chronic lung disease or tobacco use. He also denies any seizure history. Progress of Wound: Progress: Today represents the 30th of 62 planned sessions of hyperbaric oxygen treatments. Tolerance of hyperbaric oxygen therapy: Hyperbaric oxygen treatment was provided as per the facility's protocol at 2.0 RAVINDER in 100% oxygen for 90 minutes without air breaks. The patient tolerated hyperbaric oxygen well, without complications or complaints. Upon emergence from the hyperbaric chamber, his vitals remained stable, and he was discharged in stable condition. Subjective Subjective Patient has no concerns and tolerated the treatment well is following the plan well Objective Data Objective Data Vital signs stable blood patient has no concerns patient has tolerated treatment well. Will continue treatments as planned Vital Signs: Vital Signs Temp Pulse Resp BP 96.3 F L 90 15 142/79 H 05/26/24 08:26 05/26/24 08:26 05/26/24 08:26 05/26/24 08:26 Weight: 220 lb Body Mass Index (BMI) 31.5 Exam Physical Exam Const alert, oriented x3 and no apparent distress HEENT normocephalic HEENT Narrative: Tympanostomy tubes present. Right ear with increased drainage and the white inner canula of the tube has come out. Eyes General Eye: normal appearance of both eyes Resp normal respiratory effort and clear to auscultation bilaterally Effort and Inspection: able to speak in complete sentences Cardio regular rate Cardio Narrative: Patient is in Afib (this is typical for him) Psych mental status grossly normal, thought process normal, cooperative, affect normal and speech normal Assessment/Plan Assessment/Plan (1) Irradiation cystitis with hematuria: CODE(S): N30.41 - Irradiation cystitis with hematuria (2) History of prostate cancer: CODE(S): Z85.46 - Personal history of malignant neoplasm of prostate PLAN: Plan The patient appears to be tolerating hyperbaric oxygen therapy well, which will be continued as per their medical treatment plan.
[2024-05-27 10:03] VITALS: BP 139/82; BP 144/66; PULSE 81; PULSE 83; RESP 14; RESP 15; TEMP 35.6; TEMP 35.7
--- NOTE | 2024-05-27 10:13 | PCM.HBO.PN ---
History of Present Illness Date of Service: 05/27/24 Chief Complaint: Radiation cystitis History of Wound: Mr. Delgadillo is an 83-year-old referred by his urologist due to symptomatic radiation cystitis. He has a history of prostatic cancer, and is status-post radiation and surgery. Radiation was about 9 years ago. Has had 2 TURP procedures with the most recent being a few months ago. He has a history of incontinence and hematuria which improved somewhat following his second TURP. Other conservative measures so far have not been helpful. He has a history of atrial fibrillation and is on Eliquis. Otherwise, he feels well. No history of diabetes, heart failure, chronic lung disease or tobacco use. He also denies any seizure history. Progress of Wound: Progress: Today represents the 32nd of 60 planned sessions of hyperbaric oxygen treatments. Tolerance of hyperbaric oxygen therapy: Hyperbaric oxygen treatment was provided as per the facility's protocol at 2.0 RAVINDER in 100% oxygen for 90 minutes without air breaks. The patient tolerated hyperbaric oxygen well, without complications or complaints. Upon emergence from the hyperbaric chamber, his vitals remained stable, and he was discharged in stable condition. Objective Data Objective Data Vital Signs: Vital Signs Temp Pulse Resp BP 96.3 F L 90 15 142/79 H 05/26/24 08:26 05/26/24 08:26 05/26/24 08:26 05/26/24 08:26 Weight: 220 lb Body Mass Index (BMI) 31.5 Exam Physical Exam Const alert, oriented x3 and no apparent distress HEENT normocephalic HEENT Narrative: Tympanostomy tubes present bilaterally. Right ear tube has the white inner canula that has come out. Bilateral ear canals are less erythematous than previously and he continues to deny pain. Eyes General Eye: normal appearance of both eyes Resp normal respiratory effort and clear to auscultation bilaterally Effort and Inspection: able to speak in complete sentences Cardio regular rate Cardio Narrative: Patient is in Afib (this is typical for him) Psych mental status grossly normal, thought process normal, cooperative, affect normal and speech normal Charges/[facility]oding [facility] Procedures HBO Supervision: [id number] Hyperbaric Oxygen; supervision Assessment/Plan Assessment/Plan (1) Irradiation cystitis with hematuria: CODE(S): N30.41 - Irradiation cystitis with hematuria (2) History of prostate cancer: CODE(S): Z85.46 - Personal history of malignant neoplasm of prostate PLAN: Plan The patient appears to be tolerating hyperbaric oxygen therapy well, which will be continued as per their medical treatment plan.
[2024-05-28 10:15] VITALS: BP 131/78; BP 142/98; PULSE 74; PULSE 79; RESP 14; RESP 15; TEMP 35.5; TEMP 35.7
--- NOTE | 2024-05-28 14:53 | PCM.HBO.PN ---
History of Present Illness Date of Service: 05/28/24 Chief Complaint: Radiation cystitis History of Wound: Mr. Delgadillo is an 83-year-old referred by his urologist due to symptomatic radiation cystitis. He has a history of prostatic cancer, and is status-post radiation and surgery. Radiation was about 9 years ago. Has had 2 TURP procedures with the most recent being a few months ago. He has a history of incontinence and hematuria which improved somewhat following his second TURP. Other conservative measures so far have not been helpful. He has a history of atrial fibrillation and is on Eliquis. Otherwise, he feels well. No history of diabetes, heart failure, chronic lung disease or tobacco use. He also denies any seizure history. Progress of Wound: Progress: Today represents the 33rd of 60 planned sessions of hyperbaric oxygen treatments. Tolerance of hyperbaric oxygen therapy: Hyperbaric oxygen treatment was provided as per the facility's protocol at 2.0 RAVINDER in 100% oxygen for 90 minutes without air breaks. The patient tolerated hyperbaric oxygen well, without complications or complaints. Upon emergence from the hyperbaric chamber, his vitals remained stable, and he was discharged in stable condition. Objective Data Objective Data Vital Signs: Vital Signs Temp Pulse Resp BP 96.3 F L 74 14 131/78 H 05/28/24 10:15 05/28/24 10:15 05/28/24 10:15 05/28/24 10:15 Weight: 99.79 kg Body Mass Index (BMI) 31.5 Exam Physical Exam Const alert, oriented x3 and no apparent distress HEENT HEENT Narrative: blue tympanostomy tubes present in TM's bilaterally and patent, white tube present in right ear canal obscuring total visualization of right TM Psych mental status grossly normal, thought process normal, cooperative, affect normal and speech normal Assessment/Plan Assessment/Plan (1) Irradiation cystitis with hematuria: CODE(S): N30.41 - Irradiation cystitis with hematuria (2) History of prostate cancer: CODE(S): Z85.46 - Personal history of malignant neoplasm of prostate PLAN: Plan The patient appears to be tolerating hyperbaric oxygen therapy well, which will be continued as per their medical treatment plan.
== END 2024-05-28 23:59 | disposition home or self-care (01) ==
LOC: WC 08:00
PROVIDERS: PCP Family Medicine; Referring Provider Urology; Visit Provider Internal Medicine
DX: N30.41 Irradiation cystitis with hematuria (principal); I48.91 Unspecified atrial fibrillation; Z79.01 Long term (current) use of anticoagulants; Z79.899 Other long term (current) drug therapy; Z92.3 Personal history of irradiation; Z85.46 Personal history of malignant neoplasm of prostate
CPT/HCPCS: 99183; G0277

== ENCOUNTER → 2024-05-31 | Outpatient (CLI) | payer MEDICARE, OTHER, SELFPAY ==
[2024-05-31 11:35] LABS: Absolute Lymphocyte Count 1.48 X10^3/uL (0.83-4.51); Absolute Neutrophil Count 4.2 X10^3/uL (2.0-7.7); Basophil# 0.07 X10^3/uL; Basophil% 1.1 % (0-1); Eosinophil# 0.27 X10^3/uL; Eosinophils% 4.1 % (0-5); Hematocrit 42.9 % (40-54); Hemoglobin 14.3 g/dL (13.0-16.5); Lymphocyte # 1.48 X10^3/ul (0.83-4.51); Lymphocyte % 22.7 % (19-41); Mean Corp Hgb Conc 33.3 g/dL (32-36); Mean Corpuscular Hgb 29.2 pg (27.0-32.0); Mean Corpuscular Volume 87.7 fL (80-94); Mean Platelet Vol. 10.8 fl (6.2-12.0); Monocyte# 0.49 X10^3/uL; Monocyte% 7.5 % (0-10); NRBC Flagged by Analyzer 0 % (0-5); Neutrophil # 4.16 X10^3/uL (2.7-7.7); Neutrophil % 63.7 % (47-70); Platelet Count 164 K/mm3 (150-450); Red Blood Count 4.89 M/mm3 (4.6-6.2); White Blood Count 6.5 K/mm3 (4.4-11.0)
[2024-05-31 12:07] LABS: Anion Gap 6 (5-15); BUN 20 mg/dL (7-18); BUN/Creat Ratio 13.1 RATIO (10-20); Calcium,Total 9.2 mg/dL (8.5-10.1); Chloride 110 mmol/L (98-107); Creatinine, Serum 1.53 mg/dL (0.70-1.30); EST Glomerular Filtration Rate 47 mL/min (>60); Est Glom Filt Rate - Afr Amer 56 mL/min (>60); Glucose 133 mg/dL (74-106); Iron 81 ug/dL (65-175); Potassium 3.5 mmol/L (3.5-5.1); Sodium Level 142 mmol/L (136-145)
[2024-05-31 12:12] LABS: Vitamin D,25 Hydroxy 39.1 ng/mL
== END | disposition home or self-care (01) ==
LOC: LAB 11:05
PROVIDERS: PCP Family Medicine; Referring Provider Urology; Visit Provider Urology
DX: R31.0 Gross hematuria (principal); N18.30 Chronic kidney disease, stage 3 unspecified
CPT/HCPCS: 36415; 80048; 82306; 83540; 85025

== ENCOUNTER 2024-06-25 08:00 | Outpatient (RCR) | payer MEDICARE, OTHER, SELFPAY ==
[2024-05-29 00:55] VITALS: BP 131/78; BP 142/86; BP 142/98; PULSE 74; PULSE 79; RESP 14; RESP 15; RESP 18; TEMP 35.5; TEMP 35.7; BMI 31.5
--- NOTE | 2024-05-31 08:31 | HBO.PN.PCM_ITS ---
History of Present Illness Date of Service: 05/31/24 Chief Complaint: Radiation cystitis History of Wound: Mr. Delgadillo is an 83-year-old referred by his urologist due to symptomatic radiation cystitis. He has a history of prostatic cancer, and is status-post radiation and surgery. Radiation was about 9 years ago. Has had 2 TURP procedures with the most recent being a few months ago. He has a history of incontinence and hematuria which improved somewhat following his second TURP. Other conservative measures so far have not been helpful. He has a history of atrial fibrillation and is on Eliquis. Otherwise, he feels well. No history of diabetes, heart failure, chronic lung disease or tobacco use. He also denies any seizure history. Progress of Wound: Progress: Today represents the 34th of 60 planned sessions of hyperbaric oxygen treatments. He states that he is having an increase in his hematuria over the weekend and he is very concerned about it. He has left a message with Dr. Wall's office and has not heard from them. I personally phoned them and they will see him at 1045 this morning after his HBO treatment. Tolerance of hyperbaric oxygen therapy: Hyperbaric oxygen treatment was provided as per the facility's protocol at 2.0 RAVINDER in 100% oxygen for 90 minutes without air breaks. The patient tolerated hyperbaric oxygen well, without complications or complaints. Upon emergence from the hyperbaric chamber, his vitals remained stable, and he was discharged in stable condition. Objective Data Objective Data Vital Signs: Vital Signs Temp Pulse Resp BP 96.3 F L 74 14 131/78 H 05/29/24 00:55 05/29/24 00:55 05/29/24 00:55 05/29/24 00:55 Weight: 220 lb Body Mass Index (BMI) 31.5 Exam Physical Exam Narrative He is having increased hematuria and requiring to change his incontinence pads more frequently (which I was able to visualize). Const alert, oriented x3 and no apparent distress HEENT normocephalic HEENT Narrative: Tympanostomy tubes present bilaterally. Right ear tube has the white inner ca nula that has come out, unable to visualize the blue tube. Increased drainage in right ear. Bilateral ear canals are no longer erythematous, he continues to deny pain but has had some crackling sounds in right ear. Eyes General Eye: normal appearance of both eyes Resp normal respiratory effort and clear to auscultation bilaterally Effort and Inspection: able to speak in complete sentences Cardio regular rate Cardio Narrative: Patient is in Afib (this is typical for him) Psych mental status grossly normal, thought process normal, cooperative, affect normal and speech normal Charges/[facility] Procedures HBO Supervision: [id number] Hyperbaric Oxygen; supervision Assessment/Plan Assessment/Plan (1) Irradiation cystitis with hematuria: CODE(S): N30.41 - Irradiation cystitis with hematuria (2) History of prostate cancer: CODE(S): Z85.46 - Personal history of malignant neoplasm of prostate PLAN: Plan The patient appears to be tolerating hyperbaric oxygen therapy well, which will be continued as per their medical treatment plan. He will follow up today after his HBO treatment with Dr. Wall for further evaluation of his increased hematuria.
[2024-05-31 10:18] VITALS: BP 131/74; BP 159/78; PULSE 78; PULSE 79; RESP 15; TEMP 35.5; TEMP 36
[2024-06-01 10:10] VITALS: BP 130/80; BP 139/73; PULSE 86; RESP 14; RESP 16; TEMP 36.2
--- NOTE | 2024-06-01 13:45 | HBO.PN.PCM_ITS ---
History of Present Illness Date of Service: 06/01/24 Chief Complaint: Radiation cystitis History of Wound: Mr. Delgadillo is an 83-year-old referred by his urologist due to symptomatic radiation cystitis. He has a history of prostatic cancer, and is status-post radiation and surgery. Radiation was about 9 years ago. Has had 2 TURP procedures with the most recent being a few months ago. He has a history of incontinence and hematuria which improved somewhat following his second TURP. Other conservative measures so far have not been helpful. He has a history of atrial fibrillation and is on Eliquis. Otherwise, he feels well. No history of diabetes, heart failure, chronic lung disease or tobacco use. He also denies any seizure history. Progress of Wound: Progress: Today represents the 35th of 60 planned sessions of hyperbaric oxygen treatments. Tolerance of hyperbaric oxygen therapy: Hyperbaric oxygen treatment was provided as per the facility's protocol at 2.0 RAVINDER in 100% oxygen for 90 minutes without air breaks. The patient tolerated hyperbaric oxygen well, without complications or complaints. Upon emergence from the hyperbaric chamber, his vitals remained stable, and he was discharged in stable condition. Objective Data Objective Data Vital Signs: Vital Signs Temp Pulse Resp BP 97.1 F L 86 14 139/73 H 06/01/24 10:10 06/01/24 10:10 06/01/24 10:10 06/01/24 10:10 Weight: 220 lb Body Mass Index (BMI) 31.5 Exam Physical Exam Const alert, oriented x3 and no apparent distress HEENT normocephalic HEENT Narrative: Tympanostomy tubes present bilaterally. Right ear tube has the white inner canula that has come out. Bilateral ear canals are no longer erythematous. Eyes General Eye: normal appearance of both eyes Resp normal respiratory effort and clear to auscultation bilaterally Effort and Inspection: able to speak in complete sentences Cardio regular rate Cardio Narrative: Patient is in Afib (this is typical for him) Psych mental status grossly normal, thought process normal, cooperative, affect normal and speech normal Charges/[facility] Procedures HBO Supervision: [id number] Hyperbaric Oxygen; supervision Assessment/Plan Assessment/Plan (1) Irradiation cystitis with hematuria: CODE(S): N30.41 - Irradiation cystitis with hematuria (2) History of prostate cancer: CODE(S): Z85.46 - Personal history of malignant neoplasm of prostate PLAN: Plan The patient appears to be tolerating hyperbaric oxygen therapy well, which will be continued as per their medical treatment plan. He had an appointment yesterday with Dr. Wall for further evaluation of his increased hematuria. Dr. Wall stopped his Eliquis for a week. If that does n ot help the bleeding then he will need to have it cauterized. Patient states that the bleeding has already decreased.
[2024-06-02 09:18] VITALS: BP 125/77; BP 152/71; PULSE 74; PULSE 75; RESP 13; RESP 15; TEMP 35.7; TEMP 35.8
--- NOTE | 2024-06-02 12:01 | PCM.HBO.PN ---
History of Present Illness Date of Service: 06/02/24 Chief Complaint: Radiation cystitis History of Wound: Mr. Delgadillo is an 83-year-old referred by his urologist due to symptomatic radiation cystitis. He has a history of prostatic cancer, and is status-post radiation and surgery. Radiation was about 9 years ago. Has had 2 TURP procedures with the most recent being a few months ago. He has a history of incontinence and hematuria which improved somewhat following his second TURP. Other conservative measures so far have not been helpful. He has a history of atrial fibrillation and is on Eliquis. Otherwise, he feels well. No history of diabetes, heart failure, chronic lung disease or tobacco use. He also denies any seizure history. Progress of Wound: Progress: Today represents the 36th of 60 planned sessions of hyperbaric oxygen treatments. Tolerance of hyperbaric oxygen therapy: Hyperbaric oxygen treatment was provided as per the facility's protocol at 2.0 RAVINDER in 100% oxygen for 90 minutes without air breaks. The patient tolerated hyperbaric oxygen well, without complications or complaints. Upon emergence from the hyperbaric chamber, his vitals remained stable, and he was discharged in stable condition. Subjective Subjective Patient had some concerns about his left ear 1 tube is in the canal that vibrates and then the blue tube is in place and is patent. Patient had some concerns from last week. Objective Data Objective Data Ears look good patient is okay to go down and be pressurized with no issues. Vital signs stable on admission and discharge patient tolerated treatment well Vital Signs: Vital Signs Temp Pulse Resp BP 96.2 F L 75 13 125/77 H 06/02/24 09:18 06/02/24 09:18 06/02/24 09:18 06/02/24 09:18 Weight: 220 lb Body Mass Index (BMI) 31.5 Exam Physical Exam Const alert, oriented x3 and no apparent distress HEENT normocephalic HEENT Narrative: Tympanostomy tubes present. Right ear with increased drainage and the white inner canula of the tube has come out. Eyes General Eye: normal appearance of both eyes Resp normal respiratory effort and clear to auscultation bilaterally Effort and Inspection: able to speak in complete sentences Cardio regular rate Cardio Narrative: Patient is in Afib (this is typical for him) Psych mental status grossly normal, thought process normal, cooperative, affect normal and speech normal Assessment/Plan Assessment/Plan (1) Irradiation cystitis with hematuria: CODE(S): N30.41 - Irradiation cystitis with hematuria (2) History of prostate cancer: CODE(S): Z85.46 - Personal history of malignant neoplasm of prostate PLAN: Plan The patient appears to be tolerating hyperbaric oxygen therapy well, which will be continued as per their medical treatment plan.
--- NOTE | 2024-06-03 09:51 | HBO.PN.PCM_ITS ---
History of Present Illness Date of Service: 06/03/24 Chief Complaint: Radiation cystitis History of Wound: Mr. Delgadillo is an 83-year-old referred by his urologist due to symptomatic radiation cystitis. He has a history of prostatic cancer, and is status-post radiation and surgery. Radiation was about 9 years ago. Has had 2 TURP procedures with the most recent being a few months ago. He has a history of incontinence and hematuria which improved somewhat following his second TURP. Other conservative measures so far have not been helpful. He has a history of atrial fibrillation and is on Eliquis. Otherwise, he feels well. No history of diabetes, heart failure, chronic lung disease or tobacco use. He also denies any seizure history. Progress of Wound: Progress: Today represents the 37th of 60 planned sessions of hyperbaric oxygen treatments. Tolerance of hyperbaric oxygen therapy: Hyperbaric oxygen treatment was provided as per the facility's protocol at 2.0 RAVINDER in 100% oxygen for 90 minutes without air breaks. The patient tolerated hyperbaric oxygen well, without complications or complaints. Upon emergence from the hyperbaric chamber, his vitals remained stable, and he was discharged in stable condition. Objective Data Objective Data Vital Signs: Vital Signs Temp Pulse Resp BP 96.2 F L 75 13 125/77 H 06/02/24 09:18 06/02/24 09:18 06/02/24 09:18 06/02/24 09:18 Weight: 220 lb Body Mass Index (BMI) 31.5 Exam Physical Exam Const alert, oriented x3 and no apparent distress General Appearance: cooperative, comfortable and well kempt HEENT normocephalic, head/scalp atraumatic and hearing grossly normal bilaterally Tympanic Membrane: other Other Details: Bilateral tympanostomy tubes noted. White inner cannula noted on the right. No drainage. Eyes EOMs intact bilaterally General Eye: normal appearance of both eyes Neck full ROM General: normal visual inspection Resp normal respiratory effort Effort and Inspection: able to speak in complete sentences Neuro oriented x3, CN's II-XII intact bilaterally, moves all extremities and no focal motor deficits Psych mental status grossly normal, thought process normal and cooperative Charges/Coding [facility] Procedures HBO Supervision: [id number] Hyperbaric Oxygen; supervision Assessment/Plan Assessment/Plan (1) Irradiation cystitis with hematuria: CODE(S): N30.41 - Irradiation cystitis with hematuria (2) History of prostate cancer: CODE(S): Z85.46 - Personal history of malignant neoplasm of prostate PLAN: Plan The patient appears to be tolerating hyperbaric oxygen therapy well, which will be continued as per his medical treatment plan. Despite the white inner cannula dislodged, he has had no concerns with HBO over the last couple of days. This note was generated with [employer] dictation software. It may contain incorrect words, spelling, and punctuation that were not noted in checking the note before signing.
[2024-06-03 10:50] VITALS: BP 124/86; BP 135/88; PULSE 89; PULSE 93; RESP 14; TEMP 35.8; TEMP 36
[2024-06-04 08:52] VITALS: BP 123/64; PULSE 83; RESP 13; TEMP 35.9
[2024-06-11 09:47] VITALS: BP 117/68; BP 144/88; PULSE 82; PULSE 84; RESP 14; RESP 15; TEMP 35.6; TEMP 35.9
--- NOTE | 2024-06-11 13:49 | PCM.HBO.PN ---
History of Present Illness Date of Service: 06/11/24 Chief Complaint: Radiation cystitis History of Wound: Mr. Delgadillo is an 83-year-old referred by his urologist due to symptomatic radiation cystitis. He has a history of prostatic cancer, and is status-post radiation and surgery. Radiation was about 9 years ago. Has had 2 TURP procedures with the most recent being a few months ago. He has a history of incontinence and hematuria which improved somewhat following his second TURP. Other conservative measures so far have not been helpful. He has a history of atrial fibrillation and is on Eliquis. Otherwise, he feels well. No history of diabetes, heart failure, chronic lung disease or tobacco use. He also denies any seizure history. Progress of Wound: Progress: Today represents the 38th of 60 planned sessions of hyperbaric oxygen treatments. He has missed treatments for 1 week due to myringotomy tube being blocked. Tube was replaced yesterday by ENT and he tolerated this well. Tolerance of hyperbaric oxygen therapy: Hyperbaric oxygen treatment was provided as per the facility's protocol at 2.0 RAVINDER in 100% oxygen for 90 minutes without air breaks. The patient tolerated hyperbaric oxygen well, without complications or complaints. Upon emergence from the hyperbaric chamber, his vitals remained stable, and he was discharged in stable condition. Objective Data Objective Data Vital Signs: Vital Signs Temp Pulse Resp BP 96.0 F L 82 14 117/68 06/11/24 09:47 06/11/24 09:47 06/11/24 09:47 06/11/24 09:47 Weight: 99.79 kg Body Mass Index (BMI) 31.5 Exam Physical Exam Const alert, oriented x3 and no apparent distress HEENT Tympanic Membrane: other Other Details: right TM with clear tube present and patent, left ear with blue tube present and patent Psych mental status grossly normal, thought process normal, cooperative, affect normal and speech normal Assessment/Plan Assessment/Plan (1) Irradiation cystitis with hematuria: CODE(S): N30.41 - Irradiation cystitis with hematuria (2) History of prostate cancer: CODE(S): Z85.46 - Personal history of malignant neoplasm of prostate PLAN: Plan The patient appears to be tolerating hyperbaric oxygen therapy well, which will be continued as per his medical treatment plan. This note was generated with Dragon dictation software. It may contain incorrect words, spelling, and punctuation that were not noted in checking the note before signing.
[2024-06-14 08:53] VITALS: BP 139/85; BP 157/88; PULSE 76; PULSE 78; RESP 18; TEMP 35.6; TEMP 35.8
--- NOTE | 2024-06-14 10:12 | PCM.HBO.PN ---
History of Present Illness Date of Service: 06/14/24 Chief Complaint: Radiation cystitis History of Wound: Mr. Delgadillo is an 83-year-old referred by his urologist due to symptomatic radiation cystitis. He has a history of prostatic cancer, and is status-post radiation and surgery. Radiation was about 9 years ago. Has had 2 TURP procedures with the most recent being a few months ago. He has a history of incontinence and hematuria which improved somewhat following his second TURP. Other conservative measures so far have not been helpful. He has a history of atrial fibrillation and is on Eliquis. Otherwise, he feels well. No history of diabetes, heart failure, chronic lung disease or tobacco use. He also denies any seizure history. Progress of Wound: Progress: Today represents the 39th of 60 planned sessions of hyperbaric oxygen treatments. He has missed treatments for 1 week due to myringotomy tube being blocked. Tube was replaced 10 Jun 2024 by ENT and he tolerated this well. Tolerance of hyperbaric oxygen therapy: Hyperbaric oxygen treatment was provided as per the facility's protocol at 2.0 RAVINDER in 100% oxygen for 90 minutes without air breaks. The patient tolerated hyperbaric oxygen well, without complications or complaints. Upon emergence from the hyperbaric chamber, his vitals remained stable, and he was discharged in stable condition. Objective Data Objective Data Vital Signs: Vital Signs Temp Pulse Resp BP 96.0 F L 82 14 117/68 06/11/24 09:47 06/11/24 09:47 06/11/24 09:47 06/11/24 09:47 Weight: 220 lb Body Mass Index (BMI) 31.5 Exam Physical Exam Const alert, oriented x3 and no apparent distress HEENT normocephalic HEENT Narrative: Tympanostomy tubes present bilaterally. Right ear has some erythema and blood present at the tube insertion site. Left TM stable. Eyes General Eye: normal appearance of both eyes Resp normal respiratory effort and clear to auscultation bilaterally Effort and Inspection: able to speak in complete sentences Cardio regular rate Cardio Narrative: Patient is in Afib (this is typical for him) Psych mental status grossly normal, thought process normal, cooperative, affect normal and speech normal Assessment/Plan Assessment/Plan (1) Irradiation cystitis with hematuria: CODE(S): N30.41 - Irradiation cystitis with hematuria (2) History of prostate cancer: CODE(S): Z85.46 - Personal history of malignant neoplasm of prostate
--- NOTE | 2024-06-15 08:39 | PCM.HBO.PN ---
History of Present Illness Date of Service: 06/15/24 Chief Complaint: Radiation cystitis History of Wound: Mr. Delgadillo is an 83-year-old referred by his urologist due to symptomatic radiation cystitis. He has a history of prostatic cancer, and is status-post radiation and surgery. Radiation was about 9 years ago. Has had 2 TURP procedures with the most recent being a few months ago. He has a history of incontinence and hematuria which improved somewhat following his second TURP. Other conservative measures so far have not been helpful. He has a history of atrial fibrillation and is on Eliquis. Otherwise, he feels well. No history of diabetes, heart failure, chronic lung disease or tobacco use. He also denies any seizure history. Progress of Wound: Progress: Today represents the 39th of 60 planned sessions of hyperbaric oxygen treatments. Tolerance of hyperbaric oxygen therapy: Hyperbaric oxygen treatment was provided as per the facility's protocol at 2.0 RAVINDER in 100% oxygen for 90 minutes without air breaks. The patient tolerated hyperbaric oxygen well, without complications or complaints. Upon emergence from the hyperbaric chamber, his vitals remained stable, and he was discharged in stable condition. Objective Data Objective Data Vital Signs: Vital Signs Temp Pulse Resp BP 96.0 F L 78 18 139/85 H 06/14/24 08:53 06/14/24 08:53 06/14/24 08:53 06/14/24 08:53 Weight: 220 lb Body Mass Index (BMI) 31.5 Exam Physical Exam Const alert, oriented x3 and no apparent distress HEENT normocephalic HEENT Narrative: Tympanostomy tubes present bilaterally. Right ear erythema is resolving. Eyes General Eye: normal appearance of both eyes Resp normal respiratory effort and clear to auscultation bilaterally Effort and Inspection: able to speak in complete sentences Cardio regular rate Cardio Narrative: Patient is in Afib (this is typical for him) Psych mental status grossly normal, thought process normal, cooperative, affect normal and speech normal Charges/Coding [facility] Procedures HBO Supervision: [id number] Hyperbaric Oxygen; supervision Assessment/Plan Assessment/Plan (1) Irradiation cystitis with hematuria: CODE(S): N30.41 - Irradiation cystitis with hematuria (2) History of prostate cancer: CODE(S): Z85.46 - Personal history of malignant neoplasm of prostate PLAN: Plan The patient appears to be tolerating hyperbaric oxygen therapy well, which will be continued as per their medical treatment plan.
[2024-06-15 11:08] VITALS: BP 129/74; BP 147/83; PULSE 80; PULSE 87; RESP 16; TEMP 35.5; TEMP 36
[2024-06-16 08:31] VITALS: BP 131/78; BP 146/85; PULSE 77; PULSE 80; RESP 16; TEMP 35.4; TEMP 36
--- NOTE | 2024-06-16 13:03 | PCM.HBO.PN ---
History of Present Illness Date of Service: 06/16/24 Chief Complaint: Radiation cystitis History of Wound: Mr. Delgadillo is an 83-year-old referred by his urologist due to symptomatic radiation cystitis. He has a history of prostatic cancer, and is status-post radiation and surgery. Radiation was about 9 years ago. Has had 2 TURP procedures with the most recent being a few months ago. He has a history of incontinence and hematuria which improved somewhat following his second TURP. Other conservative measures so far have not been helpful. He has a history of atrial fibrillation and is on Eliquis. Otherwise, he feels well. No history of diabetes, heart failure, chronic lung disease or tobacco use. He also denies any seizure history. Progress of Wound: Progress: Today represents the th of 60 planned sessions of hyperbaric oxygen treatments. Tolerance of hyperbaric oxygen therapy: Hyperbaric oxygen treatment was provided as per the facility's protocol at 2.0 RAVINDER in 100% oxygen for 90 minutes without air breaks. The patient tolerated hyperbaric oxygen well, without complications or complaints. Upon emergence from the hyperbaric chamber, his vitals remained stable, and he was discharged in stable condition. Subjective Subjective States he is starting to see blood again in his urine and has frequency of urination Objective Data Objective Data Patient tolerated treatment well vital signs stable on admission and discharge no issues while on under pressure Vital Signs: Vital Signs Temp Pulse Resp BP 95.7 F L 77 16 131/78 H 06/16/24 08:31 06/16/24 08:31 06/16/24 08:31 06/16/24 08:31 Weight: 220 lb Body Mass Index (BMI) 31.5 Exam Physical Exam Const alert, oriented x3 and no apparent distress HEENT normocephalic HEENT Narrative: Tympanostomy tubes present. Right ear with increased drainage and the white inner canula of the tube has come out. Eyes General Eye: normal appearance of both eyes Resp normal respiratory effort and clear to auscultation bilaterally Effort and Inspection: able to speak in complete sentences Cardio regular rate Cardio Narrative: Patient is in Afib (this is typical for him) Psych mental status grossly normal, thought process normal, cooperative, affect normal and speech normal Assessment/Plan Assessment/Plan (1) Irradiation cystitis with hematuria: CODE(S): N30.41 - Irradiation cystitis with hematuria (2) History of prostate cancer: CODE(S): Z85.46 - Personal history of malignant neoplasm of prostate PLAN: Plan The patient appears to be tolerating hyperbaric oxygen therapy well, which will be continued as per their medical treatment plan.
[2024-06-17 08:46] VITALS: BP 130/89; BP 147/78; PULSE 81; PULSE 91; RESP 16; TEMP 35.6
--- NOTE | 2024-06-17 13:10 | PCM.HBO.PN ---
History of Present Illness Date of Service: 06/17/24 Chief Complaint: Radiation cystitis History of Wound: Mr. Delgadillo is an 83-year-old referred by his urologist due to symptomatic radiation cystitis. He has a history of prostatic cancer, and is status-post radiation and surgery. Radiation was about 9 years ago. Has had 2 TURP procedures with the most recent being a few months ago. He has a history of incontinence and hematuria which improved somewhat following his second TURP. Other conservative measures so far have not been helpful. He has a history of atrial fibrillation and is on Eliquis. Otherwise, he feels well. No history of diabetes, heart failure, chronic lung disease or tobacco use. He also denies any seizure history. Progress of Wound: Progress: Today represents the 41st of 60 planned sessions of hyperbaric oxygen treatments. Tolerance of hyperbaric oxygen therapy: Hyperbaric oxygen treatment was provided as per the facility's protocol at 2.0 RAVINDER in 100% oxygen for 90 minutes without air breaks. The patient tolerated hyperbaric oxygen well, without complications or complaints. Upon emergence from the hyperbaric chamber, his vitals remained stable, and he was discharged in stable condition. Objective Data Objective Data Vital Signs: Vital Signs Temp Pulse Resp BP 96.1 F L 81 16 130/89 H 06/17/24 08:46 06/17/24 08:46 06/17/24 08:46 06/17/24 08:46 Weight: 220 lb Body Mass Index (BMI) 31.5 Exam Physical Exam Const alert, oriented x3 and no apparent distress HEENT normocephalic HEENT Narrative: Tympanostomy tubes present bilaterally. Right ear erythema is resolving but there is increased drainage. Still able to visualize the tube. Eyes General Eye: normal appearance of both eyes Resp normal respiratory effort and clear to auscultation bilaterally Effort and Inspection: able to speak in complete sentences Cardio regular rate Cardio Narrative: Patient is in Afib (this is typical for him) Psych mental status grossly normal, thought process normal, cooperative, affect normal and speech normal Charges/Coding [facility] Procedures HBO Supervision: [id number] Hyperbaric Oxygen; supervision Assessment/Plan Assessment/Plan (1) Irradiation cystitis with hematuria: CODE(S): N30.41 - Irradiation cystitis with hematuria (2) History of prostate cancer: CODE(S): Z85.46 - Personal history of malignant neoplasm of prostate PLAN: Plan The patient appears to be tolerating hyperbaric oxygen therapy well, which will be continued as per their medical treatment plan.
[2024-06-21 10:11] VITALS: BP 142/87; BP 151/94; PULSE 77; PULSE 86; RESP 15; TEMP 35.6; TEMP 36.1
--- NOTE | 2024-06-21 13:14 | PCM.HBO.PN ---
History of Present Illness Date of Service: 06/21/24 Chief Complaint: Radiation cystitis History of Wound: Mr. Delgadillo is an 83-year-old referred by his urologist due to symptomatic radiation cystitis. He has a history of prostatic cancer, and is status-post radiation and surgery. Radiation was about 9 years ago. Has had 2 TURP procedures with the most recent being a few months ago. He has a history of incontinence and hematuria which improved somewhat following his second TURP. Other conservative measures so far have not been helpful. He has a history of atrial fibrillation and is on Eliquis. Otherwise, he feels well. No history of diabetes, heart failure, chronic lung disease or tobacco use. He also denies any seizure history. Progress of Wound: Progress: Today represents the 42nd of 60 planned sessions of hyperbaric oxygen treatments. Tolerance of hyperbaric oxygen therapy: Hyperbaric oxygen treatment was provided as per the facility's protocol at 2.0 RAVINDER in 100% oxygen for 90 minutes without air breaks. The patient tolerated hyperbaric oxygen well, without complications or complaints. Upon emergence from the hyperbaric chamber, his vitals remained stable, and he was discharged in stable condition. Objective Data Objective Data Vital Signs: Vital Signs Temp Pulse Resp BP 96.1 F L 77 15 142/87 H 06/21/24 10:11 06/21/24 10:11 06/21/24 10:11 06/21/24 10:11 Weight: 220 lb Body Mass Index (BMI) 31.5 Exam Physical Exam Const alert, oriented x3 and no apparent distress HEENT normocephalic HEENT Narrative: Tympanostomy tubes present bilaterally. Right ear erythema is resolving. Eyes General Eye: normal appearance of both eyes Resp normal respiratory effort and clear to auscultation bilaterally Effort and Inspection: able to speak in complete sentences Cardio regular rate Cardio Narrative: Patient is in Afib (this is typical for him) Psych mental status grossly normal, thought process normal, cooperative, affect normal and speech normal Charges/Coding [facility] Procedures HBO Supervision: [id number] Hyperbaric Oxygen; supervision Assessment/Plan Assessment/Plan (1) Irradiation cystitis with hematuria: CODE(S): N30.41 - Irradiation cystitis with hematuria (2) History of prostate cancer: CODE(S): Z85.46 - Personal history of malignant neoplasm of prostate PLAN: Plan The patient appears to be tolerating hyperbaric oxygen therapy well, which will be continued as per their medical treatment plan.
--- NOTE | 2024-06-22 09:14 | PCM.HBO.PN ---
History of Present Illness Date of Service: 06/22/24 Chief Complaint: Radiation cystitis History of Wound: Mr. Delgadillo is an 83-year-old referred by his urologist due to symptomatic radiation cystitis. He has a history of prostatic cancer, and is status-post radiation and surgery. Radiation was about 9 years ago. Has had 2 TURP procedures with the most recent being a few months ago. He has a history of incontinence and hematuria which improved somewhat following his second TURP. Other conservative measures so far have not been helpful. He has a history of atrial fibrillation and is on Eliquis. Otherwise, he feels well. No history of diabetes, heart failure, chronic lung disease or tobacco use. He also denies any seizure history. Progress of Wound: Progress: Today represents the 43rd of 60 planned sessions of hyperbaric oxygen treatments. Tolerance of hyperbaric oxygen therapy: Hyperbaric oxygen treatment was provided as per the facility's protocol at 2.0 RAVINDER in 100% oxygen for 90 minutes without air breaks. The patient tolerated hyperbaric oxygen well, without complications or complaints. Upon emergence from the hyperbaric chamber, his vitals remained stable, and he was discharged in stable condition. Objective Data Objective Data Vital Signs: Vital Signs Temp Pulse Resp BP 96.1 F L 77 15 142/87 H 06/21/24 10:11 06/21/24 10:11 06/21/24 10:11 06/21/24 10:11 Weight: 220 lb Body Mass Index (BMI) 31.5 Exam Physical Exam Const alert, oriented x3 and no apparent distress HEENT normocephalic HEENT Narrative: Tympanostomy tubes present bilaterally. Right ear erythema is resolving. Eyes General Eye: normal appearance of both eyes Resp normal respiratory effort and clear to auscultation bilaterally Effort and Inspection: able to speak in complete sentences Cardio regular rate Cardio Narrative: Patient is in Afib (this is typical for him) Psych mental status grossly normal, thought process normal, cooperative, affect normal and speech normal Charges/Coding [facility] Procedures HBO Supervision: [id number] Hyperbaric Oxygen; supervision Assessment/Plan Assessment/Plan (1) Irradiation cystitis with hematuria: CODE(S): N30.41 - Irradiation cystitis with hematuria (2) History of prostate cancer: CODE(S): Z85.46 - Personal history of malignant neoplasm of prostate PLAN: Plan The patient appears to be tolerating hyperbaric oxygen therapy well, which will be continued as per their medical treatment plan.
[2024-06-22 10:44] VITALS: BP 133/87; BP 160/92; PULSE 78; PULSE 79; RESP 14; RESP 16; TEMP 35.8; TEMP 36.1
[2024-06-23 10:44] VITALS: BP 140/77; BP 142/81; PULSE 86; PULSE 90; RESP 15; TEMP 35.6; TEMP 35.7
--- NOTE | 2024-06-23 12:56 | PCM.HBO.PN ---
History of Present Illness Date of Service: 06/23/24 Chief Complaint: Radiation cystitis History of Wound: Mr. Delgadillo is an 83-year-old referred by his urologist due to symptomatic radiation cystitis. He has a history of prostatic cancer, and is status-post radiation and surgery. Radiation was about 9 years ago. Has had 2 TURP procedures with the most recent being a few months ago. He has a history of incontinence and hematuria which improved somewhat following his second TURP. Other conservative measures so far have not been helpful. He has a history of atrial fibrillation and is on Eliquis. Otherwise, he feels well. No history of diabetes, heart failure, chronic lung disease or tobacco use. He also denies any seizure history. Progress of Wound: Progress: Today represents the 44 TH of 60 planned sessions of hyperbaric oxygen treatments. Tolerance of hyperbaric oxygen therapy: Hyperbaric oxygen treatment was provided as per the facility's protocol at 2.0 RAVINDER in 100% oxygen for 90 minutes without air breaks. The patient tolerated hyperbaric oxygen well, without complications or complaints. Upon emergence from the hyperbaric chamber, his vitals remained stable, and he was discharged in stable condition. Subjective Subjective Patient has no concerns and tolerated treatment well Objective Data Objective Data Admitted and discharged in stable condition Vital Signs: Vital Signs Temp Pulse Resp BP 96.2 F L 86 15 140/77 H 06/23/24 10:44 06/23/24 10:44 06/23/24 10:44 06/23/24 10:44 Weight: 220 lb Body Mass Index (BMI) 31.5 Exam Physical Exam Const alert, oriented x3 and no apparent distress HEENT normocephalic HEENT Narrative: Tympanostomy tubes present. Right ear with increased drainage and the white inner canula of the tube has come out. Eyes General Eye: normal appearance of both eyes Resp normal respiratory effort and clear to auscultation bilaterally Effort and Inspection: able to speak in complete sentences Cardio regular rate Cardio Narrative: Patient is in Afib (this is typical for him) Psych mental status grossly normal, thought process normal, cooperative, affect normal and speech normal Assessment/Plan Assessment/Plan (1) Irradiation cystitis with hematuria: CODE(S): N30.41 - Irradiation cystitis with hematuria (2) History of prostate cancer: CODE(S): Z85.46 - Personal history of malignant neoplasm of prostate PLAN: Plan The patient appears to be tolerating hyperbaric oxygen therapy well, which will be continued as per their medical treatment plan.
[2024-06-24 09:19] VITALS: BP 143/89; BP 151/60; PULSE 84; PULSE 92; RESP 14; TEMP 35.5; TEMP 35.7
--- NOTE | 2024-06-24 10:10 | PCM.HBO.PN ---
History of Present Illness Date of Service: 06/24/24 Chief Complaint: Radiation cystitis History of Wound: Mr. Delgadillo is an 83-year-old referred by his urologist due to symptomatic radiation cystitis. He has a history of prostatic cancer, and is status-post radiation and surgery. Radiation was about 9 years ago. Has had 2 TURP procedures with the most recent being a few months ago. He has a history of incontinence and hematuria which improved somewhat following his second TURP. Other conservative measures so far have not been helpful. He has a history of atrial fibrillation and is on Eliquis. Otherwise, he feels well. No history of diabetes, heart failure, chronic lung disease or tobacco use. He also denies any seizure history. Progress of Wound: Progress: Today represents the 45th of 60 planned sessions of hyperbaric oxygen treatments. Tolerance of hyperbaric oxygen therapy: Hyperbaric oxygen treatment was provided as per the facility's protocol at 2.0 RAVINDER in 100% oxygen for 90 minutes without air breaks. The patient tolerated hyperbaric oxygen well, without complications or complaints. Upon emergence from the hyperbaric chamber, his vitals remained stable, and he was discharged in stable condition. Objective Data Objective Data Vital Signs: Vital Signs Temp Pulse Resp BP 95.9 F L 92 14 151/60 H 06/24/24 09:19 06/24/24 09:19 06/24/24 09:19 06/24/24 09:19 Weight: 220 lb Body Mass Index (BMI) 31.5 Exam Physical Exam Const alert, oriented x3 and no apparent distress HEENT normocephalic HEENT Narrative: Tympanostomy tubes present bilaterally. Right ear erythema is resolving. Eyes General Eye: normal appearance of both eyes Resp normal respiratory effort and clear to auscultation bilaterally Effort and Inspection: able to speak in complete sentences Cardio regular rate Cardio Narrative: Patient is in Afib (this is typical for him) Psych mental status grossly normal, thought process normal, cooperative, affect normal and speech normal Charges/Coding [facility] Procedures HBO Supervision: [id number] Hyperbaric Oxygen; supervision Assessment/Plan Assessment/Plan (1) Irradiation cystitis with hematuria: CODE(S): N30.41 - Irradiation cystitis with hematuria (2) History of prostate cancer: CODE(S): Z85.46 - Personal history of malignant neoplasm of prostate PLAN: Plan The patient appears to be tolerating hyperbaric oxygen therapy well, which will be continued as per their medical treatment plan.
[2024-06-25 10:46] VITALS: BP 127/71; BP 139/78; PULSE 88; PULSE 90; RESP 15; RESP 16; TEMP 35.7
--- NOTE | 2024-06-25 13:30 | HBO.PN.PCM_ITS ---
History of Present Illness Date of Service: 06/25/24 Chief Complaint: Radiation cystitis History of Wound: Mr. Delgadillo is an 83-year-old referred by his urologist due to symptomatic radiation cystitis. He has a history of prostatic cancer, and is status-post radiation and surgery. Radiation was about 9 years ago. Has had 2 TURP procedures with the most recent being a few months ago. He has a history of incontinence and hematuria which improved somewhat following his second TURP. Other conservative measures so far have not been helpful. He has a history of atrial fibrillation and is on Eliquis. Otherwise, he feels well. No history of diabetes, heart failure, chronic lung disease or tobacco use. He also denies any seizure history. Progress of Wound: Progress: Today represents the 48th of 60 planned sessions of hyperbaric oxygen treatments. Tolerance of hyperbaric oxygen therapy: Hyperbaric oxygen treatment was provided as per the facility's protocol at 2.0 RAVINDER in 100% oxygen for 90 minutes without air breaks. The patient tolerated hyperbaric oxygen well, without complications or complaints. Upon emergence from the hyperbaric chamber, his vitals remained stable, and he was discharged in stable condition. Objective Data Objective Data Vital Signs: Vital Signs Temp Pulse Resp BP 96.2 F L 88 16 139/78 H 06/25/24 10:46 06/25/24 10:46 06/25/24 10:46 06/25/24 10:46 Weight: 99.79 kg Body Mass Index (BMI) 31.5 Exam Physical Exam Const alert, oriented x3 and no apparent distress HEENT Tympanic Membrane: other Other Details: right TM with clear tube present and patent, left ear with blue tube present and patent Resp normal respiratory effort and clear to auscultation bilaterally Cardio regular rate Psych mental status grossly normal, thought process normal, cooperative, affect normal and speech normal Assessment/Plan Assessment/Plan (1) Irradiation cystitis with hematuria: CODE(S): N30.41 - Irradiation cystitis with hematuria (2) History of prostate cancer: CODE(S): Z85.46 - Personal history of malignant neoplasm of prostate PLAN: Plan The patient appears to be tolerating hyperbaric oxygen therapy well, which will be continued as per his medical treatment plan. This note was generated with [employer] software. It may contain incorrect words, spelling, and punctuation that were not noted in checking the note before signing.
== END 2024-06-25 23:59 | disposition home or self-care (01) ==
LOC: WC 08:00
PROVIDERS: PCP Family Medicine; Referring Provider Urology; Visit Provider Internal Medicine
DX: N30.41 Irradiation cystitis with hematuria (principal); I48.91 Unspecified atrial fibrillation; Y84.2 Radiological procedure and radiotherapy as the cause of abnormal reaction of the patient, or of later complication, without mention of misadventure at the time of the procedure; H92.21 Otorrhagia, right ear; R35.0 Frequency of micturition; Z79.01 Long term (current) use of anticoagulants; Z79.899 Other long term (current) drug therapy; Z85.46 Personal history of malignant neoplasm of prostate; Z92.3 Personal history of irradiation
CPT/HCPCS: 99183; G0277

== ENCOUNTER 2024-07-15 08:00 | Outpatient (RCR) | payer MEDICARE, OTHER, SELFPAY ==
[2024-06-26 00:45] VITALS: BP 127/71; BP 139/78; BP 142/86; PULSE 74; PULSE 88; PULSE 90; RESP 15; RESP 16; RESP 18; TEMP 35.7; BMI 31.5
[2024-06-28 08:51] VITALS: BP 140/85; BP 143/69; PULSE 81; PULSE 84; RESP 14; TEMP 35.6; TEMP 35.7
--- NOTE | 2024-06-28 08:58 | PCM.HBO.PN ---
History of Present Illness Date of Service: 06/28/24 Chief Complaint: Radiation cystitis History of Wound: Mr. Degladillo is an 83-year-old referred by his urologist due to symptomatic radiation cystitis. He has a history of prostatic cancer, and is status-post radiation and surgery. Radiation was about 9 years ago. Has had 2 TURP procedures with the most recent being a few months ago. He has a history of incontinence and hematuria which improved somewhat following his second TURP. Other conservative measures so far have not been helpful. He has a history of atrial fibrillation and is on Eliquis. Otherwise, he feels well. No history of diabetes, heart failure, chronic lung disease or tobacco use. He also denies any seizure history. Subjective Subjective Patient has no concerns and tolerated treatment well Objective Data Objective Data Vital Signs: Vital Signs Temp Pulse Resp BP 96.0 F L 84 14 140/85 H 06/28/24 08:51 06/28/24 08:51 06/28/24 08:51 06/28/24 08:51 Weight: 220 lb Body Mass Index (BMI) 31.5 Exam Physical Exam Const alert, oriented x3 and no apparent distress HEENT Tympanic Membrane: other Other Details: right TM with clear tube present and patent, left ear with blue tube present and patent Resp normal respiratory effort Cardio regular rate Cardio Narrative: Abnormal rhythm Psych mental status grossly normal, thought process normal, cooperative, affect normal and speech normal Charges/Coding [facility] Codes Wound [facility] Procedures Wound Center HBO: [id number] Hyperbaric Oxygen; supervision Assessment/Plan Assessment/Plan (1) Irradiation cystitis with hematuria: CODE(S): N30.41 - Irradiation cystitis with hematuria (2) History of prostate cancer: CODE(S): Z85.46 - Personal history of malignant neoplasm of prostate PLAN: Plan The patient appears to be tolerating hyperbaric oxygen therapy well, which will be continued as per his medical treatment plan. 48th treatment today
[2024-06-29 10:29] VITALS: BP 136/70; BP 140/80; PULSE 81; PULSE 82; RESP 16; TEMP 35.1; TEMP 35.7
--- NOTE | 2024-06-29 10:33 | PCM.HBO.PN ---
History of Present Illness Date of Service: 06/29/24 Chief Complaint: Radiation cystitis History of Wound: Mr. Delgadillo is an 83-year-old referred by his urologist due to symptomatic radiation cystitis. He has a history of prostatic cancer, and is status-post radiation and surgery. Radiation was about 9 years ago. Has had 2 TURP procedures with the most recent being a few months ago. He has a history of incontinence and hematuria which improved somewhat following his second TURP. Other conservative measures so far have not been helpful. He has a history of atrial fibrillation and is on Eliquis. Otherwise, he feels well. No history of diabetes, heart failure, chronic lung disease or tobacco use. He also denies any seizure history. Progress of Wound: Progress: Today represents the 50th of 60 planned sessions of hyperbaric oxygen treatments. Tolerance of hyperbaric oxygen therapy: Hyperbaric oxygen treatment was provided as per the facility's protocol at 2.0 RAVINDER in 100% oxygen for 90 minutes without air breaks. The patient tolerated hyperbaric oxygen well, without complications or complaints. Upon emergence from the hyperbaric chamber, his vitals remained stable, and he was discharged in stable condition. Objective Data Objective Data Vital Signs: Vital Signs Temp Pulse Resp BP 95.1 F L 81 16 136/70 H 06/29/24 10:29 06/29/24 10:29 06/29/24 10:29 06/29/24 10:29 Weight: 220 lb Body Mass Index (BMI) 31.5 Exam Physical Exam Const alert, oriented x3 and no apparent distress HEENT normocephalic HEENT Narrative: Tympanostomy tubes present bilaterally. Eyes General Eye: normal appearance of both eyes Resp normal respiratory effort and clear to auscultation bilaterally Effort and Inspection: able to speak in complete sentences Cardio regular rate Cardio Narrative: Patient is in Afib (this is typical for him) Psych mental status grossly normal, thought process normal, cooperative, affect normal and speech normal Nursing Assessment and Debridement Post-Debridement Measurements and Additional Note: Post-Debridement Measurements/Treatment WC - Nurse 3 - General Ulcer D/C NN Start: 06/28/24 08:51 Freq: Status: Active Protocol: Activity Type Activity Date Activity User E-sign Co-sign Detail Recorded Client Recorded Date Recorded By Document 06/29/24 10:29 ARPITA [id number] 06/29/24 10:33 JF 06/29/24 10:29 Pain Scale: 0-10 Numeric Is Patient Pain Free? Yes WC - Visit Discharge Discharge Condition Stable Ambulatory Status Ambulatory Transportation Private Auto Charges/Coding Wound Center CF Procedures HBO Supervision: [id number] Hyperbaric Oxygen; supervision Assessment/Plan Assessment/Plan (1) Irradiation cystitis with hematuria: CODE(S): N30.41 - Irradiation cystitis with hematuria (2) History of prostate cancer: CODE(S): Z85.46 - Personal history of malignant neoplasm of prostate PLAN: Plan The patient appears to be tolerating hyperbaric oxygen therapy well, which will be continued as per their medical treatment plan.
[2024-06-30 08:47] VITALS: BP 128/97; BP 135/77; PULSE 75; PULSE 98; RESP 16; TEMP 35.3; TEMP 35.6
--- NOTE | 2024-07-01 09:43 | PCM.HBO.PN ---
History of Present Illness Date of Service: 07/01/24 Chief Complaint: Radiation cystitis History of Wound: Mr. Delgadillo is an 83-year-old referred by his urologist due to symptomatic radiation cystitis. He has a history of prostatic cancer, and is status-post radiation and surgery. Radiation was about 9 years ago. Has had 2 TURP procedures with the most recent being a few months ago. He has a history of incontinence and hematuria which improved somewhat following his second TURP. Other conservative measures so far have not been helpful. He has a history of atrial fibrillation and is on Eliquis. Otherwise, he feels well. No history of diabetes, heart failure, chronic lung disease or tobacco use. He also denies any seizure history. Progress of Wound: Progress: Today represents the 51st of 60 planned sessions of hyperbaric oxygen treatments. Tolerance of hyperbaric oxygen therapy: Hyperbaric oxygen treatment was administered as per the facility's protocol at 2.0 RAVINDER in 100% oxygen for 90 minutes without air breaks. The patient tolerated hyperbaric oxygen well, without complications or complaints. Upon emergence from the hyperbaric chamber, his vitals remained stable, and he was discharged in stable condition. Objective Data Objective Data Vital Signs: Vital Signs Temp Pulse Resp BP 95.6 F L 75 16 135/77 H 06/30/24 08:47 06/30/24 08:47 06/30/24 08:47 06/30/24 08:47 Weight: 220 lb Body Mass Index (BMI) 31.5 Exam Physical Exam Const alert, oriented x3 and no apparent distress General Appearance: cooperative, comfortable and well kempt HEENT normocephalic, head/scalp atraumatic and hearing grossly normal bilaterally Tympanic Membrane: other Other Details: Bilateral tympanostomy tubes noted. Eyes EOMs intact bilaterally General Eye: normal appearance of both eyes Neck full ROM General: normal visual inspection Resp normal respiratory effort Effort and Inspection: able to speak in complete sentences Neuro oriented x3, CN's II-XII intact bilaterally, moves all extremities and no focal motor deficits Psych mental status grossly normal, thought process normal and cooperative Nursing Assessment and Debridement Post-Debridement Measurements and Additional Note: Post-Debridement Measurements/Treatment WC - Nurse 3 - General Ulcer D/C NN Start: 06/28/24 08:51 Freq: Status: Active Protocol: Activity Type Activity Date Activity User E-sign Co-sign Detail Recorded Client Recorded Date Recorded By Document 06/29/24 10:29 ARPITA [id number] 06/29/24 10:33 ARPITA 06/29/24 10:29 Pain Scale: 0-10 Numeric Is Patient Pain Free? Yes WC - Visit Discharge Discharge Condition Stable Ambulatory Status Ambulatory Transportation Private Auto Charges/Coding Wound Center CF Procedures HBO Supervision: [id number] Hyperbaric Oxygen; supervision Assessment/Plan Assessment/Plan (1) Irradiation cystitis with hematuria: CODE(S): N30.41 - Irradiation cystitis with hematuria (2) History of prostate cancer: CODE(S): Z85.46 - Personal history of malignant neoplasm of prostate PLAN: Plan The patient appears to be tolerating hyperbaric oxygen therapy well, which will be continued as per his medical treatment plan. This note was generated with [employer] dictation software. It may contain incorrect words, spelling, and punctuation that were not noted in checking the note before signing.
[2024-07-01 09:52] VITALS: BP 126/92; BP 140/66; PULSE 81; PULSE 95; RESP 15; TEMP 35.5; TEMP 35.6
[2024-07-02 11:39] VITALS: BP 127/90; BP 136/94; PULSE 83; PULSE 84; RESP 14; TEMP 35.3; TEMP 35.6
--- NOTE | 2024-07-02 15:12 | HBO.PN.PCM_ITS ---
History of Present Illness Date of Service: 07/02/24 Chief Complaint: Radiation cystitis History of Wound: Mr. Delgadillo is an 83-year-old referred by his urologist due to symptomatic radiation cystitis. He has a history of prostatic cancer, and is status-post radiation and surgery. Radiation was about 9 years ago. Has had 2 TURP procedures with the most recent being a few months ago. He has a history of incontinence and hematuria which improved somewhat following his second TURP. Other conservative measures so far have not been helpful. He has a history of atrial fibrillation and is on Eliquis. Otherwise, he feels well. No history of diabetes, heart failure, chronic lung disease or tobacco use. He also denies any seizure history. Progress of Wound: Progress: Today represents the 52nd of 60 planned sessions of hyperbaric oxygen treatments. Tolerance of hyperbaric oxygen therapy: Hyperbaric oxygen treatment was administered as per the facility's protocol at 2.0 RAVINDER in 100% oxygen for 90 minutes without air breaks. The patient tolerated hyperbaric oxygen well, without complications or complaints. Upon emergence from the hyperbaric chamber, his vitals remained stable, and he was discharged in stable condition. Objective Data Objective Data Vital Signs: Vital Signs Temp Pulse Resp BP 96.1 F L 83 14 127/90 H 07/02/24 11:39 07/02/24 11:39 07/02/24 11:39 07/02/24 11:39 Weight: 99.79 kg Body Mass Index (BMI) 31.5 Exam Physical Exam Const alert, oriented x3 and no apparent distress HEENT Tympanic Membrane: other Other Details: right TM with clear tube present and patent, left ear with blue tube present and patent Resp normal respiratory effort and clear to auscultation bilaterally Cardio regular rate Psych mental status grossly normal, thought process normal, cooperative, affect normal and speech normal Assessment/Plan Assessment/Plan (1) Irradiation cystitis with hematuria: CODE(S): N30.41 - Irradiation cystitis with hematuria (2) History of prostate cancer: CODE(S): Z85.46 - Personal history of malignant neoplasm of prostate PLAN: Plan The patient appears to be tolerating hyperbaric oxygen therapy well, which will be continued as per his medical treatment plan. This note was generated with [employer] software. It may contain incorrect words, spelling, and punctuation that were not noted in checking the note before signing.
--- NOTE | 2024-07-04 19:29 | PCM.HBO.PN ---
History of Present Illness Date of Service: 06/30/24 Chief Complaint: Radiation cystitis History of Wound: Mr. Delgadillo is an 83-year-old referred by his urologist due to symptomatic radiation cystitis. He has a history of prostatic cancer, and is status-post radiation and surgery. Radiation was about 9 years ago. Has had 2 TURP procedures with the most recent being a few months ago. He has a history of incontinence and hematuria which improved somewhat following his second TURP. Other conservative measures so far have not been helpful. He has a history of atrial fibrillation and is on Eliquis. Otherwise, he feels well. No history of diabetes, heart failure, chronic lung disease or tobacco use. He also denies any seizure history. Progress of Wound: Progress: Today represents the 50th of 60 planned sessions of hyperbaric oxygen treatments. Tolerance of hyperbaric oxygen therapy: Hyperbaric oxygen treatment was administered as per the facility's protocol at 2.0 RAVINDER in 100% oxygen for 90 minutes without air breaks. The patient tolerated hyperbaric oxygen well, without complications or complaints. Upon emergence from the hyperbaric chamber, his vitals remained stable, and he was discharged in stable condition. Objective Data Objective Data Vital Signs: Vital Signs Temp Pulse Resp BP 96.1 F L 83 14 127/90 H 07/02/24 11:39 07/02/24 11:39 07/02/24 11:39 07/02/24 11:39 Weight: 220 lb Body Mass Index (BMI) 31.5 Exam Physical Exam Const alert, oriented x3 and no apparent distress General Appearance: cooperative and well developed HEENT normocephalic, EAC's normal and TM's normal bilaterally HEENT Narrative: Tubes are noted bilaterally in the tympanic membranes Head and Scalp: atraumatic Eyes EOMs intact bilaterally Resp normal respiratory effort and no use of accessory muscles Effort and Inspection: able to speak in complete sentences Psych mental status grossly normal, thought process normal, cooperative, affect normal and speech normal Appearance: grossly normal Charges/Coding Wound Center CF Procedures HBO Supervision: [id number] Hyperbaric Oxygen; supervision Assessment/Plan Assessment/Plan (1) Irradiation cystitis with hematuria: CODE(S): N30.41 - Irradiation cystitis with hematuria (2) History of prostate cancer: CODE(S): Z85.46 - Personal history of malignant neoplasm of prostate PLAN: Plan The patient appears to be tolerating hyperbaric oxygen therapy well, which will be continued as per his medical treatment plan.
--- NOTE | 2024-07-06 09:07 | PCM.HBO.PN ---
History of Present Illness Date of Service: 07/06/24 Chief Complaint: Radiation cystitis History of Wound: Mr. Delgadillo is an 83-year-old referred by his urologist due to symptomatic radiation cystitis. He has a history of prostatic cancer, and is status-post radiation and surgery. Radiation was about 9 years ago. Has had 2 TURP procedures with the most recent being a few months ago. He has a history of incontinence and hematuria which improved somewhat following his second TURP. Other conservative measures so far have not been helpful. He has a history of atrial fibrillation and is on Eliquis. Otherwise, he feels well. No history of diabetes, heart failure, chronic lung disease or tobacco use. He also denies any seizure history. Progress of Wound: Progress: Today represents the 53th of 60 planned sessions of hyperbaric oxygen treatments. Tolerance of hyperbaric oxygen therapy: Hyperbaric oxygen treatment was administered as per the facility's protocol at 2.0 RAVINDER in 100% oxygen for 90 minutes without air breaks. The patient tolerated hyperbaric oxygen well, without complications or complaints. Upon emergence from the hyperbaric chamber, his vitals remained stable, and he was discharged in stable condition. Objective Data Objective Data Vital Signs: Vital Signs Temp Pulse Resp BP 96.1 F L 83 14 127/90 H 07/02/24 11:39 07/02/24 11:39 07/02/24 11:39 07/02/24 11:39 Weight: 220 lb Body Mass Index (BMI) 31.5 Exam Physical Exam Const alert, oriented x3 and no apparent distress HEENT normocephalic HEENT Narrative: Tympanostomy tubes present bilaterally. Eyes General Eye: normal appearance of both eyes Resp normal respiratory effort and clear to auscultation bilaterally Effort and Inspection: able to speak in complete sentences Cardio regular rate Cardio Narrative: Patient is in Afib (this is typical for him) Psych mental status grossly normal, thought process normal, cooperative, affect normal and speech normal Charges/Coding Wound Center CF Procedures HBO Supervision: [id number] Hyperbaric Oxygen; supervision Assessment/Plan Assessment/Plan (1) Irradiation cystitis with hematuria: CODE(S): N30.41 - Irradiation cystitis with hematuria (2) History of prostate cancer: CODE(S): Z85.46 - Personal history of malignant neoplasm of prostate PLAN: Plan The patient appears to be tolerating hyperbaric oxygen therapy well, which will be continued as per their medical treatment plan.
[2024-07-06 09:25] VITALS: BP 127/80; BP 143/90; PULSE 85; PULSE 88; RESP 14; TEMP 35.4; TEMP 35.8
[2024-07-07 08:54] VITALS: BP 137/75; BP 139/68; PULSE 80; PULSE 81; RESP 15; TEMP 35.5; TEMP 35.7
--- NOTE | 2024-07-07 11:42 | PCM.HBO.PN ---
History of Present Illness Date of Service: 07/07/24 Chief Complaint: Radiation cystitis History of Wound: Mr. Delgadillo is an 83-year-old referred by his urologist due to symptomatic radiation cystitis. He has a history of prostatic cancer, and is status-post radiation and surgery. Radiation was about 9 years ago. Has had 2 TURP procedures with the most recent being a few months ago. He has a history of incontinence and hematuria which improved somewhat following his second TURP. Other conservative measures so far have not been helpful. He has a history of atrial fibrillation and is on Eliquis. Otherwise, he feels well. No history of diabetes, heart failure, chronic lung disease or tobacco use. He also denies any seizure history. Progress of Wound: Progress: Today represents the 54th of 60 planned sessions of hyperbaric oxygen treatments. Tolerance of hyperbaric oxygen therapy: Hyperbaric oxygen treatment was administered as per the facility's protocol at 2.0 RAVINDER in 100% oxygen for 90 minutes without air breaks. The patient tolerated hyperbaric oxygen well, without complications or complaints. Upon emergence from the hyperbaric chamber, his vitals remained stable, and he was discharged in stable condition. Subjective Subjective Patient voiced no concerns and is tolerant to the treatment Objective Data Objective Data Vital signs stable on admission and discharge there is no issues with diving patient was content on discharge we will follow-up with next treatment Vital Signs: Vital Signs Temp Pulse Resp BP 95.9 F L 81 15 137/75 H 07/07/24 08:54 07/07/24 08:54 07/07/24 08:54 07/07/24 08:54 Weight: 220 lb Body Mass Index (BMI) 31.5 Exam Physical Exam Const alert, oriented x3 and no apparent distress HEENT normocephalic HEENT Narrative: Tympanostomy tubes present. Right ear with increased drainage and the white inner canula of the tube has come out. Eyes General Eye: normal appearance of both eyes Resp normal respiratory effort and clear to auscultation bilaterally Effort and Inspection: able to speak in complete sentences Cardio regular rate Cardio Narrative: Patient is in Afib (this is typical for him) Psych mental status grossly normal, thought process normal, cooperative, affect normal and speech normal Assessment/Plan Assessment/Plan (1) Irradiation cystitis with hematuria: CODE(S): N30.41 - Irradiation cystitis with hematuria (2) History of prostate cancer: CODE(S): Z85.46 - Personal history of malignant neoplasm of prostate PLAN: Plan The patient appears to be tolerating hyperbaric oxygen therapy well, which will be continued as per their medical treatment plan.
[2024-07-08 09:28] VITALS: BP 128/70; BP 146/65; PULSE 80; PULSE 85; RESP 14; TEMP 35.6; TEMP 35.7
--- NOTE | 2024-07-08 09:37 | PCM.HBO.PN ---
History of Present Illness Date of Service: 07/08/24 Chief Complaint: Radiation cystitis History of Wound: Mr. Delgadillo is an 83-year-old referred by his urologist due to symptomatic radiation cystitis. He has a history of prostatic cancer, and is status-post radiation and surgery. Radiation was about 9 years ago. Has had 2 TURP procedures with the most recent being a few months ago. He has a history of incontinence and hematuria which improved somewhat following his second TURP. Other conservative measures so far have not been helpful. He has a history of atrial fibrillation and is on Eliquis. Otherwise, he feels well. No history of diabetes, heart failure, chronic lung disease or tobacco use. He also denies any seizure history. Progress of Wound: Progress: Today represents the 55th of 60 planned sessions of hyperbaric oxygen treatments. Tolerance of hyperbaric oxygen therapy: Hyperbaric oxygen treatment was administered as per the facility's protocol at 2.0 RAVINDER in 100% oxygen for 90 minutes without air breaks. The patient tolerated hyperbaric oxygen well, without complications or complaints. Upon emergence from the hyperbaric chamber, his vitals remained stable, and he was discharged in stable condition. Objective Data Objective Data Vital Signs: Vital Signs Temp Pulse Resp BP 95.9 F L 81 15 137/75 H 07/07/24 08:54 07/07/24 08:54 07/07/24 08:54 07/07/24 08:54 Weight: 220 lb Body Mass Index (BMI) 31.5 Exam Physical Exam Const alert, oriented x3 and no apparent distress HEENT normocephalic HEENT Narrative: Tympanostomy tubes present bilaterally. Right ear with increased drainage. Eyes General Eye: normal appearance of both eyes Resp normal respiratory effort and clear to auscultation bilaterally Effort and Inspection: able to speak in complete sentences Cardio regular rate Cardio Narrative: Patient is in Afib (this is typical for him) Psych mental status grossly normal, thought process normal, cooperative, affect normal and speech normal Charges/Coding Wound Center CF Procedures HBO Supervision: [id number] Hyperbaric Oxygen; supervision Assessment/Plan Assessment/Plan (1) Irradiation cystitis with hematuria: CODE(S): N30.41 - Irradiation cystitis with hematuria (2) History of prostate cancer: CODE(S): Z85.46 - Personal history of malignant neoplasm of prostate PLAN: Plan The patient appears to be tolerating hyperbaric oxygen therapy well, which will be continued as per their medical treatment plan.
[2024-07-09 10:20] VITALS: BP 138/60; BP 142/92; PULSE 79; PULSE 83; RESP 13; TEMP 35.3; TEMP 35.8
--- NOTE | 2024-07-09 14:01 | PCM.HBO.PN ---
History of Present Illness Date of Service: 07/09/24 Chief Complaint: Radiation cystitis History of Wound: Mr. Delgadillo is an 83-year-old referred by his urologist due to symptomatic radiation cystitis. He has a history of prostatic cancer, and is status-post radiation and surgery. Radiation was about 9 years ago. Has had 2 TURP procedures with the most recent being a few months ago. He has a history of incontinence and hematuria which improved somewhat following his second TURP. Other conservative measures so far have not been helpful. He has a history of atrial fibrillation and is on Eliquis. Otherwise, he feels well. No history of diabetes, heart failure, chronic lung disease or tobacco use. He also denies any seizure history. Progress of Wound: Progress: Today represents the 56th of 60 planned sessions of hyperbaric oxygen treatments. Tolerance of hyperbaric oxygen therapy: Hyperbaric oxygen treatment was administered as per the facility's protocol at 2.0 RAVINDER in 100% oxygen for 90 minutes without air breaks. The patient tolerated hyperbaric oxygen well, without complications or complaints. Upon emergence from the hyperbaric chamber, his vitals remained stable, and he was discharged in stable condition. Objective Data Objective Data Vital Signs: Vital Signs Temp Pulse Resp BP 95.6 F L 83 13 138/60 H 07/09/24 10:20 07/09/24 10:20 07/09/24 10:20 07/09/24 10:20 Weight: 99.79 kg Body Mass Index (BMI) 31.5 Exam Physical Exam Const alert, oriented x3 and no apparent distress Resp normal respiratory effort and clear to auscultation bilaterally Cardio regular rate Psych mental status grossly normal, thought process normal, cooperative, affect normal and speech normal Assessment/Plan Assessment/Plan (1) Irradiation cystitis with hematuria: CODE(S): N30.41 - Irradiation cystitis with hematuria (2) History of prostate cancer: CODE(S): Z85.46 - Personal history of malignant neoplasm of prostate PLAN: Plan The patient appears to be tolerating hyperbaric oxygen therapy well, which will be continued as per his medical treatment plan. This note was generated with [employer] software. It may contain incorrect words, spelling, and punctuation that were not noted in checking the note before signing.
[2024-07-12 08:37] VITALS: BP 125/81; BP 153/84; PULSE 83; PULSE 92; RESP 16; TEMP 35.8
--- NOTE | 2024-07-12 08:37 | PCM.HBO.PN ---
History of Present Illness Date of Service: 07/12/24 Chief Complaint: Radiation cystitis History of Wound: Mr. Delgadillo is an 83-year-old referred by his urologist due to symptomatic radiation cystitis. He has a history of prostatic cancer, and is status-post radiation and surgery. Radiation was about 9 years ago. Has had 2 TURP procedures with the most recent being a few months ago. He has a history of incontinence and hematuria which improved somewhat following his second TURP. Other conservative measures so far have not been helpful. He has a history of atrial fibrillation and is on Eliquis. Otherwise, he feels well. No history of diabetes, heart failure, chronic lung disease or tobacco use. He also denies any seizure history. Progress of Wound: Progress: Today represents the 57th of 60 planned sessions of hyperbaric oxygen treatments. Tolerance of hyperbaric oxygen therapy: Hyperbaric oxygen treatment was administered as per the facility's protocol at 2.0 RAVINDER in 100% oxygen for 90 minutes without air breaks. The patient tolerated hyperbaric oxygen well, without complications or complaints. Upon emergence from the hyperbaric chamber, his vitals remained stable, and he was discharged in stable condition. Subjective Subjective Attended an appointment at the [facility] last week about his bladder and is hopeful that there is an upcoming urologic intervention that can help him. Feels like the HBO has heled a little. Objective Data Objective Data Vital Signs: Vital Signs Temp Pulse Resp BP 95.6 F L 83 13 138/60 H 07/09/24 10:20 07/09/24 10:20 07/09/24 10:20 07/09/24 10:20 Weight: 220 lb Body Mass Index (BMI) 31.5 Exam Physical Exam Const alert, oriented x3 and no apparent distress HEENT Tympanic Membrane: other Other Details: right TM with clear tube present and patent, left ear with blue tube present and patent Resp normal respiratory effort Cardio regular rate Cardio Narrative: Abnormal rhythm Psych mental status grossly normal, thought process normal, cooperative, affect normal and speech normal Charges/Coding Wound [facility] Procedures HBO Supervision: [id number] Hyperbaric Oxygen; supervision Assessment/Plan Assessment/Plan (1) Irradiation cystitis with hematuria: CODE(S): N30.41 - Irradiation cystitis with hematuria (2) History of prostate cancer: CODE(S): Z85.46 - Personal history of malignant neoplasm of prostate PLAN: Plan The patient appears to be tolerating hyperbaric oxygen therapy well, which will be continued as per his medical treatment plan.
[2024-07-14 09:14] VITALS: BP 128/75; BP 141/74; PULSE 88; PULSE 94; RESP 15; TEMP 35.4; TEMP 35.6
--- NOTE | 2024-07-14 13:04 | PCM.HBO.PN ---
History of Present Illness Date of Service: 07/14/24 Chief Complaint: Radiation cystitis History of Wound: Mr. Delgadillo is an 83-year-old referred by his urologist due to symptomatic radiation cystitis. He has a history of prostatic cancer, and is status-post radiation and surgery. Radiation was about 9 years ago. Has had 2 TURP procedures with the most recent being a few months ago. He has a history of incontinence and hematuria which improved somewhat following his second TURP. Other conservative measures so far have not been helpful. He has a history of atrial fibrillation and is on Eliquis. Otherwise, he feels well. No history of diabetes, heart failure, chronic lung disease or tobacco use. He also denies any seizure history. Progress of Wound: Progress: Today represents the 58th of 60 planned sessions of hyperbaric oxygen treatments. Tolerance of hyperbaric oxygen therapy: Hyperbaric oxygen treatment was administered as per the facility's protocol at 2.0 RAVINDER in 100% oxygen for 90 minutes without air breaks. The patient tolerated hyperbaric oxygen well, without complications or complaints. Upon emergence from the hyperbaric chamber, his vitals remained stable, and he was discharged in stable condition. Subjective Subjective No concerns Objective Data Objective Data Patient admitted and discharged in good health and stable vital signs Vital Signs: Vital Signs Temp Pulse Resp BP 95.7 F L 88 15 141/74 H 07/14/24 09:14 07/14/24 09:14 07/14/24 09:14 07/14/24 09:14 Weight: 220 lb Body Mass Index (BMI) 31.5 Exam Physical Exam Const alert, oriented x3 and no apparent distress HEENT normocephalic HEENT Narrative: Tympanostomy tubes present. Right ear with increased drainage and the white inner canula of the tube has come out. Eyes General Eye: normal appearance of both eyes Resp normal respiratory effort and clear to auscultation bilaterally Effort and Inspection: able to speak in complete sentences Cardio regular rate Cardio Narrative: Patient is in Afib (this is typical for him) Psych mental status grossly normal, thought process normal, cooperative, affect normal and speech normal Assessment/Plan Assessment/Plan (1) Irradiation cystitis with hematuria: CODE(S): N30.41 - Irradiation cystitis with hematuria (2) History of prostate cancer: CODE(S): Z85.46 - Personal history of malignant neoplasm of prostate PLAN: Plan The patient appears to be tolerating hyperbaric oxygen therapy well, which will be continued as per his medical treatment plan.
--- NOTE | 2024-07-15 09:44 | HBO.PN.PCM_ITS ---
History of Present Illness Date of Service: 07/15/24 Chief Complaint: Radiation cystitis History of Wound: Mr. Delgadillo is an 83-year-old referred by his urologist due to symptomatic radiation cystitis. He has a history of prostatic cancer, and is status-post radiation and surgery. Radiation was about 9 years ago. Has had 2 TURP procedures with the most recent being a few months ago. He has a history of incontinence and hematuria which improved somewhat following his second TURP. Other conservative measures so far have not been helpful. He has a history of atrial fibrillation and is on Eliquis. Otherwise, he feels well. No history of diabetes, heart failure, chronic lung disease or tobacco use. He also denies any seizure history. Progress of Wound: Progress: Today represents the 59th of 60 planned sessions of hyperbaric oxygen treatments. Tolerance of hyperbaric oxygen therapy: Hyperbaric oxygen treatment was administered as per the facility's protocol at 2.0 RAVINDER in 100% oxygen for 90 minutes without air breaks. The patient tolerated hyperbaric oxygen well, without complications or complaints. Upon emergence from the hyperbaric chamber, his vitals remained stable, and he was discharged in stable condition. Objective Data Objective Data Vital Signs: Vital Signs Temp Pulse Resp BP 95.7 F L 88 15 141/74 H 07/14/24 09:14 07/14/24 09:14 07/14/24 09:14 07/14/24 09:14 Weight: 220 lb Body Mass Index (BMI) 31.5 Exam Physical Exam Const alert, oriented x3 and no apparent distress General Appearance: cooperative, comfortable and well kempt HEENT normocephalic, head/scalp atraumatic and hearing grossly normal bilaterally Tympanic Membrane: other Other Details: Bilateral tympanostomy tubes noted. Eyes EOMs intact bilaterally General Eye: normal appearance of both eyes Neck full ROM General: normal visual inspection Resp normal respiratory effort Effort and Inspection: able to speak in complete sentences Neuro oriented x3, CN's II-XII intact bilaterally, moves all extremities and no focal motor deficits Psych mental status grossly normal, thought process normal and cooperative Charges/Coding Wound [facility] CF Procedures HBO Supervision: [id number] Hyperbaric Oxygen; supervision Assessment/Plan Assessment/Plan (1) Irradiation cystitis with hematuria: CODE(S): N30.41 - Irradiation cystitis with hematuria (2) History of prostate cancer: CODE(S): Z85.46 - Personal history of malignant neoplasm of prostate PLAN: Plan The patient appears to be tolerating hyperbaric oxygen therapy well, which will be continued as per his medical treatment plan. This note was generated with [employer] dictation software. It may contain incorrect words, spelling, and punctuation that were not noted in checking the note before signing.
[2024-07-15 10:16] VITALS: BP 135/77; BP 155/72; PULSE 76; PULSE 86; RESP 14; RESP 16; TEMP 35.6
[2024-07-16 10:05] VITALS: BP 123/59; BP 146/66; PULSE 78; PULSE 88; RESP 14; RESP 15; TEMP 35.8; TEMP 35.9
--- NOTE | 2024-07-16 14:03 | PCM.HBO.PN ---
History of Present Illness Date of Service: 07/16/24 Chief Complaint: Radiation cystitis History of Wound: Mr. Delgadillo is an 83-year-old referred by his urologist due to symptomatic radiation cystitis. He has a history of prostatic cancer, and is status-post radiation and surgery. Radiation was about 9 years ago. Has had 2 TURP procedures with the most recent being a few months ago. He has a history of incontinence and hematuria which improved somewhat following his second TURP. Other conservative measures so far have not been helpful. He has a history of atrial fibrillation and is on Eliquis. Otherwise, he feels well. No history of diabetes, heart failure, chronic lung disease or tobacco use. He also denies any seizure history. Progress of Wound: Progress: Today represents the 60th of 60 planned sessions of hyperbaric oxygen treatments. Tolerance of hyperbaric oxygen therapy: Hyperbaric oxygen treatment was administered as per the facility's protocol at 2.0 RAVINDER in 100% oxygen for 90 minutes without air breaks. The patient tolerated hyperbaric oxygen well, without complications or complaints. Upon emergence from the hyperbaric chamber, his vitals remained stable, and he was discharged in stable condition. Objective Data Objective Data Vital Signs: Vital Signs Temp Pulse Resp BP 96.7 F L 88 14 123/59 H 07/16/24 10:05 07/16/24 10:05 07/16/24 10:05 07/16/24 10:05 Weight: 99.79 kg Body Mass Index (BMI) 31.5 Exam Physical Exam Const alert, oriented x3 and no apparent distress General Appearance: cooperative, comfortable and well kempt HEENT normocephalic, head/scalp atraumatic and hearing grossly normal bilaterally Tympanic Membrane: other Other Details: Bilateral tympanostomy tubes noted. Eyes EOMs intact bilaterally General Eye: normal appearance of both eyes Neck full ROM General: normal visual inspection Resp normal respiratory effort and clear to auscultation bilaterally Effort and Inspection: able to speak in complete sentences Cardio regular rate Neuro oriented x3, CN's II-XII intact bilaterally, moves all extremities and no focal motor deficits Psych mental status grossly normal, thought process normal, cooperative, affect normal and speech normal Assessment/Plan Assessment/Plan (1) Irradiation cystitis with hematuria: CODE(S): N30.41 - Irradiation cystitis with hematuria (2) History of prostate cancer: CODE(S): Z85.46 - Personal history of malignant neoplasm of prostate PLAN: Plan The patient appears to be tolerating hyperbaric oxygen therapy well, which will be continued as per his medical treatment plan. This note was generated with [employer] software. It may contain incorrect words, spelling, and punctuation that were not noted in checking the note before signing.
== END 2024-07-26 23:59 | disposition home or self-care (01) ==
LOC: WC 08:00
PROVIDERS: PCP Family Medicine; Referring Provider Urology; Visit Provider Internal Medicine
DX: N30.41 Irradiation cystitis with hematuria (principal); I48.91 Unspecified atrial fibrillation; Z79.01 Long term (current) use of anticoagulants; Z79.899 Other long term (current) drug therapy; Z85.46 Personal history of malignant neoplasm of prostate
CPT/HCPCS: 99183; G0277

== ENCOUNTER → 2024-10-28 | Outpatient (CLI) | payer MEDICARE, OTHER, SELFPAY ==
[2024-10-28 16:08] LABS: Anion Gap 13 (5-15); BUN 24 mg/dL (4-19); BUN/Creat Ratio 13.7 RATIO (10-20); Calcium,Total 9.4 mg/dL (7.6-11.0); Carbon Dioxide 23.1 mmol/L (21.0-32.0); Chloride 107 mmol/L (98-108); Cholesterol 124 mg/dL (<=200); Glucose 116 mg/dL (70-99); Low Density Lipoprotein Calc. 68 mg/dL; Potassium 4.2 mmol/L (3.3-5.1); Triglycerides 99 mg/dL; Very Low Density Lipoprotein 20 mg/dL (5-40); cholesterol:hdl ratio screen 3.46
== END | disposition home or self-care (01) ==
LOC: MFPLAB 11:18
PROVIDERS: PCP Family Medicine; Referring Provider Family Medicine; Visit Provider Family Medicine
DX: I10 Essential (primary) hypertension (principal)
CPT/HCPCS: 36415; 80048; 80061

== ENCOUNTER 2025-01-25 08:30 | Outpatient (RCR) | payer MEDICARE, OTHER, SELFPAY ==
--- NOTE | 2025-01-06 14:00 | HP.OTEVAL_ITS ---
Patient's Visit Information Visit Information Visit Information: LEAH FOY is a 84 year old M, referred to Occupational Therapy by Dr. Franklin Vegas MD, with a diagnosis of palmar fascial fibromatosis. Date of Evaluation: 01/06/25 Occupational Therapist: Courtney Hutton Subjective Subjective: This 84 year old male arrives with dx of palmar fascial release to L hand RF injections complete 01/03/25 then manipulation which was performed earlier this date 01/06/[address] Vegas. pt is R hand dominant. pt is very active with yardwork outside. Pt states he had been dealing with issue for past two years. prior to manipulation pt digit stuck into flexed position not functional for use. Pain L hand: Current Pain Intensity: 3 Objective Objective/Observation: pt arrives with L hand splinted into extension and coban wrapped around finger ROM MP: L D4 -30/60 R D4 0/85 PIP: L D4 -10/85 R D4 0/95 ROM Comments: all other ROM WFL Edema PIP: L 7 cm R 8 cm Proximal Phalanx: L hand 21 cm R hand 22 cm Sensation Sensation Comments: pt arrives still numb from manipulation earlier this date Quick DASH-Disab of Arm,Shoulder& Hand Quick DASH Score: 6.8175 Goals Goal:ROM equal to unaffected hand: Yes Goal:PIP Circumferences equal to unaffected hand: Yes Goal:Full use of affected hand in daily activities including work: Yes Comment: orthosis Other Goal: pt will verbalize/ demonstrate 100% accuracy in proper orthosis wear by second session Rehabilitation General Assessment: This 84 richard old male arrives with dx of palmar fascial release. Pt presents with L hand swelling as well as decreased ROM and functional use. Pt just has recieved manipulation this date and physician request nighttime splint to be made for pt. Paddle splint fabricated for pts L hand with ed and training on wear sched and how to don and doff. pt would benefit from OT services 1x a week for 3-4 weeks in order to complete edema management, orthosis modifications as well as L hand ROM. Rehabilitation Potential: Good Anticipated Interventions Anticipated Interventions: A/AAROM/PROM, Edema Control, Orthoses, Education re Diagnosis and Home Program Visit Plan Frequency: 1x/Week Duration: 3-4 weeks General Plan: L hand RF AROM/AAROM/PROM edema management orthosis modifications TEXT: Thank you for the opportunity to evaluate your patient. For Medicare and Medicare HMO plans, please review the plan of care and approve it. It will need to be FAXED BACK to us at [phone] for Medicare purposes. Please let me know if there are questions or concerns regarding this plan of care. Physician Signature: Date:
--- NOTE | 2025-04-05 14:58 | HP.OT.NRP ---
Patient Information Patient Information: LEAH FOY was seen in my office for initial evaluation on 01/06/25. The following Plan of Care was established for this patient: POC Established Initial Frequency: 1x/Week Initial Duration: 3-4 weeks Plan: paddle splint at night functionally using hand for flexion during day working on extensor ROM and strengthening Anticipated Interventions Anticipated Interventions: A/AAROM/PROM, Edema Control, Orthoses, Education re Diagnosis and Home Program Last Seen Last Seen: This patient was last seen in our office 01/25/25. Pertinent comments regarding their Occupational therapy will appear below: This 84 year old male seen for dx of palmar fascia fibromatosis. pt seen for eval and splint and one additional visit. Discharge from OT caseload at this time due to lapse in time of services. At this point I will be discontinuing this patient from occupational therapy. I would be happy to see this patient again in the future if found appropriate by the physician. Thank you! Courtney Hutton
== END 2025-01-25 19:00 | disposition home or self-care (01) ==
LOC: OT 08:30
PROVIDERS: PCP Family Medicine; Referring Provider Orthopaedic Surgery; Visit Provider Orthopaedic Surgery
DX: M72.0 Palmar fascial fibromatosis [Dupuytren] (principal)
CPT/HCPCS: 97166; 97530; 97760

== ENCOUNTER → 2025-02-03 | Outpatient (CLI) | payer MEDICARE, OTHER, SELFPAY ==
--- NOTE | 2025-02-03 17:08 | STRESSREP ---
Stress Test Report Pharmacologic myocardial perfusion stress test. 84-year-old man with a history of cp. Resting EKG demonstrates atrial fibrillation with a rate of 60 bpm. Resting blood pressure is 162/98 mmHg. 0.4 mg of regadenoson was infused per usual protocol followed by rapid intravenous saline flush injection. Continuous EKG monitoring was performed. The maximum heart rate was 78 bpm which was 56% of max impacted heart rate the maximum workload was 1 metabolic equivalent. At rest there were no ST or T wave changes noted to suggest ischemia and at peak infusion nonspecific ST changes were noted which did not meet the criteria for ischemia. No clinical angina is noted. The final blood pressure was 136/82mmHg. Myocardial perfusion protocol. 14 mCi of technetium 99m sestamibi was injected at rest. 0.4 mg of regadenoson was infused per usual protocol. At peak infusion 44.3 mCi of technetium 99m sestamibi was injected stress images were obtained stress and rest images were reconstructed and compared in the short axis vertical long and horizontal long axis. Gated images were also obtained. Perfusion SPECT analysis: Review of the stress images demonstrate normal uptake of tracer noted in all areas of the myocardium. The resting images similar demonstrated normal uptake of tracer noted in all areas of the myocardium. No areas of reversibility are noted to suggest ischemia and no previous infarct is noted. Gated SPECT analysis: The gated ejection fraction is 62%. Conclusion: Normal pharmacologic myocardial perfusion stress test. Normal ejection fraction.
== END | disposition home or self-care (01) ==
PROVIDERS: PCP Family Medicine; Referring Provider Nurse Practitioner Family; Visit Provider Nurse Practitioner Family
DX: R07.89 Other chest pain (principal); I48.11 Longstanding persistent atrial fibrillation; R53.83 Other fatigue
CPT/HCPCS: 78452; 93017; A9500; A4216; J2785

== ENCOUNTER → 2025-03-10 | Outpatient (CLI) | payer MEDICARE, OTHER, SELFPAY ==
[2025-03-10 15:21] LABS: Hematocrit 47.7 % (40-54); Hemoglobin 15.6 g/dL (13.0-16.5); Mean Corp Hgb Conc 32.7 g/dL (32-36); Mean Corpuscular Volume 87.0 fL (80-94); Mean Platelet Vol. 11.4 fl (6.2-12.0); Platelet Count 177 K/mm3 (150-450); RBC Distribution Width CV 13.5 % (11.6-14.6); RBC Distribution Width SD 43.5 fl (35.1-43.9); Red Blood Count 5.48 M/mm3 (4.6-6.2); White Blood Count 6.1 K/mm3 (4.4-11.0)
[2025-03-10 15:40] LABS: AST(SGOT) 22 U/L (<=37); Alanine Aminotransfer ALT/SGPT 13 U/L (<=46); Albumin, Serum 4.5 g/dL (3.4-4.8); Alkaline Phosphatase 92 U/L (40-129); Anion Gap 12 (5-15); BUN 20 mg/dL (4-19); BUN/Creat Ratio 11.8 RATIO (10-20); Calcium,Total 9.8 mg/dL (7.6-11.0); Carbon Dioxide 23.5 mmol/L (21.0-32.0); Chloride 106 mmol/L (98-108); Globulin 3.0 g/dL (2.2-4.2); Glucose 119 mg/dL (70-99); Potassium 3.9 mmol/L (3.3-5.1)
[2025-03-10 15:43] LABS: PTHIN 83 pg/mL (11-61)
[2025-03-10 15:53] LABS: Anion Gap 13 (5-15); BUN 20 mg/dL (4-19); BUN/Creat Ratio 11.7 RATIO (10-20); Calcium,Total 9.6 mg/dL (7.6-11.0); Carbon Dioxide 23.6 mmol/L (21.0-32.0); Chloride 106 mmol/L (98-108); Glucose 118 mg/dL (70-99); Iron 105 ug/dL (65-175); Potassium 3.9 mmol/L (3.3-5.1); Vitamin D,25 Hydroxy 54.0 ng/mL (30-100)
== END | disposition home or self-care (01) ==
LOC: MTLAB 13:35
PROVIDERS: PCP Family Medicine; Referring Provider Family Medicine; Visit Provider Family Medicine
DX: N18.30 Chronic kidney disease, stage 3 unspecified (principal); E58 Dietary calcium deficiency
CPT/HCPCS: 36415; 80048; 80053; 82306; 83540; 83970; 85027